=== PATIENT | male | born 1970 | race Caucasian/White ===

== ENCOUNTER 2019-09-01 11:30 | Outpatient (CLI) | payer MEDICAID, SELFPAY ==
--- NOTE | 2019-09-01 11:35 | XR_ITS ---
WS: [id number] RIGHT FOOT: 3 VIEW(S) TECHNIQUE: AP, oblique and lateral. HISTORY: RIGHT FOOT PAIN COMPARISON: None available. No acute fracture or dislocation. Foreign body in the distal fifth metatarsals probably from prior ledezma rgery. Normal tarsal/metatarsal alignment. No soft tissue abnormality or bone destruction. XR/XR foot RT min 3V* [id number] IMPRESSION: No acute fracture identified.
== END 2019-09-01 11:31 | disposition home or self-care (01) ==
PROVIDERS: Family Provider Family Medicine; PCP Family Medicine; Visit Provider Family Medicine
DX: M79.671 Pain in right foot (principal)
CPT/HCPCS: 73630

== ENCOUNTER → 2019-11-07 08:02 | Outpatient (BNVA) | payer MEDICAID, SELFPAY | PROVIDERS: Family Provider Family Medicine; PCP Family Medicine; Visit Provider Nurse Practitioner Psychiatric/Mental Health | DX: F33.2 Major depressive disorder, recurrent severe without psychotic features (principal); F41.1 Generalized anxiety disorder; F15.21 Other stimulant dependence, in remission; F43.12 Post-traumatic stress disorder, chronic; F17.210 Nicotine dependence, cigarettes, uncomplicated | CPT/HCPCS: 99214 ==

== ENCOUNTER → 2019-12-11 07:28 | Outpatient (BNVA) | payer MEDICAID, SELFPAY | PROVIDERS: Family Provider Family Medicine; PCP Family Medicine; Visit Provider Nurse Practitioner Psychiatric/Mental Health | DX: F33.2 Major depressive disorder, recurrent severe without psychotic features (principal); F41.1 Generalized anxiety disorder; F15.21 Other stimulant dependence, in remission; F43.12 Post-traumatic stress disorder, chronic; F17.210 Nicotine dependence, cigarettes, uncomplicated; F12.20 Cannabis dependence, uncomplicated; F10.20 Alcohol dependence, uncomplicated | CPT/HCPCS: 99213 ==

== ENCOUNTER 2020-03-10 17:48 | Inpatient (IN) | payer MEDICAID, SELFPAY ==
[2020-03-10 17:48] VITALS: PULSE 118; RESP 18; TEMP 36.6; O2SAT 95; BMI 27.1
[2020-03-10] MEDS: haloperidol inj 5 mg/mL INJ 1 mL IM ×2 (18:02→18:38)
[2020-03-10] MEDS: diphenhydrAMINE 50 mg/mL SDV 1mL IM (18:02)
[2020-03-10] MEDS: LORazepam 2 mg/mL INJ 1 mL IM (18:02)
[2020-03-10] MEDS: nicotine 21 mg Patch 1 PATCH TRANSDERMA (18:54)
--- NOTE | 2020-03-10 19:10 | W.ED.PSYCH ---
HPI - Psych General: Chief Complaint: Psychiatric Symptoms Stated Complaint: SI Time Seen by Provider: 03/10/20 18:01 Review of Systems General: Reports: ROS unobtainable due to mental status PFSH ED PFSH: Medical History Alcohol dependence Amphetamine substance use disorder, moderate, in early remission Cannabis dependence with current use Chronic post-traumatic stress disorder Generalized anxiety disorder Major depressive disorder, recurrent severe without psychotic features Nicotine dependence, cigarettes, uncomplicated Physical Exam Const: COMMON NORMALS: patient oriented x3 and alert GENERAL APPEARANCE: anxious, combative and appears older than stated age HENMT: COMMON NORMALS: normocephalic, atraumatic, external ears normal, EAC's normal and Normal external nose present HEAD & SCALP: normal to inspection, normocephalic and atraumatic FACE & SINUS: normal facial exam and face symmetric NOSE: Normal external nose present and Normal nares present EXTERNAL EAR: Yes external ears normal EXTERNAL AUDITORY CANAL: EAC's normal MOUTH: Normal oral and palatal mucosa present, lip normal and tongue normal Eye: COMMON NORMALS: Equal, round and reactive pupils present and conjunctivae normal GENERAL EYE: appearance normal, both eyes and all related structures ALIGNMENT: Yes alignment normal PERIORBITAL: periorbital findings normal EYELID: eyelids normal CONJUNCTIVA: Yes conjunctivae normal SCLERA: sclerae normal PUPIL: Yes Equal, round and reactive pupils present Neck/C-Spine: COMMON NORMALS: full ROM, no lymphadenopathy, supple, no meningeal signs and no JVD GENERAL: Yes normal visual inspection and Yes trachea midline Chest: COMMONS NORMALS: normal inspection of the chest and normal palpation of entire chest wall Resp: COMMON NORMALS: normal respiratory effort, No retractions, No use of accessory muscles and clear to auscultation bilaterally EFFORT & INSPECTION: Yes able to speak in complete sentences and Yes symmetric chest movement AUSCULTATION: clear to auscultation bilaterally, no crackles, no rales, no rhonchi and no wheezes Cardio: COMMON NORMALS: no JVD, regular rate, regular rhythm, S1 normal heart sound present and S2 normal heart sound present RATE: regular rate RHYTHM: regular rhythm HEART SOUNDS: S1 normal heart sound present, S2 normal heart sound present, no click, no gallops, no murmurs and no rubs GI: COMMON NORMALS: Soft to palpation and No hepatosplenomegaly present PALPATION: Yes Soft to palpation, No Tenderness to palpation present (GI), No Guarding due to palpation present (GI), No Rigid due to palpation, Yes No hepatosplenomegaly present, No Hernia present, No Palpable mass present and No Pulsatile mass present : COMMON NORMALS: Yes no CVA tenderness BLADDER/KIDNEY EXAM: Yes no CVA tenderness Back/Pelvis: COMMON NORMALS: no CVA tenderness, thoracic and lumbar spine normal to inspection, no thoracic nor lumbar tenderness and thoraco-lumbar ROM normal Extremity: COMMON NORMALS: normal to inspection, full ROM, capillary refill normal, no joint enlargement, no clubbing, cyanosis or edema and no calf tenderness Neuro: COMMON NORMALS: patient oriented x3, CN's II-XII intact bilaterally, moves all extremities, no focal motor deficits and no sensory deficits noted SENSORIUM/ORIENTATION: Yes alert MENINGEAL SIGNS: Yes no meningeal signs SPEECH: speech normal Psych: APPEARANCE: Yes disheveled ATTITUDE: Yes paranoid, Yes uncooperative, Yes Belligerent attititude/behavior present, Yes agitated, Yes aggressive and Yes hostile ACTIVITY/MOTOR BEHAVIOR: Yes Avoids eye contact (attititude/behavior) SPEECH: Yes loud and Yes Pressured speech present MOOD & AFFECT: Yes anxious, Yes irritable and Yes hostile affect THOUGHT CONTENT: Yes Suicidality present and Yes Homicidality present INSIGHT: Poor insight present (Psych) JUDGEMENT: Poor judgement present (Psych) Skin: COMMON NORMALS: no rashes or lesions noted, turgor normal, no jaundice, no petechiae and no mottling GENERAL SKIN EXAM: no rashes or lesions noted and turgor normal MDM - Psych MDM Narrative: Medical decision making narrative: The case was reviewed with Dr. Ness, he agrees to admit for further evaluation and care and stabilization. Patient is aware is been placed under 96-hour hold. Lab Data: Attestation: I reviewed the patient's lab results. Discharge Plan Discharge Patient Disposition: Admitted As Inpatient Clinical Impression: Suicidal ideation, Acute psychosis, Homicidal ideations Condition: Stable Prescriptions: No Action quetiapine [Seroquel] 100 mg tablet 100 mg PO .QHS Qty: 30 RF: 4 Referrals: Roque Gonzalez DO [Primary Care Provider] - Coding Level of Care Code ED Medical Surgery Nurse for [facility]
[2020-03-10 20:05] LABS: Basophils # 0.1 10^3/uL (0.0-0.1); Basophils % 0.5 %; Eosinophils # 0.1 10^3/uL (0.0-0.8); Hematocrit 53.9 % (42.0-52.0); Hemoglobin 17.9 g/dL (11.7-16.6); Lymphocytes # 2.9 10^3/uL (0.8-4.8); Lymphocytes % 27.3 %; Mean Corpuscular HGB Conc 33.2 g/dL (30.0-36.0); Mean Corpuscular Hemoglobin 30.2 pg (28.0-34.0); Mean Platelet Volume 9.8 fL (7.4-10.4); Monocytes # 0.6 10^3/uL (0.2-0.9); Monocytes % 5.2 %; Neutrophils # 7.04 10^3/uL (1.8-7.7); Neutrophils % 65.7 %; Nucleated Red Blood Cells % 0 %; Platelet Count 330 10^3/cmm (130-400); Red Blood Count 5.92 10^6/uL (4.1-5.3); Red Cell Distribution Width 11.9 % (12.1-15.1); White Blood Count 10.7 10^3/uL (4.0-10.0)
[2020-03-10 20:33] LABS: Alanine Aminotransferase 31 U/L (0-41); Albumin Level 4.5 g/dL (3.5-5.2); Alcohol Level 144 mg/dL (0-10); Alkaline Phosphatase 101 IU/L (40-130); Anion Gap 16.7 (5-19); Aspartate Amino Transferase 20 U/L (0-40); Blood Urea Nitrogen 10 mg/dL (6-20); Calcium 9.4 mg/dL (8.5-10.5); Carbon Dioxide 24 mmol/L (22-29); Chloride 101 mmol/L (98-107); Globulin 2.9 g/dL (1.3-4.6); Glomerular Filtration Rate 79.1 mL/min (90-130); Glucose 92 mg/dL (65-115); Osmolality Calculated 285 mOsm/kg (285-295); Potassium 3.7 mmol/L (3.5-5.1); Sodium 138 mmol/L (136-145); Total Bilirubin 0.3 mg/dL (0.15-1.2); Total Protein 7.4 g/dL (6.6-8.7)
[2020-03-10 20:35] LABS: Acetaminophen < 5.0 ug/mL (10-30); Salicylate < 0.3 mg/dL (3-10)
--- NOTE | 2020-03-10 21:36 | PC.NURSE ---
pt refuses to provide a urine specimen at this time. notified.
[2020-03-10 21:37] VITALS: BP 164/72; PULSE 88; RESP 16; O2SAT 96
--- NOTE | 2020-03-10 21:44 | PC.NURSE ---
pt report called to RN in SBAR format.
--- NOTE | 2020-03-10 21:50 | PC.NURSE ---
Report from Ed Pt brought in by police with SI. Bal 144 no UDS results. Hostile, aggressive in ED. Thrashing about while handcuffed. Given a total of 2mg IM Ativan, 50mg IM Benedryl, and 10mg Haldol IM during ED stay. last dose of Haldol was given at 1830. He has a nicotine patch on . Is aware that he has a 96hr hold in place quick to arouse. Holding his head on admission to NPU. Calm as he came in.
[2020-03-10 22:06] VITALS: BP 119/82; PULSE 76; RESP 17; TEMP 36.4; O2SAT 99
[2020-03-10] MEDS: acetaminophen 325 mg Tablet 650 MG PO (22:15)
[2020-03-10] MEDS: ondansetron 4 MG Tablet PO (22:16)
[2020-03-10] MEDS: hyDROXYzine 25 mg Capsule 50 MG PO (22:16)
[2020-03-10] MEDS: trazodone 50 mg Tablet PO (22:16)
[2020-03-10 22:54] LABS: Add Urine Microscopic? YES; Bilirubin Urine Neg (Negative); Blood Urine Neg (Negative); Glucose Urine UA Norm (Normal); Ketones Urine Negative (Negative); Leukocyte Esterase Urine Negative (Negative); Nitrate Urine Negative (Negative); Protein Urine Neg (Negative); Urine Appearance Hazy (CLEAR); Urine Color Yellow (Yellow); Urobilinogen Urine Norm (Negative); pH Urine 5 (5-7)
[2020-03-10 23:05] LABS: Add Urine Culture? No; Bacteria Urine TRACE /hpf
[2020-03-10 23:50] LABS: Amphetamines Screen Urine Positive (Negative); Barbiturates Screen Urine Negative (Negative); Benzodiazepines Screen Urine Positive (Negative); Cocaine Screen Urine Negative (Negative); Opiate Screen Urine Negative (Negative); PCP Screen Urine Negative (Negative); THC Screen Urine Positive (Negative)
[2020-03-11] MEDS: LORazepam 2 mg Tablet PO (03:35)
--- NOTE | 2020-03-11 03:36 | PC.NURSE ---
patient awoke with increased s/s of withdrawal. CIWA score if 13. 2mg Ativan given per protocol.
[2020-03-11 06:00] VITALS: BP 121/65; PULSE 95; RESP 17; TEMP 37.1; O2SAT 98
[2020-03-11] MEDS: multivitamin therapeutic Tablet 1 TAB PO (08:04)
[2020-03-11] MEDS: folic acid 1 mg Tablet PO (08:04)
[2020-03-11] MEDS: thiamine 100 mg Tablet PO (08:04)
[2020-03-11] MEDS: acetaminophen 325 mg Tablet 650 MG PO ×2 (11:44→19:34)
[2020-03-11] MEDS: LORazepam 1 mg Tablet PO ×2 (12:54→20:42)
[2020-03-11 13:47] VITALS: BP 118/77; PULSE 86; RESP 20; TEMP 36.7; O2SAT 96
--- NOTE | 2020-03-11 14:07 | PM.NHP ---
Providers/Chief Complaint Admitting Physician: Woodrow Ness MD Primary Care Provider: Roque Gonzalez DO Chief Complaint: SI HPI NPU History of Present Illness I have done this too many times. This is just a consequence for the life I have led. Jose Roberto Dumont is a 49 year old male who was admitted to the adult psychiatric unit on the strength of an affidavit filed by local police. Apparently, the officer was dispatched to the patient's home. It is unclear how police became aware that this man was suicidal. While being questioned, he made suicidal statements and that he wished we would just shoot him. The patient denies at this time that he is having thoughts of ending his life. He says that he is in acute crisis after having lost his job. He says that he is a lifetime of partying and he is suffering the consequences. Apparently, he was partying over the weekend. 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 He subsequently got to work, and passed out in the parking lot. He has now been terminated from his employment. He apparently then went back to where he was staying which is with his mother. His urine drug screen is positive for methamphetamine, marijuana, benzodiazepines, and his blood alcohol level was 144. He says that at this point, his major concern is being in the substance abuse withdrawal. We tried to discuss issues of mental health treatment. He said that he has been through it all and has been treated with all kinds of medications. None have worked. He is not interested in more medication treatment. We discussed his substance abuse history. He says that recently, he has been drinking between 5 and 10 shots per night. It is unknown if this is accurate. He uses marijuana on a regular basis. He says the methamphetamine and benzodiazepines are not a persistent problem for him and that it was more of a self-destructive act. He denied suicidal or homicidal ideation. He denied the presence of auditory or visual hallucinations. He refused to discuss symptoms of depression. He apparently has engaged in substance use in a maladaptive manner for most of his life. He says that his divorce and his estrangement from one of his 2 children is all due to his behavior when he has been inebriated or intoxicated. He has been through rehab on multiple occasions. He said that it provides him no benefit. He says the most effective intervention has been his active participation in either Alcoholics Anonymous or Narcotics Anonymous. He does not have a sponsor at this time. He has not been attending either at this time. Past psychiatric history: The patient was not conversant about his past psychiatric history and is not believed to be a reliable informant in that manner. However we do have records from hospitalization in March 2017: Mar 21, 2017 Chief Complaint: Suicidal ideation and depression HPI: Mr. Dumont is a 46-year-old male who presented to the [facility] ED with complaint of worsening depression and suicidal ideation with increase intensity over the past month. He admits to depression symptoms characterized by depressed mood associated with low energy, low motivation, describing it as debilitating , with suicidal ideation, hopelessness, low self efficacy, low self-esteem, irritability, and negative self talk. He does also admit to associated anxiety in the form of worry and panic, and racing thoughts with ruminations, and sometimes feels quite paranoid. He denies any associated hallucinations, he denies any current symptoms consistent with claudia or hypomania. Reports marijuana use of the frequency of 2 times per week, most recently used methamphetamines in 02/27/2017, and admixed ongoing cravings. Recently he also reports using OxyContin, but denies any alcohol use. Mr. Dumont is a 46-year-old male who appears to have had a long history of depression episodes since his early 20s has been complicated by a lifetime associated with relapsing and alcohol and substance use. As he presents today his symptoms of depression are quite severe, characterized by hopelessness low self-esteem, which in turn appeared to support his ruminations about regrets for the past, fair for his future, and anxiety in the present. He spends a fair amount of this time feeling ashamed and miserable . His symptom presentation is also supported by his recent substance use, and also by his current psychosocial consequences. Patient reports a history of intravenous drug use and at this time is not interested in being screened for hepatitis or HIV. Brief History: Mr. Dumont is a 46-year-old male who presented to the [facility] ED with complaint of worsening depression and suicidal ideation with increase intensity over the past month. He admits to depression symptoms characterized by depressed mood associated with low energy, low motivation, describing it as debilitating , with suicidal ideation, hopelessness, low self efficacy, low self-esteem, irritability, and negative self talk. He does also admit to associated anxiety in the form of worry and panic, and racing thoughts with ruminations, and sometimes feels quite paranoid. He denies any associated hallucinations, he denies any current symptoms consistent with claudia or hypomania. Reports marijuana use of the frequency of 2 times per week, most recently used methamphetamines in 02/27/2017, and admixed ongoing cravings. Recently he also reports using OxyContin, but denies any alcohol use. Hospital Course: Patient was admitted to the NPU and after several discussions regarding his symptoms and his history of substance use, we agreed that he will most likely struggles with bipolar disorder type II, complicated by a long history of intermittent substance and alcohol use. He was treated methamphetamine withdrawal. It also became quite clear the patient experiences significant anxiety, in the form of persisting worry, rumination, with somatic components including nausea, and insomnia. For this reason after long discussion we agreed to a trial of schedule clonazepam, and understanding that this may be challenging to continue the outpatient side, we created a benzodiazepine treatment contract that outlines expectations with regard to his use of clonazepam, and the expectation that his mother will be the person that will be the primary dispenser of this medication for him. In addition he was started on Depakote, sertraline, and trazodone. By the day of discharge his symptoms were much improved, there are no psychotic symptoms, his mood symptoms were more stable, his anxiety was under better control, and he was future oriented. As part of his outpatient treatment plan he is connecting with and will citing a sponsor. Incoordination with case management services, he was connected with a prescribing provider, and case management services at [facility] [place]. Clonazepam Tab (Klonopin Tab) 1.5 MG PO QID Divalproex ER (Depakote ER) 1500 MG PO DAILY, Sertraline Tab (Zoloft Tab) 200 MG PO DAILY, Take 1 and 1/2 tablet once daily for 14 days, then increase to 2 tablets once daily Naltrexone Hcl Tab (Revia Tab) 50 Mg daily Trazodone Tab (Trazodone Tab) 150 Mg Tablet BEDTIME PRN for FOR SLEEP, Review of Systems Narrative: Review of Systems Constitutional: Complains of: Fatigue Eyes: Complains of: No eye symptoms ENT/Mouth: Complains of: No ENTM symptoms Cardiovascular: Complains of: No cardiac symptoms Respiratory: Complains of: No respiratory symptoms GI: Complains of: No GI symptoms Neuro: Complains of: No neuro symptoms Musculoskeletal: Complains of: No musculoskeletal symptoms Skin: Complains of: No skin symptoms Hematologic/Lymphatic: Complains of: No hematologic/lymphatic symptoms Endocrine: Complains of: No endocrine symptoms : Complains of: No symptoms Psych: Complains of: Depression, Suicide ideation Meds NPU Home Medications Medication Instructions Recorded Confirmed Last Taken Type Seroquel 100 mg tablet 100 mg PO .QHS #30 tab NS 11/07/19 03/10/20 03/09/20 Rx Allergies Allergy/AdvReac Type Severity Reaction Status Date / Time No Known Allergies Allergy Unverified 03/10/20 17:52 PFSH NPU PFSH: Medical History Alcohol dependence Amphetamine substance use disorder, moderate, in early remission Cannabis dependence with current use Chronic post-traumatic stress disorder Generalized anxiety disorder Major depressive disorder, recurrent severe without psychotic features Nicotine dependence, cigarettes, uncomplicated Mental Status Exam MSE Comments: Mental Status Exam: The patient is a tall well muscular male appearing approximately his stated age. Eye contact is good. His complexion is vadim and he appears fatigued. Eyes are downcast. Psychomotoric activity is decreased. He sits in a closed posture. Appearance: hygiene is fair; no gross neurological deficits., gait is unremarkable; AIMS=0 Speech: Speech is of normal rate and rhythm and easily understood. He speaks in short sentences. The answers are pertinent to the questions asked but he does not elaborate. Thought processes: Thought processes are abstract. Judgment is adequate for safety. Associations: intact Psychotic processes: There is no indication of guarding or paranoia. There is no attention to the internal stimuli. Auditory and visual hallucinations are denied. Judgment: Insight is fair. Problem solving skills are adequate for safety. Orientation: The patient is oriented to person, place time and situation. Memory: no deficits noted in immediate, intermediate, or remote spheres. Attention: The patient is alert and interpersonally engaged. Language: Verbalizations are coherent. Fund of knowledge: Fund of knowledge is adequate. Affect/Mood: Affect is consistent with a depressed mood. pt denies suicidal ideation Affective range is constricted Psychosis: perception unimpaired except through cognitive distortion; reality testing intact. Vitals/I&O/Wt Last Vital Signs Temp 98.1 F 03/11/20 13:47 Pulse 86 03/11/20 13:47 Resp 20 H 03/11/20 13:47 BP 118/77 03/11/20 13:47 Pulse Ox 96 03/11/20 13:47 Weight last 48 hrs Weight 90.718 kg Data NPU : 03/10/20 19:49 03/10/20 19:49 A&P Assessment and plan (1) Suicidal ideation: Status: Acute (2) Alcohol dependence: Status: Acute Qualifiers: Substance use status: with intoxication Complication of substance-induced condition: uncomplicated Qualified Code(s): F10.220 - Alcohol dependence with intoxication, uncomplicated (3) Amphetamine substance use disorder, moderate, in early remission: Status: Chronic (4) Alcohol intoxication: Status: Acute Qualifiers: Complication of substance-induced condition: uncomplicated Qualified Code(s): F10.920 - Alcohol use, unspecified with intoxication, uncomplicated (5) Amphetamine intoxication: Status: Acute Qualifiers: Complication of substance-induced condition: uncomplicated Qualified Code(s): F15.920 - Other stimulant use, unspecified with intoxication, uncomplicated Additional A&P Information Due to the psychiatric conditions and treatment listed in the Assessment and Plan - the patient requires continued hospitalization. Will provide a safe and therapeutic environment for patient.. Will continue inpatient treatment to allow for medication adjustment and monitoring. Will continue q15 min safety checks. Admission plan: It is likely that his assessment that this mental health issue is driven primarily by alcohol and substance abuse is accurate. He was not inclined to discuss mental health interventions outside of alcohol and substance abuse. At this point, he was motivated to get through the withdrawal period and feel better so that he could think more clearly. We did not discuss issues of treatment with antidepressants or other medications. He was started on Seroquel 100 mg at bedtime and Ativan 1 mg 3 times daily which will be tapered throughout the withdrawal. He is on the CIWA protocol. Monitor patient's mood, sleep, appetite, and behavior closely. Encourage patient to participate in individual and group therapeutic sessions on the mohan. Estimated length of stay 5 days The expected benefits and potential side effects of patient's psychiatric medications were discussed with the patient. The patient understands and consents to treatment. CRITERIA FOR DISCHARGE: stable on medications and no longer an imminent threat to self or others Involuntary Hold Information 96 Hour Hold: 96 Hour Involuntary Admission: Yes 96 Hour Hold Ending Date: 03/16/20 96 Hour Hold Ending Time: 18:50 Attestations NPU Medical Necessity Statement*: Patient remained in the hospital another 3-5 nights for the duration of his 96-hour involuntary commitment. Coding Level of Care Code Acute Scientific Laboratory Supervisor for [facility] Fwd Diagnoses Suicidal ideation R45.851 Alcohol dependence F10.220 Substance use status: with intoxication Complication of substance-induced condition: uncomplicated Amphetamine substance use disorder, moderate, in early remission F15.21 Alcohol intoxication F10.920 Complication of substance-induced condition: uncomplicated Amphetamine intoxication F15.920 Complication of substance-induced condition: uncomplicated
[2020-03-11] MEDS: ondansetron 4 MG Tablet PO (19:34)
[2020-03-11 19:43] VITALS: BP 118/74; PULSE 91; RESP 17; TEMP 37.1; O2SAT 92
[2020-03-11] MEDS: trazodone 50 mg Tablet PO (20:42)
[2020-03-11] MEDS: hyDROXYzine 25 mg Capsule 50 MG PO (20:42)
[2020-03-11] MEDS: quetiapine 100 mg Tablet PO (20:42)
[2020-03-12 06:00] VITALS: BP 134/87; PULSE 71; RESP 14; TEMP 36.7; O2SAT 92
[2020-03-12] MEDS: LORazepam 1 mg Tablet PO (07:36)
[2020-03-12] MEDS: folic acid 1 mg Tablet PO (07:37)
[2020-03-12] MEDS: thiamine 100 mg Tablet PO (07:37)
[2020-03-12] MEDS: multivitamin therapeutic Tablet 1 TAB PO (07:37)
--- NOTE | 2020-03-12 09:25 | PM.NDC ---
Diagnoses at Discharge Discharge Diagnosis (1) Suicidal ideation: Status: Resolved (2) Alcohol dependence: Status: Resolved Qualifiers: Substance use status: with intoxication Complication of substance-induced condition: uncomplicated Qualified Code(s): F10.220 - Alcohol dependence with intoxication, uncomplicated (3) Amphetamine substance use disorder, moderate, in early remission: Status: Chronic (4) Alcohol intoxication: Status: Resolved Qualifiers: Complication of substance-induced condition: uncomplicated Qualified Code(s): F10.920 - Alcohol use, unspecified with intoxication, uncomplicated (5) Amphetamine intoxication: Status: Resolved Qualifiers: Complication of substance-induced condition: uncomplicated Qualified Code(s): F15.920 - Other stimulant use, unspecified with intoxication, uncomplicated Reason for Visit Reason for Visit: SI Brief History: History of Present Illness I have done this too many times. This is just a consequence for the life I have led. Jose Roberto Dumont is a 49 year old male who was admitted to the adult psychiatric unit on the strength of an affidavit filed by local police. Apparently, the officer was dispatched to the patient's home. It is unclear how police became aware that this man was suicidal. While being questioned, he made suicidal statements and that he wished we would just shoot him. The patient denies at this time that he is having thoughts of ending his life. He says that he is in acute crisis after having lost his job. He says that he is a lifetime of partying and he is suffering the consequences. Apparently, he was partying over the weekend. 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 He subsequently got to work, and passed out in the parking lot. He has now been terminated from his employment. He apparently then went back to where he was staying which is with his mother. His urine drug screen is positive for methamphetamine, marijuana, benzodiazepines, and his blood alcohol level was 144. He says that at this point, his major concern is being in the substance abuse withdrawal. We tried to discuss issues of mental health treatment. He said that he has been through it all and has been treated with all kinds of medications. None have worked. He is not interested in more medication treatment. We discussed his substance abuse history. He says that recently, he has been drinking between 5 and 10 shots per night. It is unknown if this is accurate. He uses marijuana on a regular basis. He says the methamphetamine and benzodiazepines are not a persistent problem for him and that it was more of a self-destructive act. He denied suicidal or homicidal ideation. He denied the presence of auditory or visual hallucinations. He refused to discuss symptoms of depression. He apparently has engaged in substance use in a maladaptive manner for most of his life. He says that his divorce and his estrangement from one of his 2 children is all due to his behavior when he has been inebriated or intoxicated. He has been through rehab on multiple occasions. He said that it provides him no benefit. He says the most effective intervention has been his active participation in either Alcoholics Anonymous or Narcotics Anonymous. He does not have a sponsor at this time. He has not been attending either at this time. Hospital Course Hospital Course Assessment and plan (1) Suicidal ideation: Status: Acute (2) Alcohol dependence: Status: Acute Qualifiers: Substance use status: with intoxication Complication of substance-induced condition: uncomplicated Qualified Code(s): F10.220 - Alcohol dependence with intoxication, uncomplicated (3) Amphetamine substance use disorder, moderate, in early remission: Status: Chronic (4) Alcohol intoxication: Status: Acute Qualifiers: Complication of substance-induced condition: uncomplicated Qualified Code(s): F10.920 - Alcohol use, unspecified with intoxication, uncomplicated (5) Amphetamine intoxication: Status: Acute Qualifiers: Complication of substance-induced condition: uncomplicated Qualified Code(s): F15.920 - Other stimulant use, unspecified with intoxication, uncomplicated Additional A&P Information Due to the psychiatric conditions and treatment listed in the Assessment and Plan - the patient requires continued hospitalization. Will provide a safe and therapeutic environment for patient.. Will continue inpatient treatment to allow for medication adjustment and monitoring. Will continue q15 min safety checks. Admission plan: It is likely that his assessment that this mental health issue is driven primarily by alcohol and substance abuse is accurate. He was not inclined to discuss mental health interventions outside of alcohol and substance abuse. At this point, he was motivated to get through the withdrawal period and feel better so that he could think more clearly. We did not discuss issues of treatment with antidepressants or other medications. He was started on Seroquel 100 mg at bedtime and Ativan 1 mg 3 times daily which will be tapered throughout the withdrawal. He is on the CIWA protocol. Hospital day #3: Patient was exhibiting no signs of alcohol withdrawal. He reported that he was doing well. He was despondent about having to go home and look for a job. However he stated he was not going to be able to accomplish that while in the hospital and was requesting discharge. He was not an imminent risk to self or others. His wish was granted. Involuntary Hold Information 96 Hour Hold: 96 Hour Involuntary Admission: Yes 96 Hour Hold Ending Date: 03/16/20 96 Hour Hold Ending Time: 18:50 Mental Status Exam MSE Comments: Discharge Mental Status Exam: Appearance: hygiene is good; no gross neurological deficits., gait is unremarkable; AIMS=0 Speech: Speech is of normal rate and rhythm and easily understood. Thought processes: Thought processes are abstract. Judgment is adequate for safety. Associations: intact Psychotic processes: There is no indication of guarding or paranoia. There is no attention to the internal stimuli. Auditory and visual hallucinations are denied. Judgment: Insight is fair. Problem solving skills are adequate for safety. Orientation: The patient is oriented to person, place time and situation. Memory: no deficits noted in immediate, intermediate, or remote spheres. Attention: The patient is alert and interpersonally engaged. Language: Verbalizations are coherent. Fund of knowledge: Fund of knowledge is adequate. Affect/Mood: Affect is consistent with a euthymic mood. denied suicidal ideation Affective range is appropriate. Psychosis: perception unimpaired except through cognitive distortion; reality testing intact. Discharge Data Vitals: Last Vital Signs Temp 98.1 F 03/12/20 06:00 Pulse 71 03/12/20 06:00 Resp 14 03/12/20 06:00 BP 134/87 03/12/20 06:00 Pulse Ox 92 03/12/20 06:00 Discharge Plan Discharge Patient Disposition: Home Condition: Stable Prescriptions: New quetiapine 100 mg Tablet 100 mg PO BEDTIME Qty: 30 RF: 1 folic acid 1 mg Tablet 1 mg PO DAILY Qty: 30 RF: 0 lorazepam 1 mg Tablet 0.5 mg PO TID Qty: 10 RF: 0 Vitamin B-1 (mononitrate) 100 mg Tablet 100 mg PO DAILY Qty: 30 RF: 0 Thera 400 mcg Tablet 1 tab PO DAILY Qty: 30 RF: 0 Discontinued quetiapine [Seroquel] 100 mg tablet 100 mg PO .QHS Qty: 30 RF: 4 Discharge Orders: Discharge Order (Routine); Ordered 03/12/20 Ordered By: Woodrow Ness Referrals: [facility] [Outside] Roque Gonzalez DO [Primary Care Provider] - Discharge Attestations NPU Time Spent in Discharge Care*: greater than 30 min Coding Level of Care Code Acute Shrimp Picker for g Fwd Diagnoses Suicidal ideation R45.851 Alcohol dependence F10.220 Substance use status: with intoxication Complication of substance-induced condition: uncomplicated Amphetamine substance use disorder, moderate, in early remission F15.21 Alcohol intoxication F10.920 Complication of substance-induced condition: uncomplicated Amphetamine intoxication F15.920 Complication of substance-induced condition: uncomplicated
[2020-03-12 09:35] VITALS: BP 134/87; PULSE 71; RESP 14; TEMP 36.7; O2SAT 92
== END 2020-03-12 11:20 | disposition home or self-care (01) | DRG 897 ==
LOC: ER 19:13 → NP 21:33
PROVIDERS: Nurse Practitioner Family; Admitting Provider Psychiatry & Neurology Psychiatry; Family Provider Family Medicine; PCP Family Medicine; Visit Provider Psychiatry & Neurology Psychiatry
DX: F10.229 Alcohol dependence with intoxication, unspecified (principal); F33.2 Major depressive disorder, recurrent severe without psychotic features; R45.851 Suicidal ideations; Y90.6 Blood alcohol level of 120-199 mg/100 ml; F15.229 Other stimulant dependence with intoxication, unspecified; F12.20 Cannabis dependence, uncomplicated; F43.12 Post-traumatic stress disorder, chronic; F41.1 Generalized anxiety disorder; F17.210 Nicotine dependence, cigarettes, uncomplicated
CPT/HCPCS: 12345; 80053; 80306; 80307; 81001; 85025; 96372; 99284; J1200; J1630; J2060; Q0162

== ENCOUNTER 2020-04-23 13:42 | Emergency (ER) | payer MEDICAID, SELFPAY ==
[2020-04-23 13:47] VITALS: BP 160/94; PULSE 116; RESP 20; TEMP 37.1; O2SAT 99; BMI 30.8
--- NOTE | 2020-04-23 14:04 | ED_ITS ---
HPI - Skin/Abscess/Foreign Bdy General: Chief complaint: Skin/Abscess/Foreign Body Stated complaint: left arm rash Time Seen by Provider: 04/23/20 14:03 History of Present Illness: HPI narrative: Patient is a 49-year-old male comes to the ED with left forearm redness and tenderness. Patient says he is an IV drug user and shot up two days ago. Yesterday evening he noticed redness, swelling on the left forearm where he injected drugs. Associated symptoms: Deny chills, fever(s), nausea or vomiting Review of Systems Const: Denies: fever(s), chills or fatigue Eyes: Denies: change in vision or eye discomfort ENMT: Denies: throat pain, odynophagia, nasal discharge or nasal congestion Card: Denies: chest pain, palpitations, edema, swelling of feet/ankles, dyspnea on exertion or orthopnea Resp: Denies: dyspnea, productive cough or non-productive cough GI: Denies: abdominal pain, nausea, vomiting, diarrhea, constipation or hematochezia : Denies: flank pain, difficulty urinating, dysuria or hematuria Musc: Denies: neck pain, back pain or extremity swelling Skin/Breast: Reports: new lesions (Abscess on left forearm.); Denies: rash Neuro: Denies: headache(s), numbness in extremities or weakness in extremities PFS ED PFSH: Medical History Alcohol dependence Amphetamine substance use disorder, moderate, in early remission Cannabis dependence with current use Chronic post-traumatic stress disorder Generalized anxiety disorder Major depressive disorder, recurrent severe without psychotic features Nicotine dependence, cigarettes, uncomplicated Physical Exam Const: COMMON NORMALS: no acute distress, patient oriented x3 and alert GENERAL APPEARANCE: cooperative and comfortable HENMT: COMMON NORMALS: normocephalic HEAD & SCALP: normocephalic MOUTH: Normal oral and palatal mucosa present THROAT: posterior oropharynx normal and uvula midline Neck/C-Spine: COMMON NORMALS: supple GENERAL: Yes normal visual inspection Resp: COMMON NORMALS: normal respiratory effort, No retractions, No use of accessory muscles and clear to auscultation bilaterally AUSCULTATION: clear to auscultation bilaterally Cardio: COMMON NORMALS: regular rate, regular rhythm, S1 normal heart sound present, S2 normal heart sound present, No gallops present (Cardio), No clicks present (Cardio), No murmurs present (Cardio) and Peripheral pulses 2+ throughout RATE: regular rate RHYTHM: regular rhythm HEART SOUNDS: S1 normal heart sound present and S2 normal heart sound present PERIPHERAL PULSES: Peripheral pulses 2+ throughout GI: COMMON NORMALS: Normal to inspection, nondistended, normoactive bowel sounds present, Soft to palpation, non-tender and no masses PALPATION: Yes Soft to palpation : COMMON NORMALS: Yes no CVA tenderness BLADDER/KIDNEY EXAM: Yes no CVA tenderness Back/Pelvis: COMMON NORMALS: no CVA tenderness Extremity: NARRATIVE EXTREMITY EXAM: Patient has 1.5 cm in diameter abscess on left forearm. Abscess is fluctuant and not indurated. Tender to palpation along with some warmth and surrounding erythema. GENERAL: Yes normal exam except as noted Neuro: COMMON NORMALS: patient oriented x3 and moves all extremities SENSORIUM/ORIENTATION: Yes alert Skin: NARRATIVE SKIN EXAM: Patient has 1.5cm in diameter abscess on left forearm. Abscess is fluctuant and not indurated. Tender to palpation along with some warmth and surrounding erythema. Procedures Abscess I/D Site: upper extremity (forearm) Side (if applicable): left Sedation/analgesia: none (pt was given some IM morphine to help with pain.) Local Anesthetic: lidocaine 1% and with epi Amount of anesthesia used (mL): 10 Technique: incised with #11 blade Amount of fluid expressed (mL): 2 (Malodorous purulent drainage.) Irrigation: No Packing used?: none Course Vital Signs: Vital signs: Vital Signs Temperature 98.8 F 04/23/20 13:47 Pulse Rate 103 H 04/23/20 15:43 Respiratory Rate 20 H 04/23/20 15:43 Blood Pressure 144/100 04/23/20 15:43 Pulse Oximetry 98 04/23/20 15:43 MDM - Skin/Abscess/Foreign Bdy MDM Narrative: Medical decision making narrative: Patient is a 49-year-old male who comes to the ED with abscess on left forearm. Patient is an IV drug user and says abscess developed where he shot up in his forearm a couple nights ago. I&D was performed and approximately 2 mL of malodorous purulent drainage came out. Patient was given a dose of IM Rocephin and sent home with a prescription for Bactrim. Follow-up with PCP in 7 to 10 days for reevaluation. Return to ED precautions given. Patient understood and agree with plan. Discharge Plan Discharge Patient Disposition: Home Clinical Impression: Abscess Condition: Stable Prescriptions: New Bactrim DS 800-160 mg tablet 1 tab PO BID 10 Days Qty: 20 RF: 0 No Action quetiapine 100 mg tablet 100 mg PO BEDTIME@2200 RF: 0 folic acid 1 mg tablet 1 mg PO DAILY@0800 RF: 0 lorazepam 1 mg tablet 0.5 mg PO TID@08,15,22 RF: 0 Vitamin B-1 (mononitrate) 100 mg tablet 100 mg PO DAILY@0800 RF: 0 Thera 400 mcg tablet 1 tab PO DAILY@0800 RF: 0 Discharge Orders: Discharge ED (Routine); Ordered 04/23/20 Ordered By: Sukhdev Oro Referrals: Roque Gonzalez DO [Primary Care Provider] - Discharge Diet: Regular Discharge Activity: Resume usual activity Patient Instructions: Abscess Incision and Drainage (ED), Abscess (ED) Activity Restrictions/Additional Instructions: Follow-up with medical provider as directed in 7-10 days for reevaluation. Take medications as prescribed. Return to the ER or your medical provider if condition worsens. Please read and understand discharge instructions. If any questions, please ask. Coding Level of Care Code ED Global Program Manager for Layo Fwhoda Exam Comprehensive
[2020-04-23] MEDS: cefTRIAXone 1,000 mg SDV 1000 MG IM (14:29)
[2020-04-23] MEDS: lidocaine 1% INJ 20 mL IM (14:29)
--- NOTE | 2020-04-23 14:35 | PC.NURSE ---
pt injected into left arm with drugs night before last and developed rash and swelling to left arm last night. distal pulses 3+, sensation wnl, rom wnl, cap refill <3
[2020-04-23 15:40] VITALS: RESP 15; O2SAT 98
[2020-04-23] MEDS: morphine 4 mg/mL SDV 1 mL IM (15:40)
[2020-04-23 15:43] VITALS: BP 144/100; PULSE 103; RESP 20; O2SAT 98
== END 2020-04-23 16:32 | disposition home or self-care (01) ==
PROVIDERS: Emergency Provider Physician Assistant; PCP Family Medicine
DX: L02.414 Cutaneous abscess of left upper limb (principal)
CPT/HCPCS: 10060; 12345; 87070; 87075; 87205; 96372; 99281; 99283; J0696; J2270

== ENCOUNTER 2020-06-09 11:25 | Emergency (ER) | payer MEDICAID, SELFPAY ==
[2020-06-09 11:29] VITALS: BP 167/124; PULSE 109; RESP 16; TEMP 36.3; O2SAT 100; BMI 31.4
--- NOTE | 2020-06-09 11:41 | ED_ITS ---
HPI - Skin/Abscess/Foreign Bdy General: Chief complaint: Skin/Abscess/Foreign Body Stated complaint: R ARM INFECTION Time Seen by Provider: 06/09/20 11:38 History of Present Illness: HPI narrative: The patient is an IV drug abuser who uses methamphetamines as recently as 2 hours ago. He comes to the ER complaining of a right proximal forearm abscess at an injection site. He says he only request to have it drained and be sent home. Denies fevers. Discussed cessation of illicit substances with him in great detail. He is resistant to changing his habits. MD complaint: abscess/boil Severity: mild Quality: sharp Exacerbating factors: none Context: IVDA Associated symptoms: Reports no associated symptoms Review of Systems General: Reports: 10 or more systems reviewed and unremarkable except in HPI and below Const: Denies: fatigue Eyes: Denies: change in vision, blurry vision or eye redness ENMT: Denies: throat pain, swelling of lips/tongue, ear or mastoid pain or nasal congestion Card: Denies: chest pain, palpitations, irregular heart rhythm, edema, dyspnea on exertion or orthopnea Resp: Denies: dyspnea, productive cough or non-productive cough GI: Denies: abdominal pain, diarrhea or GI cramping : Denies: flank pain, urinary frequency or urinary urgency Musc: Denies: neck pain, back pain, extremity pain, joint pain, joint redness, limited range of motion or muscle weakness Skin/Breast: Denies: rash, pruritus, erythema, skin pain or skin tenderness Neuro: Denies: headache(s), numbness in extremities, weakness in extremities, sensory changes, difficulty walking, dizziness, confusion or Slurred speech present Psych: Denies: anxiety or depression Endo: Denies: polyuria All/Imm: Denies: urticaria, throat swelling or tongue swelling PFSH ED PFSH: Medical History (Updated 06/09/20 @ 12:18 by João Shaffer MD) Alcohol dependence Amphetamine use disorder, severe Cannabis dependence with current use Chronic post-traumatic stress disorder Generalized anxiety disorder Major depressive disorder, recurrent severe without psychotic features Nicotine dependence, cigarettes, uncomplicated Social History (Updated 06/09/20 @ 11:35 by Fletcher Seay RN) Smoking and tobacco status: current every day smoker cigarettes Packs smoked per day: 0.25 Alcohol intake: current Alcohol intake frequency: few times a month Substance/Drug Use: current Substance/Drug use type: Amphetamines and Methamphetamine Physical Exam Const: COMMON NORMALS: no acute distress, average body habitus, patient oriented x3, no limitations, healthy appearing, alert and well nourished GENERAL APPEARANCE: cooperative, comfortable, well kempt and well developed ORIENTATION/CONSCIOUSNESS: Yes awake, Yes oriented to person, Yes oriented to place and Yes oriented to time HENMT: COMMON NORMALS: normocephalic, external ears normal and Normal external nose present HEAD & SCALP: normal to inspection and normocephalic NOSE: Normal external nose present EXTERNAL EAR: Yes external ears normal MOUTH: Normal oral and palatal mucosa present THROAT: posterior oropharynx normal Eye: COMMON NORMALS: Equal, round and reactive pupils present and EOMs intact bilaterally GENERAL EYE: appearance normal, both eyes and all related structures PUPIL: Yes Equal, round and reactive pupils present Neck/C-Spine: COMMON NORMALS: full ROM, no lymphadenopathy, no meningeal signs and no JVD GENERAL: Yes normal visual inspection Lymph: LYMPHATIC: no lymphadenopathy noted Chest: COMMONS NORMALS: normal inspection of the chest and normal palpation of entire chest wall Resp: COMMON NORMALS: normal respiratory effort, No retractions, No use of accessory muscles, clear to auscultation bilaterally and percussion normal EFFORT & INSPECTION: Yes able to speak in complete sentences AUSCULTATION: clear to auscultation bilaterally PERCUSSION: percussion normal Cardio: COMMON NORMALS: no JVD, regular rate, regular rhythm, S1 normal heart sound present, S2 normal heart sound present and Peripheral pulses 2+ throughout RATE: regular rate RHYTHM: regular rhythm HEART SOUNDS: S1 normal heart sound present and S2 normal heart sound present PERIPHERAL PULSES: Peripheral pulses 2+ throughout GI: COMMON NORMALS: Normal to inspection, nondistended, normoactive bowel sounds present, Soft to palpation, non-tender and no masses INSPECTION: Yes normal to inspection PALPATION: Yes Soft to palpation : COMMON NORMALS: Yes no CVA tenderness BLADDER/KIDNEY EXAM: Yes no CVA tenderness Back/Pelvis: COMMON NORMALS: no CVA tenderness, thoracic and lumbar spine normal to inspection, no thoracic nor lumbar tenderness and thoraco-lumbar ROM normal Extremity: COMMON NORMALS: normal to inspection, full ROM, capillary refill normal, no joint enlargement and no pedal edema GENERAL: Yes normal exam except as noted Neuro: COMMON NORMALS: patient oriented x3, CN's II-XII intact bilaterally, moves all extremities, no focal motor deficits, no sensory deficits noted and gait normal SENSORIUM/ORIENTATION: Yes alert, Yes oriented to person, Yes oriented to place and Yes oriented to time MENINGEAL SIGNS: Yes no meningeal signs Psych: COMMON NORMALS: mental status grossly normal, Normal thought process present, cooperative, normal affect and speech normal APPEARANCE: Yes well kempt ATTITUDE: Yes calm SPEECH: Yes normal speech THOUGHT PROCESS: Normal thought process present Skin: COMMON NORMALS: no rashes or lesions noted GENERAL SKIN EXAM: no rashes or lesions noted Procedures Abscess I/D Site: upper extremity Side (if applicable): right Local Anesthetic: lidocaine 1% (3cc) Amount of anesthesia used (mL): 3 Technique: incised with #11 blade Amount of fluid expressed (mL): 1 Irrigation: Yes Packing used?: none Complications: other (none) Course Vital Signs: Vital signs: Vital Signs Temperature 97.3 F L 06/09/20 11:29 Pulse Rate 109 H 06/09/20 11:29 Respiratory Rate 16 06/09/20 11:29 Blood Pressure 167/124 06/09/20 11:29 Pulse Oximetry 100 06/09/20 11:29 MDM - Skin/Abscess/Foreign Bdy MDM Narrative: Medical decision making narrative: The patient came in with a right proximal forearm abscess from IV drug abuse.. Discussed cessation of illicit substances and alcohol with him in great detail. The patient is resistant to change. Drained a small abscess on his right forearm and gave him Bactrim and ibuprofen. Return to the ER with worsening symptoms increased redness, pain, swelling or any other worrisome symptoms. Discharge Plan Discharge Patient Disposition: Home Clinical Impression: Abscess of skin or subcutaneous tissue Condition: Stable Prescriptions: New Bactrim DS 800-160 mg tablet 1 tab PO BID 10 Days Qty: 20 RF: 0 No Action quetiapine 100 mg tablet 100 mg PO BEDTIME@2200 RF: 0 folic acid 1 mg tablet 1 mg PO DAILY@0800 RF: 0 lorazepam 1 mg tablet 0.5 mg PO TID@08,15,22 RF: 0 Vitamin B-1 (mononitrate) 100 mg tablet 100 mg PO DAILY@0800 RF: 0 Thera 400 mcg tablet 1 tab PO DAILY@0800 RF: 0 Discharge Orders: Discharge ED (Routine); Ordered 06/09/20 Ordered By: João Shaffer Referrals: Roque Gonzalez, [Primary Care Provider] - Discharge Diet: Advance as tolerated Discharge Activity: Resume usual activity Patient Instructions: Abscess Incision and Drainage (ED) Activity Restrictions/Additional Instructions: You have had an abscess drained. Please take the antibiotics as prescribed to help with the remaining infection. Return to the ER with worsening symptoms such as increased pain, swelling, redness, or any other worsening symptoms. Please set up with a primary care provider. Follow-up with them in a few days for a wound check or return to the ER. Also follow-up with [facility]. The phone number is [phone] Please discontinue use of any illicit substances. Coding Level of Care Code ED Ditching Machine Operating Engineer for Layo Sanz Exam Comprehensive
[2020-06-09] MEDS: sulfamethoxazole-trimeth DS 160-800 mg Tablet 1 TAB PO (12:27)
[2020-06-09] MEDS: lidocaine 1% INJ 20 mL SUBCUT (12:27)
[2020-06-09] MEDS: ibuprofen 800 mg tablet PO (12:27)
[2020-06-09 12:34] VITALS: RESP 18
--- NOTE | 2020-06-14 15:38 | DCPLANNER ---
interactive media project manager had message to speak with patient about getting established with a primary care physician. interactive media project manager called patient, unable to speak with patient at this time.
== END 2020-06-09 12:36 | disposition home or self-care (01) ==
PROVIDERS: Emergency Provider Family Medicine; PCP Family Medicine
DX: L02.413 Cutaneous abscess of right upper limb (principal); F17.210 Nicotine dependence, cigarettes, uncomplicated
CPT/HCPCS: 10060; 12345; 96372; 99281; 99283

== ENCOUNTER 2020-06-11 13:39 | Emergency (ER) | payer MEDICAID, SELFPAY ==
[2020-06-11 13:50] VITALS: BP 163/74; PULSE 104; RESP 18; TEMP 36.6; O2SAT 98; BMI 24.3
--- NOTE | 2020-06-11 15:09 | ED_ITS ---
HPI - Wound/Laceration General: Chief Complaint: Wound/Laceration Stated Complaint: ABSCESS ON R ARM Time Seen by Provider: 06/11/20 14:05 Source: patient Mode of arrival: ambulatory Limitations: no limitations History of Present Illness: HPI narrative: Patient is a 49-year-old male who presents to ED today for reevaluation regarding a right arm abscess. Patient states he was seen here 2 days ago and had the abscess lanced. He states he wants somebody to look at it again . Patient has filled and started his Bactrim. He states abscesses from IV drug use. He reports several previous abscesses near AC space that have been drained. Denies abscess worsening. Onset (ago): day(s) Patient tetanus UTD: Yes Associated symptoms: Reports no associated symptoms Review of Systems Musc: Denies: joint pain, joint swelling or limited range of motion Skin/Breast: Reports: other (abscess) Neuro: Denies: numbness in extremities, weakness in extremities or sensory changes [facility] ED PFSH: Medical History (Updated 06/11/20 @ 15:10 by LETTY Huffman) Alcohol dependence Amphetamine use disorder, severe Cannabis dependence with current use Chronic post-traumatic stress disorder Generalized anxiety disorder Major depressive disorder, recurrent severe without psychotic features Nicotine dependence, cigarettes, uncomplicated Social History (Updated 06/09/20 @ 11:35 by Fletcher Seay RN) Smoking and tobacco status: current every day smoker cigarettes Packs smoked per day: 0.25 Alcohol intake: current Alcohol intake frequency: few times a month Physical Exam Const: COMMON NORMALS: no acute distress, average body habitus, patient oriented x3, no limitations, healthy appearing, alert and well nourished Extremity: GENERAL: Yes normal exam except as noted OTHER: quarter sized indurated area to dorsal elbow; healing scalpel benny site; no redness/warmth; no streaking; no fluctuance noted Neuro: COMMON NORMALS: patient oriented x3, moves all extremities, no focal motor deficits and no sensory deficits noted SENSORIUM/ORIENTATION: Yes alert Course Vital Signs: Vital signs: Vital Signs Temperature 97.8 F 06/11/20 13:50 Pulse Rate 104 H 06/11/20 13:50 Respiratory Rate 18 06/11/20 13:50 Blood Pressure 163/74 06/11/20 13:50 Pulse Oximetry 98 06/11/20 13:50 MDM - Wound/Laceration MDM Narrative: Medical decision making narrative: Pt states very little material came out with I&D 2 days ago and material was bloody. I don't appreciate any fluctuance at this time and I don't think repeating I&D would help/change much. This area as well as AC spaces have a lot of scar tissue from years of IV drug abuse. Recommend he continue taking the Bactrim. Return to ED precautions given. Discharge Plan Discharge Patient Disposition: Home Clinical Impression: Abscess of skin or subcutaneous tissue Qualifiers: Site of cutaneous abscess: extremity Site of cutaneous abscess of extremity: upper extremity Laterality: right Qualified Code(s): L02.413 - Cutaneous abscess of right upper limb Condition: Stable Prescriptions: No Action quetiapine 100 mg tablet 100 mg PO BEDTIME@2200 RF: 0 folic acid 1 mg tablet 1 mg PO DAILY@0800 RF: 0 lorazepam 1 mg tablet 0.5 mg PO TID@08,15,22 RF: 0 Vitamin B-1 (mononitrate) 100 mg tablet 100 mg PO DAILY@0800 RF: 0 Thera 400 mcg tablet 1 tab PO DAILY@0800 RF: 0 Bactrim DS 800-160 mg tablet 1 tab PO BID 10 Days Qty: 20 RF: 0 Discharge Orders: Discharge ED (Routine); Ordered 06/11/20 Ordered By: Shayla Ko Referrals: Roque Gonzalez DO [Primary Care Provider] - Coding Level of Care Code ED [employer] for Layo Sanz
== END 2020-06-11 15:35 | disposition home or self-care (01) ==
PROVIDERS: Emergency Provider Physician Assistant; PCP Family Medicine
DX: L02.413 Cutaneous abscess of right upper limb (principal); F17.210 Nicotine dependence, cigarettes, uncomplicated
CPT/HCPCS: 12345; 99281

== ENCOUNTER → 2020-07-16 08:01 | Outpatient (BNVA) | payer MEDICAID, SELFPAY | PROVIDERS: PCP Family Medicine; Visit Provider Nurse Practitioner Psychiatric/Mental Health | DX: F33.2 Major depressive disorder, recurrent severe without psychotic features (principal); F41.1 Generalized anxiety disorder; F43.12 Post-traumatic stress disorder, chronic; F17.210 Nicotine dependence, cigarettes, uncomplicated; Z79.899 Other long term (current) drug therapy; F12.21 Cannabis dependence, in remission; F10.21 Alcohol dependence, in remission; F15.21 Other stimulant dependence, in remission | CPT/HCPCS: 99214 ==

== ENCOUNTER → 2020-07-21 12:19 | Outpatient (BNVA) | payer MEDICAID, SELFPAY | PROVIDERS: PCP Family Medicine | DX: Z20.822 Contact with and (suspected) exposure to COVID-19 (principal) | CPT/HCPCS: 87635 ==

== ENCOUNTER → 2020-07-22 10:20 | Outpatient (BNVA) | payer MEDICAID, SELFPAY | PROVIDERS: PCP Family Medicine; Visit Provider Nurse Practitioner Psychiatric/Mental Health | DX: Z79.899 Other long term (current) drug therapy (principal) | CPT/HCPCS: 80053; 80061; 83036 ==

== ENCOUNTER 2020-07-27 11:13 | Outpatient (CLI) | payer MEDICAID, SELFPAY ==
--- NOTE | 2020-07-27 11:21 | XR_ITS ---
WS: [id number] XR shoulder RT min 2V* [id number] REASON FOR EXAM: SHOULDER PAIN FINDINGS: Moderate narrowing of the acromioclavicular joint with marginal osteophytes. Mild narrowing of the glenohumeral joint. Subcortical cystic and sclerotic change, in the humeral hea d consistent with rotator cuff tendinopathy. Normal configuration of the acromial process. No focal bone lesion. No soft tissue abnormality. XR/XR shoulder RT min 2V* [id number] IMPRESSION: Mild osteoarthropathy of the acromioclavicular and glenohumeral joints. Humeral head findings suggesting rotator cuff tendinopathy.
== END 2020-07-27 11:14 | disposition home or self-care (01) ==
PROVIDERS: PCP Family Medicine; Visit Provider Family Medicine
DX: M19.011 Primary osteoarthritis, right shoulder (principal)
CPT/HCPCS: 73030

== ENCOUNTER → 2020-07-28 07:20 | Outpatient (BNVA) | payer MEDICAID, SELFPAY | PROVIDERS: PCP Family Medicine; Visit Provider Nurse Practitioner Psychiatric/Mental Health | DX: F31.64 Bipolar disorder, current episode mixed, severe, with psychotic features (principal); F43.12 Post-traumatic stress disorder, chronic; F17.210 Nicotine dependence, cigarettes, uncomplicated; F12.21 Cannabis dependence, in remission; F10.21 Alcohol dependence, in remission; F15.21 Other stimulant dependence, in remission; F41.1 Generalized anxiety disorder | CPT/HCPCS: 99214 ==

== ENCOUNTER 2020-08-25 12:00 | Outpatient (CLI) | payer MEDICAID, SELFPAY | END 2020-08-25 12:01 | disposition home or self-care (01) | LOC: SLEEP 08-26 14:28 | PROVIDERS: PCP Family Medicine; Visit Provider Family Medicine | DX: G47.33 Obstructive sleep apnea (adult) (pediatric) (principal); R40.0 Somnolence; R53.83 Other fatigue | CPT/HCPCS: G0399 ==

== ENCOUNTER → 2020-08-31 09:30 | Outpatient (BNVA) | payer MEDICAID, SELFPAY | PROVIDERS: PCP Family Medicine; Visit Provider Nurse Practitioner Psychiatric/Mental Health | DX: F31.64 Bipolar disorder, current episode mixed, severe, with psychotic features (principal); F12.21 Cannabis dependence, in remission; F17.210 Nicotine dependence, cigarettes, uncomplicated; F10.21 Alcohol dependence, in remission; F15.21 Other stimulant dependence, in remission; F41.1 Generalized anxiety disorder; F43.12 Post-traumatic stress disorder, chronic | CPT/HCPCS: 99214 ==

== ENCOUNTER → 2020-09-14 07:29 | Outpatient (BNVA) | payer MEDICAID, SELFPAY ==
[2020-09-08 09:48] VITALS: BP 138/83; BMI 33.3
== END ==
PROVIDERS: PCP Family Medicine; Visit Provider Nurse Practitioner Psychiatric/Mental Health
DX: F31.64 Bipolar disorder, current episode mixed, severe, with psychotic features (principal); F41.1 Generalized anxiety disorder; F43.12 Post-traumatic stress disorder, chronic; F17.210 Nicotine dependence, cigarettes, uncomplicated; F12.21 Cannabis dependence, in remission; F10.21 Alcohol dependence, in remission; F15.21 Other stimulant dependence, in remission
CPT/HCPCS: 99214

== ENCOUNTER → 2020-09-28 09:55 | Outpatient (BNVA) | payer MEDICAID, SELFPAY ==
[2020-09-08 09:48] VITALS: BP 138/83; BMI 33.3
== END ==
PROVIDERS: PCP Family Medicine; Visit Provider Nurse Practitioner Psychiatric/Mental Health
DX: F31.64 Bipolar disorder, current episode mixed, severe, with psychotic features (principal); F41.1 Generalized anxiety disorder; F43.12 Post-traumatic stress disorder, chronic; F17.210 Nicotine dependence, cigarettes, uncomplicated; F15.21 Other stimulant dependence, in remission; F12.21 Cannabis dependence, in remission; F10.21 Alcohol dependence, in remission
CPT/HCPCS: 99214

== ENCOUNTER → 2020-10-14 15:00 | Outpatient (BNVA) | payer MEDICAID, SELFPAY ==
[2020-09-08 09:48] VITALS: BP 138/83; BMI 33.3
== END ==
PROVIDERS: PCP Family Medicine; Visit Provider Counselor Professional
DX: F31.64 Bipolar disorder, current episode mixed, severe, with psychotic features (principal); F41.1 Generalized anxiety disorder; F10.21 Alcohol dependence, in remission; F15.21 Other stimulant dependence, in remission; F43.12 Post-traumatic stress disorder, chronic
CPT/HCPCS: 90834

== ENCOUNTER → 2020-10-28 08:00 | Outpatient (BNVA) | payer MEDICAID, SELFPAY ==
[2020-09-08 09:48] VITALS: BP 138/83; BMI 33.3
== END ==
PROVIDERS: PCP Family Medicine; Visit Provider Counselor Professional
DX: F31.64 Bipolar disorder, current episode mixed, severe, with psychotic features (principal); F15.21 Other stimulant dependence, in remission; F41.1 Generalized anxiety disorder; F43.12 Post-traumatic stress disorder, chronic; F12.21 Cannabis dependence, in remission
CPT/HCPCS: 90832

== ENCOUNTER → 2020-11-04 14:51 | Outpatient (BNVA) | payer MEDICAID, SELFPAY ==
[2020-09-08 09:48] VITALS: BP 138/83; BMI 33.3
== END ==
PROVIDERS: PCP Family Medicine; Visit Provider Counselor Professional
DX: F31.64 Bipolar disorder, current episode mixed, severe, with psychotic features (principal); F41.1 Generalized anxiety disorder; F15.21 Other stimulant dependence, in remission; F43.12 Post-traumatic stress disorder, chronic
CPT/HCPCS: 90834

== ENCOUNTER → 2020-11-17 07:31 | Outpatient (BNVA) | payer MEDICAID, OTHER, SELFPAY ==
[2020-09-08 09:48] VITALS: BP 138/83; BMI 33.3
== END ==
PROVIDERS: PCP Family Medicine; Visit Provider Nurse Practitioner Psychiatric/Mental Health
DX: F41.1 Generalized anxiety disorder (principal); F31.64 Bipolar disorder, current episode mixed, severe, with psychotic features; F12.21 Cannabis dependence, in remission; F17.210 Nicotine dependence, cigarettes, uncomplicated; F10.21 Alcohol dependence, in remission; F15.21 Other stimulant dependence, in remission; F43.12 Post-traumatic stress disorder, chronic
CPT/HCPCS: 99214

== ENCOUNTER 2020-12-13 11:22 | Emergency (ER) | payer MEDICAID, SELFPAY ==
[2020-09-08 09:48] VITALS: BP 138/83; BMI 33.3
--- NOTE | 2020-12-13 11:32 | XR_ITS ---
WS: [id number] Acute abdomen series, 12/13/2020 Clinical Data: Abd Pain Comparison: None. Findings: In the chest there are no nodules, masses or effusions. The heart is normal. The pulmonary vascularity is not increased. There is a healed midshaft fracture of the left clavicle. No free air is seen beneath the diaphragms. No abnormal intra-abdominal masses or calcifications are seen.There is a large amount of air and fecal material throughout colon. No obstruction is seen. XR/XR acute abdomen series [id number] Impression: Moderate generalized ileus.
[2020-12-13 13:18] VITALS: BP 139/89; PULSE 69; RESP 17; TEMP 36.8; O2SAT 97; BMI 32.1
== END 2020-12-13 13:35 | disposition left against medical advice (07) ==
LOC: ER 11:29
PROVIDERS: Emergency Provider Family Medicine; PCP Family Medicine
DX: Z53.21 Procedure and treatment not carried out due to patient leaving prior to being seen by health care provider (principal)
CPT/HCPCS: 74022; 99282

== ENCOUNTER 2020-12-23 13:57 | Emergency (ER) | payer MEDICAID, SELFPAY ==
[2020-09-08 09:48] VITALS: BP 138/83; BMI 33.3
[2020-12-23 14:24] VITALS: BP 129/83; PULSE 75; RESP 18; TEMP 36.7; O2SAT 97; BMI 32.5
--- NOTE | 2020-12-23 14:35 | CT_ITS ---
WS: [id number] CT scan of the abdomen and pelvis with IV contrast. Additional two-dimensional coronal and sagittal r econstruction was performed. 12/23/2020 Clinical Data: abd pain Comparison: None. DLP: 1827.[address] scans at [facility] use at least one of these dose optimization techniques: automat ed exposure control; mA and/or kV adjustment per patient size (includes targeted exams where dose is matched to clinical indication); or iterative reconstruction. Findings: The lower lungs show no nodules, masses or effusions. The liver, gallbladder, spleen, adrenal glands and pancreas are normal. The kidneys show equal bilateral contrast excretion with no cyst or masses. No renal calculi or hydro nephrosis can be seen. The abdominal aorta is normal in size. No appendicitis or diverticulitis is seen. The stomach, small bowel and colon are not remarkable. No abscess, adenopathy, ascites, mass, obstruction or free air is seen. The bladder is unremarkable. No inguinal hernia is seen. The bones of the lower thorax, lumbar spine, pelvis, and hips show only degenerative disc changes at L5-S1. CT/CT abdomen pelvis w con* [id number] Impression: Negative for acute intra-abdominal or pelvic abnormalities.
--- NOTE | 2020-12-23 14:44 | ED_ITS ---
HPI - Abdominal Pain General: Chief Complaint: Abdominal Pain Stated Complaint: Cramps, pressure in stomach, post colonoscopy Time Seen by Provider: 12/23/20 14:34 Source: patient Mode of arrival: ambulatory Limitations: no limitations History of Present Illness: HPI narrative: 50-year-old male who states he had a colonoscopy done last week and has been have some abdominal cramping since then. He states its been diffuse. He had an x-ray 4 days ago showed no acute findings but states he still has pain. He states he is scheduled for an outpatient CT but states that his pain is worsening like to get CT here. He denies any vomiting. Denies diarrhea. Denies any constipation. Associated Symptoms: Denies chills, dysuria and fever(s) Review of Systems Const: Denies: fever(s), chills, body aches or change in appetite Eyes: Denies: blurry vision or eye discomfort ENMT: Denies: throat pain or dental pain Card: Denies: chest pain Resp: Denies: dyspnea GI: Reports: abdominal pain : Denies: dysuria Musc: Denies: neck pain or back pain Skin/Breast: Denies: rash Neuro: Denies: headache(s) Psych: Denies: depression Ish/Lymph: Denies: easy bruising All/Imm: Denies: urticaria PFSH ED PFSH: Medical History Alcohol use disorder, moderate, in early remission sober date 07/01/20 Amphetamine substance use disorder, moderate, in early remission sober date 07/01/20 Bipolar I, most recent episode mixed, severe with psychotic behavior Cannabis dependence in remission sober date 07/01/20 Chronic post-traumatic stress disorder Generalized anxiety disorder Nicotine dependence, cigarettes, uncomplicated Family History Grandfather Cancer colon and then lung Mother Diabetes Psychiatric illness Father Diabetes Social History Smoking and tobacco status: current every day smoker cigarettes Packs smoked per day: 0.50 Years cigarettes smoked: 25 Second hand smoke exposure: Yes Smoking risk assessment/counseling performed?: Yes Alcohol intake: former Year of sobriety/quit date alcohol: 2020 Adopted: No Caregiver/support person: No Lives independently: Yes Household members: family Housing: House Marital status: Marital status details: 2001 Number of children: 2 Number of grandchildren: 0 Highest education level completed: Some College, No Degree service: No Current occupational status: employed Current occupation: [employer] Current occupational exposures/hazards: Yes (chemicals) Pets and animals: No History of recent travel: No Leisure activites: other Leisure activities details: write letters to Fabien, listen to gnosticism music, watch TV, listen to bird Sexually active: No Current gender identity: Male Mildred/Mandaen: Lutheran Special mildred needs: No Agree to transfusion: Yes Financial difficulty paying for basics: Somewhat Hard Physical Exam Const: COMMON NORMALS: no acute distress, patient oriented x3 and healthy appearing HENMT: COMMON NORMALS: normocephalic and atraumatic HEAD & SCALP: normocephalic and atraumatic Eye: COMMON NORMALS: Equal, round and reactive pupils present and EOMs intact bilaterally PUPIL: Yes Equal, round and reactive pupils present Neck/C-Spine: COMMON NORMALS: full ROM and supple Chest: COMMONS NORMALS: normal inspection of the chest and normal palpation of entire chest wall Resp: COMMON NORMALS: normal respiratory effort, No retractions, No use of accessory muscles and clear to auscultation bilaterally AUSCULTATION: clear to auscultation bilaterally Cardio: COMMON NORMALS: regular rate, regular rhythm and No murmurs present (Cardio) RATE: regular rate RHYTHM: regular rhythm GI: COMMON NORMALS: Normal to inspection, nondistended, normoactive bowel sounds present, Soft to palpation, non-tender and no masses PALPATION: Yes Soft to palpation Extremity: COMMON NORMALS: normal to inspection and full ROM Neuro: COMMON NORMALS: patient oriented x3, moves all extremities and no focal motor deficits Psych: COMMON NORMALS: mental status grossly normal, Normal thought process present and cooperative THOUGHT PROCESS: Normal thought process present Skin: COMMON NORMALS: no rashes or lesions noted and no wounds GENERAL SKIN EXAM: no rashes or lesions noted Course Vital Signs: Vital signs: Vital Signs Temperature 98.1 F 12/23/20 14:24 Pulse Rate 75 12/23/20 14:24 Respiratory Rate 18 12/23/20 14:24 Blood Pressure 129/83 12/23/20 14:24 Pulse Oximetry 97 12/23/20 14:24 MDM - Abdominal Pain MDM Narrative: Medical decision making narrative: Patient presents here with abdominal pain going on for little over a week. His CT scan here is normal with no acute findings. Blood work here is all normal as well. His abdominal exam at discharge is benign. Patient stable for discharge and is to follow-up with Dr. Fournier who did his colonoscopy. We will place him on Bentyl. He understands agrees to plan. Lab Data: Labs: Lab Results 12/23/20 12/23/20 Range/Units 14:46 14:46 WBC 10.1 H (4.0-10.0) 10^3/ uL RBC 5.06 (4.1-5.3) 10^6/u L Hgb 15.2 (11.7-16.6) g/dL Hct 45.8 (42.0-52.0) % MCV 90.5 (80-94) fL MCH 30.0 (28.0-34.0) pg MCHC 33.2 (30.0-36.0) g/dL RDW 12.6 (12.1-15.1) % Plt Count 331 (130-400) 10^3/c mm MPV 10.3 (7.4-10.4) fL Neut % (Auto) 64.5 % Lymph % (Auto) 26.2 % [place] % (Auto) 6.8 % Eos % (Auto) 1.7 % Baso % (Auto) 0.6 % Neut # (Auto) 6.50 (1.8-7.7) 10^3/u L Lymph # (Auto) 2.6 (0.8-4.8) 10^3/u L [place] # (Auto) 0.7 (0.2-0.9) 10^3/u L Eos # (Auto) 0.2 (0.0-0.8) 10^3/u L Baso # (Auto) 0.1 (0.0-0.1) 10^3/u L Nucleated RBC % (a uto) 0 % Nucleated RBCs # 0.0 /100WBC Sodium 137 (136-145) mmol/L Potassium 4.1 (3.5-5.1) mmol/L Chloride 102 (98-107) mmol/L Carbon Dioxide 23 (22-29) mmol/L Anion Gap 16.1 (5-19) BUN 15 (6-20) mg/dL Creatinine 0.9 (0.7-1.2) mg/dL GFR Calculation 89.0 L (90-130) mL/min Glucose 119 H (65-115) mg/dL Calculated Osmolal ity 286 (285-295) mOsm/k g Calcium 8.7 (8.5-10.5) mg/dL Total Bilirubin 0.3 (0.15-1.2) mg/dL AST 22 (0-40) U/L ALT 30 (0-41) U/L Alkaline Phosphata se 97 (40-130) IU/L Total Protein 6.9 (6.6-8.7) g/dL Albumin 4.3 (3.5-5.2) g/dL Globulin 2.6 (1.3-4.6) g/dL Lipase 45 (13-60) U/L Imaging Data ^: CT Abd/Pel: Attestation: I personally reviewed and interpreted this imaging study as follows: Radiologist's impression: [address] [address] [address] Scan Report Signed Patient: Jose Roberto Dumont Unit #: [id number] : 1970 Age/Sex: 50 / M ADM Date: 12/23/20 Loc: ER Room/Bed: Attending Dr: Ordering Provider/Ordering MD: Mari Cortez MD Date of Service: 12/23/20 Procedure(s): CT abdomen pelvis w con* [id number] Accession Number(s): [id number] Report Number: [id number] WS: [id number] CT scan of the abdomen and pelvis with IV contrast. Additional two-dimensional coronal and sagittal reconstruction was performed. 12/23/2020 Clinical Data: abd pain Comparison: None. DLP: 1827.[address] scans at [facility] use at least one of these dose optimization techniques: automated exposure control; mA and/or kV adjustment per patient size (includes targeted exams where dose is matched to clinical indication); or iterative reconstruction. Findings: The lower lungs show no nodules, masses or effusions. The liver, gallbladder, spleen, adrenal glands and pancreas are normal. The kidneys show equal bilateral contrast excretion with no cyst or masses. No renal calculi or hydronephrosis can be seen. The abdominal aorta is normal in size. No appendicitis or diverticulitis is seen. The stomach, small bowel and colon are not remarkable. No abscess, adenopathy, ascites, mass, obstruction or free air is seen. The bladder is unremarkable. No inguinal hernia is seen. The bones of the lower thorax, lumbar spine, pelvis, and hips show only degenerative disc changes at L5-S1. CT/CT abdomen pelvis w con* [id number] Impression: Negative for acute intra-abdominal or pelvic abnormalities. Dictated By: Barbie Huerta MD Signed By: Barbie Huerta MD Signed Date/Time: 12/23/201535 DD/ 31 Discharge Plan Discharge Patient Disposition: Home Clinical Impression: Abdominal pain Qualifiers: Abdominal location: generalized Qualified Code(s): R10.84 - Generalized abdominal pain Condition: Stable Prescriptions: New dicyclomine 20 mg tablet 20 mg PO TID PRN (Reason: abdominal pain) Qty: 20 RF: 0 No Action ibuprofen 200 mg tablet 400 mg PO DAILY PRN (Reason: fever or pain) RF: 0 diphenhydramine HCl [Benadryl] 25 mg capsule 25 mg PO Q6H PRN (Reason: SLEEP/ALLERGY SYMPTOMS) RF: 0 naproxen sodium 220 mg capsule 220 mg PO BID PRN (Reason: Pain) RF: 0 acetaminophen [Tylenol Arthritis Pain] 650 mg tablet extended release 650 mg PO Q8H RF: 0 quetiapine [Seroquel] 25 mg tablet 25 mg PO DIRECTED PRN (Reason: sleep) Qty: 60 RF: 1 multivitamin Tablet 1 tab PO DAILY RF: 0 metronidazole 500 mg tablet 500 mg PO TID RF: 0 ciprofloxacin HCl 500 mg tablet 500 mg PO BID RF: 0 fiber Tablet 1 tab PO DAILY RF: 0 Probiotic 15 billion cell Capsule 2 cap PO DAILY RF: 0 propranolol 10 mg tablet 10 mg PO BID RF: 0 Wellbutrin SR 200 mg tablet sustained-release 12 hr 200 mg PO DAILY RF: 0 Discharge Orders: Discharge ED (Routine); Ordered 12/23/20 Ordered By: Mari Cortez Referrals: Roque Gonzalez DO [Primary Care Provider] - Discharge Diet: Advance as tolerated Discharge Activity: Resume usual activity Patient Instructions: Abdominal Pain (ED) Coding Level of Care Code ED [employer] 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
[2020-12-23 15:04] LABS: Basophils # 0.1 10^3/uL (0.0-0.1); Basophils % 0.6 %; Eosinophils # 0.2 10^3/uL (0.0-0.8); Eosinophils % 1.7 %; Hematocrit 45.8 % (42.0-52.0); Hemoglobin 15.2 g/dL (11.7-16.6); Lymphocytes # 2.6 10^3/uL (0.8-4.8); Lymphocytes % 26.2 %; Mean Corpuscular HGB Conc 33.2 g/dL (30.0-36.0); Mean Corpuscular Volume 90.5 fL (80-94); Mean Platelet Volume 10.3 fL (7.4-10.4); Monocytes # 0.7 10^3/uL (0.2-0.9); Monocytes % 6.8 %; Neutrophils % 64.5 %; Nucleated Red Blood Cells % 0 %; Platelet Count 331 10^3/cmm (130-400); Red Blood Count 5.06 10^6/uL (4.1-5.3); Red Cell Distribution Width 12.6 % (12.1-15.1); White Blood Count 10.1 10^3/uL (4.0-10.0)
[2020-12-23] MEDS: iohexol 300 mg/mL 100 mL Btl IV (15:18)
[2020-12-23] MEDS: ondansetron 2 mg/ML SDV 2 mL 4 MG IVP (15:36)
[2020-12-23 16:16] LABS: Alanine Aminotransferase 30 U/L (0-41); Albumin Level 4.3 g/dL (3.5-5.2); Alkaline Phosphatase 97 IU/L (40-130); Anion Gap 16.1 (5-19); Aspartate Amino Transferase 22 U/L (0-40); Blood Urea Nitrogen 15 mg/dL (6-20); Calcium 8.7 mg/dL (8.5-10.5); Carbon Dioxide 23 mmol/L (22-29); Chloride 102 mmol/L (98-107); Globulin 2.6 g/dL (1.3-4.6); Glucose 119 mg/dL (65-115); Lipase 45 U/L (13-60); Osmolality Calculated 286 mOsm/kg (285-295); Potassium 4.1 mmol/L (3.5-5.1); Sodium 137 mmol/L (136-145); Total Bilirubin 0.3 mg/dL (0.15-1.2); Total Protein 6.9 g/dL (6.6-8.7)
[2020-12-23 17:11] VITALS: BP 120/95; PULSE 88; RESP 16; TEMP 36.9; O2SAT 98
== END 2020-12-23 17:11 | disposition home or self-care (01) ==
PROVIDERS: Emergency Provider Emergency Medicine; PCP Family Medicine
DX: R10.84 Generalized abdominal pain (principal); F17.210 Nicotine dependence, cigarettes, uncomplicated
CPT/HCPCS: 74177; 80053; 83690; 85025; 96374; 99283; J2405; Q9967

== ENCOUNTER → 2021-01-05 13:56 | Outpatient (BNVA) | payer MEDICAID, OTHER, SELFPAY ==
[2020-09-08 09:48] VITALS: BP 138/83; BMI 33.3
== END ==
PROVIDERS: PCP Family Medicine; Visit Provider Nurse Practitioner Psychiatric/Mental Health
DX: F31.64 Bipolar disorder, current episode mixed, severe, with psychotic features (principal); F41.1 Generalized anxiety disorder; F43.12 Post-traumatic stress disorder, chronic; F17.210 Nicotine dependence, cigarettes, uncomplicated; F12.21 Cannabis dependence, in remission; F10.21 Alcohol dependence, in remission; F15.21 Other stimulant dependence, in remission
CPT/HCPCS: 99214

== ENCOUNTER → 2021-01-12 11:53 | Outpatient (BNVA) | payer MEDICAID, SELFPAY ==
[2020-09-08 09:48] VITALS: BP 138/83; BMI 33.3
== END ==
PROVIDERS: PCP Family Medicine; Visit Provider Social Worker
DX: F31.64 Bipolar disorder, current episode mixed, severe, with psychotic features (principal); F41.1 Generalized anxiety disorder; F15.21 Other stimulant dependence, in remission; F43.12 Post-traumatic stress disorder, chronic
CPT/HCPCS: 90834

== ENCOUNTER → 2021-01-26 09:44 | Outpatient (BNVA) | payer MEDICAID, SELFPAY ==
[2020-09-08 09:48] VITALS: BP 138/83; BMI 33.3
== END ==
PROVIDERS: PCP Family Medicine; Visit Provider Social Worker
DX: F31.64 Bipolar disorder, current episode mixed, severe, with psychotic features (principal); F41.1 Generalized anxiety disorder; F15.21 Other stimulant dependence, in remission; F43.12 Post-traumatic stress disorder, chronic
CPT/HCPCS: 90834

== ENCOUNTER → 2021-01-31 14:48 | Outpatient (BNVA) | payer MEDICAID, SELFPAY ==
[2020-09-08 09:48] VITALS: BP 138/83; BMI 33.3
== END ==
PROVIDERS: PCP Family Medicine; Visit Provider Nurse Practitioner Psychiatric/Mental Health
DX: F31.64 Bipolar disorder, current episode mixed, severe, with psychotic features (principal); F41.1 Generalized anxiety disorder; F43.12 Post-traumatic stress disorder, chronic; F12.21 Cannabis dependence, in remission; F10.21 Alcohol dependence, in remission; F15.21 Other stimulant dependence, in remission; F17.210 Nicotine dependence, cigarettes, uncomplicated
CPT/HCPCS: 99214

== ENCOUNTER → 2021-02-09 09:57 | Outpatient (BNVA) | payer MEDICAID, SELFPAY ==
[2020-09-08 09:48] VITALS: BP 138/83; BMI 33.3
== END ==
PROVIDERS: PCP Family Medicine; Visit Provider Social Worker
DX: F31.64 Bipolar disorder, current episode mixed, severe, with psychotic features (principal); F15.21 Other stimulant dependence, in remission; F41.1 Generalized anxiety disorder; F43.12 Post-traumatic stress disorder, chronic
CPT/HCPCS: 90834

== ENCOUNTER 2021-02-21 09:48 | Outpatient (CLI) | payer OTHER, SELFPAY ==
[2020-09-08 09:48] VITALS: BP 138/83; BMI 33.3
--- NOTE | 2021-02-21 09:54 | XR_ITS ---
WS: [id number] RIGHT SHOULDER: 2 VIEW(S) TECHNIQUE: Internal and external rotation. HISTORY: R SHOULDER PAIN COMPARISON: 07/27/2020 No fracture or dislocation or soft tissue abnormality. Mild narrowing of the glenohumeral joint and AC joint. Small hypertrophic osteophytes from the distal clavicle encroaches towards the rotator cuff. Minimal degenerative subchondral cystic changes in the posterior lateral humeral head. Visualized RIG HT upper lung is clear. XR/XR shoulder RT min 2V* [id number] IMPRESSION: Mild AC joint and glenohumeral joint arthritis.
== END 2021-02-21 09:49 | disposition home or self-care (01) ==
PROVIDERS: PCP Family Medicine; Visit Provider Dermatology
DX: Z02.71 Encounter for disability determination (principal); M13.811 Other specified arthritis, right shoulder
CPT/HCPCS: 73030

== ENCOUNTER → 2021-02-24 09:50 | Outpatient (BNVA) | payer MEDICAID, SELFPAY ==
[2020-09-08 09:48] VITALS: BP 138/83; BMI 33.3
== END ==
PROVIDERS: PCP Family Medicine; Visit Provider Social Worker
DX: F31.64 Bipolar disorder, current episode mixed, severe, with psychotic features (principal); F41.1 Generalized anxiety disorder; F15.21 Other stimulant dependence, in remission; F43.12 Post-traumatic stress disorder, chronic
CPT/HCPCS: 90834

== ENCOUNTER → 2021-03-10 10:05 | Outpatient (BNVA) | payer MEDICAID, SELFPAY ==
[2020-09-08 09:48] VITALS: BP 138/83; BMI 33.3
== END ==
PROVIDERS: PCP Family Medicine; Visit Provider Nurse Practitioner Psychiatric/Mental Health
DX: F31.64 Bipolar disorder, current episode mixed, severe, with psychotic features (principal); F41.1 Generalized anxiety disorder; F43.12 Post-traumatic stress disorder, chronic; F12.21 Cannabis dependence, in remission; F10.21 Alcohol dependence, in remission; F15.21 Other stimulant dependence, in remission
CPT/HCPCS: 99214

== ENCOUNTER → 2021-03-24 09:44 | Outpatient (BNVA) | payer MEDICAID, SELFPAY ==
[2020-09-08 09:48] VITALS: BP 138/83; BMI 33.3
== END ==
PROVIDERS: PCP Family Medicine; Visit Provider Social Worker
DX: F31.64 Bipolar disorder, current episode mixed, severe, with psychotic features (principal); F41.1 Generalized anxiety disorder; F15.21 Other stimulant dependence, in remission; F43.12 Post-traumatic stress disorder, chronic; F31.4 Bipolar disorder, current episode depressed, severe, without psychotic features; F60.3 Borderline personality disorder
CPT/HCPCS: 90834

== ENCOUNTER → 2021-04-28 15:08 | Outpatient (BNVA) | payer MEDICAID, SELFPAY ==
[2020-09-08 09:48] VITALS: BP 138/83; BMI 33.3
== END ==
PROVIDERS: PCP Family Medicine; Visit Provider Social Worker
DX: F31.64 Bipolar disorder, current episode mixed, severe, with psychotic features (principal); F41.1 Generalized anxiety disorder; F43.12 Post-traumatic stress disorder, chronic
CPT/HCPCS: 90837; 90834

== ENCOUNTER → 2021-05-04 14:10 | Outpatient (BNVA) | payer MEDICAID, SELFPAY ==
[2020-09-08 09:48] VITALS: BP 138/83; BMI 33.3
== END ==
PROVIDERS: PCP Family Medicine; Visit Provider Social Worker
DX: F31.64 Bipolar disorder, current episode mixed, severe, with psychotic features (principal); F41.1 Generalized anxiety disorder; F15.21 Other stimulant dependence, in remission; F43.12 Post-traumatic stress disorder, chronic
CPT/HCPCS: 90837; 90834

== ENCOUNTER → 2021-05-12 10:18 | Outpatient (BNVA) | payer MEDICAID, SELFPAY ==
[2020-09-08 09:48] VITALS: BP 138/83; BMI 33.3
== END ==
PROVIDERS: PCP Family Medicine; Visit Provider Social Worker
DX: F31.64 Bipolar disorder, current episode mixed, severe, with psychotic features (principal); F15.21 Other stimulant dependence, in remission; F41.1 Generalized anxiety disorder; F43.12 Post-traumatic stress disorder, chronic
CPT/HCPCS: 90834

== ENCOUNTER → 2021-05-19 10:48 | Outpatient (BNVA) | payer MEDICAID, SELFPAY ==
[2020-09-08 09:48] VITALS: BP 138/83; BMI 33.3
== END ==
PROVIDERS: PCP Family Medicine; Visit Provider Social Worker
DX: F31.64 Bipolar disorder, current episode mixed, severe, with psychotic features (principal); F41.1 Generalized anxiety disorder; F15.21 Other stimulant dependence, in remission; F43.12 Post-traumatic stress disorder, chronic
CPT/HCPCS: 90837; 90834

== ENCOUNTER → 2021-05-26 10:25 | Outpatient (BNVA) | payer MEDICAID, SELFPAY ==
[2020-09-08 09:48] VITALS: BP 138/83; BMI 33.3
== END ==
PROVIDERS: PCP Family Medicine; Visit Provider Social Worker
DX: F31.64 Bipolar disorder, current episode mixed, severe, with psychotic features (principal); F41.1 Generalized anxiety disorder; F15.21 Other stimulant dependence, in remission; F43.12 Post-traumatic stress disorder, chronic
CPT/HCPCS: 90837; 90834

== ENCOUNTER → 2021-06-02 12:12 | Outpatient (BNVA) | payer MEDICAID, SELFPAY ==
[2020-09-08 09:48] VITALS: BP 138/83; BMI 33.3
== END ==
PROVIDERS: PCP Family Medicine; Visit Provider Social Worker
DX: F31.64 Bipolar disorder, current episode mixed, severe, with psychotic features (principal); F41.1 Generalized anxiety disorder; F15.21 Other stimulant dependence, in remission; F43.12 Post-traumatic stress disorder, chronic
CPT/HCPCS: 90837; 90834

== ENCOUNTER → 2021-07-21 13:21 | Outpatient (BNVA) | payer MEDICAID, SELFPAY ==
[2020-09-08 09:48] VITALS: BP 138/83; BMI 33.3
== END ==
PROVIDERS: PCP Family Medicine; Visit Provider Social Worker
DX: F31.64 Bipolar disorder, current episode mixed, severe, with psychotic features (principal); F41.1 Generalized anxiety disorder; F43.12 Post-traumatic stress disorder, chronic
CPT/HCPCS: 90837; 90834

== ENCOUNTER → 2021-08-11 12:55 | Outpatient (BNVA) | payer MEDICAID, SELFPAY ==
[2020-09-08 09:48] VITALS: BP 138/83; BMI 33.3
== END ==
PROVIDERS: PCP Family Medicine; Visit Provider Nurse Practitioner Psychiatric/Mental Health
DX: F31.64 Bipolar disorder, current episode mixed, severe, with psychotic features (principal); F41.1 Generalized anxiety disorder; F17.210 Nicotine dependence, cigarettes, uncomplicated; F43.12 Post-traumatic stress disorder, chronic; F15.21 Other stimulant dependence, in remission; F12.11 Cannabis abuse, in remission
CPT/HCPCS: 99214

== ENCOUNTER → 2021-08-25 14:25 | Outpatient (BNVA) | payer MEDICAID, SELFPAY ==
[2020-09-08 09:48] VITALS: BP 138/83; BMI 33.3
== END ==
PROVIDERS: PCP Family Medicine; Visit Provider Social Worker
DX: F31.64 Bipolar disorder, current episode mixed, severe, with psychotic features (principal); F41.1 Generalized anxiety disorder; F43.12 Post-traumatic stress disorder, chronic
CPT/HCPCS: 90837; 90834

== ENCOUNTER → 2021-09-01 12:54 | Outpatient (BNVA) | payer MEDICAID, SELFPAY ==
[2020-09-08 09:48] VITALS: BP 138/83; BMI 33.3
== END ==
PROVIDERS: PCP Family Medicine; Visit Provider Nurse Practitioner Psychiatric/Mental Health
DX: F31.64 Bipolar disorder, current episode mixed, severe, with psychotic features (principal); F41.1 Generalized anxiety disorder; F43.12 Post-traumatic stress disorder, chronic; F17.210 Nicotine dependence, cigarettes, uncomplicated; F12.11 Cannabis abuse, in remission; F15.21 Other stimulant dependence, in remission
CPT/HCPCS: 99214

== ENCOUNTER → 2021-10-21 11:20 | Outpatient (BNVA) | payer MEDICAID, SELFPAY ==
[2020-09-08 09:48] VITALS: BP 138/83; BMI 33.3
== END ==
PROVIDERS: PCP Family Medicine; Visit Provider Nurse Practitioner Psychiatric/Mental Health
DX: F31.64 Bipolar disorder, current episode mixed, severe, with psychotic features (principal); F41.1 Generalized anxiety disorder; F43.12 Post-traumatic stress disorder, chronic; F17.210 Nicotine dependence, cigarettes, uncomplicated
CPT/HCPCS: 99214

== ENCOUNTER → 2022-01-12 13:24 | Outpatient (BNVA) | payer MEDICAID, SELFPAY ==
[2020-09-08 09:48] VITALS: BP 138/83; BMI 33.3
== END ==
PROVIDERS: PCP Family Medicine; Visit Provider Family Medicine
DX: Z00.00 Encounter for general adult medical examination without abnormal findings (principal)
CPT/HCPCS: 80053; 80061; 83036; 85025

== ENCOUNTER → 2022-04-20 14:13 | Outpatient (BNVA) | payer MEDICAID, SELFPAY ==
[2020-09-08 09:48] VITALS: BP 138/83; BMI 33.3
== END ==
PROVIDERS: PCP Family Medicine; Visit Provider Nurse Practitioner Psychiatric/Mental Health
DX: Z79.899 Other long term (current) drug therapy (principal); F31.64 Bipolar disorder, current episode mixed, severe, with psychotic features; F41.1 Generalized anxiety disorder; F43.12 Post-traumatic stress disorder, chronic; F15.21 Other stimulant dependence, in remission; F12.11 Cannabis abuse, in remission; F17.210 Nicotine dependence, cigarettes, uncomplicated
CPT/HCPCS: 80053; 82306; 84443

== ENCOUNTER → 2022-05-19 09:05 | Outpatient (BNVA) | payer MEDICAID, SELFPAY ==
[2022-05-04 10:28] VITALS: BP 138/83; BMI 33.3
== END ==
PROVIDERS: PCP Family Medicine; Visit Provider Nurse Practitioner Psychiatric/Mental Health
DX: Z79.899 Other long term (current) drug therapy (principal)
CPT/HCPCS: 80053; 83036

== ENCOUNTER 2023-09-14 06:29 | Inpatient (IN) | payer MEDICAID, SELFPAY ==
[2022-05-04 10:28] VITALS: BP 138/83; BMI 33.3
[2023-09-14] VITALS (15 sets, daily range): BP systolic 118–152; BP diastolic 79–104; PULSE 78–124; RESP 17–21; TEMP 36.5–37.1; O2SAT 94–100; BMI 28.8; BMI 29.0
--- NOTE | 2023-09-14 06:38 | ED_ITS ---
HPI - Wound/Laceration 2 General: Chief Complaint: Wound/Laceration Stated Complaint: sore on right arm Time Seen by Provider: 09/14/23 06:37 Source: patient Mode of arrival: ambulatory History of Present Illness: 52-year-old male with a history of inter mittent IV drug use. He did attempt to use IV drugs 1 week ago he attempted to access right antecubital fossa. He has a large inflamed swollen area that has been present for about a week progressively worsening with increased pain. 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 Swelling in the area of the elbow. It is circumferential in the proximal forearm and distal upper arm. He denies fever sweats chills shortness of breath or chest pain. Onset (ago): week(s) (1) Extremity Location: Right: elbow (Right antecubital fossa) Patient tetanus UTD: Yes Associated symptoms: Reports pain; Denies chills or fever(s) Review of Systems 2 Const: Denies: fever(s) or chills Card: Denies: chest pain Resp: Denies: dyspnea GI: Denies: abdominal pain : Denies: dysuria, urinary frequency or urinary urgency Musc: Denies: neck pain or back pain Skin/Breast: Denies: rash PFSH ED 2 PFSH: Medical History Bipolar I disorder, most recent episode mixed, severe without psychotic features Cigarette nicotine dependence Cannabis use disorder, mild, in sustained remission, abuse sobriety date 07/01/20 Amphetamine substance use disorder, moderate, in sustained remission sobriety date 07/01/20 Chronic post-traumatic stress disorder Generalized anxiety disorder Family History Grandfather Cancer colon and then lung Mother Diabetes Psychiatric illness Father Diabetes Social History Smoking and tobacco/nicotine status: current every day tobacco/nicotine user cigarettes Packs smoked per day: 0.50 Years cigarettes smoked: 25 Second hand smoke exposure: Yes Alcohol intake: former Year of sobriety/quit date alcohol: 2020 Substance/Drug Use: former Date of last use: 07.01.20 Adopted: No Caregiver/support person: No Lives independently: Yes Household members: family Housing: House Marital status: Marital status details: 2001 Number of children: 2 Number of grandchildren: 0 Highest education level completed: Some College, No Degree service: No Current occupational status: employed Current occupation: [employer] Current occupational exposures/hazards: Yes (chemicals) Pets and animals: No Leisure activites: other Leisure activities details: write letters to Fabien, listen to yazidism music, watch TV, listen to bird Sexually active: No Do you think of yourself as: Straight/Heterosexual Current gender identity: Male Mildred/Mormon: Anabaptism Special mildred needs: No Agree to transfusion: Yes Physical Exam 2 Const: GENERAL APPEARANCE: cooperative and comfortable O RIENTATION/CONSCIOUSNESS: Yes awake, Yes oriented to person, Yes oriented to place and Yes oriented to time HENMT: COMMON NORMALS: normocephalic, atraumatic and hearing grossly normal bilaterally HEAD & SCALP: normocephalic and atraumatic Resp: COMMON NORMALS: normal respiratory effort, No retractions, No use of accessory muscles and clear to auscultation bilaterally AUSCULTATION: clear to auscultation bilaterally Cardio: COMMON NORMALS: regular rhythm and No murmurs present (Cardio) R ATE: tachycardic RHYTHM: regular rhythm GI: COMMON NORMALS: Soft to palpation and No hepatosplenomegaly present A USCULTATION: Yes normoactive bowel sounds PALPATION: Yes Soft to palpation, No Tenderness to palpation present (GI), No Guarding due to palpation present (GI) and Yes No hepatosplenomegaly present Extremity: OTHER: Indurated edema with the appearance of a focal abscess in the right antecubital fossa. No pain with passive range of motion at the wrist with flexion or extension. Mild epitrochlear and axillary lymphadenopathy and tenderness. Skin is warm to the touch induration of the skin is circumferential in the region of the elbow proximal forearm and distal upper arm Neuro: SENSORIUM/ORIENTATION: Yes oriented to person, Yes oriented to place and Yes oriented to time Skin: OTHER: Right antecubital fossa abscess inflamed and indurated Course 2 Vital Signs: Vital signs: Vital Signs Temperature 97.7 F 09/14/23 06:32 Pulse Rate 107 H 09/14/23 07:56 Respiratory Rate 18 09/14/23 06:32 Blood Pressure 152/104 09/14/23 07:56 Pulse Oximetry 100 09/14/23 07:56 Oxygen Delivery Me thod Room Air 09/14/23 07:56 MDM - Wound/Laceration Medical Decision Making Ultrasound shows superficial abscess. Patient has rolled no real pain in the joint most of his discomfort is superficial consistent with physical exam findings. He is able to flex and extend at the elbow and pronate and supinate without any significant pain. Ultrasound suggested MRI of the joint however clinically there is not appear to be a joint involvement at this point. Discussed Dr. De Paz he recommended plain film possible CT. Reviewed with Dr. Oro he did not feel given the description of the circumstances that there was a significant risk for joint involvement at this time. Will admit given white count elevated lactate and tachycardia. Consult general surgery for incision and drainage discussed with hospitalist vancomycin has been initiated after cultures were done. Medical Records I reviewed the patient's medical records. Lab Data I reviewed the patient's lab results. 09/14/23 06:47 09/14/23 06:47 Radiology Impressions Soft Tissue Ultrasound 09/14/23 07:00 IMPRESSION: There is a large phlegmonous region in the right antecubital space with mobile material/debris and vascularity. This is suspected to reflect a developing abscess. Recommend MRI of the right elbow with and without contrast further assess. Elbow X-Ray 09/14/23 08:35 IMPRESSION: No acute abnormality identified. Laboratory Results WBC 15.35 10^3/uL (3.29-11.43) H 09/14/23 06:47 RBC 5.41 10^6/uL (3.85-5.65) 09/14/23 06:47 Hgb 16.60 g/dL (11.27-16.99) 09/14/23 06:47 Hct 49.2 % (37-53) 09/14/23 06:47 MCV 90.9 fl (82-101) 09/14/23 06:47 MCH 30.7 pg (27-33) 09/14/23 06:47 MCHC 33.7 g/dL (30-55) 09/14/23 06:47 RDW 11.9 % (12.1-15.1) L 09/14/23 06:47 Plt Count 328 10^3/cmm (157-399) 09/14/23 06:47 MPV 9.9 fL (7.4-10.4) 09/14/23 06:47 Neut % (Auto) 80.7 % 09/14/23 06:47 Lymph % (Auto) 11.5 % 09/14/23 06:47 [place] % (Auto) 6.9 % 09/14/23 06:47 Eos % (Auto) 0.1 % 09/14/23 06:47 Baso % (Auto) 0.5 % 09/14/23 06:47 Neut # (Auto) 12.39 10^3/uL (1.8-7.7) H 09/14/23 06:47 Lymph # (Auto) 1.8 10^3/uL (0.8-4.8) 09/14/23 06:47 [place] # (Auto) 1.1 10^3/uL (0.2-0.9) H 09/14/23 06:47 Eos # (Auto) 0.0 10^3/uL (0.0-0.8) 09/14/23 06:47 Baso # (Auto) 0.1 10^3/uL (0.0-0.1) 09/14/23 06:47 Nucleated RBC % (auto) 0 % 09/14/23 06:47 Nucleated RBCs # 0.0 /100WBC 09/14/23 06:47 ESR 26 mm/hr (0-10) H 09/14/23 06:47 Sodium 138 mmol/L (136-145) 09/14/23 06:47 Potassium 3.5 mmol/L (3.5-5.1) 09/14/23 06:47 Chloride 100 mmol/L (98-107) 09/14/23 06:47 Carbon Dioxide 23 mmol/L (22-29) 09/14/23 06:47 Anion Gap 18.5 (5-19) 09/14/23 06:47 BUN 10 mg/dL (6-20) 09/14/23 06:47 Creatinine 1.1 mg/dL (0.7-1.2) 09/14/23 06:47 GFR Calculation 70.0 mL/min (90-130) L 05/03/24 06:47 Glucose 125 mg/dL (65-115) H 09/14/23 06:47 Calculated Osmolality 287 mOsm/kg (285-295) 09/14/23 06:47 Lactic Acid 2.5 mmol/L (0.5-2.2) H 09/14/23 06:47 Calcium 9.4 mg/dL (8.5-10.5) 09/14/23 06:47 Total Bilirubin 0.8 mg/dL (0.15-1.2) 09/14/23 06:47 AST 35 U/L (0-40) 09/14/23 06:47 ALT 44 U/L (0-41) H 09/14/23 06:47 Alkaline Phosphatase 97 U/L (40-130) 09/14/23 06:47 C-Reactive Protein 47.5 mg/L (0.0-4.9) H 09/14/23 06:47 Total Protein 7.9 g/dL (6.6-8.7) 09/14/23 06:47 Albumin 4.2 g/dL (3.5-5.2) 09/14/23 06:47 Globulin 3.7 g/dL (1.3-4.6) 09/14/23 06:47 All radiology interpretation(s) finalized by discharge Discharge Plan Discharge Patient Disposition: Admitted As Inpatient Clinical Impression: Abscess of antecubital fossa Condition: Stable Prescriptions: No Action (DME) auto cpap See Rx Instructions .Route .MEDSUPPLY Qty: 1 0RF Rx Instructions: settings 6-14cm H2O Benadryl 25 mg Capsule 50 mg PO BEDTIME PRN (Reason: Sleep) melatonin 5 mg Tablet 10 mg PO BEDTIME Referrals: Roque Gonzalez DO [Primary Care Provider] - Coding Level of Care Code ED Supercharger Mechanic for Keving Yvon
--- NOTE | 2023-09-14 07:00 | USR_ITS ---
PROCEDURE INFORMATION: Exam: US Right Non-Vascular Joint or Other Extremity Structure Exam date and time: 09/14/2023 7:21 AM Age: 52 years old Clinical indication: Injury or trauma. Patient states he had an injection; Puncture wound; Not specified; Elbow; Right; Additional info: Right antecubital fossa abscess from iv access attempt TECHNIQUE: Imaging protocol: Right US joint or other nonvascular extremity structure or structures. Real-time ultrasound with image documentation. Limited study. Exam focused on the upper extremity in the region of clinical interest. COMPARISON: US soft tissue/extremity [id number] 02/14/2017 4:11 PM FINDINGS: Soft tissues: There is a large phlegmonous region in the right antecubital space with mobile material/debris and vascularity. This is suspected to reflect a developing abscess. Recommend MRI of the right elbow with and without contrast further assess. US/US soft tissue/extremity [id number] IMPRESSION: There is a large phlegmonous region in the right antecubital space with mobile material/debris and vascularity. This is suspected to reflect a developing abscess. Recommend MRI of the right elbow with and without contrast further assess.
[2023-09-14] MEDS: sodium chloride 0.9% 1,000 ML 999 ML IV (07:01)
[2023-09-14 07:04] LABS: Basophils # 0.1 10^3/uL (0.0-0.1); Basophils % 0.5 %; Eosinophils % 0.1 %; Hematocrit 49.2 % (37-53); Lymphocytes # 1.8 10^3/uL (0.8-4.8); Lymphocytes % 11.5 %; Mean Corpuscular HGB Conc 33.7 g/dL (30-55); Mean Corpuscular Hemoglobin 30.7 pg (27-33); Mean Corpuscular Volume 90.9 fl (82-101); Mean Platelet Volume 9.9 fL (7.4-10.4); Monocytes # 1.1 10^3/uL (0.2-0.9); Monocytes % 6.9 %; Neutrophils # 12.39 10^3/uL (1.8-7.7); Neutrophils % 80.7 %; Nucleated Red Blood Cells % 0 %; Platelet Count 328 10^3/cmm (157-399); Red Blood Count 5.41 10^6/uL (3.85-5.65); Red Cell Distribution Width 11.9 % (12.1-15.1); White Blood Count 15.35 10^3/uL (3.29-11.43)
[2023-09-14 07:17] LABS: Lactic Sepsis W/Reflex 2.5 mmol/L (0.5-2.2)
[2023-09-14 07:18] LABS: Alanine Aminotransferase 44 U/L (0-41); Albumin Level 4.2 g/dL (3.5-5.2); Alkaline Phosphatase 97 U/L (40-130); Anion Gap 18.5 (5-19); Aspartate Amino Transferase 35 U/L (0-40); Blood Urea Nitrogen 10 mg/dL (6-20); Calcium 9.4 mg/dL (8.5-10.5); Carbon Dioxide 23 mmol/L (22-29); Chloride 100 mmol/L (98-107); Creatinine Clr Calc Pharmacy 98.8219; Globulin 3.7 g/dL (1.3-4.6); Glucose 125 mg/dL (65-115); Osmolality Calculated 287 mOsm/kg (285-295); Potassium 3.5 mmol/L (3.5-5.1); Sodium 138 mmol/L (136-145); Total Bilirubin 0.8 mg/dL (0.15-1.2); Total Protein 7.9 g/dL (6.6-8.7)
[2023-09-14] MEDS: vancomycin 1,000 MG in sodium chloride 0.9% 250 ML 250 MG IV (07:41)
--- NOTE | 2023-09-14 08:30 | PC.PHAR ---
PT STATES TAKES NO PRESCRIPTION MEDICATIONS. ONLY TAKES BENADRYL AND MELATONIN NEEDED FOR SLEEP.
--- NOTE | 2023-09-14 08:35 | XR_ITS ---
WS: [id number] XR elbow RT min 3V* [id number] REASON FOR EXAM: antecubital fossa FINDINGS: No joint effusion or other soft tissue abnormality. No fracture or focal bone lesion. Joint spaces of the right elbow are intact XR/XR elbow RT min 3V* [id number] IMPRESSION: No acute abnormality identified.
--- NOTE | 2023-09-14 08:38 | CTR_ITS ---
PROCEDURE INFORMATION: Exam: CT Right Upper Extremity With Contrast, Elbow Exam date and time: 09/14/2023 9:33 AM Age: 52 years old Clinical indication: Swelling; Elbow; Right; Additional info: Abscess antecubital fossa TECHNIQUE: Imaging protocol: Computed tomography of the right upper extremity with contrast. Exam focused on the elbow. Radiation optimization: All CT scans at this facility use at least one of these dose optimization techniques: automated exposure control; mA and/or kV adjustment per patient size (includes targeted exams where dose is matched to clinical indication); or iterative reconstruction. Contrast material: OMNI 350; Contrast volume: 100 ml; Contrast route: INTRAVENOUS (IV); COMPARISON: CR XR elbow RT min 3V* [id number] 09/14/2023 8:39 AM RADIATION DOSE METRICS: Total DLP (mGy-cm): 161.68 FINDINGS: Bones/joints: No fracture, dislocation or subluxation. No periosteal reaction or supsicious bone lesion. Soft tissues: There is a collection within the antecubital fossa and superficial brachioradialis muscle that measures 2.1 x 2.8 x 2.7 cm. There is an apparent sinus tract to the overlying subcutaneous tissues and possibly the cutaneous surface. There is edema involving the brachioradialis muscle suspicious for myositis. There is skin thickening and subcutaneous edema suspicious for cellulitis. Vasculature: Possible thrombus involving the cephalic vein. CT/CT elbow RT w con [id number] IMPRESSION: 1. Abscess within the antecubital fossa and superficial brachioradialis muscle. There is an apparent sinus tract to the overlying subcutaneous tissues and possibly the cutaneous surface. Edema involving the brachioradialis muscle suspicious for myositis. Skin thickening and subcutaneous edema suspicious for cellulitis. 2. Possible thrombus involving the cephalic vein. Consider ultrasound to further assess.
[2023-09-14 08:42] LABS: Reflex Lactate Order REFLEX LACTIC ORDERD
[2023-09-14 08:52] LABS: Erythrocyte Sedimentation Rate 26 mm/hr (0-10)
[2023-09-14 08:56] LABS: C Reactive Protein 47.5 mg/L (0.0-4.9)
[2023-09-14] MEDS: iohexol 350 mg/mL 500 mL Btl (per mL) IV (09:33)
[2023-09-14 09:46] LABS: Lactic Acid level (Lactate) 1.7 mmol/L (0.5-2.2)
--- NOTE | 2023-09-14 11:05 | P.HP_ITS ---
Providers/Chief Complaint 2 Admitting Physician: Nader Ivy MD Primary Care Provider: Roque Gonzalez DO Chief Complaint: sore on right arm History of Present Illness Jose Roberto Dumont is a 52 year old male with past medical history of IV drug abuse who came into the ER today because he was found to have swelling and pain in the left arm. As per the patient he has been using meth more so the last 1 week. He uses meth by injecting. He noticed swelling and pain in his left forearm and developed redness and swelling in the antecubital fossa. Swelling has been getting worse over the last 1 week. Since yesterday he has noticed purulent nonfoul-smelling not bloody stained discharge at the antiviral. So he presented to the ER. Gives history of abscesses in the past. Never required long-term antibiotics. Review of Systems 2 General: Reports: 10 or more systems reviewed and unremarkable except in HPI and below Const: Denies: fever(s), chills, body aches, change in appetite, change in weight, malaise, night sweats, diaphoresis, change in sleep pattern, daytime sleepiness or snoring Eyes: Denies: change in vision, blurry vision, photophobia, eye discomfort or eye discharge ENMT: Denies: throat pain, enlarged tonsils, hoarseness, mouth pain, oral sores, dry mouth, tinnitus, nasal congestion or post nasal drip Card: Denies: chest pain, palpitations, irregular heart rhythm, edema, swelling of feet/ankles, lightheadedness, syncope, pre-syncope, dyspnea on exertion, orthopnea, leg pain with exertion or acrocyanosis Resp: Denies: dyspnea, productive cough, non-productive cough, wheezing, stridor, pain on inspiration, change in phlegm color, hemoptysis or chest congestion GI: Denies: abdominal pain, nausea, vomiting, hematemesis, coffee ground emesis, dysphagia, heartburn, diarrhea, constipation, bloating, GI cramping, change in bowel habits, pain on defecation, hematochezia or melena : Denies: flank pain, difficulty urinating, dysuria, urinary frequency, urinary urgency, urinary hesitancy, urinary dribbling, difficulty starting urination, change in urine stream, nocturia or hematuria Musc: Denies: neck pain, back pain, extremity pain, joint pain, joint swelling, joint redness, joint stiffness or limited range of motion Neuro: Denies: headache(s), numbness in extremities, weakness in extremities, sensory changes, lack of coordination, difficulty walking, frequent falls, dizziness, vertigo, confusion, Slurred speech present, difficulty communicating thoughts or seizure-like activity Psych: Denies: anxiety, depression, mood swings, panic attacks, hopelessness or irritability Endo: Denies: polyuria, polydipsia, tired all the time, cold intolerance, excessive sweating, flushing or heat intolerance Ish/Lymph: Denies: easy bruising or easy bleeding All/Imm: Denies: tongue swelling, facial swelling or acute wheezing Medications/Allergies Home Medications Medication Instructions Recorded Confirmed Last Taken Type auto cpap #1 ea 07/02/23 09/14/23 Unknown Rx diphenhydramine HCl 25 mg capsule 50 mg PO BEDTIME PRN Sleep 09/14/23 09/14/23 Unknown History (Benadryl) melatonin 5 mg tablet 10 mg PO BEDTIME 09/14/23 09/14/23 Unknown History Allergies Allergy/AdvReac Type Severity Reaction Status Date / Time No Known Allergies Allergy Verified 09/14/23 06:37 PFSH Acute 2 PFSH: Medical History Bipolar I disorder, most recent episode mixed, severe without psychotic features Cigarette nicotine dependence Cannabis use disorder, mild, in sustained remission, abuse sobriety date 07/01/20 Amphetamine substance use disorder, moderate, in sustained remission sobriety date 07/01/20 Chronic post-traumatic stress disorder Generalized anxiety disorder Family History Grandfather Cancer colon and then lung Mother Diabetes Psychiatric illness Father Diabetes Social History Smoking and tobacco/nicotine status: current every day tobacco/nicotine user cigarettes Packs smoked per day: 0.50 Years cigarettes smoked: 25 Second hand smoke exposure: Yes Alcohol intake: former Year of sobriety/quit date alcohol: 2020 Substance/Drug Use: former Date of last use: 07.01.20 Adopted: No Caregiver/support person: No Lives independently: Yes Household members: family Housing: House Marital status: Marital status details: 2001 Number of children: 2 Number of grandchildren: 0 Highest education level completed: Some College, No Degree service: No Current occupational status: employed Current occupation: [employer] Current occupational exposures/hazards: Yes (chemicals) Pets and animals: No Leisure activites: other Leisure activities details: write letters to Fabien, listen to religious music, watch TV, listen to bird Sexually active: No Do you think of yourself as: Straight/Heterosexual Current gender identity: Male Mildred/Pentecostal: Mormon Special mildred needs: No Agree to transfusion: Yes Vitals/I&O/Wt Last Vital Signs Temp 97.7 F 09/14/23 10:40 Pulse 107 H 09/14/23 10:40 Resp 18 09/14/23 10:40 BP 152/104 09/14/23 10:40 Pulse Ox 100 09/14/23 10:40 O2 Del Method Room Air 09/14/23 07:56 09/13/23 09/14/23 09/14/23 22:59 06:59 14:59 Intake Total 1250 / 1250 Balance 1250 / 1250 Weight last 48 hrs Weight 101.605 kg Physical Exam 2 Narrative: General: No acute distress, AO x3, pleasant HEENT: PERRLA, pupils bilaterally equal and reactive Chest: Normal vesicular breath sounds, no added sounds, equal good air entry bilaterally CVS: S1-S2 regular, no murmurs, no tachycardia, no gallops, no rubs Abdomen: Soft, nontender, no organomegaly, bowel sounds present Neuro: No focal deficits, no facial deformity, AO x3, power 5/5 in all limbs Skin: NARRATIVE SKIN EXAM: Left forearm on admission after removal of superficial bandage Data 09/14/23 06:47 09/14/23 06:47 Micro: Microbiology 09/14/23 06:52 Blood Culture - Preliminary Blood SPECIMEN COLLECTED 09/14/23 06:47 Blood Culture - Preliminary Blood SPECIMEN COLLECTED A&P Assessment and plan (1) Abscess of antecubital fossa: Most likely infected in setting of injections of methamphetamines. Check ESR, CRP. Check CT of the arm to rule out deep abscess, possible osteomyelitis of the bone. Surgery has been consulted from the ER. Check MRSA swab. Empirically start patient on IV vancomycin and Zosyn. Will de-escalate antibiotics as per culture results. If culture results are nonrevealing will plan to discharge on oral antibiotics for over 14 days. (2) Amphetamine abuse: Watch for withdrawal. Patient denies any history of withdrawal seizures. Check HIV, hepatitis panel, urine drug screen Plan High blood pressure: Elevated on admission. Will continue to monitor. Goal blood pressure less than 140/90 mmHg. Patient is tachycardic. For now (start on metoprolol 25 mg twice daily. NPO, after that regular diet Famotidine for PUD prophylaxis Heparin 5000 every 12 hourly for DVT prophylaxis Normal saline at 125 cc/h for now. Attestations 2 Medical Necessity Statement*: Admission for more than 2 midnights for management of abscess in the antecubital left fossa in a patient with history of amphetamine abuse Diagnoses Abscess of antecubital fossa L02.419 Amphetamine abuse F15.10
[2023-09-14 11:11] LABS: Thyroid Stimulating Hormone 0.75 uIU/mL (0.27-4.20)
[2023-09-14] MEDS: heparin 5,000 unit/mL INJ 1 mL 5000 UNIT SUBCUT ×2 (11:51→22:22)
[2023-09-14] MEDS: piperacillin-tazobactam 3.375 GM in sodium chloride 0.9% (plus) 50 ML IV (11:52)
[2023-09-14] MEDS: famotidine 20 mg Tablet PO (11:52)
[2023-09-14] MEDS: sodium chloride 0.9% 1,000 ML 125 ML IV ×2 (11:52→20:16)
[2023-09-14] MEDS: morphine 4 mg/mL SDV 1 mL 2 MG IVP (11:53)
[2023-09-14 11:57] LABS: Iron 26 ug/dL (59-158); Percent Saturation 8.2 % (20-50); Total Iron Binding Capacity 317 mcg/dl; Unsaturated Iron Binding 291 ug/dL (112-347)
[2023-09-14 12:14] LABS: Vitamin B12 872 pg/mL (232-1245)
[2023-09-14 12:52] LABS: Hepatitis A Antibody IgM Non-Reactive (Nonreactive); Hepatitis B Core AB, Total Non-Reactive (Nonreactive); Hepatitis B Surface AB < 3.5 (11.5-1000); Hepatitis B Surface Antigen Non-Reactive (Nonreactive); Hepatitis C Virus Antibody Non-Reactive (Nonreactive)
[2023-09-14 12:56] LABS: HIV 1 & 2 Antibody Non-Reactive (Non-Reactiv); HIV 1 & 2 Antigen Non-Reactive (Non-Reactiv)
--- NOTE | 2023-09-14 13:58 | USCV_ITS ---
Jose Roberto Dumont Age: 52 Gender: M : 1970 Exam Date: 09/14/2023 14:42 Ordering Phys: Nader Ivy MD Technologist: CT Exam Location: [facility] – [place]_ Indication: swelling PROCEDURES: Venous duplex imaging was performed in only the right upper extremity. In addition, the basilic vein and cephalic vein. FINDINGS: normal us CONCLUSIONS No evidence of thrombus of the right upper extremity veins. Mark De Paz MD (Electronically Signed) Final Date: 14 Sep 2023 16:56 S
--- NOTE | 2023-09-14 14:07 | P.CONIM_ITS ---
Providers/Reason For Consult 2 Consulting Physician/Specialty*: Dr. Nick Rabago DO/General surgery Reason for Consult*: Abscess right antecubital fossa Attending Physician: Nader Ivy MD Primary Care Provider: Roque Gonzalez DO History of Present Illness History of Present Illness Jose Roberto Dumont is a 52 year old male with a history of IV methamphetamine use and cutaneous abscesses from injections presents to the hospital with a right antecubital fossa abscess from injecting. This is his fourth such abscess. He reports sharp constant pain at the injection site. Pain does not radiate. Palpation makes pain worse. Nothing makes pain better. He denies any fever or chills. CT shows an abscess at the brachioradialis Review of Systems 2 General: Reports: 10 or more systems reviewed and unremarkable except in HPI and below Medications/Allergies Home Medications Medication Instructions Recorded Confirmed Last Taken Type auto cpap #1 ea 07/02/23 09/14/23 Unknown Rx diphenhydramine HCl 25 mg capsule 50 mg PO BEDTIME PRN Sleep 09/14/23 09/14/23 Unknown History (Benadryl) melatonin 5 mg tablet 10 mg PO BEDTIME 09/14/23 09/14/23 Unknown History Allergies Allergy/AdvReac Type Severity Reaction Status Date / Time No Known Allergies Allergy Verified 09/14/23 06:37 Current Medications Generic Name Dose Route Start Last Admin Trade Name Freq PRN Reason Stop Dose Admin Famotidine 20 mg 09/14/23 10:46 09/14/23 11:52 Famotidine 20 Mg Tablet PO 20 mg BID OZIEL Administration Heparin Sodium (Porcine) 5,000 unit 09/14/23 10:46 09/14/23 11:51 Heparin 5,000 Unit/Ml Inj 1 Ml SUBCUT 5,000 unit Q12H OZIEL Administration Sodium Chloride 1,000 mls @ 125 mls/hr 09/14/23 10:46 09/14/23 11:52 Sodium Chloride 0.9% IV 125 mls/hr .Q8H OZIEL Administration Piperacillin Sod/Tazobactam 50 mls @ 12.5 mls/hr 09/14/23 11:00 09/14/23 11:52 Sod 3.375 gm/ Sodium Chloride IV 12.5 mls/hr Q8H OZIEL Administration Protocol Morphine Sulfate 2 mg 09/14/23 10:46 09/14/23 11:53 Morphine 4 Mg/Ml Sdv 1 Ml IVP 2 mg Q4H PRN Administration SEVERE PAIN PFSH Acute 2 PFSH: Medical History Bipolar I disorder, most recent episode mixed, severe without psychotic features Cigarette nicotine dependence Cannabis use disorder, mild, in sustained remission, abuse sobriety date 07/01/20 Amphetamine substance use disorder, moderate, in sustained remission sobriety date 07/01/20 Chronic post-traumatic stress disorder Generalized anxiety disorder Family History Grandfather Cancer colon and then lung Mother Diabetes Psychiatric illness Father Diabetes Social History Smoking and tobacco/nicotine status: current every day tobacco/nicotine user cigarettes Packs smoked per day: 0.50 Years cigarettes smoked: 25 Second hand smoke exposure: Yes Alcohol intake: former Year of sobriety/quit date alcohol: 2020 Substance/Drug Use: former Date of last use: 07.01.20 Adopted: No Caregiver/support person: No Lives independently: Yes Household members: family Housing: House Marital status: Marital status details: 2001 Number of children: 2 Number of grandchildren: 0 Highest education level completed: Some College, No Degree service: No Current occupational status: employed Current occupation: [employer] Current occupational exposures/hazards: Yes (chemicals) Pets and animals: No Leisure activites: other Leisure activities details: write letters to Fabien, listen to presybeterian music, watch TV, listen to bird Sexually active: No Do you think of yourself as: Straight/Heterosexual Current gender identity: Male Mildred/Jainism: Cheondoism Special mildred needs: No Agree to transfusion: Yes Vitals/I&O/Wt Last Vital Signs Temp 98.1 F 09/14/23 11:50 Pulse 101 H 09/14/23 11:50 Resp 20 H 09/14/23 11:53 BP 136/87 09/14/23 11:50 Pulse Ox 98 09/14/23 11:50 O2 Del Method Room Air 09/14/23 11:50 09/13/23 09/14/23 09/14/23 22:59 06:59 14:59 Intake Total 1250 / 1250 Balance 1250 / 1250 Weight last 48 hrs Weight 226 lb 1.6 oz Weight 224 lb Physical Exam 2 Narrative: General : Patient is well developed , no acute distress, oriented x3 Head : Normal cephalic, a-traumatic. Ears : Pinnae and external canal are normal. Hearing is normal. Eyes : PERRLA, Sclera and injection are normal. No conjunctival discharge. Nose : Mucous membranes are without erythema. Throat : buccal mucosa is normal, gums are without significant recession or hypertrophy. Lungs : Equal chest rise bilaterally, no use of accessory muscles, trachea is midline. Cor : Rate and rhythm are normal. Abdomen : Soft, ND, NT, no g/r/m Extremities : No edema, no cyanosis or clubbing, dorsalis pedis pulses are present bilaterally, non-tender to palpation of calves. Right antecubital fossa abscess Back : non-tender to palpation, no CVA tenderness. Neuro : CN II - XII intact, Upper and lower extremities have equal and full strength Data 09/14/23 06:47 09/14/23 06:47 Micro: Microbiology 09/14/23 06:52 Blood Culture - Preliminary Blood SPECIMEN COLLECTED 09/14/23 06:47 Blood Culture - Preliminary Blood SPECIMEN COLLECTED A&P Assessment and plan (1) Abscess of antecubital fossa: Plan Incision and drainage of right antecubital fossa abscess The risk and benefits of the procedure, including but not limited to, bleeding, scar, numbness, pain, recurrence, damage to surrounding structures, were explained to the patient. He is understanding of the risks and wishes to proceed Medical management per hospitalist Coding Level of Care Code 06190 Diagnoses Abscess of antecubital fossa L02.419
--- NOTE | 2023-09-14 15:43 | PM.OP ---
Operative Report Date of procedure: September 14, 2023 Pre-op diagnosis: Right upper extremity abscess Post-op diagnosis: same Procedure done: Incision and drainage of right upper extremity abscess Specimens removed/disposition: Cultures Surgeon: Nick Rabago DO Anesthesia: General Estimated blood loss (mL): 5 Complications: None apparent Brief History: This is a very pleasant 52-year-old gentleman who presented to the hospital with a right upper extremity abscess in his antecubital fossa from IV drug use. Incision and drainage was indicated. The risk and benefits were explained and documented. Procedure: Patient was wheeled operative room placed on the OR table in the supine position. The right upper extremity was inspected prepped and draped in the usual sterile fashion. General endotracheal ovation was achieved by the department anesthesia. A timeout was performed. All present were in agreement. A 1 cm incision with a 15 blade scalpel was made over the area of most fluctuance in the right antecubital fossa. Copious amounts of purulence expelled. Cultures were taken. Abscess cavities were gently probed with a hemostat and broken apart. Abscess cavity was then irrigated with normal saline. Half-inch iodoform packing gauze was placed into the wound. Sterile dressing was applied. Patient tolerated procedure well.
[2023-09-14 16:29] LABS: Add Urine Microscopic? YES; Blood Urine Neg (Negative); Glucose Urine UA Norm (Normal); Ketones Urine Negative (Negative); Leukocyte Esterase Urine Trace (Negative); Nitrate Urine Negative (Negative); Protein Urine Trace (Negative); Specific Gravity, Urine 1.005 (1.005-1.030); Urine Appearance Clear (CLEAR); Urine Color Dark Yellow (Yellow); Urobilinogen Urine 1 mg/dL (Negative); pH Urine 7 (5-7)
[2023-09-14 16:30] LABS: Add Urine Culture? No; Bacteria Urine TRACE /hpf; Bilirubin Urine 1+ (Negative); WBC Urine 0-4 /hpf (0-5)
[2023-09-14] MEDS: sodium chloride 0.9% 1,000 ML 30 ML IV (16:30)
[2023-09-14] MEDS: lidocaine-epi 1% 20 mL INJ INJECTION (17:26)
[2023-09-14 18:17] LABS: Amphetamines Screen Urine Positive (Negative); Barbiturates Screen Urine Negative (Negative); Benzodiazepines Screen Urine Negative (Negative); Cocaine Screen Urine Negative (Negative); Opiate Screen Urine Positive (Negative); PCP Screen Urine Negative (Negative); THC Screen Urine Positive (Negative)
--- NOTE | 2023-09-14 18:19 | P.ANESASSM_ITS ---
Pre-Anesthetic Assessment Height/Weight: Height 1.88 m Weight 102.557 kg Temp Pulse Resp BP Pulse Ox O2 Del Method O2 Flow Rate 98.0 F 92 18 144/81 95 Room Air 8 09/14/23 18:00 09/14/23 18:00 09/14/23 18:00 09/14/23 18:00 09/14/23 18:00 09/14/23 18:00 09/14/23 17:43 Operation Date: 09/14/23 15:45 Proposed Procedures p Incision And Drainage Upper Extremity Abscess(Right) - Nick Rabago, DO Was Beta Arianne taken within 24 hours: N/A Last intake: Intake Last Liquid Date 09/14/23 Last Liquid Time 06:30 Last Solid Date 09/13/23 Last Solid Time 12:00 Social Alcohol and Tobacco Meth use Exam alert, oriented x 3, clear to auscultation bilaterally and regular rate & rhythm Airway Submandibular: within normal limits Cervical ROM: within normal limits Mallampati: Class II History/ROS No significant history except as noted Anesthetic Plan ASA status: 2E Anesthesia: General Medications/Allergies Home Medications Medication Instructions Recorded Confirmed Last Taken Type auto cpap #1 ea 07/02/23 09/14/23 Unknown Rx diphenhydramine HCl 25 mg capsule 50 mg PO BEDTIME PRN Sleep 09/14/23 09/14/23 Unknown History (Benadryl) melatonin 5 mg tablet 10 mg PO BEDTIME 09/14/23 09/14/23 Unknown History Allergies Allergy/AdvReac Type Severity Reaction Status Date / Time No Known Allergies Allergy Verified 09/14/23 06:37 Current Medications Generic Name Dose Route Start Last Admin Trade Name Manuelq PRN Reason Stop Dose Admin Famotidine 20 mg 09/14/23 10:46 09/14/23 11:52 Famotidine 20 Mg Tablet PO 20 mg BID OZIEL Administration Heparin Sodium (Porcine) 5,000 unit 09/14/23 10:46 09/14/23 11:51 Heparin 5,000 Unit/Ml Inj 1 Ml SUBCUT 5,000 unit Q12H OZIEL Administration Sodium Chloride 1,000 mls @ 125 mls/hr 09/14/23 10:46 09/14/23 11:52 Sodium Chloride 0.9% IV 125 mls/hr .Q8H OZIEL Administration Piperacillin Sod/Tazobactam 50 mls @ 12.5 mls/hr 09/14/23 11:00 09/14/23 11:52 Sod 3.375 gm/ Sodium Chloride IV 12.5 mls/hr Q8H OZIEL Administration Protocol Sodium Chloride 1,000 mls @ 30 mls/hr 09/14/23 16:30 09/14/23 16:30 Sodium Chloride 0.9% IV 30 mls/hr .Q24H OZIEL Administration Morphine Sulfate 2 mg 09/14/23 10:46 09/14/23 11:53 Morphine 4 Mg/Ml Sdv 1 Ml IVP 2 mg Q4H PRN Administration SEVERE PAIN PFSH Anesthesia Medical History Bipolar I disorder, most recent episode mixed, severe without psychotic features Cigarette nicotine dependence Cannabis use disorder, mild, in sustained remission, abuse sobriety date 07/01/20 Amphetamine substance use disorder, moderate, in sustained remission sobriety date 07/01/20 Chronic post-traumatic stress disorder Generalized anxiety disorder Family History Grandfather Cancer colon and then lung Mother Diabetes Psychiatric illness Father Diabetes Social History Smoking and tobacco/nicotine status: current every day tobacco/nicotine user cigarettes Packs smoked per day: 0.50 Years cigarettes smoked: 25 Second hand smoke exposure: Yes Alcohol intake: former Year of sobriety/quit date alcohol: 2020 Substance/Drug Use: former Date of last use: 07.01.20 Adopted: No Caregiver/support person: No Lives independently: Yes Household members: family Housing: House Marital status: Marital status details: 2001 Number of children: 2 Number of grandchildren: 0 Highest education level completed: Some College, No Degree service: No Current occupational status: employed Current occupation: [employer] Current occupational exposures/hazards: Yes (chemicals) Pets and animals: No Leisure activites: other Leisure activities details: write letters to Fabien, listen to buddhist music, watch TV, listen to bird Sexually active: No Do you think of yourself as: Straight/Heterosexual Current gender identity: Male Mildred/Amish: Orthodoxy Special mildred needs: No Agree to transfusion: Yes Data Anesthesia 05/03/24 06:47 09/14/23 06:47 Short CBC 09/14/23 Range/Units 06:47 WBC 15.35 H (3.29-11.43) 10^3/uL Hgb 16.60 (11.27-16.99) g/dL Hct 49.2 (37-53) % MCV 90.9 (82-101) fl Plt Count 328 (157-399) 10^3/cmm Neut % (Auto) 80.7 % Neut # (Auto) 12.39 H (1.8-7.7) 10^3/uL BMP 09/14/23 06:47 Sodium 138 Potassium 3.5 Chloride 100 Carbon Dioxide 23 BUN 10 Creatinine 1.1 Glucose 125 H Calcium 9.4 Liver Function 09/14/23 Range/Units 06:47 Total Bilirubin 0.8 (0.15-1.2) mg/dL AST 35 (0-40) U/L ALT 44 H (0-41) U/L Alkaline Phosphatase 97 (40-130) U/L Albumin 4.2 (3.5-5.2) g/dL Urine 09/14/23 Range/Units 15:29 Urine Color Dark yellow (Yellow) Urine Appearance Clear (CLEAR) Urine pH 7 (5-7) Ur Specific [place] 1.005 (1.005-1.030) Urine Protein Trace (Negative) Urine Glucose (UA) Norm (Normal) Urine Ketones Negative (Negative) Urine Nitrate Negative (Negative) Urine Bilirubin 1+ H (Negative) Ur Leukocyte Esterase Trace H (Negative) Urine RBC None (0-2) /hpf Urine WBC 0-4 H (0-5) /hpf Coags 09/14/23 06:47 ESR 26 H C-Reactive Protein 47.5 H Microbiology 09/14/23 06:52 Blood Culture - Preliminary Blood SPECIMEN COLLECTED 09/14/23 06:47 Blood Culture - Preliminary Blood SPECIMEN COLLECTED Cardiac Studies: 2 No Data to Display
--- NOTE | 2023-09-14 18:21 | ANE.PACU2 ---
Inpatient post-anesthesia follow up: Airway intact: Yes Vital signs: Temperature 98.0 F Pulse Rate 92 Respiratory Rate 18 Blood Pressure 144/81 Pulse Oximetry 95 Oxygen Delivery Me thod Room Air Oxygen Flow Rate 8 Fraction of Inspir ed Oxygen Hydration adequate: Yes Nausea and vomiting: No Pain level: 3 Mental status: Baseline
--- NOTE | 2023-09-14 19:54 | PC.NURSE ---
Addendum entered by Cristina Craven RN 09/15/23 01:38: Maribel ordered. Original Note: Dr. Hanson notified of patient asking for something to help him sleep.
[2023-09-14] MEDS: HYDROcodone-acetaminophen 7.5-325 mg Tablet 1 TAB PO (20:14)
[2023-09-14] MEDS: diphenhydrAMINE 50 mg Capsule PO (22:22)
[2023-09-14] MEDS: nicotine 21 mg Patch 1 PATCH TRANSDERMA (23:07)
[2023-09-15] VITALS (7 sets, daily range): BP systolic 125–146; BP diastolic 85–93; PULSE 78–106; RESP 18–19; TEMP 36.4–37.4; O2SAT 93–98
[2023-09-15] MEDS: piperacillin-tazobactam 3.375 GM in sodium chloride 0.9% (plus) 50 ML IV ×3 (03:08→22:19)
[2023-09-15 05:26] LABS: Basophils % 0.1 %; Hematocrit 43.1 % (37-53); Lymphocytes # 0.6 10^3/uL (0.8-4.8); Lymphocytes % 6.5 %; Mean Corpuscular HGB Conc 33.6 g/dL (30-55); Mean Corpuscular Hemoglobin 30.5 pg (27-33); Mean Corpuscular Volume 90.5 fl (82-101); Mean Platelet Volume 10.2 fL (7.4-10.4); Monocytes # 0.2 10^3/uL (0.2-0.9); Neutrophils # 8.31 10^3/uL (1.8-7.7); Nucleated Red Blood Cells % 0 %; Platelet Count 278 10^3/cmm (157-399); Red Blood Count 4.76 10^6/uL (3.85-5.65); Red Cell Distribution Width 12.1 % (12.1-15.1); White Blood Count 9.13 10^3/uL (3.29-11.43)
[2023-09-15 05:43] LABS: Estmated Average Glucose 128; Hemoglobin A1C 6.1 % (4.0-6.0)
[2023-09-15 05:44] LABS: Chol HDL Ratio 2.79 mg/dL (1.0-5.00); Cholesterol 159 mg/dL (0-200); HDL Cholesterol 57 mg/dL (60-100); LDL Cholesterol Calculated 88 mg/dL (50-129); LDL HDL Ratio 1.54 RATIO (0.00-3.22); Triglycerides 68 mg/dL (0-150)
[2023-09-15] MEDS: sodium chloride 0.9% 1,000 ML 125 ML IV ×2 (05:46→14:24)
[2023-09-15 05:47] LABS: Alanine Aminotransferase 44 U/L (0-41); Albumin Level 3.6 g/dL (3.5-5.2); Alkaline Phosphatase 86 U/L (40-130); Anion Gap 14.9 (5-19); Aspartate Amino Transferase 36 U/L (0-40); Blood Urea Nitrogen 16 mg/dL (6-20); Calcium 8.3 mg/dL (8.5-10.5); Carbon Dioxide 24 mmol/L (22-29); Chloride 104 mmol/L (98-107); Creatinine Clr Calc Pharmacy 109.1642; Globulin 3.1 g/dL (1.3-4.6); Glomerular Filtration Rate 78.2 mL/min (90-130); Glucose 186 mg/dL (65-115); Osmolality Calculated 292 mOsm/kg (285-295); Phosphorus 2.7 mg/dL (2.5-4.5); Potassium 4.9 mmol/L (3.5-5.1); Sodium 138 mmol/L (136-145); Total Bilirubin 0.3 mg/dL (0.15-1.2); Total Protein 6.7 g/dL (6.6-8.7)
[2023-09-15 05:59] LABS: Folate Level 6.8 ng/mL (4.5-32.2)
[2023-09-15] MEDS: HYDROcodone-acetaminophen 7.5-325 mg Tablet 1 TAB PO ×3 (06:03→20:21)
[2023-09-15] MEDS: vancomycin 1,500 MG/300 ML PIGGYBACK 200 MG IV ×2 (06:50→20:20)
[2023-09-15] MEDS: nicotine 21 mg Patch 1 PATCH TRANSDERMA (08:34)
[2023-09-15] MEDS: famotidine 20 mg Tablet PO ×2 (08:34→18:30)
--- NOTE | 2023-09-15 11:10 | P.PN_ITS ---
Subjective 2 Subjective: Patient seen and examined. Pain is under control. No new symptoms Vitals/I&O/Wt Last Vital Signs Temp 98.1 F 09/16/23 12:26 Pulse 58 L 09/16/23 12:26 Resp 18 09/16/23 12:26 BP 130/85 09/16/23 12:26 Pulse Ox 97 09/16/23 12:26 O2 Del Method Room Air 09/16/23 12:26 O2 Flow Rate 8 09/14/23 17:43 FiO2 24 09/14/23 23:01 09/15/23 09/16/23 09/16/23 22:59 06:59 14:59 Intake Total 753.542 / 3194.042 601.458 / 3795.500 1508.542 / 1508.542 Output Total 800 / 800 Balance -46.458 / 2394.042 601.458 / 2995.500 1508.542 / 1508.542 Weight last 48 hrs Weight 239 lb 12.8 oz Weight 226 lb Weight 226 lb 1.6 oz Physical Exam 2 Narrative: General: No acute distress, awake alert and oriented x 3 Skin: Right antecubital fossa abscess status post incision and drainage has induration and erythema but no purulence Data 09/15/23 05:05 09/15/23 05:05 Micro: Microbiology 09/14/23 17:31 Gram Stain - Final Arm - #1 Abscess Culture - Preliminary A&P Assessment and plan (1) Abscess of antecubital fossa: Plan S/P Incision and drainage of right antecubital fossa abscess Dressing changed today with quarter inch plain packing gauze covered by 4 x 4 gauze, ABD pad and [place] Antibiotics Daily dressing changes Medical management per hospitalist Attestations 2 Medical Necessity Statement*: Per primary Coding Level of Care Code 09197 Diagnoses Abscess of antecubital fossa L02.419
[2023-09-15] MEDS: heparin 5,000 unit/mL INJ 1 mL 5000 UNIT SUBCUT ×2 (12:15→22:20)
--- NOTE | 2023-09-15 16:01 | P.PN_ITS ---
Subjective 2 Subjective: No acute events overnight. Patient denies any nausea vomiting, headache. Underwent I&D of the abscess in the anterior waterfalls of the right arm yesterday. Has remained hemodynamically stable and afebrile. Seen walking down the hallway today. Vitals/I&O/Wt Last Vital Signs Temp 98.5 F 09/15/23 15:41 Pulse 97 09/15/23 15:41 Resp 18 09/15/23 15:41 BP 146/93 09/15/23 15:41 Pulse Ox 93 09/15/23 15:41 O2 Del Method Room Air 09/15/23 15:41 O2 Flow Rate 8 09/14/23 17:43 FiO2 24 09/14/23 23:01 09/15/23 09/15/23 09/15/23 06:59 14:59 22:59 Intake Total 1050 / 3350 2440.5 / 2440.5 Balance 1050 / 3070 2440.5 / 2440.5 Weight last 48 hrs Weight 102.512 kg Weight 102.557 kg Weight 102.557 kg Weight 101.605 kg Physical Exam 2 Narrative: General: No acute distress, AO x3, pleasant HEENT: PERRLA, pupils bilaterally equal and reactive Chest: Normal vesicular breath sounds, no added sounds, equal good air entry bilaterally CVS: S1-S2 regular, no murmurs, no tachycardia, no gallops, no rubs Abdomen: Soft, nontender, no organomegaly, bowel sounds present Neuro: No focal deficits, no facial deformity, AO x3, power 5/5 in all limbs Skin: NARRATIVE SKIN EXAM: Left forearm on admission after removal of superficial bandage Data 09/15/23 05:05 09/15/23 05:05 Micro: Microbiology 09/14/23 17:31 Gram Stain - Final Arm - #1 09/14/23 06:52 Blood Culture - Preliminary Blood NEGATIVE TO DATE 09/14/23 06:47 Blood Culture - Preliminary Blood NEGATIVE TO DATE A&P Assessment and plan (1) Abscess of antecubital fossa: Most likely infected in setting of injections of methamphetamines. Check ESR, CRP. Check CT of the arm to rule out deep abscess, possible osteomyelitis of the bone. Surgery has been consulted from the ER. Check MRSA swab. Empirically start patient on IV vancomycin and Zosyn. Will de-escalate antibiotics as per culture results. If culture results are nonrevealing will plan to discharge on oral antibiotics for over 14 days. (2) Amphetamine abuse: Watch for withdrawal. Patient denies any history of withdrawal seizures. Check HIV, hepatitis panel, urine drug screen Plan High blood pressure: Elevated on admission. Will continue to monitor. Goal blood pressure less than 140/90 mmHg. Patient is tachycardic. For now start on metoprolol 25 mg twice daily. Plan for the day: Follow-up cultures. Stop IV fluids. Tolerating oral diet well. Continue with empiric IV vancomycin and Zosyn. Complaining of swelling in the left cubital fossa. Will check ultrasound to rule out collection. Wound care as per surgical team. Continue with pain medication. Blood pressure stable. Continue with metoprolol 25 mg twice daily. Discharge plan: Plan to discharge within 24 hours on oral antibiotics if blood cultures remain negative. Patient would want to go to sober program on discharge. He is also considering voluntary admission to [facility] for few days. NPO, after that regular diet Famotidine for PUD prophylaxis Heparin 5000 every 12 hourly for DVT prophylaxis Normal saline at 125 cc/h for now. Attestations 2 Medical Necessity Statement*: Requires further hospitalization for management of abscess in the right antecubital fossa post I&D while cultures are followed up with the patient with history of amphetamine abuse Diagnoses Abscess of antecubital fossa L02.419 Amphetamine abuse F15.10
--- NOTE | 2023-09-15 17:05 | USR_ITS ---
PROCEDURE INFORMATION: Exam: US Duplex Left Upper Extremity Veins, Limited Exam date and time: 09/15/2023 5:09 PM Age: 52 years old Clinical indication: Pain; Arm, lower; Left; Additional info: Concern for dvt TECHNIQUE: Imaging protocol: Real-time duplex ultrasound of the left extremity with 2-D becker scale, color Doppler flow and spectral waveform analysis including responses to compression and other maneuvers (when performed) with image documentation. Limited exam focused on the left upper extremity veins. COMPARISON: US soft tissue/extremity [id number] 09/15/2023 4:57 PM FINDINGS: Left deep veins: Internal jugular, subclavian, axillary, brachial and radial veins patent without thrombus. Normal compressibility, augmentation response and/or Doppler waveforms. Superficial veins: Heterogeneously hypoechoic nonocclusive thrombus in the basilic vein, extending from the wrist to just above the elbow. Visualized cephalic vein patent without thrombus. Soft tissues: Unremarkable. US/[place] [id number] IMPRESSION: 1. No sonographic evidence of deep vein thrombosis. 2. Heterogeneously hypoechoic nonocclusive thrombus in the basilic vein, extending from the wrist to just above the elbow.
[2023-09-15] MEDS: HYDROmorphone 1 mg/mL INJ 1 mL 0.5 MG IVP (19:36)
[2023-09-15] MEDS: metoprolol tartrate 25 mg Tablet PO (20:21)
[2023-09-15] MEDS: diphenhydrAMINE 50 mg Capsule PO (23:00)
[2023-09-16] VITALS: BP 131/82; PULSE 65; RESP 18; TEMP 36.7; O2SAT 97
[2023-09-16] MEDS: HYDROcodone-acetaminophen 7.5-325 mg Tablet 1 TAB PO ×2 (02:00→13:42)
[2023-09-16] MEDS: lactulose oral liq 20 gm/30 mL UDC 10 GM PO (02:01)
[2023-09-16 04:00] VITALS: BP 128/80; PULSE 66; RESP 18; TEMP 36.9; O2SAT 98
[2023-09-16] MEDS: piperacillin-tazobactam 3.375 GM in sodium chloride 0.9% (plus) 50 ML IV (04:10)
[2023-09-16] MEDS: vancomycin 1,500 MG/300 ML PIGGYBACK 200 MG IV (07:15)
[2023-09-16 07:52] VITALS: BP 136/86; PULSE 63; RESP 17; TEMP 36.8; O2SAT 96
[2023-09-16] MEDS: famotidine 20 mg Tablet PO (09:33)
[2023-09-16] MEDS: nicotine 21 mg Patch 1 PATCH TRANSDERMA (09:33)
[2023-09-16] MEDS: metoprolol tartrate 25 mg Tablet PO (09:33)
[2023-09-16] MEDS: HYDROmorphone 1 mg/mL INJ 1 mL 0.5 MG IVP (10:22)
[2023-09-16] MEDS: heparin 5,000 unit/mL INJ 1 mL 5000 UNIT SUBCUT (11:48)
[2023-09-16 12:26] VITALS: BP 130/85; PULSE 58; RESP 18; TEMP 36.7; O2SAT 97
--- NOTE | 2023-09-16 12:44 | P.DS_ITS ---
Discharge Providers 2 Date of Admission: 09/14/23 09:50 Date of Discharge: September 16, 2023 Attending Provider at Admission: Nader Ivy MD Attending Provider at Discharge: Nader Ivy MD Consults: Surgery: Dr. Rabago Primary Care Provider: Roque Gonzalez DO Diagnoses at Discharge Discharge Diagnosis (1) Abscess of antecubital fossa: Status: Acute (2) Amphetamine abuse: Status: Acute Reason for Visit 2 Reason for Visit: sore on right arm Hospital Course Hospital Course Jose Roberto Dumont is a 52 year old male with past medical history of IV drug abuse who came into the ER today because he was found to have swelling and pain in the left arm. As per the patient he has been using meth more so the last 1 week. He uses meth by injecting. He noticed swelling and pain in his left forearm and developed redness and swelling in the antecubital fossa. Swelling has been getting worse over the last 1 week. Since yesterday he has noticed purulent nonfoul-smelling not bloody stained discharge at the antiviral. So he presented to the ER. Gives history of abscesses in the past. Never required long-term antibiotics. Surgery was consulted underwent I&D on 09/13. During hospitalization his blood culture and OR abscess cultures for now have remained negative. He was continued on broad-spectrum antibiotics. His hospitalization was unremarkable. He has been discharged home on oral Augmentin going forward for next 2 weeks. He is to follow-up with wound care as an outpatient and with surgical team in 2 weeks. Physical Exam 2 Narrative: General: No acute distress, AO x3, pleasant HEENT: PERRLA, pupils bilaterally equal and reactive Chest: Normal vesicular breath sounds, no added sounds, equal good air entry bilaterally CVS: S1-S2 regular, no murmurs, no tachycardia, no gallops, no rubs Abdomen: Soft, nontender, no organomegaly, bowel sounds present Neuro: No focal deficits, no facial deformity, AO x3, power 5/5 in all limbs Skin: NARRATIVE SKIN EXAM: Left forearm on admission after removal of superficial bandage Discharge Data Studies Completed and Pending Completed Studies During Hospitalization Category Date Time Status CT elbow RT w con [id number] Stat Cat Scan 09/14/23 08:38 Completed XR elbow RT min 3V* [id number] Stat Exams 09/14/23 08:35 [place] [id number] Routine Ultrasound 09/15/23 17:05 [place] [id number] Routine Ultrasound 09/14/23 13:58 Completed US soft tissue/extremity [id number] Stat Ultrasound 09/14/23 07:00 Completed Pending at discharge Category Date Time Status Abscess Culture and Gram Stain Routine Lab 09/14/23 17:31 Results Anaerobic Culture Routine Lab 09/14/23 17:31 Results Blood Culture Stat Lab 09/14/23 06:52 Results MRSA [Methicillin Resistant S.aureu] Routine Lab 09/14/23 13:52 Ordered Vancomycin Trough Timed Lab 09/16/23 18:00 Ordered Radiology Impressions Soft Tissue Ultrasound 09/14/23 07:00 IMPRESSION: There is a large phlegmonous region in the right antecubital space with mobile material/debris and vascularity. This is suspected to reflect a developing abscess. Recommend MRI of the right elbow with and without contrast further assess. Elbow X-Ray 09/14/23 08:35 IMPRESSION: No acute abnormality identified. Elbow CT 09/14/23 08:38 IMPRESSION: 1. Abscess within the antecubital fossa and superficial brachioradialis muscle. There is an apparent sinus tract to the overlying subcutaneous tissues and possibly the cutaneous surface. Edema involving the brachioradialis muscle suspicious for myositis. Skin thickening and subcutaneous edema suspicious for cellulitis. 2. Possible thrombus involving the cephalic vein. Consider ultrasound to further assess. ADDENDUM: 09/14/23 1003 Findings discussed with TOMAS MAYFIELD at 09/14/2023 10:02 AM CDT. Venous Duplex 09/15/23 17:05 IMPRESSION: 1. No sonographic evidence of deep vein thrombosis. 2. Heterogeneously hypoechoic nonocclusive thrombus in the basilic vein, extending from the wrist to just above the elbow. Laboratory Results WBC 9.13 10^3/uL (3.29-11.43) 09/15/23 05:05 RBC 4.76 10^6/uL (3.85-5.65) 09/15/23 05:05 Hgb 14.50 g/dL (11.27-16.99) 09/15/23 05:05 Hct 43.1 % (37-53) 09/15/23 05:05 MCV 90.5 fl (82-101) 09/15/23 05:05 MCH 30.5 pg (27-33) 09/15/23 05:05 MCHC 33.6 g/dL (30-55) 09/15/23 05:05 RDW 12.1 % (12.1-15.1) 09/15/23 05:05 Plt Count 278 10^3/cmm (157-399) 09/15/23 05:05 MPV 10.2 fL (7.4-10.4) 09/15/23 05:05 Neut % (Auto) 91.0 % 09/15/23 05:05 Lymph % (Auto) 6.5 % 09/15/23 05:05 Oliver % (Auto) 2.0 % 09/15/23 05:05 Eos % (Auto) 0.0 % 09/15/23 05:05 Baso % (Auto) 0.1 % 09/15/23 05:05 Neut # (Auto) 8.31 10^3/uL (1.8-7.7) H 09/15/23 05:05 Lymph # (Auto) 0.6 10^3/uL (0.8-4.8) L 09/15/23 05:05 Oliver # (Auto) 0.2 10^3/uL (0.2-0.9) 09/15/23 05:05 Eos # (Auto) 0.0 10^3/uL (0.0-0.8) 09/15/23 05:05 Baso # (Auto) 0.0 10^3/uL (0.0-0.1) 09/15/23 05:05 Nucleated RBC % (auto) 0 % 09/15/23 05:05 Nucleated RBCs # 0.0 /100WBC 09/15/23 05:05 ESR 26 mm/hr (0-10) H 09/14/23 06:47 Sodium 138 mmol/L (136-145) 09/15/23 05:05 Potassium 4.9 mmol/L (3.5-5.1) 09/15/23 05:05 Chloride 104 mmol/L (98-107) 09/15/23 05:05 Carbon Dioxide 24 mmol/L (22-29) 09/15/23 05:05 Anion Gap 14.9 (5-19) 09/15/23 05:05 BUN 16 mg/dL (6-20) 09/15/23 05:05 Creatinine 1.0 mg/dL (0.7-1.2) 09/15/23 05:05 GFR Calculation 78.2 mL/min (90-130) L 09/15/23 05:05 Glucose 186 mg/dL (65-115) H 09/15/23 05:05 Estimat Average Glucose 128 09/15/23 05:05 Hemoglobin A1c 6.1 % (4.0-6.0) H 09/15/23 05:05 Calculated Osmolality 292 mOsm/kg (285-295) 09/15/23 05:05 Lactic Acid 2.5 mmol/L (0.5-2.2) H 09/14/23 06:47 Lactic Acid (Sepsis) 1.7 mmol/L (0.5-2.2) 09/14/23 09:15 Calcium 8.3 mg/dL (8.5-10.5) L 09/15/23 05:05 Phosphorus 2.7 mg/dL (2.5-4.5) 09/15/23 05:05 Magnesium 2.0 mg/dL (1.7-2.3) 09/15/23 05:05 Iron 26 ug/dL (59-158) L 09/14/23 06:49 TIBC 317 mcg/dl 09/14/23 06:49 % Saturation 8.2 % (20-50) L 09/14/23 06:49 Unsat Iron Binding 291 ug/dL (112-347) 09/14/23 06:49 Total Bilirubin 0.3 mg/dL (0.15-1.2) 09/15/23 05:05 AST 36 U/L (0-40) 09/15/23 05:05 ALT 44 U/L (0-41) H 09/15/23 05:05 Alkaline Phosphatase 86 U/L (40-130) 09/15/23 05:05 C-Reactive Protein 47.5 mg/L (0.0-4.9) H 09/14/23 06:47 Total Protein 6.7 g/dL (6.6-8.7) 09/15/23 05:05 Albumin 3.6 g/dL (3.5-5.2) 09/15/23 05:05 Globulin 3.1 g/dL (1.3-4.6) 09/15/23 05:05 Triglycerides 68 mg/dL (0-150) 09/15/23 05:05 Cholesterol 159 mg/dL (0-200) 09/15/23 05:05 LDL Cholesterol, Calc 88 mg/dL (50-129) 09/15/23 05:05 HDL Cholesterol 57 mg/dL (60-100) L 09/15/23 05:05 LDL/HDL Ratio 1.54 RATIO (0.00-3.22) 09/15/23 05:05 Cholesterol/HDL Ratio 2.79 mg/dL (1.0-5.00) 09/15/23 05:05 Vitamin B12 872 pg/mL (232-1245) 09/14/23 06:49 Folate 6.8 ng/mL (4.5-32.2) 09/15/23 05:05 Procalcitonin 0.10 ng/mL (0-0.5) 09/14/23 06:49 TSH 0.75 uIU/mL (0.27-4.20) 09/14/23 06:49 Urine Color Dark yellow (Yellow) 09/14/23 15:29 Urine Appearance Clear (CLEAR) 09/14/23 15: Urine pH 7 (5-7) 09/14/23 15: Ur Specific [place] 1.005 (1.005-1.030) 09/14/23 15:29 Urine Protein Trace (Negative) 09/14/23 15:29 Urine Glucose (UA) Norm (Normal) 09/14/23 15:29 Urine Ketones Negative (Negative) 09/14/23 15: Urine Blood Neg (Negative) 09/14/23 15:29 Urine Nitrate Negative (Negative) 09/14/23 15:29 Urine Bilirubin 1+ (Negative) H 09/14/23 15:29 Urine Urobilinogen 1 mg/dL (Negative) H 09/14/23 15:29 Ur Leukocyte Esterase Trace (Negative) H 09/14/23 15:29 Urine RBC None /hpf (0-2) 09/14/23 15:29 Urine WBC 0-4 /hpf (0-5) H 09/14/23 15:29 Ur Squamous Epith Cells None /hpf (0-5) 09/14/23 15:29 Amorphous Sediment Not Reportable 09/14/23 15:29 Urine Bacteria Trace /hpf (NONE) 09/14/23 15:29 Urine Opiates Screen Positive ng/mL (Negative) H 09/14/23 15:29 Ur Barbiturates Screen Negative ng/mL (Negative) 09/14/23 15:29 Ur Phencyclidine Scrn Negative ng/mL (Negative) 09/14/23 15:29 Ur Amphetamines Screen Positive ng/mL (Negative) H 09/14/23 15:29 U Benzodiazepines Scrn Negative ng/mL (Negative) 09/14/23 15:29 Urine Cocaine Screen Negative ng/mL (Negative) 09/14/23 15:29 U Marijuana (THC) Screen Positive ng/mL (Negative) H 09/14/23 15:29 Hepatitis A IgM Ab Non-reactive (Nonreactive) 09/14/23 11:55 Hep Bs Antigen Non-reactive (Nonreactive) 09/14/23 11:55 Hep Bs Antibody < 3.5 (11.5-1000) L 09/14/23 11:55 Hep B Core Total Ab Non-reactive (Nonreactive) 09/14/23 11:55 Hepatitis C Antibody Non-reactive (Nonreactive) 09/14/23 11:55 HIV 1&2 Ab & HIV 1 Ag Non-reactive (Non-Reactiv) 09/14/23 11:55 HIV 1&2 Antibody Non-reactive (Non-Reactiv) 09/14/23 11:55 Vitals Last Vital Signs Temp 98.1 F 09/16/23 12:26 Pulse 58 L 09/16/23 12:26 Resp 18 09/16/23 12:26 BP 130/85 09/16/23 12:26 Pulse Ox 97 09/16/23 12:26 O2 Del Method Room Air 09/16/23 12:26 O2 Flow Rate 8 09/14/23 17:43 FiO2 24 09/14/23 23:01 Discharge Plan Discharge Patient Disposition: Home Condition: Stable Prescriptions: New amoxicillin-pot clavulanate 875-125 mg tablet 1 tab PO BID Qty: 24 0RF Continued (DME) auto cpap See Rx Instructions .Route .MEDSUPPLY Qty: 1 0RF Rx Instructions: settings 6-14cm H2O Benadryl 25 mg Capsule 50 mg PO BEDTIME PRN (Reason: Sleep) melatonin 5 mg Tablet 10 mg PO BEDTIME Discharge Orders: Discharge Order (Routine); Ordered 09/16/23 Ordered By: Nader Ivy Referrals: Roque Gonzalez DO [Primary Care Provider] - 7-10 days [facility], [Staff Physician] - 1-3 days Nick Rabago DO [Physician] - 2 weeks Patient Instructions: Opioid Safety Activity Restrictions/Additional Instructions: Augmentin is the antibiotic which you should take going forward twice daily for the next 12 days. Please follow-up with wound care clinic for wound care dressings. Follow-up with surgical team in 2 weeks. Discharge Attestations 2 Time Spent in Discharge Care*: greater than 30 min Specific Discharge Activities: educating patient, discussing with pcp/other providers, discussing with case picker/social workers/dc planners, documenting/other paperwork and evaluating patient/reviewing data Status at Discharge: Cognitive status at discharge: cognitively intact , B ehavioral status at discharge: cooperative , Functional status at discharge: i ndependent ambulation , Overall status at discharge: patient is back to baseline Quality Metrics Clinical Quality Measures [ No reported AMI, CVA or VTE this stay] Coding Level of Care Code 66654 Total time (in minutes) for Discharge: 60 Diagnoses Abscess of antecubital fossa L02.419 Amphetamine abuse F15.10
--- NOTE | 2023-09-16 13:06 | P.PN_ITS ---
Subjective 2 Subjective: Patient seen and examined. Pain controlled. He reports that he is going to his sober living house today. Vitals/I&O/Wt Last Vital Signs Temp 98.1 F 09/16/23 12:26 Pulse 58 L 09/16/23 12:26 Resp 18 09/16/23 12:26 BP 130/85 09/16/23 12:26 Pulse Ox 97 09/16/23 12:26 O2 Del Method Room Air 09/16/23 12:26 O2 Flow Rate 8 09/14/23 17:43 FiO2 24 09/14/23 23:01 09/15/23 09/16/23 09/16/23 22:59 06:59 14:59 Intake Total 753.542 / 3194.042 601.458 / 3795.500 1508.542 / 1508.542 Output Total 800 / 800 Balance -46.458 / 2394.042 601.458 / 2995.500 1508.542 / 1508.542 Weight last 48 hrs Weight 239 lb 12.8 oz Weight 226 lb Weight 226 lb 1.6 oz Physical Exam 2 Narrative: General: No acute distress, awake alert and oriented x 3 Skin: Right antecubital fossa abscess status post incision and drainage has induration and erythema but no purulence Data 09/15/23 05:05 09/15/23 05:05 Micro: Microbiology 09/14/23 17:31 Gram Stain - Final Arm - #1 Abscess Culture - Preliminary A&P Assessment and plan (1) Abscess of antecubital fossa: Plan S/P Incision and drainage of right antecubital fossa abscess Dressing changed today with quarter inch plain packing gauze covered by 4 x 4 gauze, ABD pad and Coban Antibiotics Daily dressing changes Surgically stable for discharge Medical management per hospitalist Attestations 2 Medical Necessity Statement*: Per primary Coding Level of Care Code 98302 Diagnoses Abscess of antecubital fossa L02.419
[2023-09-16 14:21] VITALS: BP 130/85; PULSE 58; RESP 18; TEMP 36.7; O2SAT 97
== END 2023-09-16 13:55 | disposition home or self-care (01) | DRG 603 ==
LOC: ER 09:02 → MEDSURG 09:51
PROVIDERS: Surgery; Admitting Provider Student in an Organized Health Care Education/Training Program; Emergency Provider Family Medicine; PCP Family Medicine; Visit Provider Student in an Organized Health Care Education/Training Program
PROC: 0J9G0ZZ Drainage of Right Lower Arm Subcutaneous Tissue and Fascia, Open Approach (ICD-10-PCS; principal; 2023-09-14 15:35)
DX: L02.413 Cutaneous abscess of right upper limb (principal); F15.10 Other stimulant abuse, uncomplicated; R03.0 Elevated blood-pressure reading, without diagnosis of hypertension; F17.210 Nicotine dependence, cigarettes, uncomplicated
CPT/HCPCS: 36415; 73080; 73201; 76882; 80053; 80061; 80306; 81001; 82607; 82746; 83036; 83540; 83550; 83605; 83735; 84100; 84145; 84443; 85025; 85651; 86140; 86705; 86706; 86709; 86803; 87040; 87070; 87075; 87205; 87340; 87806; 93971; 94660; 94664; 96365; 96372; 99285; J1170; J1644; J2270; J2405; J2543; J2704; J3010; J3370; J7030; J7050; Q0163; Q9967

== ENCOUNTER → 2023-09-19 13:00 | Outpatient (BNVA) | payer MEDICAID, SELFPAY ==
[2022-05-04 10:28] VITALS: BP 138/83; BMI 33.3
== END ==
PROVIDERS: PCP Family Medicine; Visit Provider Thoracic Surgery (Cardiothoracic Vascular Surgery)
DX: L02.413 Cutaneous abscess of right upper limb (principal)
CPT/HCPCS: 11042; 99213; A6446

== ENCOUNTER → 2023-09-26 14:24 | Outpatient (BNVA) | payer MEDICAID, SELFPAY ==
[2022-05-04 10:28] VITALS: BP 138/83; BMI 33.3
== END ==
PROVIDERS: PCP Family Medicine; Visit Provider Thoracic Surgery (Cardiothoracic Vascular Surgery)
DX: L02.413 Cutaneous abscess of right upper limb (principal)
CPT/HCPCS: 97597

== ENCOUNTER → 2023-10-01 13:34 | Outpatient (BNVA) | payer MEDICAID, SELFPAY ==
[2022-05-04 10:28] VITALS: BP 138/83; BMI 33.3
== END ==
PROVIDERS: PCP Family Medicine; Visit Provider Surgery
DX: L02.413 Cutaneous abscess of right upper limb (principal)
CPT/HCPCS: 99204; 99213

== ENCOUNTER 2023-10-02 13:05 | Inpatient (IN) | payer MEDICAID, SELFPAY ==
[2022-05-04 10:28] VITALS: BP 138/83; BMI 33.3
[2023-10-02 13:14] VITALS: BP 127/70; PULSE 84; TEMP 36.7; O2SAT 99
--- NOTE | 2023-10-02 13:17 | W.ED.PSYCHS ---
HPI - Psych General: Chief Complaint: Psychiatric Symptoms Stated Complaint: Depression, SI Time Seen by Provider: 10/02/23 13:09 History of Present Illness: 52-year-old man with a history of polysubstance abuse and depression who presents to the emergency room with depression symptoms. He says he has been having thoughts of suicide. No specific plan at this time. He says he has been having some mild auditory hallucinations. He says he used to be on depression meds but stopped taking them and then started using marijuana and apparently was admitted to the hospital recently with a abscess on his arm which I believe was from IV drug use. He says he has an appointment to be admitted to [facility] for drug rehab on . However he would like to be admitted today for psychiatric help. Review of Systems Narrative: Constitutional symptoms: Negative except as documented in HPI. Skin symptoms: Negative except as documented in HPI. Eye symptoms: Negative except as documented in HPI. ENMT symptoms: Negative except as documented in HPI. Respiratory symptoms: Negative except as documented in HPI. Cardiovascular symptoms: Negative except as documented in HPI. Gastrointestinal symptoms: Negative except as documented in HPI. Genitourinary symptoms: Negative except as documented in HPI. Musculoskeletal symptoms: Negative except as documented in HPI. Neurologic symptoms: Negative except as documented in HPI. Psychiatric symptoms: Negative except as documented in HPI. Endocrine symptoms: Negative except as documented in HPI. [facility] ED PFSH: Medical History Bipolar I disorder, most recent episode mixed, severe without psychotic features Cigarette nicotine dependence Cannabis use disorder, mild, in sustained remission, abuse sobriety date 07/01/20 Amphetamine substance use disorder, moderate, in sustained remission sobriety date 07/01/20 Chronic post-traumatic stress disorder Generalized anxiety disorder Family History Grandfather Cancer colon and then lung Mother Diabetes Psychiatric illness Father Diabetes Social History Smoking and tobacco/nicotine status: current every day tobacco/nicotine user cigarettes Packs smoked per day: 0.50 Years cigarettes smoked: 25 Second hand smoke exposure: Yes Alcohol intake: former Year of sobriety/quit date alcohol: 2020 Substance/Drug Use: former Date of last use: 07.01.20 Adopted: No Caregiver/support person: No Lives independently: Yes Household members: family Housing: House Marital status: Marital status details: 2001 Number of children: 2 Number of grandchildren: 0 Highest education level completed: Some College, No Degree service: No Current occupational status: employed Current occupation: [employer] Current occupational exposures/hazards: Yes (chemicals) Pets and animals: No Leisure activites: other Leisure activities details: write letters to Fabien, listen to yazdanism music, watch TV, listen to bird Sexually active: No Do you think of yourself as: Straight/Heterosexual Current gender identity: Male Mildred/Amish: Sabianist Special mildred needs: No Agree to transfusion: Yes Physical Exam Narrative: EXAM NARRATIVE: General: Alert. no acute distress Skin: Warm, dry Head: Normocephalic, atraumatic. Neck: Supple, trachea midline. Eye: Extraocular movements are intact. Ears, nose, mouth and throat: Oral mucosa moist. Cardiovascular: Regular rate and rhythm, Normal peripheral perfusion. Respiratory: Lungs are clear to auscultation, respirations are non-labored, breath sounds are equal, Symmetrical chest wall expansion. Gastrointestinal: Soft, Nontender, Non distended, Normal bowel sounds. Musculoskeletal: Normal ROM, no deformity. Neurological: Alert and oriented to person, place, time, and situation, No focal neurological deficit observed. Psychiatric: Cooperative, depressed, expresses suicidal ideation. Course Vital Signs: Vital signs: Vital Signs Temperature 98.0 F 10/02/23 13:14 Pulse Rate 84 10/02/23 13:14 Blood Pressure 127/70 10/02/23 13:14 Pulse Oximetry 99 10/02/23 13:14 Oxygen Delivery Me thod Room Air 10/02/23 13:14 MDM - Psych Medical Decision Making Differential diagnosis: Patient with reported depression and suicidal ideation. concerns for infection, alcohol intoxication, cardiac issues or other medical problems prior to psychiatric admission. - Workup: labwork, ekg ordered to evaluate the pathologies and to clear the patient medically prior to psychiatric admission Lab review: - Medically cleared. - EKG shows no ischemic changes. - Blood alcohol level is negative, as well as salicylate and Tylenol. - Drug screen is pending - No anemia. - BUN and creatinine are within normal limits. Consultation: I spoke with Dr. Ballard who agrees to admission. Assessment and plan: Suicidal ideation Hallucinations Depression -Admission to neuropsychiatric unit for continued evaluation and treatment. - All lab work was reviewed and interpreted personally by myself, the ER physician - Evaluation and treatment of this problem were appropriate in the emergency setting Lab Data 10/02/23 13:28 10/02/23 13:28 Laboratory Results WBC 9.86 10^3/uL (3.29-11.43) 10/02/23 13:28 RBC 5.27 10^6/uL (3.85-5.65) 10/02/23 13:28 Hgb 15.90 g/dL (11.27-16.99) 10/02/23 13:28 Hct 47.7 % (37-53) 10/02/23 13:28 MCV 90.5 fl (82-101) 10/02/23 13:28 MCH 30.2 pg (27-33) 10/02/23 13:28 MCHC 33.3 g/dL (30-55) 10/02/23 13:28 RDW 12.5 % (12.1-15.1) 10/02/23 13:28 Plt Count 310 10^3/cmm (157-399) 10/02/23 13:28 MPV 9.9 fL (7.4-10.4) 10/02/23 13:28 Neut % (Auto) 71.8 % 10/02/23 13:28 Lymph % (Auto) 18.8 % 10/02/23 13:28 [place] % (Auto) 7.2 % 10/02/23 13:28 Eos % (Auto) 1.2 % 10/02/23 13:28 Baso % (Auto) 0.8 % 10/02/23 13:28 Neut # (Auto) 7.08 10^3/uL (1.8-7.7) 10/02/23 13:28 Lymph # (Auto) 1.9 10^3/uL (0.8-4.8) 10/02/23 13:28 [place] # (Auto) 0.7 10^3/uL (0.2-0.9) 10/02/23 13:28 Eos # (Auto) 0.1 10^3/uL (0.0-0.8) 10/02/23 13:28 Baso # (Auto) 0.1 10^3/uL (0.0-0.1) 10/02/23 13:28 Nucleated RBC % (auto) 0 % 10/02/23 13:28 Nucleated RBCs # 0.0 /100WBC 10/02/23 13:28 Sodium 139 mmol/L (136-145) 10/02/23 13:28 Potassium 4.2 mmol/L (3.5-5.1) 10/02/23 13:28 Chloride 103 mmol/L (98-107) 10/02/23 13:28 Carbon Dioxide 23 mmol/L (22-29) 10/02/23 13:28 Anion Gap 17.2 (5-19) 10/02/23 13:28 BUN 18 mg/dL (6-20) 10/02/23 13:28 Creatinine 1.0 mg/dL (0.7-1.2) 10/02/23 13:28 GFR Calculation 78.2 mL/min (90-130) L 10/02/23 13:28 Glucose 105 mg/dL (65-115) 10/02/23 13:28 Calculated Osmolality 290 mOsm/kg (285-295) 10/02/23 13:28 Calcium 8.6 mg/dL (8.5-10.5) 10/02/23 13:28 Total Bilirubin 0.7 mg/dL (0.15-1.2) 10/02/23 13:28 AST 137 U/L (0-40) H 10/02/23 13:28 ALT 171 U/L (0-41) H 10/02/23 13:28 Alkaline Phosphatase 113 U/L (40-130) 10/02/23 13:28 Total Protein 7.3 g/dL (6.6-8.7) 10/02/23 13:28 Albumin 4.1 g/dL (3.5-5.2) 10/02/23 13:28 Globulin 3.2 g/dL (1.3-4.6) 10/02/23 13:28 TSH 0.70 uIU/mL (0.27-4.20) 10/02/23 13:28 Salicylates < 0.3 mg/dL (3-10) L 10/02/23 13:28 Acetaminophen < 5.0 ug/mL (10-30) L 10/02/23 13:28 Ethyl Alcohol < 10 mg/dL (0-10) 10/02/23 13:28 No radiology studies performed this visit Discharge Plan Discharge Condition: Stable Prescriptions: No Action levofloxacin 500 mg tablet 500 mg PO DAILY Qty: 5 0RF (DME) auto cpap See Rx Instructions .Route .MEDSUPPLY Qty: 1 0RF Rx Instructions: settings 6-14cm H2O diphenhydramine HCl [Benadryl] 25 mg Capsule 50 mg PO BEDTIME PRN (Reason: Sleep) melatonin 5 mg Tablet 10 mg PO BEDTIME Referrals: Roque Gonzalez DO [Primary Care Provider] - Coding Level of Care Code ED Pizza Chef for Layo Sanz
[2023-10-02 13:37] LABS: Basophils # 0.1 10^3/uL (0.0-0.1); Basophils % 0.8 %; Eosinophils # 0.1 10^3/uL (0.0-0.8); Eosinophils % 1.2 %; Hematocrit 47.7 % (37-53); Lymphocytes # 1.9 10^3/uL (0.8-4.8); Lymphocytes % 18.8 %; Mean Corpuscular HGB Conc 33.3 g/dL (30-55); Mean Corpuscular Hemoglobin 30.2 pg (27-33); Mean Corpuscular Volume 90.5 fl (82-101); Mean Platelet Volume 9.9 fL (7.4-10.4); Monocytes # 0.7 10^3/uL (0.2-0.9); Monocytes % 7.2 %; Neutrophils # 7.08 10^3/uL (1.8-7.7); Neutrophils % 71.8 %; Nucleated Red Blood Cells % 0 %; Platelet Count 310 10^3/cmm (157-399); Red Blood Count 5.27 10^6/uL (3.85-5.65); Red Cell Distribution Width 12.5 % (12.1-15.1); White Blood Count 9.86 10^3/uL (3.29-11.43)
--- NOTE | 2023-10-02 13:50 | ECG_ITS ---
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 Measurements Intervals Ennice Rate: 81 P: 124 CA: 146 QRS: -27 QRSD: 85 T: 110 QT: 377 QTc: 439 Interpretive Statements ECTOPIC ATRIAL RHYTHM POSSIBLE LEFT ATRIAL ENLARGEMENT [-0.1mV P-WAVE IN V1/V2] BORDERLINE LEFT AXIS DEVIATION [QRS AXIS < -20] NONSPECIFIC T-WAVE ABNORMALITY No previous ECG available for comparison Electronically Signed On 10-03-2023 0:24:02 CDT by Dayton Merlos M.D. [id number]
[2023-10-02 14:06] LABS: Alanine Aminotransferase 171 U/L (0-41); Albumin Level 4.1 g/dL (3.5-5.2); Alkaline Phosphatase 113 U/L (40-130); Anion Gap 17.2 (5-19); Aspartate Amino Transferase 137 U/L (0-40); Blood Urea Nitrogen 18 mg/dL (6-20); Calcium 8.6 mg/dL (8.5-10.5); Carbon Dioxide 23 mmol/L (22-29); Chloride 103 mmol/L (98-107); Creatinine Clr Calc Pharmacy 109.1425; Globulin 3.2 g/dL (1.3-4.6); Glomerular Filtration Rate 78.2 mL/min (90-130); Glucose 105 mg/dL (65-115); Osmolality Calculated 290 mOsm/kg (285-295); Potassium 4.2 mmol/L (3.5-5.1); Sodium 139 mmol/L (136-145); Total Bilirubin 0.7 mg/dL (0.15-1.2); Total Protein 7.3 g/dL (6.6-8.7)
[2023-10-02 14:07] LABS: Acetaminophen < 5.0 ug/mL (10-30); Alcohol Level < 10 mg/dL (0-10); Salicylate < 0.3 mg/dL (3-10)
[2023-10-02 15:05] VITALS: BP 122/76; PULSE 82; RESP 16; TEMP 36.7; O2SAT 94
[2023-10-02 15:09] LABS: Amphetamines Screen Urine Positive (Negative); Barbiturates Screen Urine Negative (Negative); Benzodiazepines Screen Urine Negative (Negative); Cocaine Screen Urine Negative (Negative); Opiate Screen Urine Negative (Negative); PCP Screen Urine Negative (Negative); THC Screen Urine Positive (Negative)
[2023-10-02 15:12] LABS: Bilirubin Urine Neg (Negative); Blood Urine Neg (Negative); Glucose Urine UA Norm (Normal); Ketones Urine 1+ (Negative); Leukocyte Esterase Urine Negative (Negative); Nitrate Urine Negative (Negative); Protein Urine Neg (Negative); Urine Appearance Clear (CLEAR); Urine Color Dark Yellow (Yellow); Urobilinogen Urine Norm (Negative); pH Urine 6 (5-7)
[2023-10-02 15:14] LABS: Add Urine Culture? No; Mucus Urine TRACE /hpf; RBC Urine 0-4 /hpf (0-2); Squamous Epithelial Cell Urine RARE /hpf (0-5); WBC Urine 0-4 /hpf (0-5)
[2023-10-02] MEDS: LORazepam 2 mg/mL INJ 10 mL MDV IM (15:31)
[2023-10-02] MEDS: ziprasidone 20 mg/mL SDV IM (16:41)
[2023-10-02 18:56] VITALS: BP 122/76; PULSE 82; RESP 18; TEMP 36.7; O2SAT 94
[2023-10-03 08:13] VITALS: BP 130/88; PULSE 88; RESP 20; O2SAT 97
[2023-10-03] MEDS: LORazepam 1 mg Tablet PO ×2 (09:02→11:29)
[2023-10-03] MEDS: OLANZapine 5 mg ODT 2.5 MG PO (13:50)
[2023-10-03] MEDS: nicotine 21 mg Patch 1 PATCH TRANSDERMA (14:20)
[2023-10-03 15:22] VITALS: BP 128/84; PULSE 88; RESP 18; TEMP 36.4; O2SAT 96
[2023-10-03] MEDS: haloperidol 5 mg Tablet PO (15:32)
[2023-10-03] MEDS: hyDROXYzine 25 mg Capsule 50 MG PO (15:32)
--- NOTE | 2023-10-03 17:08 | PC.NURSE ---
Patient states he is currently suicidal and has been for 30 years. He says his thoughts have increased recently because his mom attempted suicide within the last month and stated it was due to him relapsing on methamphetamine. Patient said she then began telling everyone all over town that he was the reason she had tried to kill herself. She also kicked him out of her house and he is now homeless. He says they fight often when he is high or drunk, but otherwise they get along. He also states his mom said he had to get into treatment in order to come back into her house, which is why he currently has a bed date at [facility]. Patient says if she did not give him this ultimatum that he wouldn't have even signed up to go. Patient has a long psychiatric and drug abuse history and has been to multiple hospitals for psych treatment. 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 Patient endorses suicidal thoughts currently and says he would love to kill himself, but that he isn't going to. He endorses ah, saying he often hears car doors shutting, phones ringing, and footsteps. Patient was cooperative with verbal assessment, but when performing physical assessment he became extremely agitated that he had to undress in front of nursing staff. This RN asked if he preferred male staff, which he took offense to and replied, I just don't like anybody watching me undress. Patient has recently been to [facility] to care for an abscess on his anterior right elbow that was caused by IV drug use. He has had this happen before, but to his left arm. Patient given haldol 5mg po and vistaril 50mg po for anxiety and agitation. Patient tolerated well and is now napping.
--- NOTE | 2023-10-03 17:39 | P.NPUHP_ITS ---
Providers/Chief Complaint 2 Admitting Physician: Stewart Ballard MD Primary Care Provider: Roque Gonzalez DO Chief Complaint: Depression, SI HPI NPU History of Present Illness Jose Roberto Dumont is a 52 year old male who presented to the emergency department with the following report: Chief Complaint: Psychiatric Symptoms Stated Complaint: Depression, SI Time Seen by Provider: 10/02/23 13:09 History of Present Illness: 52-year-old man with a history of polysubstance abuse and depression who presents to the emergency room with depression symptoms. He says he has been having thoughts of suicide. No specific plan at this time. He says he has been having some mild auditory hallucinations. He says he used to be on depression meds but stopped taking them and then started using marijuana and apparently was admitted to the hospital recently with a abscess on his arm which I believe was from IV drug use. He says he has an appointment to be admitted to [facility] for drug rehab on . However he would like to be admitted today for psychiatric help. He was admitted to the neuropsychiatric unit for definitive treatment of those issues. He is known from previous hospitalizations with his last stay being back in 2019 and an excerpt of that discharge summary is included below for context. Patient presents today as a fairly limited historian secondary to lethargy likely secondary to withdrawing from methamphetamine as well as medications administered to assist him and maintaining decorum. He presented reporting that things have been really bad recently and that he had struggled to maintain his sobriety. He reports that things got really bad and he contacted [facility] with a goal of getting inpatient rehab. He reports that they gave him a bed date for 10/04/2023 but that he became very concerned that he would not be able to make it there or worse something bad was going to happen because he was so out of control. He brought himself to the hospital fearing his safety and ability to make it to rehab. He denied being able to maintain his previous outside medications and has not been attending any outpatient services for some time. His goal is to get to the rehab and hopefully be in a condition to function well there. We discussed the risks, benefits and alternatives of connecting with [facility] in [place] in the morning and identifying if the bed date was a take it tomorrow or leave it or if they would allow for any flexibility. We agreed that we would consider medications after we understood that reality. Per his 03/12/2020 [facility] inpatient psychiatric discharge summary: Discharge Diagnosis (1) Suicidal ideation: Status: Resolved (2) Alcohol dependence: Status: Resolved Qualifiers: Substance use status: with intoxication Complication of substance- induced condition: uncomplicated Qualified Code(s): F10.220 - Alcohol dependence with intoxication, uncomplicated (3) Amphetamine substance use disorder, moderate, in early remission: Status: Chronic (4) Alcohol intoxication: Status: Resolved Qualifiers: Complication of substance-induced condition: uncomplicated Qualified Code(s): F10.920 - Alcohol use, unspecified with intoxication, uncomplicated (5) Amphetamine intoxication: Status: Resolved Qualifiers: Complication of substance-induced condition: uncomplicated Qualified Code(s): F15.920 - Other stimulant use, unspecified with intoxication, uncomplicated Reason for Visit Reason for Visit: SI Brief History: History of Present Illness I have done this too many times. This is just a consequence for the life I have led. Jose Roberto Dumont is a 49 year old male who was admitted to the adult psychiatric unit on the strength of an affidavit filed by local police. Apparently, the officer was dispatched to the patient's home. It is unclear how police became aware that this man was suicidal. While being questioned, he made suicidal statements and that he wished we would just shoot him. The patient denies at this time that he is having thoughts of ending his life. He says that he is in acute crisis after having lost his job. He says that he is a lifetime of partying and he is suffering the consequences. Apparently, he was partying over the weekend. 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 He subsequently got to work, and passed out in the parking lot. He has now been terminated from his employment. He apparently then went back to where he was staying which is with his mother. His urine drug screen is positive for methamphetamine, marijuana, benzodiazepines, and his blood alcohol level was 144. He says that at this point, his major concern is being in the substance abuse withdrawal. We tried to discuss issues of mental health treatment. He said that he has been through it all and has been treated with all kinds of medications. None have worked. He is not interested in more medication treatment. We discussed his substance abuse history. He says that recently, he has been drinking between 5 and 10 shots per night. It is unknown if this is accurate. He uses marijuana on a regular basis. He says the methamphetamine and benzodiazepines are not a persistent problem for him and that it was more of a self-destructive act. He denied suicidal or homicidal ideation. He denied the presence of auditory or visual hallucinations. He refused to discuss symptoms of depression. He apparently has engaged in substance use in a maladaptive manner for most of his life. He says that his divorce and his estrangement from one of his 2 children is all due to his behavior when he has been inebriated or intoxicated. He has been through rehab on multiple occasions. He said that it provides him no benefit. He says the most effective intervention has been his active participation in either Alcoholics Anonymous or Narcotics Anonymous. He does not have a sponsor at this time. He has not been attending either at this time. Hospital Course Hospital Course Assessment and plan (1) Suicidal ideation: Status: Acute (2) Alcohol dependence: Status: Acute Qualifiers: Substance use status: with intoxication Complication of substance- induced condition: uncomplicated Qualified Code(s): F10.220 - Alcohol dependence with intoxication, uncomplicated (3) Amphetamine substance use disorder, moderate, in early remission: Status: Chronic (4) Alcohol intoxication: Status: Acute Qualifiers: Complication of substance-induced condition: uncomplicated Qualified Code(s): F10.920 - Alcohol use, unspecified with intoxication, uncomplicated (5) Amphetamine intoxication: Status: Acute Qualifiers: Complication of substance-induced condition: uncomplicated Qualified Code(s): F15.920 - Other stimulant use, unspecified with intoxication, uncomplicated Additional A&P Information Due to the psychiatric conditions and treatment listed in the Assessment and Plan - the patient requires continued hospitalization. Will provide a safe and therapeutic environment for patient.. Will continue inpatient treatment to allow for medication adjustment and monitoring. Will continue q15 min safety checks. Admission plan: It is likely that his assessment that this mental health issue is driven primarily by alcohol and substance abuse is accurate. He was not inclined to discuss mental health interventions outside of alcohol and substance abuse. At this point, he was motivated to get through the withdrawal period and feel better so that he could think more clearly. We did not discuss issues of treatment with antidepressants or other medications. He was started on Seroquel 100 mg at bedtime and Ativan 1 mg 3 times daily which will be tapered throughout the withdrawal. He is on the CIWA protocol. Hospital day #3: Patient was exhibiting no signs of alcohol withdrawal. He reported that he was doing well. He was despondent about having to go home and look for a job. However he stated he was not going to be able to accomplish that while in the hospital and was requesting discharge. He was not an imminent risk to self or others. His wish was granted. Meds NPU Home Medications Medication Instructions Recorded Confirmed Last Taken Type auto cpap #1 ea 07/02/23 10/02/23 Unknown Rx diphenhydramine HCl 25 mg capsule 50 mg PO BEDTIME PRN Sleep 09/14/23 10/02/23 09/30/23 History (Benadryl) melatonin 5 mg tablet 10 mg PO BEDTIME 09/14/23 10/02/23 09/30/23 History levofloxacin 500 mg tablet 500 mg PO DAILY #5 tabs 09/26/23 10/02/23 10/01/23 Rx Allergies Allergy/AdvReac Type Severity Reaction Status Date / Time No Known Allergies Allergy Verified 10/02/23 13:19 PFSH NPU 2 PFSH: Medical History Bipolar I disorder, most recent episode mixed, severe without psychotic features Cigarette nicotine dependence Cannabis use disorder, mild, in sustained remission, abuse sobriety date 07/01/20 Amphetamine substance use disorder, moderate, in sustained remission sobriety date 07/01/20 Chronic post-traumatic stress disorder Generalized anxiety disorder Family History Grandfather Cancer colon and then lung Mother Diabetes Psychiatric illness Father Diabetes Social History Smoking and tobacco/nicotine status: current every day tobacco/nicotine user cigarettes Packs smoked per day: 0.50 Years cigarettes smoked: 25 Second hand smoke exposure: Yes Alcohol intake: former Year of sobriety/quit date alcohol: 2020 Substance/Drug Use: former Date of last use: 07.01.20 Adopted: No Caregiver/support person: No Lives independently: Yes Household members: family Housing: House Marital status: Marital status details: 2001 Number of children: 2 Number of grandchildren: 0 Highest education level completed: Some College, No Degree service: No Current occupational status: employed Current occupation: [employer] Current occupational exposures/hazards: Yes (chemicals) Pets and animals: No Leisure activites: other Leisure activities details: write letters to Fabien, listen to catholic music, watch TV, listen to bird Sexually active: No Do you think of yourself as: Straight/Heterosexual Current gender identity: Male Mildred/Church: Orthodox Special mildred needs: No Agree to transfusion: Yes Mental Status Exam 2 MSE Comments: This is an overweight versus obese white male with fairly tanned skin in hospital scrubs with poor grooming and very limited eye contact. No abnormal movements except for significant psychomotor retardation. Cooperative with exam and moderate rest. Speech was limited and decreased rate and volume. Mood described as depressed, affect subdued and congruent. Thought process linear. Thought content: Patient denied suicidal or homicidal ideation, there were no delusions reported or noted, she denied any auditory or visual hallucinations. Attention and concentration were limited and memory was somewhat reliable but none were formally tested. He was alert and oriented x 3. Insight, judgment and impulse although are limited versus impaired. Vitals/I&O/Wt Last Vital Signs Temp 97.5 F L 10/03/23 15:22 Pulse 88 10/03/23 15:22 Resp 18 10/03/23 15:22 BP 128/84 10/03/23 15:22 Pulse Ox 96 10/03/23 15:22 O2 Del Method Room Air 10/03/23 16:00 Weight last 48 hrs Weight 102.512 kg Data NPU 10/02/23 13:28 10/02/23 13:28 A&P Assessment and plan (1) Generalized anxiety disorder: (2) Chronic post-traumatic stress disorder: (3) Methamphetamine use disorder, severe: (4) Cannabis use disorder: (5) History of bipolar disorder: Plan This is a 18-year-old white male with history of addiction and mental health challenges who presented reporting current active addiction with methamphetamine and a pending bed date at [facility] but feeling overwhelmed and unsafe he was admitted to the hospital for evaluation and treatment. 1. Consider resuming medication. 2. Encourage individual, group and milieu therapy. 3. Continue to 15-minute checks for safety. 4. Encourage sober living treatment after discharge at the highest level care to which he is willing to commit. Work with [facility] to ensure does not lose his spot there even considering possible discharge tomorrow. Involuntary Hold Information 2 96 Hour Hold: 96 Hour Involuntary Admission: No 96 Hour Hold Ending Date: 05/16/19 96 Hour Hold Ending Time: 18:50 Attestations NPU 2 Medical Necessity Statement*: Inpatient hospitalization is medically necessary and deemed to ?be ?the clinically appropriate intervention ?at this time.? We will monitor/initiate medications and make changes as indicated.? The patient will be in the hospital for over 2 midnights.? Likely length of stay 3-5 days. Coding Level of Care Code Acute Code for [facility] Fwd Diagnoses Generalized anxiety disorder F41.1 Chronic post-traumatic stress disorder F43.12 Methamphetamine use disorder, severe F15.20 Cannabis use disorder F12.90 History of bipolar disorder Z86.59
[2023-10-03] MEDS: OLANZapine 5 mg ODT PO (18:26)
[2023-10-03 21:36] VITALS: RESP 16
[2023-10-04 06:00] VITALS: RESP 17
[2023-10-04] MEDS: nicotine 21 mg Patch 1 PATCH TRANSDERMA (08:08)
--- NOTE | 2023-10-04 08:48 | PC.NURSE ---
PT IRRITABLE AND ANXIOUS. STATES HE HAS A HEADACHE AND I CAN'T TALK TO YOU UNTIL THIS SHIT IS TAKEN CARE OF. 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 PT IS EVASIVE WITH ASSESSMENT, NEGATIVE AND RESISTIVE TO CARE. PT ANSWERED A FEW QUESTIONS THEN STATED YOU NEED TO GET OUT OF HERE I HAVE TO SHIT AND WHEN I GOTTA GO I GOTTA GO NOW. THIS RN LEFT ROOM AND GAVE PT HIS PRIVACY. PT DID DENY HI AND AVH AT THAT TIME. STATES I WISH I WOULD DISAPPEAR WHEN ASKED IF SUICIDAL. PT STATES HE HAS NO PLAN TO HARM SELF THAT ITS JUST A FEELING. PT RATES ANXIETY 10/10 AND DEPRESSION 10/10. RN PULLED VISTARIL 50 MG TO GIVE WHEN PT COMES TO NURSES STATION. PT RATES PAIN 6/10 AND REPORTS HEADACHE. TYLENOL 650 MG PULLED AND RN WILL GIVE WHEN PT IS DONE IN BATHROOM. PT IS NOTED TO HAVE AND ANXIOUD AND IRRITABLE MOOD. ALL QUESTIONS ANSWERED AND SUPPORT WAS VOICED.
[2023-10-04] MEDS: hyDROXYzine 25 mg Capsule 50 MG PO ×2 (09:24→21:17)
[2023-10-04] MEDS: acetaminophen 325 mg Tablet 650 MG PO (09:24)
--- NOTE | 2023-10-04 12:02 | P.NPUPN_ITS ---
Subjective NPU 2 Subjective: Patient presented today reporting that he was feeling okay. He reports that the Haldol that he took was really helpful with his anxiety and likely withdrawal symptoms. We discussed Zyprexa would be another agent that might be helpful and he was wondering if something like that could be part of his discharge plan so that he would have something to manage his mood swings and anxiety once he gets to [facility] possibly tomorrow. Mental Status Exam 2 MSE Comments: This is an overweight versus obese white male with fairly tanned skin in hospital scrubs with poor grooming and very limited eye contact. No abnormal movements except for significant psychomotor retardation. Cooperative with exam and moderate rest. Speech was limited and decreased rate and volume. Mood described as depressed, affect subdued and congruent. Thought process linear. Thought content: Patient denied suicidal or homicidal ideation, there were no delusions reported or noted, she denied any auditory or visual hallucinations. Attention and concentration were limited and memory was somewhat reliable but none were formally tested. He was alert and oriented x 3. Insight, judgment and impulse although are limited versus impaired. Vitals/I&O/Wt Last Vital Signs Temp 97.5 F L 10/03/23 15:22 Pulse 88 10/03/23 15:22 Resp 17 10/04/23 06:00 BP 128/84 10/03/23 15:22 Pulse Ox 96 10/03/23 15:22 O2 Del Method Room Air 10/03/23 16:00 Weight last 48 hrs Weight 102.512 kg Data NPU 10/02/23 13:28 10/02/23 13:28 A&P Assessment and plan (1) Generalized anxiety disorder: (2) Chronic post-traumatic stress disorder: (3) Methamphetamine use disorder, severe: (4) Cannabis use disorder: (5) History of bipolar disorder: Plan This is a 18-year-old white male with history of addiction and mental health challenges who presented reporting current active addiction with methamphetamine and a pending bed date at [facility] but feeling overwhelmed and unsafe he was admitted to the hospital for evaluation and treatment. 1. Consider resuming medication. Patient reporting that Haldol was helpful and we discussed him having either that or Zyprexa for discharge tomorrow. 2. Encourage individual, group and milieu therapy. 3. Continue to 15-minute checks for safety. 4. Encourage sober living treatment after discharge at the highest level care to which he is willing to commit. Plan for discharge tomorrow. Involuntary Hold Information 2 96 Hour Hold: 96 Hour Involuntary Admission: No 96 Hour Hold Ending Date: 05/16/19 96 Hour Hold Ending Time: 18:50 Attestations NPU 2 Medical Necessity Statement*: Inpatient hospitalization is medically necessary and deemed to ?be ?the clinically appropriate intervention ?at this time.? We will monitor/initiate medications and make changes as indicated.? Likely length of stay 1-3 days. Coding Level of Care Code Acute Code for g Fwd Diagnoses Generalized anxiety disorder F41.1 Chronic post-traumatic stress disorder F43.12 Methamphetamine use disorder, severe F15.20 Cannabis use disorder F12.90 History of bipolar disorder Z86.59
[2023-10-04 13:56] VITALS: BP 105/68; PULSE 87; RESP 16; TEMP 36.7; O2SAT 96
[2023-10-04] MEDS: OLANZapine 5 mg ODT PO ×2 (14:09→21:18)
--- NOTE | 2023-10-04 15:52 | PC.OT ---
OT EVAL ATTEMPTED WITH PT DECLINING; WILL ATTEMPT AGAIN AT LATER TIME.
[2023-10-04] MEDS: haloperidol 5 mg Tablet PO ×2 (17:33→22:30)
--- NOTE | 2023-10-04 18:50 | PC.NURSE ---
PT REQUEST HE BE ABLE TO USE HIS CPAP TONIGHT. AIRBRUSH ARTIST CONTACTED FOR PT NEED FOR ONE ON ONE OBSERVATION. NEW ORDERS RECEIVED FOR RESPIRATORY TO ASSESS AND TREAT TO SET CPAP SETTINGS. PT HAS OWN CPAP ON UNIT. PT UPDATED ON NEW ORDERS.
[2023-10-04] MEDS: trazodone 50 mg Tablet PO ×2 (21:18→22:30)
[2023-10-04] MEDS: nicotine 4 mg lozenge MUCOUS MEM (21:18)
[2023-10-04 22:00] VITALS: BP 145/79; PULSE 88; RESP 17; TEMP 36.6; O2SAT 98
--- NOTE | 2023-10-04 23:28 | PC.RESP ---
RT CALLED TO SET UP HOME CPAP. RT TALKED TO NPU STAFF THEY STATED THAT PATIENT DECIDED HE DID NOT WANT TO WEAR IT. HE DOES HAVE HIS OWN MACHINE HERE IF HE DECIDES THAT HE WOULD LIKE TO WEAR.
--- NOTE | 2023-10-05 00:22 | PC.NURSE ---
Vistaril 50 mg PO, Trazadone 50mg PO X 2, and Zyprexa 5mg SL and Haldol 5mg PO given for anxiety, sleep and agitation; with positive results.
[2023-10-05 06:00] VITALS: BP 104/67; PULSE 75; RESP 17; O2SAT 95
[2023-10-05] MEDS: nicotine 21 mg Patch 1 PATCH TRANSDERMA (09:42)
[2023-10-05] MEDS: hyDROXYzine 25 mg Capsule 50 MG PO (09:42)
[2023-10-05] MEDS: OLANZapine 5 mg ODT PO (09:43)
--- NOTE | 2023-10-05 09:45 | P.NPUDS_ITS ---
Diagnoses at Discharge Discharge Diagnosis (1) Generalized anxiety disorder: Status: Chronic (2) Chronic post-traumatic stress disorder: Status: Chronic (3) Methamphetamine use disorder, severe: Status: Acute (4) Cannabis use disorder: Status: Acute (5) History of bipolar disorder: Status: Acute Reason for Visit Reason for Visit: Depression, SI Brief History: History of Present Illness Jose Roberto Dumont is a 52 year old male who presented to the emergency department with the following report: Chief Complaint: Psychiatric Symptoms Stated Complaint: Depression, SI Time Seen by Provider: 10/02/23 13:09 History of Present Illness: 52-year-old man with a history of polysu bstance abuse and depression who presents to the emergency room with depression symptoms. He says he has been having thoughts of suicide. No specific plan at this time. He says he has been having some mild auditory hallucinations. He says he used to be on depression meds but stopped taking them and then started using marijuana and apparently was admitted to the hospital recently with a abscess on his arm which I believe was from IV drug use. He says he has an appointment to be admitted to [facility] for drug rehab on . However he would like to be admitted today for psychiatric help. He was admitted to the neuropsychiatric unit for definitive treatment of those issues. He is known from previous hospitalizations with his last stay being back in 2019 and an excerpt of that discharge summary is included below for context. Patient presents today as a fairly limited historian secondary to lethargy likely secondary to withdrawing from methamphetamine as well as medications administered to assist him and maintaining decorum. He presented reporting that things have been really bad recently and that he had struggled to maintain his sobriety. He reports that things got really bad and he contacted [facility] with a goal of getting inpatient rehab. He reports that they gave him a bed date for 10/04/2023 but that he became very concerned that he would not be able to make it there or worse something bad was going to happen because he was so out of control. He brought himself to the hospital fearing his safety and ability to make it to rehab. He denied being able to maintain his previous outside medications and has not been attending any outpatient services for some time. His goal is to get to the rehab and hopefully be in a condition to function well there. We discussed the risks, benefits and alternatives of connecting with [facility] in the morning and identifying if the bed date was a take it tomorrow or leave it or if they would allow for any flexibility. We agreed that we would consider medications after we understood that reality. Per his 03/12/2020 [facility] inpatient psychiatric discharge summary: Discharge Diagnosis (1) Suicidal ideation: Status: Resolved (2) Alcohol dependence: Status: Resolved Qualifiers: Substance use status: with intoxication Complication of substance- induced condition: uncomplicated Qualified Code(s): F10.220 - Alcohol dependence with intoxication, uncomplicated (3) Amphetamine substance use disorder, moderate, in early remission: Status: Chronic (4) Alcohol intoxication: Status: Resolved Qualifiers: Complication of substance-induced condition: uncomplicated Qualified Code(s): F10.920 - Alcohol use, unspecified with intoxication, uncomplicated (5) Amphetamine intoxication: Status: Resolved Qualifiers: Complication of substance-induced condition: uncomplicated Qualified Code(s): F15.920 - Other stimulant use, unspecified with intoxication, uncomplicated Reason for Visit Reason for Visit: SI Brief History: History of Present Illness I have done this too many times. This is just a consequence for the life I have led. Jose Roberto Dumont is a 49 year old male who was admitted to the adult psychiatric unit on the strength of an affidavit filed by local police. Apparently, the officer was dispatched to the patient's home. It is unclear how police became aware that this man was suicidal. While being questioned, he made suicidal statements and that he wished we would just shoot him. The patient denies at this time that he is having thoughts of ending his life. He says that he is in acute crisis after having lost his job. He says that he i s a lifetime of partying and he is suffering the consequences. Apparently, he was partying over the weekend. 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 He subsequently got to work, and passed out in the parking lot. He has now been terminated from his employment. He apparently then went back to where he was staying which is with his mother. His urine drug screen is positive for methamphetamine, marijuana, benzodiazepines, and his blood alcohol level was 144. He says that at this point, his major concern is being in the substance abuse withdrawal. We tried to discuss issues of mental health treatment. He said that he has been through it all and has been treated with all kinds of medications. None have worked. He is not interested in more medication treatment. We discussed his substance abuse history. He says that recently, he has been drinking between 5 and 10 shots per night. It is unknown if this is accurate. He uses marijuana on a regular basis. He says the methamphetamine and benzodiazepines are not a persistent problem for him and that it was more of a self-destructive act. He denied suicidal or homicidal ideation. He denied the presence of auditory or visual hallucinations. He refused to discuss symptoms of depression. He apparently has engaged in substance use in a maladaptive manner for most of his life. He says that his divorce and his estrangement from one of his 2 children is all due to his behavior when he has been inebriated or intoxicated. He has been through rehab on multiple occasions. He said that it provides him no benefit. He says the most effective intervention has been his active participation in either Alcoholics Anonymous or Narcotics Anonymous. He does not have a sponsor at this time. He has not been attending either at this time. Hospital Course Hospital Course Assessment and plan (1) Suicidal ideation: Status: Acute (2) Alcohol dependence: Status: Acute Qualifiers: Substance use status: with intoxication Complication of substance- induced condition: uncomplicated Qualified Code(s): F10.220 - Alcohol dependence with intoxication, uncomplicated (3) Amphetamine substance use disorder, moderate, in early remission: Status: Chronic (4) Alcohol intoxication: Status: Acute Qualifiers: Complication of substance-induced condition: uncomplicated Qualified Code(s): F10.920 - Alcohol use, unspecified with intoxication, uncomplicated (5) Amphetamine intoxication: Status: Acute Qualifiers: Complication of substance-induced condition: uncomplicated Qualified Code(s): F15.920 - Other stimulant use, unspecified with intoxication, uncomplicated Additional A&P Information Due to the psychiatric conditions and treatment listed in the Assessment and Plan - the patient requires continued hospitalization. Will provide a safe and therapeutic environment for patient.. Will continue inpatient treatment to allow for medication adjustment and monitoring. Will continue q15 min safety checks. Admission plan: It is likely that his assessment that this mental health issue is driven primarily by alcohol and substance abuse is accurate. He was not inclined to discuss mental health interventions outside of alcohol and substance abuse. At this point, he was motivated to get through the withdrawal period and feel better so that he could think more clearly. We did not discuss issues of treatment with antidepressants or other medications. He was started on Seroquel 100 mg at bedtime and Ativan 1 mg 3 times daily which will be tapered throughout the withdrawal. He is on the [facility] protocol. Hospital day #3: Patient was exhibiting no signs of alcohol withdrawal. He reported that he was doing well. He was despondent about having to go home and look for a job. However he stated he was not going to be able to accomplish that while in the hospital and was requesting discharge. He was not an imminent risk to self or others. His wish was granted. Hospital Course Hospital Course He acclimated to the individual, group and milieu therapies provided. He presented with significant addiction issues and anxiety which he identified. Otherwise he expressed concern about having a bed date but he did not want to miss at [facility]. We explored the possibility of adding medications but he reported that he was not even sure if the places he ultimately wanted to go would except people on medication and that he has not had significant success with medication. He did ultimately allow us to prescribe Zyprexa 5 mg p.o. nightly as he reported some success with that. He worked with the social work team to to ensure that his bed at [facility] was not for fitted as we took a few days to stabilize him. He showed modest improvement during his stay and was able to contract for safety outside hospital prior to discharge. During the hospitalization, patient had routine laboratory studies which were within normal limits except for few outliers. Additionally there was a general medical evaluation which was also within normal limits and revealed no new acute processes. Discharge Summary: At the time of discharge, patient denied psychosis or lethality. Mood and anxiety were well managed. Patient endorsed a plan to avoid all drugs of abuse and follow-up with the aftercare recommendations of the treatment team. Patient was evaluated and deemed to be absent credible lethality, and had achieved the maximum benefit from an inpatient hospitalization, so was discharged. Involuntary Hold Information 96 Hour Hold: 96 Hour Involuntary Admission: No 96 Hour Hold Ending Date: 03/16/20 96 Hour Hold Ending Time: 18:50 Mental Status Exam MSE Comments: This is an overweight versus obese white male with fairly tanned skin in hospital scrubs with poor grooming and very limited eye contact. No abnormal movements except for significant psychomotor retardation. Cooperative with exam in mild distress. Speech was limited and decreased rate and volume. Mood described as a little better, affect congruent. Thought process linear. Thought content: Patient denied suicidal or homicidal ideation, there were no delusions reported or noted, he denied any auditory or visual hallucinations. Attention and concentration were limited and memory was somewhat reliable but none were formally tested. He was alert and oriented x 3. Insight, judgment and impulse control were limited but improving. Discharge Data Studies Completed and Pending: Laboratory Results WBC 9.86 10^3/uL (3.2 9-11.43) 10/02/23 13:28 RBC 5.27 10^6/uL (3.8 5-5.65) 10/02/23 13:28 Hgb 15.90 g/dL (11.27 -16.99) 10/02/23 13:28 Hct 47.7 % (37-53) 10/02/23 13:28 MCV 90.5 fl (82-101) 10/02/23 13:28 MCH 30.2 pg (27-33) 10/02/23 13:28 MCHC 33.3 g/dL (30-55) 10/02/23 13:28 RDW 12.5 % (12.1-15.1 ) 10/02/23 13:28 Plt Count 310 10^3/cmm (157 -399) 10/02/23 13:28 MPV 9.9 fL (7.4-10.4) 10/02/23 13:28 Neut % (Auto) 71.8 % 10/02/23 13:28 Lymph % (Auto) 18.8 % 10/02/23 13:28 Arroyo % (Auto) 7.2 % 10/02/23 13:28 Eos % (Auto) 1.2 % 10/02/23 13:28 Baso % (Auto) 0.8 % 10/02/23 13:28 Neut # (Auto) 7.08 10^3/uL (1.8 -7.7) 10/02/23 13:28 Lymph # (Auto) 1.9 10^3/uL (0.8- 4.8) 10/02/23 13:28 Arroyo # (Auto) 0.7 10^3/uL (0.2- 0.9) 10/02/23 13:28 Eos # (Auto) 0.1 10^3/uL (0.0- 0.8) 10/02/23 13:28 Baso # (Auto) 0.1 10^3/uL (0.0- 0.1) 10/02/23 13:28 Nucleated RBC % (a uto) 0 % 10/02/23 13:28 Nucleated RBCs # 0.0 /100WBC 10/02/23 13:28 Sodium 139 mmol/L (136-1 45) 10/02/23 13:28 Potassium 4.2 mmol/L (3.5-5 .1) 10/02/23 13:28 Chloride 103 mmol/L (98-10 7) 10/02/23 13:28 Carbon Dioxide 23 mmol/L (22-29) 10/02/23 13:28 Anion Gap 17.2 (5-19) 10/02/23 13:28 BUN 18 mg/dL (6-20) 10/02/23 13:28 Creatinine 1.0 mg/dL (0.7-1. 2) 10/02/23 13:28 GFR Calculation 78.2 mL/min (90-1 30) L 10/02/23 13:28 Glucose 105 mg/dL (65-115 ) 10/02/23 13:28 Calculated Osmolal ity 290 mOsm/kg (285- 295) 10/02/23 13:28 Calcium 8.6 mg/dL (8.5-10 .5) 10/02/23 13:28 Total Bilirubin 0.7 mg/dL (0.15-1 .2) 10/02/23 13:28 AST 137 U/L (0-40) H 10/02/23 13:28 ALT 171 U/L (0-41) H 10/02/23 13:28 Alkaline Phosphata se 113 U/L (40-130) 10/02/23 13:28 Total Protein 7.3 g/dL (6.6-8.7 ) 10/02/23 13:28 Albumin 4.1 g/dL (3.5-5.2 ) 10/02/23 13:28 Globulin 3.2 g/dL (1.3-4.6 ) 10/02/23 13:28 TSH 0.70 uIU/mL (0.27 -4.20) 10/02/23 13:28 Urine Color Dark yellow (Yel low) 10/02/23 14:31 Urine Appearance Clear (CLEAR) 10/02/23 14:31 Urine pH 6 (5-7) 10/02/23 14:31 Ur Specific Gravit y 1.020 (1.005-1.0 30) 10/02/23 14:31 Urine Protein Neg (Negative) 10/02/23 14:31 Urine Glucose (UA) Norm (Normal) 10/02/23 14:31 Urine Ketones 1+ (Negative) H 10/02/23 14:31 Urine Blood Neg (Negative) 10/02/23 14:31 Urine Nitrate Negative (Negati ve) 10/02/23 14:31 Urine Bilirubin Neg (Negative) 10/02/23 14:31 Urine Urobilinogen Norm mg/dL (Negat miguelina) 10/02/23 14:31 Ur Leukocyte Trinh ase Negative (Negati ve) 10/02/23 14:31 Urine RBC 0-4 /hpf (0-2) H 10/02/23 14:31 Urine WBC 0-4 /hpf (0-5) H 10/02/23 14:31 Ur Squamous Epith Cells Rare /hpf (0-5) 10/02/23 14:31 Amorphous Sediment Not Reportable 10/02/23 14:31 Urine Bacteria None /hpf (NONE) 10/02/23 14:31 Urine Mucus Trace /hpf 10/02/23 14:31 Salicylates < 0.3 mg/dL (3-10 ) L 10/02/23 13:28 Urine Opiates Scre en Negative ng/mL (N egative) 10/02/23 14:31 Acetaminophen < 5.0 ug/mL (10-3 0) L 10/02/23 13:28 Ur Barbiturates Sc reen Negative ng/mL (N egative) 10/02/23 14:31 Ur Phencyclidine S crn Negative ng/mL (N egative) 10/02/23 14:31 Ur Amphetamines Sc reen Positive ng/mL (N egative) H 10/02/23 14:31 U Benzodiazepines Scrn Negative ng/mL (N egative) 10/02/23 14:31 Urine Cocaine Scre en Negative ng/mL (N egative) 10/02/23 14:31 U Marijuana (THC) Screen Positive ng/mL (N egative) H 10/02/23 14:31 Ethyl Alcohol < 10 mg/dL (0-10) 10/02/23 13:28 Vitals: Last Vital Signs Temp 97.9 F 10/04/23 22:00 Pulse 75 10/05/23 06:00 Resp 17 10/05/23 06:00 BP 104/67 10/05/23 06:00 Pulse Ox 95 10/05/23 06:00 O2 Del Method Room Air 10/04/23 13:56 Discharge Plan Discharge Patient Disposition: Home Condition: Stable Prescriptions: New olanzapine [Zyprexa Zydis] 5 mg tablet,disintegrating 5 mg PO DAILY 30 Days Qty: 30 1RF Continued (DME) auto cpap See Rx Instructions .Route .MEDSUPPLY Qty: 1 0RF Rx Instructions: settings 6-14cm H2O Discontinued levofloxacin 500 mg tablet 500 mg PO DAILY Qty: 5 0RF diphenhydramine HCl [Benadryl] 25 mg Capsule 50 mg PO BEDTIME PRN (Reason: Sleep) melatonin 5 mg Tablet 10 mg PO BEDTIME Discharge Orders: Discharge Order (Routine); Ordered 10/05/23 Ordered By: Stewart Ballard Referrals: [facility] [Other] - 4-7 days (Psychosocial Assessment Psychiatric Evaluation & Medical Services Crisis Intervention & Brief Therapy Case Management & Referral Services including: Medicaid Applications Community Resources Employment Application Assistance Housing Application Assistance Transportation Assistance Referrals for Physical and Mental Health Peer Support) [facility] [Outside] - 10/05/23 12:00 pm Roque Gonzalez, [Primary Care Provider] - Discharge Diet: Regular Discharge Activity: Resume usual activity Patient Instructions: Generalized Anxiety Disorder, Olanzapine (By mouth) (Zyprexa, Zyprexa Zydis), Bipolar Disorder (DC), Depression (DC), Methamphetamine Use Disorder (DC), Help Prevent Suicide (DC), Opioid Safety Discharge Attestations NPU Time Spent in Discharge Care*: less than 30 min Specific Discharge Activities: Specific discharge activities: educating patient, discussing with family independence case manager/social workers/dc planners, docume nting/other paperwork and evaluating patient/reviewing data Status at Discharge: Cognitive status at discharge: cognitively intact , Behavioral status at discharge: cooperative , Coding Level of Care Code Acute Code for Chg Fwd Diagnoses Generalized anxiety disorder F41.1 Chronic post-traumatic stress disorder F43.12 Methamphetamine use disorder, severe F15.20 Cannabis use disorder F12.90 History of bipolar disorder Z86.59
[2023-10-05 09:47] VITALS: BP 104/67; PULSE 75; RESP 17; TEMP 37; O2SAT 95
== END 2023-10-05 10:02 | DRG 880 ==
LOC: ER 13:18 → ER IP 22:08 → NP 10-03 14:36
PROVIDERS: Admitting Provider Psychiatry & Neurology Psychiatry; Emergency Provider Emergency Medicine; PCP Family Medicine; Visit Provider Psychiatry & Neurology Psychiatry
DX: F41.1 Generalized anxiety disorder (principal); F43.12 Post-traumatic stress disorder, chronic; F15.90 Other stimulant use, unspecified, uncomplicated; F12.90 Cannabis use, unspecified, uncomplicated; Z72.0 Tobacco use
CPT/HCPCS: 80053; 80306; 80307; 81001; 84443; 85025; 93005; 96372; 99285; J2060; J3486

== ENCOUNTER 2023-10-08 15:18 | Inpatient (IN) | payer MEDICAID, SELFPAY ==
[2022-05-04 10:28] VITALS: BP 138/83; BMI 33.3
[2023-10-08 15:25] VITALS: BP 131/91; PULSE 92; RESP 16; TEMP 36.8; O2SAT 97
--- NOTE | 2023-10-08 15:35 | ECG_ITS ---
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 Measurements Intervals [place] Rate: 91 P: 48 NC: 143 QRS: -54 QRSD: 89 T: 12 QT: 336 QTc: 413 Interpretive Statements SINUS RHYTHM WITH MARKED SINUS ARRHYTHMIA LOW QRS VOLTAGE IN PRECORDIAL LEADS [QRS DEFLECTION < 1.0 mV IN CHEST LEADS] LEFT ANTERIOR FASCICULAR BLOCK [QRS AXIS <= -45, QR IN I, RS IN II] Compared to ECG 10/02/2023 13:50:11 Low QRS voltage now present Left anterior fascicular block now present Ectopic atrial rhythm no longer present T-wave abnormality no longer present Electronically Signed On 10-08-2023 17:30:42 CDT by Dayton Merlos M.D. [email or web address]
--- NOTE | 2023-10-08 15:39 | W.ED.PSYCHS ---
HPI - Psych General: Chief Complaint: Psychiatric Symptoms Stated Complaint: si Time Seen by Provider: 10/08/23 15:21 History of Present Illness: 52-year-old man with a history of IV drug use and psychiatric problems who presents the emergency room today with suicidal ideation. He was discharged from here about 3 days ago to rehab and today he says he saw an old friend that he was reminded how bad his life is right now. He says this made him feel like he wants to kill himself. He said he might go to his father's grave and kill himself there. He has had some nausea. No abdominal pain. He says he has not used any amphetamines in 10 days. Review of Systems Narrative: Constitutional symptoms: Negative except as documented in HPI. Skin symptoms: Negative except as documented in HPI. Eye symptoms: Negative except as documented in HPI. ENMT symptoms: Negative except as documented in HPI. Respiratory symptoms: Negative except as documented in HPI. Cardiovascular symptoms: Negative except as documented in HPI. Gastrointestinal symptoms: Negative except as documented in HPI. Genitourinary symptoms: Negative except as documented in HPI. Musculoskeletal symptoms: Negative except as documented in HPI. Neurologic symptoms: Negative except as documented in HPI. Psychiatric symptoms: Negative except as documented in HPI. Endocrine symptoms: Negative except as documented in HPI. PFSH ED PFSH: Medical History Bipolar I disorder, most recent episode mixed, severe without psychotic features Cigarette nicotine dependence Cannabis use disorder, mild, in sustained remission, abuse sobriety date 07/01/20 Amphetamine substance use disorder, moderate, in sustained remission sobriety date 07/01/20 Chronic post-traumatic stress disorder Generalized anxiety disorder Family History Grandfather Cancer colon and then lung Mother Diabetes Psychiatric illness Father Diabetes Social History Smoking and tobacco/nicotine status: current every day tobacco/nicotine user cigarettes Packs smoked per day: 0.50 Years cigarettes smoked: 25 Second hand smoke exposure: Yes Alcohol intake: former Year of sobriety/quit date alcohol: 2020 Substance/Drug Use: former Date of last use: 07.01.20 Adopted: No Caregiver/support person: No Lives independently: Yes Household members: family Housing: House Marital status: Marital status details: 2001 Number of children: 2 Number of grandchildren: 0 Highest education level completed: Some College, No Degree service: No Current occupational status: employed Current occupation: [employer] Current occupational exposures/hazards: Yes (chemicals) Pets and animals: No Leisure activites: other Leisure activities details: write letters to Fabien, listen to yazdanism music, watch TV, listen to bird Sexually active: No Do you think of yourself as: Straight/Heterosexual Current gender identity: Male Mildred/Baptism: Sikh Special mildred needs: No Agree to transfusion: Yes Physical Exam Narrative: EXAM NARRATIVE: General: Alert. no acute distress Skin: Warm, dry Head: Normocephalic, atraumatic. Neck: Supple, trachea midline. Eye: Extraocular movements are intact. Ears, nose, mouth and throat: Oral mucosa moist. Cardiovascular: Regular rate and rhythm, Normal peripheral perfusion. Respiratory: Lungs are clear to auscultation, respirations are non-labored, breath sounds are equal, Symmetrical chest wall expansion. Gastrointestinal: Soft, Nontender, Non distended, Normal bowel sounds. Musculoskeletal: Normal ROM, no deformity. Neurological: Alert and oriented to person, place, time, and situation, No focal neurological deficit observed. Psychiatric: Cooperative, depressed, expresses suicidal ideation. Course Vital Signs: Vital signs: Vital Signs Temperature 98.2 F 10/08/23 15:25 Pulse Rate 92 10/08/23 15:25 Respiratory Rate 16 10/08/23 15:25 Blood Pressure 131/91 10/08/23 15:25 Pulse Oximetry 97 10/08/23 15:25 [facility] - Psych Medical Decision Making Differential diagnosis: Patient with reported depression and suicidal ideation. concerns for infection, alcohol intoxication, cardiac issues or other medical problems prior to psychiatric admission. Workup: labwork, ekg ordered to evaluate the pathologies and to clear the patient medically prior to psychiatric admission Consultation: I spoke with Dr. Ballard who agrees with admission. Consultation: I spoke with Dr. Sandoval with the hospitalist service about the patient having worsening elevation in his liver enzymes. He will evaluate. Lab review: - Medically cleared. - EKG shows no ischemic changes. - Blood alcohol level is negative, as well as salicylate and Tylenol. - Drug screen is positive for marijuana - No signs of infection, urinalysis clear and white count is not elevated - No anemia. - BUN and creatinine are within normal limits. Assessment and plan: Depression Suicidal ideation -Admission to neuropsychiatric unit for continued evaluation and treatment. - All lab work was reviewed and interpreted personally by myself, the ER physician - Evaluation and treatment of this problem were appropriate in the emergency setting Lab Data 10/08/23 15:50 10/08/23 15:50 Laboratory Results WBC 6.39 10^3/uL (3.29-11.43) 10/08/23 15:50 RBC 5.07 10^6/uL (3.85-5.65) 10/08/23 15:50 Hgb 15.60 g/dL (11.27-16.99) 10/08/23 15:50 Hct 45.5 % (37-53) 10/08/23 15:50 MCV 89.7 fl (82-101) 10/08/23 15:50 MCH 30.8 pg (27-33) 10/08/23 15:50 MCHC 34.3 g/dL (30-55) 10/08/23 15:50 RDW 12.6 % (12.1-15.1) 10/08/23 15:50 Plt Count 263 10^3/cmm (157-399) 10/08/23 15:50 MPV 10.2 fL (7.4-10.4) 10/08/23 15:50 Neut % (Auto) 60.4 % 10/08/23 15:50 Lymph % (Auto) 26.9 % 10/08/23 15:50 [place] % (Auto) 9.5 % 10/08/23 15:50 Eos % (Auto) 2.2 % 10/08/23 15:50 Baso % (Auto) 0.8 % 10/08/23 15:50 Neut # (Auto) 3.86 10^3/uL (1.8-7.7) 10/08/23 15:50 Lymph # (Auto) 1.7 10^3/uL (0.8-4.8) 10/08/23 15:50 [place] # (Auto) 0.6 10^3/uL (0.2-0.9) 10/08/23 15:50 Eos # (Auto) 0.1 10^3/uL (0.0-0.8) 10/08/23 15:50 Baso # (Auto) 0.1 10^3/uL (0.0-0.1) 10/08/23 15:50 Nucleated RBC % (auto) 0 % 10/08/23 15:50 Nucleated RBCs # 0.0 /100WBC 10/08/23 15:50 Sodium 138 mmol/L (136-145) 10/08/23 15:50 Potassium 4.2 mmol/L (3.5-5.1) 10/08/23 15:50 Chloride 102 mmol/L (98-107) 10/08/23 15:50 Carbon Dioxide 23 mmol/L (22-29) 10/08/23 15:50 Anion Gap 17.2 (5-19) 10/08/23 15:50 BUN 12 mg/dL (6-20) 10/08/23 15:50 Creatinine 0.9 mg/dL (0.7-1.2) 10/08/23 15:50 GFR Calculation 88.3 mL/min (90-130) L 10/08/23 15:50 Glucose 134 mg/dL (65-115) H 10/08/23 15:50 Calculated Osmolality 288 mOsm/kg (285-295) 10/08/23 15:50 Calcium 9.0 mg/dL (8.5-10.5) 10/08/23 15:50 Total Bilirubin 0.3 mg/dL (0.15-1.2) 10/08/23 15:50 AST 483 U/L (0-40) H 10/08/23 15:50 ALT 966 U/L (0-41) H 10/08/23 15:50 Alkaline Phosphatase 155 U/L (40-130) H 10/08/23 15:50 Total Protein 6.9 g/dL (6.6-8.7) 10/08/23 15:50 Albumin 3.9 g/dL (3.5-5.2) 10/08/23 15:50 Globulin 3.0 g/dL (1.3-4.6) 10/08/23 15:50 TSH 0.63 uIU/mL (0.27-4.20) 10/08/23 15:50 Urine Color Yellow (Yellow) 10/08/23 15:29 Urine Appearance Clear (CLEAR) 10/08/23 15:29 Urine pH 7 (5-7) 10/08/23 15:29 Ur Specific [place] 1.005 (1.005-1.030) 10/08/23 15:29 Urine Protein Neg (Negative) 10/08/23 15:29 Urine Glucose (UA) Norm (Normal) 10/08/23 15:29 Urine Ketones Negative (Negative) 10/08/23 15: Urine Blood Neg (Negative) 10/08/23 15: Urine Nitrate Negative (Negative) 10/08/23 15: Urine Bilirubin Neg (Negative) 10/08/23 15: Urine Urobilinogen Neg mg/dL (Negative) 10/08/23 15: Ur Leukocyte Esterase Negative (Negative) 10/08/23 15:29 Urine RBC None /hpf (0-2) 10/08/23 15:29 Urine WBC None /hpf (0-5) 10/08/23 15:29 Ur Squamous Epith Cells Rare /hpf (0-5) 10/08/23 15:29 Amorphous Sediment Not Reportable 10/08/23 15:29 Urine Bacteria None /hpf (NONE) 10/08/23 15:29 Salicylates < 0.3 mg/dL (3-10) L 10/08/23 15:50 Urine Opiates Screen Negative ng/mL (Negative) 10/08/23 15:29 Acetaminophen < 5.0 ug/mL (10-30) L 10/08/23 15:50 Ur Barbiturates Screen Negative ng/mL (Negative) 10/08/23 15:29 Ur Phencyclidine Scrn Negative ng/mL (Negative) 10/08/23 15:29 Ur Amphetamines Screen Negative ng/mL (Negative) 10/08/23 15:29 U Benzodiazepines Scrn Negative ng/mL (Negative) 10/08/23 15:29 Urine Cocaine Screen Negative ng/mL (Negative) 10/08/23 15:29 U Marijuana (THC) Screen Positive ng/mL (Negative) H 10/08/23 15:29 Ethyl Alcohol < 10 mg/dL (0-10) 10/08/23 15:50 No radiology studies performed this visit Discharge Plan Discharge Patient Disposition: Admitted As Inpatient Clinical Impression: Suicidal ideation Condition: Stable Coding Level of Care Code ED Setter Induction Heating Equipment for Layo Sanz
[2023-10-08 15:52] LABS: Bilirubin Urine Neg (Negative); Blood Urine Neg (Negative); Glucose Urine UA Norm (Normal); Ketones Urine Negative (Negative); Leukocyte Esterase Urine Negative (Negative); Nitrate Urine Negative (Negative); Protein Urine Neg (Negative); Specific Gravity, Urine 1.005 (1.005-1.030); Urine Appearance Clear (CLEAR); Urine Color Yellow (Yellow); Urobilinogen Urine Neg (Negative); pH Urine 7 (5-7)
[2023-10-08 15:56] LABS: Basophils # 0.1 10^3/uL (0.0-0.1); Basophils % 0.8 %; Eosinophils # 0.1 10^3/uL (0.0-0.8); Eosinophils % 2.2 %; Hematocrit 45.5 % (37-53); Lymphocytes # 1.7 10^3/uL (0.8-4.8); Lymphocytes % 26.9 %; Mean Corpuscular HGB Conc 34.3 g/dL (30-55); Mean Corpuscular Hemoglobin 30.8 pg (27-33); Mean Corpuscular Volume 89.7 fl (82-101); Mean Platelet Volume 10.2 fL (7.4-10.4); Monocytes # 0.6 10^3/uL (0.2-0.9); Monocytes % 9.5 %; Neutrophils # 3.86 10^3/uL (1.8-7.7); Neutrophils % 60.4 %; Nucleated Red Blood Cells % 0 %; Platelet Count 263 10^3/cmm (157-399); Red Blood Count 5.07 10^6/uL (3.85-5.65); Red Cell Distribution Width 12.6 % (12.1-15.1); White Blood Count 6.39 10^3/uL (3.29-11.43)
[2023-10-08 15:59] LABS: Add Urine Culture? No; Squamous Epithelial Cell Urine RARE /hpf (0-5)
[2023-10-08 16:02] LABS: Amphetamines Screen Urine Negative (Negative); Barbiturates Screen Urine Negative (Negative); Benzodiazepines Screen Urine Negative (Negative); Cocaine Screen Urine Negative (Negative); Opiate Screen Urine Negative (Negative); PCP Screen Urine Negative (Negative); THC Screen Urine Positive (Negative)
[2023-10-08 16:23] LABS: Albumin Level 3.9 g/dL (3.5-5.2); Alkaline Phosphatase 155 U/L (40-130); Anion Gap 17.2 (5-19); Aspartate Amino Transferase 483 U/L (0-40); Blood Urea Nitrogen 12 mg/dL (6-20); Carbon Dioxide 23 mmol/L (22-29); Chloride 102 mmol/L (98-107); Creatinine Clr Calc Pharmacy 121.0256; Glomerular Filtration Rate 88.3 mL/min (90-130); Glucose 134 mg/dL (65-115); Osmolality Calculated 288 mOsm/kg (285-295); Potassium 4.2 mmol/L (3.5-5.1); Sodium 138 mmol/L (136-145); Thyroid Stimulating Hormone 0.63 uIU/mL (0.27-4.20); Total Bilirubin 0.3 mg/dL (0.15-1.2); Total Protein 6.9 g/dL (6.6-8.7)
[2023-10-08 16:24] LABS: Acetaminophen < 5.0 ug/mL (10-30); Alcohol Level < 10 mg/dL (0-10); Salicylate < 0.3 mg/dL (3-10)
--- NOTE | 2023-10-08 16:33 | PM.CONSULT ---
Providers/Reason For Consult Consulting Physician/Specialty*: Sukhdev Sandoval / Internal Medicine Reason for Consult*: Elevated liver function enzymes Requesting Physician: Dr. Ballard Primary Care Provider: Roque Gonzalez DO History of Present Illness History of Present Illness Jose Roberto Dumont is a 52 year old male with a past medical history significant for bipolar disorder, cannabis use disorder, methamphetamine use disorder, IV drug use, tobacco use disorder, PTSD, and generalized anxiety disorder who presented to the emergency department with suicidal ideation. Patient accepted to psychiatry. Labs revealed elevation liver function enzymes for which medicine is consulted. Patient has a history of polysubstance abuse including IV drug use with methamphetamines. States has been trying to get clean lately. He was recently admitted for an infection of his antecubital fossa from 09/13 to 09/16/2023. States after he was discharged she did use methamphetamine once he is snorting. States he has not injected since that admission. He was admitted again to the behavioral health unit from 10/02 to 10/05/23. He was discharged to [facility] for further rehabilitation. During that admission, it appears he was treated with both Haldol and Zyprexa. He was discharged on Zyprexa, however patient states he never started this medication at [facility]. He denies any alcohol or further drug use since discharge. Patient also denies any other new prescription medications other than melatonin at [facility]. He denies any right upper quadrant pain. He denies any family history of liver disease. CMP today revealed ALT of 966, previously 171 on 10/01, and previously 44 on 09/15/2023. AST elevated to 483, previously 137 on 10/01, and normal on 09/14 at 36. Alkaline phos mildly elevated 155, previously normal. His urine drug screen today is negative for methamphetamines, still positive for marijuana. Total bilirubin has been normal on most recent labs. Review of Systems Narrative: A complete review of systems was obtained and is negative except as stated in HPI. Medications/Allergies Home Medications Medication Instructions Recorded Confirmed Last Taken Type auto cpap #1 ea 07/02/23 10/02/23 Unknown Rx olanzapine 5 mg disintegrating 5 mg PO DAILY 30 days #30 tabs 10/05/23 Unknown Rx tablet (Zyprexa Zydis) Allergies Allergy/AdvReac Type Severity Reaction Status Date / Time No Known Allergies Allergy Verified 10/02/23 13:19 PFSH Acute PFSH: Medical History Bipolar I disorder, most recent episode mixed, severe without psychotic features Cigarette nicotine dependence Cannabis use disorder, mild, in sustained remission, abuse sobriety date 07/01/20 Amphetamine substance use disorder, moderate, in sustained remission sobriety date 07/01/20 Chronic post-traumatic stress disorder Generalized anxiety disorder Surgical History S/P foot surgery, left S/P foot surgery, right Family History Grandfather Cancer colon and then lung Mother Diabetes Psychiatric illness Father Diabetes Social History Smoking and tobacco/nicotine status: current every day tobacco/nicotine user cigarettes Packs smoked per day: 0.50 Years cigarettes smoked: 25 Second hand smoke exposure: Yes Alcohol intake: former Year of sobriety/quit date alcohol: 2020 Substance/Drug Use: former Date of last use: 07.01.20 Adopted: No Caregiver/support person: No Lives independently: Yes Household members: family Housing: House Marital status: Marital status details: 2001 Number of children: 2 Number of grandchildren: 0 Highest education level completed: Some College, No Degree service: No Current occupational status: employed 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/hazards: Yes (chemicals) Pets and animals: No Leisure activites: other Leisure activities details: write letters to Fabien, listen to episcopalian music, watch TV, listen to bird Sexually active: No Do you think of yourself as: Straight/Heterosexual Current gender identity: Male Mildred/Gnosticist: Mormonism Special mildred needs: No Agree to transfusion: Yes Vitals/I&O/Wt Last Vital Signs Temp 98.2 F 10/08/23 15:25 Pulse 92 10/08/23 15:25 Resp 16 10/08/23 15:25 BP 131/91 10/08/23 15:25 Pulse Ox 97 10/08/23 15:25 Weight last 48 hrs Weight 102.058 kg Physical Exam Narrative: General: Patient is awake and alert. Head: Normocephalic. Atraumatic. EOM intact. Neck: No JVD. Cardiovascular: RRR. No gallops. No murmurs. No peripheral edema. Lungs: Clear to auscultation, no use of accessory muscles, no crackles or wheezes. Skin: No jaundice. No rashes. Abdomen: Normal bowel sounds, abdomen soft and nontender. Genito Urinary: Genital exam not performed since complaints not related. Rectal: Rectal exam not performed since no symptoms indicated blood loss. Extremities: No cyanosis or clubbing. Musculoskeletal: 5/5 strength, normal range of motion, no swollen or erythematous joints. Neurological: Moves all 4 extremities. No myoclonus. Data 10/08/23 15:50 10/08/23 15:50 A&P Assessment and plan (1) Elevated liver function tests: -Pattern consistent with hepatocellular liver injury -Broad differential -Patient received antipsychotics recently, both Haldol and Zyprexa; both medications are known to cause transient elevations of liver function enzymes that are asymptomatic and typically resolved; however he did have some mild elevation even on admission on 10/01 which would not be explained solely by these antipsychotics -With history of IV drug use, he is at risk of acute viral hepatitis, although typically enzymes are markedly higher than current levels; will request acute viral hepatitis panel -Check immunoglobulin IgG -Check liver ultrasound in AM; NPO after midnight -Avoid hepatotoxins -Repeat CMP in AM Plan Thank you for this consultation. Consult Attestations Medical Necessity Statement: Per primary Coding Level of Care Code Acute Code for Chg Fwd Diagnoses Elevated liver function tests R79.89
[2023-10-08 16:34] LABS: Alanine Aminotransferase 966 U/L (0-41)
[2023-10-08] MEDS: ondansetron 4 MG Tablet PO (16:49)
[2023-10-08 17:18] LABS: Immunoglobulin IGG 1047 mg/dL (700-1600)
[2023-10-08 17:24] LABS: Hepatitis A Antibody IgM Non-Reactive (Nonreactive); Hepatitis B Core IgM Non-Reactive (Nonreactive); Hepatitis B Surface Antigen Non-Reactive (Nonreactive); Hepatitis C Virus Antibody Equivocal (Nonreactive)
[2023-10-08 17:26] LABS: HIV 1 & 2 Antibody Non-Reactive (Non-Reactiv); HIV 1 & 2 Antigen Non-Reactive (Non-Reactiv)
[2023-10-08 17:31] VITALS: BP 131/91; PULSE 92; RESP 16; TEMP 36.8; O2SAT 97
[2023-10-08 17:50] VITALS: BP 115/82; PULSE 97; RESP 17; TEMP 36.3; O2SAT 99
[2023-10-08] MEDS: hyDROXYzine 25 mg Capsule 50 MG PO (17:58)
[2023-10-08] MEDS: OLANZapine 5 mg ODT PO ×2 (18:27→22:29)
--- NOTE | 2023-10-08 18:59 | PC.ADMIT ---
[address] Admission Note: The patient,Jose Roberto Dumont,52 y/o, was given written information regarding hospital policies, unit procedures and contact persons. Patient's smoking status: current every day smoker. Vital Signs - 8 hr 10/08/23 15:25 10/08/23 17:31 10/08/23 17:50 Temperature 98.2 F 98.2 F 97.3 F L Pulse Rate 92 92 97 Respiratory Rate 16 16 17 Blood Pressure 131/91 131/91 115/82 Pulse Oximetry 97 97 99 Oxygen Delivery Method 10/08/23 18:39 Temperature Pulse Rate Respiratory Rate Blood Pressure Pulse Oximetry Oxygen Delivery Method Room Air ADMITTED FROM [facility] ER VIA ER STAFF AND WHEELCHAIR AT 1725. PT WAS DISCHARGED ON 10/05/23 FROM THE [facility] AND TAKEN TO [facility] FOR DRUG REHABILITATION. PT STATES HE WAS THERE TODAY AT THE REHAB AND SAW A POOL THAT WAS NO GOOD AND IT REMINDED ME OF WHAT A PIECE OF SHIT I AM, SO I WANT TO GO TO MY DADS [facility] AND CUT MY THROAT OR DO A BIG BLAST OF ANTIFREEZE AND . BUT I CAN'T DO IT BECAUSE OF THAT HOLIDAY AND EVERYONE IS AT THE [facility] SITES. PT DOES HAVE A LONG HISTORY OF IV DRUG ABUSE. PTS ALT AND AST'S ARE ELEVATED AND HE IS BEING FOLLOWED BY THE HOSPITALIST . PT CONTINUES TO C/O NAUSEA THAT IS NO RELIEVED WITH ZOFRAN THAT WAS GIVEN IN ER, SO THIS RN CONTACTED DR. ESPINOSA FOR FURTHER ORDERS. COMPAZINE 10 MG PO TID PRN NAUSEA WAS ORDERED. PT IS NOTED TO HAVE RAPID, EXCESSIVE SPEECH. UDS POSITIVE FOR THC ONLY. PT REPORTS HIS LAST METHAMPHETAMINE USE WAS 6-10 DAYS AGO. PT IS UNSURE IF HE WANTS TO GO BACK TO [facility] AT THIS POINT. PT IS OBSERVED WITH MANIC LIKE BEHAVIOR, FLIGHT OF IDEAS AND PERSERVATES FROM IDEA TO IDEA. RN LISTENED ACTIVELY AND PT STATES HE DOES APPRECIATE IT AND FOR ONCE FEELS HEARD. PT IS TO BE NPO AFTER MIDNIGHT FOR LIVER ULTERSOUND. PT EDUCATED AND VERBALIZED UNDERSTANDING. PT ORIENTATED TO UNIT. ALL QUESTIONS ANSWERED AND SUPPORT VOICED.
--- NOTE | 2023-10-08 19:03 | PC.NURSE ---
PT DOES USE CPAP AT NIGHT AND REQUESTS TO USE CPAP FROM FACILITY DUE TO HIS CPAP BEING AT [facility]. NEW ORDERS RECEIVED FOR RESPIRATORY ASSESS AND TREAT FOR CPAP/SETTINS AND PT NEEDS CPAP. PT EDUCATED ON NEW ORDERS AND VERBALIZED UNDERSTANDING.
[2023-10-08] MEDS: haloperidol 5 mg Tablet PO (20:08)
[2023-10-08] MEDS: trazodone 50 mg Tablet PO ×2 (20:58→22:23)
[2023-10-08 22:00] VITALS: BP 134/94; PULSE 97; RESP 18; TEMP 36.8; O2SAT 99
[2023-10-08] MEDS: nicotine 21 mg Patch 1 PATCH TRANSDERMA (22:44)
[2023-10-08] MEDS: LORazepam 2 mg/mL INJ 1 mL IM (23:00)
[2023-10-08] MEDS: haloperidol inj 5 mg/mL INJ 1 mL IM (23:00)
[2023-10-08] MEDS: diphenhydrAMINE 50 mg/mL SDV 1mL IM (23:00)
[2023-10-08] MEDS: calcium carbonate 500 mg Chew Tablet 1000 MG PO (23:10)
--- NOTE | 2023-10-09 00:51 | PC.NURSE ---
At 2215 RT arrived to unit to get pt set up with CPAP. While setting the CPAP up pt became agitated with RT and walked down to the dayroom. This nurse attempted to verbally deescalate and pt told nurse that he wanted to leave. RT walked down to the dayroom to attempt to get the pt back to his room so they could finish setting up his CPAP to which the pt agreed. RT finished setting up CPAP and pt came up to the nurses station asking if he could have anything for anxiety. Zyprexa 5mg Sublingual was administered to the pt at 2229 with no issues. Pt then asked if someone could call the doctor because he wanted to leave. Dr. Ballard was notified of pt behaviors and pt wanting to be discharged. paster supervisor and Security arrived on the unit and was able to get the pt to agree to stay and talk to the doctor in the morning. Pt remained agitated and agreed to take B52. Benadryl 50 MG IM was administered to the pts Left deltoid at 2300 and Ativan 2 MG and Haldol 5 MG IM was administered to the right deltoid at 2300. Pt tolerated well with no issues voices. Pt then laid down in bed with sitter at bedside. Pt is now observed resting in bed quietly with eyes closed. Behavioral monitoring continues.
[2023-10-09 06:00] VITALS: BP 123/85; PULSE 88; RESP 16; O2SAT 96
--- NOTE | 2023-10-09 06:00 | US_ITS ---
WS: [id number] RIGHT UPPER QUADRANT ULTRASOUND HISTORY: Elevated LFTs COMPARISON: None available. Liver: 14.7 cm in length. Normal size liver and echogenicity. No bile duct dilatation or mass. Portal Vein: Normal hepatopetal flow with monophasic waveform. Gallbladder: Normally distended gallbladder with no stones or wall thickening. CBD: 0.3 cm Pancreas: Not visualized. Right kidney: 10.0 cm in length. Normal size and echogenicity. No hydronephrosis or mass. Aorta and IVC: Not well visualized. No ascites. US/US liver [id number] IMPRESSION: 1. Negative gallbladder. 2. No bile duct dilatation. 3. Pancreas not visualized. 4. Liver is negative.
[2023-10-09 08:55] LABS: INR 0.93 (0.8-1.2)
[2023-10-09] MEDS: hyDROXYzine 25 mg Capsule 50 MG PO ×2 (09:06→18:14)
[2023-10-09 09:12] LABS: Albumin Level 3.7 g/dL (3.5-5.2); Alkaline Phosphatase 147 U/L (40-130); Anion Gap 14.1 (5-19); Aspartate Amino Transferase 482 U/L (0-40); Blood Urea Nitrogen 13 mg/dL (6-20); Calcium 8.4 mg/dL (8.5-10.5); Carbon Dioxide 24 mmol/L (22-29); Chloride 103 mmol/L (98-107); Globulin 2.6 g/dL (1.3-4.6); Glomerular Filtration Rate 78.2 mL/min (90-130); Glucose 111 mg/dL (65-115); Osmolality Calculated 285 mOsm/kg (285-295); Potassium 4.1 mmol/L (3.5-5.1); Sodium 137 mmol/L (136-145); Total Bilirubin 0.3 mg/dL (0.15-1.2); Total Protein 6.3 g/dL (6.6-8.7)
[2023-10-09 09:23] LABS: Alanine Aminotransferase 946 U/L (0-41)
--- NOTE | 2023-10-09 10:18 | W.PM.NPUH&PS ---
Providers/Chief Complaint Admitting Physician: Stewart Ballard MD Primary Care Provider: Roque Gonzalez DO Chief Complaint: si HPI NPU History of Present Illness Jose Roberto Dumont is a 52 year old male who presented to the emergency department with the following report: Chief Complaint: Psychiatric Symptoms Stated Complaint: si Time Seen by Provider: 10/08/23 15:21 History of Present Illness: 52-year-old man with a history of IV drug use and psychiatric problems who presents the emergency room today with suicidal ideation. He was discharged from here about 3 days ago to rehab and today he says he saw an old friend that he was reminded how bad his life is right now. He says this made him feel like he wants to kill himself. He said he might go to his father's grave and kill himself there. He has had some nausea. No abdominal pain. He says he has not used any amphetamines in 10 days. He was admitted to the neuropsychiatric unit for definitive treatment of those issues. There were laboratory changes in his liver enzymes that necessitated a consult with the hospitalist. Otherwise he is known through past hospitalizations most recently a few days ago. An excerpt of his discharge summary from a few days ago is included below for context and the absence of substantive changes. He presented today reporting that he got to the rehab and felt that he was not really able to extract anything from the treatment because he could not focus really. He reported starting to have depression and suicidal thoughts as he saw others that were doing much better which made him feel a certain way about how he was doing. He reports that his suicidal thoughts increased which led him to be open about that. That led to him being brought to the emergency department for evaluation though he still has his bed there. He presented continuing to endorse this depression and suicidal thoughts but denied that there were any medications that he being given that ever helped with the depression. A few of those medications were named and he said yes to all of them reporting that only benzodiazepines helped his depression. We discussed benzodiazepines not being good agents given his condition and not used for depression. He started talking about having been at [facility] multiple times a day he cannot really get things out of there even though he was only there for couple days. We talked about the timeline to some of the sober living facilities being longer than his hospitalization will be. At this point he was not open to any of the medications that were discussed. Per his 10/05/2023 [facility] inpatient psychiatric discharge summary: Discharge Diagnosis (1) Generalized anxiety disorder: Status: Chronic (2) Chronic post-traumatic stress disorder: Status: Chronic (3) Methamphetamine use disorder, severe: Status: Acute (4) Cannabis use disorder: Status: Acute (5) History of bipolar disorder: Status: Acute Reason for Visit Reason for Visit: Depression, SI Brief History: History of Present Illness Jose Roberto Dumont is a 52 year old male who presented to the emergency department with the following report: Chief Complaint: Psychiatric Symptoms Stated Complaint: Depression, SI Time Seen by Provider: 10/02/23 13:09 History of Present Illness: 52-year-old man with a history of polysubstance abuse and depression who presents to the emergency room with depression symptoms. He says he has been having thoughts of suicide. No specific plan at this time. He says he has been having some mild auditory hallucinations. He says he used to be on depression meds but stopped taking them and then started using marijuana and apparently was admitted to the hospital recently with a abscess on his arm which I believe was from IV drug use. He says he has an appointment to be admitted to [facility] for drug rehab on . However he would like to be admitted today for psychiatric help. He was admitted to the neuropsychiatric unit for definitive treatment of those issues. He is known from previous hospitalizations with his last stay being back in 2019 and an excerpt of that discharge summary is included below for context. Patient presents today as a fairly limited historian secondary to lethargy likely secondary to withdrawing from methamphetamine as well as medications administered to assist him and maintaining decorum. He presented reporting that things have been really bad recently and that he had struggled to maintain his sobriety. He reports that things got really bad and he contacted [facility] with a goal of getting inpatient rehab. He reports that they gave him a bed date for 10/04/2023 but that he became very concerned that he would not be able to make it there or worse something bad was going to happen because he was so out of control. He brought himself to the hospital fearing his safety and ability to make it to rehab. He denied being able to maintain his previous outside medications and has not been attending any outpatient services for some time. His goal is to get to the rehab and hopefully be in a condition to function well there. We discussed the risks, benefits and alternatives of connecting with [facility] in the morning and identifying if the bed date was a take it tomorrow or leave it or if they would allow for any flexibility. We agreed that we would consider medications after we understood that reality. Per his 03/12/2020 [facility] inpatient psychiatric discharge summary: Discharge Diagnosis (1) Suicidal ideation: Status: Resolved (2) Alcohol dependence: Status: Resolved Qualifiers: Substance use status: with intoxication Complication of substance-induced condition: uncomplicated Qualified Code(s): F10.220 - Alcohol dependence with intoxication, uncomplicated (3) Amphetamine substance use disorder, moderate, in early remission: Status: Chronic (4) Alcohol intoxication: Status: Resolved Qualifiers: Complication of substance-induced condition: uncomplicated Qualified Code(s): F10.920 - Alcohol use, unspecified with intoxication, uncomplicated (5) Amphetamine intoxication: Status: Resolved Qualifiers: Complication of substance-induced condition: uncomplicated Qualified Code(s): F15.920 - Other stimulant use, unspecified with intoxication, uncomplicated Reason for Visit Reason for Visit: SI Brief History: History of Present Illness I have done this too many times. This is just a consequence for the life I have led. Jose Roberto Dumont is a 49 year old male who was admitted to the adult psychiatric unit on the strength of an affidavit filed by local police. Apparently, the officer was dispatched to the patient's home. It is unclear how police became aware that this man was suicidal. While being questioned, he made suicidal statements and that he wished we would just shoot him. The patient denies at this time that he is having thoughts of ending his life. He says that he is in acute crisis after having lost his job. He says that he is a lifetime of partying and he is suffering the consequences. Apparently, he was partying over the weekend. 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 He subsequently got to work, and passed out in the parking lot. He has now been terminated from his employment. He apparently then went back to where he was staying which is with his mother. His urine drug screen is positive for methamphetamine, marijuana, benzodiazepines, and his blood alcohol level was 144. He says that at this point, his major concern is being in the substance abuse withdrawal. We tried to discuss issues of mental health treatment. He said that he has been through it all and has been treated with all kinds of medications. None have worked. He is not interested in more medication treatment. We discussed his substance abuse history. He says that recently, he has been drinking between 5 and 10 shots per night. It is unknown if this is accurate. He uses marijuana on a regular basis. He says the methamphetamine and benzodiazepines are not a persistent problem for him and that it was more of a self-destructive act. He denied suicidal or homicidal ideation. He denied the presence of auditory or visual hallucinations. He refused to discuss symptoms of depression. He apparently has engaged in substance use in a maladaptive manner for most of his life. He says that his divorce and his estrangement from one of his 2 children is all due to his behavior when he has been inebriated or intoxicated. He has been through rehab on multiple occasions. He said that it provides him no benefit. He says the most effective intervention has been his active participation in either Alcoholics Anonymous or Narcotics Anonymous. He does not have a sponsor at this time. He has not been attending either at this time. Hospital Course Hospital Course Assessment and plan (1) Suicidal ideation: Status: Acute (2) Alcohol dependence: Status: Acute Qualifiers: Substance use status: with intoxication Complication of substance-induced condition: uncomplicated Qualified Code(s): F10.220 - Alcohol dependence with intoxication, uncomplicated (3) Amphetamine substance use disorder, moderate, in early remission: Status: Chronic (4) Alcohol intoxication: Status: Acute Qualifiers: Complication of substance-induced condition: uncomplicated Qualified Code(s): F10.920 - Alcohol use, unspecified with intoxication, uncomplicated (5) Amphetamine intoxication: Status: Acute Qualifiers: Complication of substance-induced condition: uncomplicated Qualified Code(s): F15.920 - Other stimulant use, unspecified with intoxication, uncomplicated Additional A&P Information Due to the psychiatric conditions and treatment listed in the Assessment and Plan - the patient requires continued hospitalization. Will provide a safe and therapeutic environment for patient.. Will continue inpatient treatment to allow for medication adjustment and monitoring. Will continue q15 min safety checks. Admission plan: It is likely that his assessment that this mental health issue is driven primarily by alcohol and substance abuse is accurate. He was not inclined to discuss mental health interventions outside of alcohol and substance abuse. At this point, he was motivated to get through the withdrawal period and feel better so that he could think more clearly. We did not discuss issues of treatment with antidepressants or other medications. He was started on Seroquel 100 mg at bedtime and Ativan 1 mg 3 times daily which will be tapered throughout the withdrawal. He is on the [facility] protocol. Hospital day #3: Patient was exhibiting no signs of alcohol withdrawal. He reported that he was doing well. He was despondent about having to go home and look for a job. However he stated he was not going to be able to accomplish that while in the hospital and was requesting discharge. He was not an imminent risk to self or others. His wish was granted. Hospital Course He acclimated to the individual, group and milieu therapies provided. He presented with significant addiction issues and anxiety which he identified. Otherwise he expressed concern about having a bed date but he did not want to miss at [facility]. We explored the possibility of adding medications but he reported that he was not even sure if the places he ultimately wanted to go would except people on medication and that he has not had significant success with medication. He did ultimately allow us to prescribe Zyprexa 5 mg p.o. nightly as he reported some success with that. He worked with the social work team to to ensure that his bed at [facility] was not for fitted as we took a few days to stabilize him. He showed modest improvement during his stay and was able to contract for safety outside hospital prior to discharge. During the hospitalization, patient had routine laboratory studies which were within normal limits except for few outliers. Additionally there was a general medical evaluation which was also within normal limits and revealed no new acute processes. Discharge Summary: At the time of discharge, patient denied psychosis or lethality. Mood and anxiety were well managed. Patient endorsed a plan to avoid all drugs of abuse and follow-up with the aftercare recommendations of the treatment team. Patient was evaluated and deemed to be absent credible lethality, and had achieved the maximum benefit from an inpatient hospitalization, so was discharged. Meds NPU Home Medications Medication Instructions Recorded Confirmed Last Taken Type auto cpap #1 ea 07/02/23 10/08/23 Unknown Rx olanzapine 5 mg disintegrating 5 mg PO DAILY 30 days #30 tabs 10/05/23 10/08/23 10/05/23 Rx tablet (Zyprexa Zydis) Allergies Allergy/AdvReac Type Severity Reaction Status Date / Time No Known Allergies Allergy Verified 10/08/23 18:59 PFSH NPU PFSH: Medical History Bipolar I disorder, most recent episode mixed, severe without psychotic features Cigarette nicotine dependence Cannabis use disorder, mild, in sustained remission, abuse sobriety date 07/01/20 Amphetamine substance use disorder, moderate, in sustained remission sobriety date 07/01/20 Chronic post-traumatic stress disorder Generalized anxiety disorder Surgical History S/P foot surgery, left S/P foot surgery, right Family History Grandfather Cancer colon and then lung Mother Diabetes Psychiatric illness Father Diabetes Social History Smoking and tobacco/nicotine status: current every day tobacco/nicotine user cigarettes Packs smoked per day: 0.50 Years cigarettes smoked: 25 Second hand smoke exposure: Yes Alcohol intake: former Year of sobriety/quit date alcohol: 2020 Substance/Drug Use: former Date of last use: 07.01.20 Adopted: No Caregiver/support person: No Lives independently: Yes Household members: family Housing: House Marital status: Marital status details: 2001 Number of children: 2 Number of grandchildren: 0 Highest education level completed: Some College, No Degree service: No Current occupational status: employed Current occupation: [employer] Current occupational exposures/hazards: Yes (chemicals) Pets and animals: No Leisure activites: other Leisure activities details: write letters to Fabien, listen to shinto music, watch TV, listen to bird Sexually active: No Do you think of yourself as: Straight/Heterosexual Current gender identity: Male Mildred/Mosque: Sabianist Special mildred needs: No Agree to transfusion: Yes Mental Status Exam MSE Comments: This is an overweight versus obese white male with fairly tanned skin in hospital scrubs with poor grooming and very limited eye contact. No abnormal movements except for significant psychomotor retardation. Limited cooperation with exam and moderate distress. Speech was limited and decreased rate and volume. Mood described as depressed, affect subdued and congruent. Thought process linear. Thought content: Patient endorsed suicidal or homicidal ideation, there were no delusions reported or noted, he denied any auditory or visual hallucinations. Attention and concentration were limited and memory was mostly unreliable and likely purposefully so reliable but none were formally tested. He was alert and oriented x 3. Insight, judgment and impulse control are impaired. Vitals/I&O/Wt Last Vital Signs Temp 98.2 F 10/08/23 22:00 Pulse 88 10/09/23 06:00 Resp 16 10/09/23 06:00 BP 123/85 10/09/23 06:00 Pulse Ox 96 10/09/23 06:00 O2 Del Method CPAP 10/09/23 06:00 FiO2 21 10/08/23 22:05 Weight last 48 hrs Weight 102.058 kg Data NPU 10/08/23 15:50 10/09/23 08:24 A&P Assessment and plan (1) Generalized anxiety disorder: (2) Chronic post-traumatic stress disorder: (3) Methamphetamine use disorder, severe: (4) Cannabis use disorder: (5) History of bipolar disorder: Plan This is a 52-year-old white male with history of addiction and mental health challenges who was just recently discharged to [facility] and returns days later reporting that he got depressed and suicidal and needed to be on medication. Now reporting that he is not sure if he can get anything out of [facility] because has been there before. 1. Consider antidepressant and antianxiety medication. Currently patient resisting and endorsing that only benzodiazepines can help. 2. Encourage individual, group and milieu therapy. 3. Continue to 15-minute checks for safety. 4. Encourage sober living treatment after discharge at the highest level care to which he is willing to commit. Work with [facility] to ensure does not lose his spot there though he is endorsing wanting to go to a sober living facility and not necessarily rehab. Involuntary Hold Information 96 Hour Hold: 96 Hour Involuntary Admission: No Attestations NPU Medical Necessity Statement*: Inpatient hospitalization is medically necessary and deemed to ?be ?the clinically appropriate intervention ?at this time.? We will monitor/initiate medications and make changes as indicated.? The patient will be in the hospital for over 2 midnights.? Likely length of stay 3-5 days. Coding Level of Care Code Acute Code for [facility] Fwd Diagnoses Generalized anxiety disorder F41.1 Chronic post-traumatic stress disorder F43.12 Methamphetamine use disorder, severe F15.20 Cannabis use disorder F12.90 History of bipolar disorder Z86.59
[2023-10-09] MEDS: OLANZapine 5 mg ODT PO ×2 (12:41→20:51)
[2023-10-09 13:28] VITALS: BP 116/75; PULSE 80; RESP 16; TEMP 36.4; O2SAT 95
[2023-10-09] MEDS: trazodone 50 mg Tablet PO (20:51)
[2023-10-09] MEDS: propranolol 20 mg Tablet PO (20:51)
[2023-10-09 22:11] VITALS: BP 157/95; PULSE 88; RESP 16; TEMP 36.4; O2SAT 98
[2023-10-10 06:00] VITALS: BP 96/62; PULSE 67; RESP 17; TEMP 36.7; O2SAT 96
[2023-10-10] MEDS: ibuprofen 600 mg Tablet PO (08:48)
[2023-10-10] MEDS: propranolol 20 mg Tablet PO ×3 (08:49→20:35)
[2023-10-10] MEDS: nicotine 21 mg Patch 1 PATCH TRANSDERMA (08:49)
--- NOTE | 2023-10-10 08:52 | PC.NURSE ---
Patient denies avh and si/hi. However, he does endorse being depressed and anxious. He says that he just wakes up this way and can't pinpoint why he feels like this.
[2023-10-10] MEDS: hyDROXYzine 25 mg Capsule 50 MG PO ×3 (12:20→22:49)
--- NOTE | 2023-10-10 12:36 | PC.NURSE ---
Patient room searched for contraband. Hygiene box and clothing confiscated.
[2023-10-10 13:32] VITALS: BP 111/68; PULSE 72; RESP 16; TEMP 36.6; O2SAT 95
[2023-10-10] MEDS: haloperidol 5 mg Tablet PO ×2 (16:09→20:35)
[2023-10-10] MEDS: calcium carbonate 500 mg Chew Tablet 1000 MG PO ×2 (16:11→20:35)
[2023-10-10] MEDS: OLANZapine 5 mg ODT PO ×2 (17:41→22:49)
--- NOTE | 2023-10-10 18:00 | W.PM.NPUPNS ---
Subjective NPU Subjective: Patient presented today reporting that he was feeling better overall. Staff report less isolation and this is noteworthy on direct observation. He was apologetic about reports he heard about his behavior being seen as poor and his last visit. We discussed his irritability that is seen with withdrawal and proximity to his use. We discussed the importance of him identifying the person that he would like to be and understanding what his addiction best to that. 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 We talked about some possible roadblocks for that attempt. He seemed to be somewhat trying to talk himself out of returning to rehab because he knows all the things that they have been talking about. We talked extensively about how knowledges that about the use of knowledge is wherein lies the power. He was contemplating medications. We discussed the risks, benefits and alternatives of Lamictal which he reports he has not taken before and he reported he would consider it. Mental Status Exam MSE Comments: This is an overweight versus obese white male with fairly tanned skin in hospital scrubs with poor grooming and very limited eye contact. No abnormal movements except for significant psychomotor retardation. Limited cooperation with exam and moderate distress. Speech was limited and decreased rate and volume. Mood described as a little better, affect subdued but slightly brighter. Thought process linear. Thought content: Patient denied current suicidal or homicidal ideation, there were no delusions reported or noted, he denied any auditory or visual hallucinations. Attention and concentration were limited and memory was mostly unreliable and likely purposefully so reliable but none were formally tested. He was alert and oriented x 3. Insight and judgment are limited but improving and impulse control is impaired. Vitals/I&O/Wt Last Vital Signs Temp 98.6 F 10/10/23 20:43 Pulse 94 10/10/23 20:43 Resp 17 10/10/23 20:43 BP 122/76 10/10/23 20:43 Pulse Ox 95 10/10/23 20:43 O2 Del Method Room Air 10/10/23 13:32 FiO2 21 10/08/23 22:05 Data NPU 10/08/23 15:50 10/09/23 08:24 A&P Assessment and plan (1) Generalized anxiety disorder: (2) Chronic post-traumatic stress disorder: (3) Methamphetamine use disorder, severe: (4) Cannabis use disorder: (5) History of bipolar disorder: Plan This is a 52-year-old white male with history of addiction and mental health challenges who was just recently discharged to [facility] and returns days later reporting that he got depressed and suicidal and needed to be on medication. Now reporting that he is not sure if he can get anything out of [facility] because has been there before. 1. Consider antidepressant and antianxiety medication. Currently patient resisting and endorsing that only benzodiazepines can help. 2. Encourage individual, group and milieu therapy. 3. Continue to 15-minute checks for safety. 4. Encourage sober living treatment after discharge at the highest level care to which he is willing to commit. Work with [facility] to ensure does not lose his spot there though he is endorsing wanting to go to a sober living facility and not necessarily rehab. Involuntary Hold Information 96 Hour Hold: 96 Hour Involuntary Admission: No Attestations NPU Medical Necessity Statement*: Inpatient hospitalization is medically necessary and deemed to ?be ?the clinically appropriate intervention ?at this time.? We will monitor/initiate medications and make changes as indicated.? Likely length of stay 2-5 days. Coding Level of Care Code Acute Code for [facility] Diagnoses Generalized anxiety disorder F41.1 Chronic post-traumatic stress disorder F43.12 Methamphetamine use disorder, severe F15.20 Cannabis use disorder F12.90 History of bipolar disorder Z86.59
[2023-10-10] MEDS: trazodone 50 mg Tablet PO ×2 (20:35→22:49)
[2023-10-10 20:43] VITALS: BP 122/76; PULSE 94; RESP 17; TEMP 37; O2SAT 95
[2023-10-10] MEDS: acetaminophen 325 mg Tablet 650 MG PO (22:51)
[2023-10-11 06:23] VITALS: BP 94/60; PULSE 61; RESP 18; TEMP 36.6; O2SAT 99
--- NOTE | 2023-10-11 09:20 | PC.NURSE ---
PT CURRENTLY DENIES SI/HI/AH/VH AT THIS TIME. PT CURRENTLY DENIES DEPRESSION. PT ENDORSES ANXIETY RATING IT 10/10 ON A 0-10 SCALE WHERE 0 IS NONE AND 10 IS THE WORST POSSIBLE. PT WAS ASSESSED LAYING IN BED WITH EYES CLOSED. PT APPEARED TO BE FALLING ASLEEP PRIOR TO THIS NURSE WALKING IN. PT CURRENT NEEDS ARE MET AT THIS TIME.
--- NOTE | 2023-10-11 09:27 | PC.NURSE ---
WHEN WENT TO GIVE PRN HYDROXYZINE 50 MG PO TO PT FOR ANXIETY PT WAS SLEEPING SOUNDLY. THIS NURSE DECIDED TO IT WOULD BE BEST FOR PT TO CONTINUE SLEEPING. PT CURRENT NEEDS ARE MET AT THIS TIME. MEDICATION WASTED INTO DRUG BUSTER BOTTLE PER PROTOCOL.
--- NOTE | 2023-10-11 13:38 | P.NPUPN_ITS ---
Subjective NPU 2 Subjective: Patient presented today reporting that he is feeling okay. He was having conversations about leaving AMA. We discussed the fact that we have great concerns about his plan to not return to [facility] and find a sober living alternative. His mother came and expressed great concern about him returning home without clear and active drug and alcohol treatment. She was supported in her position that if he does not do that she will have to evict him. All those things in place he reports he cannot return to [facility] and so we will likely discharge in the morning. Mental Status Exam 2 MSE Comments: This is an overweight versus obese white male with fairly tanned skin in hospital scrubs with poor grooming and very limited eye contact. No abnormal movements except for significant psychomotor retardation. Limited cooperation with exam and moderate distress. Speech was limited and decreased rate and volume. Mood described as a little better, affect subdued but slightly brighter. Thought process linear. Thought content: Patient denied current suicidal or homicidal ideation, there were no delusions reported or noted, he denied any auditory or visual hallucinations. Attention and concentration were limited and memory was mostly unreliable and likely purposefully so reliable but none were formally tested. He was alert and oriented x 3. Insight and judgment are limited and impulse control is impaired. Vitals/I&O/Wt Last Vital Signs Temp 98 F 10/11/23 06:23 Pulse 61 10/11/23 06:23 Resp 18 10/11/23 06:23 BP 94/60 10/11/23 06:23 Pulse Ox 99 10/11/23 06:23 O2 Del Method CPAP 10/11/23 06:23 FiO2 21 10/08/23 22:05 Data NPU 10/08/23 15:50 10/09/23 08:24 A&P Assessment and plan (1) Generalized anxiety disorder: (2) Chronic post-traumatic stress disorder: (3) Methamphetamine use disorder, severe: (4) Cannabis use disorder: (5) History of bipolar disorder: Plan This is a 52-year-old white male with history of addiction and mental health challenges who was just recently discharged to [facility] and returns days later reporting that he got depressed and suicidal and needed to be on medication. Now reporting that he is not sure if he can get anything out of [facility] because has been there before. 1. Consider antidepressant and antianxiety medication. Currently patient resisting and endorsing that only benzodiazepines can help. 2. Encourage individual, group and milieu therapy. 3. Continue to 15-minute checks for safety. 4. Encourage sober living treatment after discharge at the highest level care to which he is willing to commit. Work with [facility] to ensure does not lose his spot there though he is endorsing wanting to go to a sober living facility and not necessarily rehab. Involuntary Hold Information 2 96 Hour Hold: 96 Hour Involuntary Admission: No Attestations NPU 2 Medical Necessity Statement*: Inpatient hospitalization is medically necessary and deemed to ?be ?the clinically appropriate intervention ?at this time.? We will monitor/initiate medications and make changes as indicated.? Likely length of stay 1-3 days. Coding Level of Care Code Acute Code for [facility] Fwd Diagnoses Generalized anxiety disorder F41.1 Chronic post-traumatic stress disorder F43.12 Methamphetamine use disorder, severe F15.20 Cannabis use disorder F12.90 History of bipolar disorder Z86.59
[2023-10-11 14:00] VITALS: BP 99/61; PULSE 78; RESP 20; TEMP 37; O2SAT 93
--- NOTE | 2023-10-11 16:01 | PC.NURSE ---
THIS PT REQUESTED TO BE DISCHARGED. THIS NURSE EXPLAINED THAT PT IS NOT CURRENTLY ON THE DISCHARGE LIST FOR TODAY. PT STATED THAT HE CAME HERE VOLUNTARILY HE SHOULD BE ALLOWED TO LEAVE ON HIS OWN. THIS NURSE EDUCATED PT THAT HE ALWAYS HAS THE OPTION TO LEAVE AGAINST MEDICAL ADVICE. THIS NURSE EXPLAINED THAT AMA MEANS THAT HE WOULD NOT BE ABLE TO GET FOLLOW UP APPOINTMENTS, MEDICATION ORDERS, AND THAT HIS INSURANCE WOULD NOT PAY FOR IT. PT BECAME AGITATED THAT HE WOULD HAVE TO LEAVE AMA IF HE WANTED TO LEAVE AND STATED WELL CAN YOU TALK TO THE DOCTOR AND TELL HIM I HAVE FAMILY STUFF I NEED TO TAKE CARE OF? THIS NURSE AGREED TO SPEAK WITH THE PHYSICIAN. PT MOTHER WAS VISITING AND THIS NURSE SPOKE WITH HER ABOUT THE SITUATION. PT MOTHER IS ON HIS HIPPA PERMISSION LIST. PT MOTHER STATED THAT SHE DOES WANT HIM HOME BUT THAT SHE WANTS HIM TO BE BETTER. PT MOTHER STATES THAT SHE DOES NOT FEEL LIKE HE IS SAFE AT HOME HE CONSTANTLY SPEAKS ABOUT HURTING HIMSELF. THIS NURSE SPOKE WITH PHYSICIAN WHO AGREES THAT HE WILL NOT BE DISCHARGED TODAY. PT WAS INFORMED OF HIS DECISION AND WAS IRRITATED BUT HAS CURRENTLY ACCEPTED TO STAY. PHYSICIAN SPOKE WITH MOTHER TO GIVE HER AND UPDATE. PT IS CURRENTLY IN HIS ROOM LAYING IN BED. PT CURRENT NEEDS ARE MET AT THIS TIME.
[2023-10-11] MEDS: trazodone 50 mg Tablet PO (20:16)
[2023-10-11] MEDS: hyDROXYzine 25 mg Capsule 50 MG PO (20:16)
--- NOTE | 2023-10-11 20:56 | PC.NURSE ---
Patient refused to use his cpap tonight. Reminded him to let us know if he changes his mind
[2023-10-11 21:14] VITALS: BP 122/71; PULSE 76; RESP 16; TEMP 36.4; O2SAT 94
--- NOTE | 2023-10-12 02:36 | PC.NURSE ---
During assessment patient denied SI or HI. Requested medication for sleep and anxiety. See MAR.
[2023-10-12 06:00] VITALS: BP 115/75; PULSE 82; RESP 16; TEMP 36.7; O2SAT 96
[2023-10-12] MEDS: ibuprofen 600 mg Tablet PO (09:29)
[2023-10-12] MEDS: OLANZapine 5 mg ODT PO (09:30)
[2023-10-12] MEDS: hyDROXYzine 25 mg Capsule 50 MG PO (09:30)
--- NOTE | 2023-10-12 09:44 | PC.NURSE ---
PT NOTED TO HAVE INCREASED ANXIETY. DENIES SI/HI AND AVH AT THIS TIME. RATES ANXIETY 12/21 AND DEPRESSION 02/20. VISTARIL 50 MG AND ZYDIS 5 MG GIVEN FOR REPORTS OF INCREASED ANXIETY. PT STATES HE ANTICIPATES DISCHARGE THIS AM. ALL QUESTIONS ANSWERED AND SUPPORT WAS VOICED.
--- NOTE | 2023-10-12 11:58 | P.NPUDS_ITS ---
Diagnoses at Discharge Discharge Diagnosis (1) Generalized anxiety disorder: Status: Chronic (2) Chronic post-traumatic stress disorder: Status: Chronic (3) Methamphetamine use disorder, severe: Status: Acute (4) Cannabis use disorder: Status: Acute (5) History of bipolar disorder: Status: Acute Reason for Visit Reason for Visit: si Involuntary Hold Information 96 Hour Hold: 96 Hour Involuntary Admission: No Mental Status Exam MSE Comments: This is an overweight versus obese white male with fairly tanned skin in hospital scrubs with poor grooming and very limited eye contact. No abnormal movements except for significant psychomotor retardation. Limited cooperation with exam and moderate distress. Speech was limited and decreased rate and volume. Mood described as a little better, affect subdued but slightly brighter. Thought process linear. Thought content: Patient denied current suicidal or homicidal ideation, there were no delusions reported or noted, he denied any auditory or visual hallucinations. Attention and concentration were limited and memory was mostly unreliable and likely purposefully so reliable but none were formally tested. He was alert and oriented x 3. Insight and judgment are limited and impulse control is impaired. Discharge Data Studies Completed and Pending: Completed Studies During Hospitalization [place] [address] Ro utine Ultrasound 10/09/23 06:00 Completed Radiology Impressions Liver Ultrasound 10/09/23 06:00 IMPRESSION: 1. Negative gallbladder. 2. No bile duct dilatation. 3. Pancreas not visualized. 4. Liver is negative. Laboratory Results WBC 6.39 10^3/uL (3.2 9-11.43) 10/08/23 15:50 RBC 5.07 10^6/uL (3.8 5-5.65) 10/08/23 15:50 Hgb 15.60 g/dL (11.27 -16.99) 10/08/23 15:50 Hct 45.5 % (37-53) 10/08/23 15:50 MCV 89.7 fl (82-101) 10/08/23 15:50 MCH 30.8 pg (27-33) 10/08/23 15:50 MCHC 34.3 g/dL (30-55) 10/08/23 15:50 RDW 12.6 % (12.1-15.1 ) 10/08/23 15:50 Plt Count 263 10^3/cmm (157 -399) 10/08/23 15:50 MPV 10.2 fL (7.4-10.4 ) 10/08/23 15:50 Neut % (Auto) 60.4 % 10/08/23 15:50 Lymph % (Auto) 26.9 % 10/08/23 15:50 [place] % (Auto) 9.5 % 10/08/23 15:50 Eos % (Auto) 2.2 % 10/08/23 15:50 Baso % (Auto) 0.8 % 10/08/23 15:50 Neut # (Auto) 3.86 10^3/uL (1.8 -7.7) 10/08/23 15:50 Lymph # (Auto) 1.7 10^3/uL (0.8- 4.8) 10/08/23 15:50 [place] # (Auto) 0.6 10^3/uL (0.2- 0.9) 10/08/23 15:50 Eos # (Auto) 0.1 10^3/uL (0.0- 0.8) 10/08/23 15:50 Baso # (Auto) 0.1 10^3/uL (0.0- 0.1) 10/08/23 15:50 Nucleated RBC % (a uto) 0 % 10/08/23 15:50 Nucleated RBCs # 0.0 /100WBC 10/08/23 15:50 PT 12.80 SECONDS (12 .1-14.9) 10/09/23 08:24 INR 0.93 (0.8-1.2) 10/09/23 08:24 Sodium 137 mmol/L (136-1 45) 10/09/23 08:24 Potassium 4.1 mmol/L (3.5-5 .1) 10/09/23 08:24 Chloride 103 mmol/L (98-10 7) 10/09/23 08:24 Carbon Dioxide 24 mmol/L (22-29) 10/09/23 08:24 Anion Gap 14.1 (5-19) 10/09/23 08:24 BUN 13 mg/dL (6-20) 10/09/23 08:24 Creatinine 1.0 mg/dL (0.7-1. 2) 10/09/23 08:24 GFR Calculation 78.2 mL/min (90-1 30) L 10/09/23 08:24 Glucose 111 mg/dL (65-115 ) 10/09/23 08:24 Calculated Osmolal ity 285 mOsm/kg (285- 295) 10/09/23 08:24 Calcium 8.4 mg/dL (8.5-10 .5) L 10/09/23 08:24 Total Bilirubin 0.3 mg/dL (0.15-1 .2) 10/09/23 08:24 AST 482 U/L (0-40) H 10/09/23 08:24 ALT 946 U/L (0-41) H 10/09/23 08:24 Alkaline Phosphata se 147 U/L (40-130) H 10/09/23 08:24 C-Reactive Protein 3.0 mg/L (0.0-4.9 ) 10/08/23 15:50 Total Protein 6.3 g/dL (6.6-8.7 ) L 10/09/23 08:24 Albumin 3.7 g/dL (3.5-5.2 ) 10/09/23 08:24 Globulin 2.6 g/dL (1.3-4.6 ) 10/09/23 08:24 TSH 0.63 uIU/mL (0.27 -4.20) 10/08/23 15:50 Urine Color Yellow (Yellow) 10/08/23 15: Urine Appearance Clear (CLEAR) 10/08/23 15:29 Urine pH 7 (5-7) 10/08/23 15:29 Ur Specific Gravit y 1.005 (1.005-1.0 30) 10/08/23 15:29 Urine Protein Neg (Negative) 10/08/23 15:29 Urine Glucose (UA) Norm (Normal) 10/08/23 15:29 Urine Ketones Negative (Negati ve) 10/08/23 15: Urine Blood Neg (Negative) 10/08/23 15: Urine Nitrate Negative (Negati ve) 10/08/23 15: Urine Bilirubin Neg (Negative) 10/08/23 15:29 Urine Urobilinogen Neg mg/dL (Negati ve) 10/08/23 15:29 Ur Leukocyte Trinh ase Negative (Negati ve) 10/08/23 15:29 Urine RBC None /hpf (0-2) 10/08/23 15:29 Urine WBC None /hpf (0-5) 10/08/23 15:29 Ur Squamous Epith Cells Rare /hpf (0-5) 10/08/23 15:29 Amorphous Sediment Not Reportable 10/08/23 15:29 Urine Bacteria None /hpf (NONE) 10/08/23 15:29 Salicylates < 0.3 mg/dL (3-10 ) L 10/08/23 15:50 Urine Opiates Scre en Negative ng/mL (N egative) 10/08/23 15:29 Acetaminophen < 5.0 ug/mL (10-3 0) L 10/08/23 15:50 Ur Barbiturates Sc reen Negative ng/mL (N egative) 10/08/23 15:29 Ur Phencyclidine S crn Negative ng/mL (N egative) 10/08/23 15:29 Ur Amphetamines Sc reen Negative ng/mL (N egative) 10/08/23 15:29 U Benzodiazepines Scrn Negative ng/mL (N egative) 10/08/23 15:29 Urine Cocaine Scre en Negative ng/mL (N egative) 10/08/23 15:29 U Marijuana (THC) Screen Positive ng/mL (N egative) H 10/08/23 15:29 Ethyl Alcohol < 10 mg/dL (0-10) 10/08/23 15:50 IgG 1047 mg/dL (700-1 600) 10/08/23 15:50 Hepatitis A IgM Ab Non-reactive (No nreactive) 10/08/23 15:50 Hep Bs Antigen Non-reactive (No nreactive) 10/08/23 15:50 Hep B Core IgM Ab Non-reactive (No nreactive) 10/08/23 15:50 Hepatitis C Antibo dy Equivocal (Nonre active) A* 10/08/23 15:50 HIV-1 Antibody Cancelled 10/08/23 15:50 HIV-1 DNA/RNA Qual PCR Cancelled 10/08/23 15:50 HIV-2 Antibody Cancelled 10/08/23 15:50 HIV 1&2 Ab & HIV 1 Ag Non-reactive (No n-Reactiv) 10/08/23 15:50 HIV 1&2 Ag/Ab, 4th Gen Cancelled 10/08/23 15:50 HIV 1&2 Antibody Non-reactive (No n-Reactiv) 10/08/23 15:50 Vitals: Last Vital Signs Temp 98.0 F 10/12/23 06:00 Pulse 82 10/12/23 06:00 Resp 16 10/12/23 06:00 BP 115/75 10/12/23 06:00 Pulse Ox 96 10/12/23 06:00 O2 Del Method CPAP 10/11/23 06:23 FiO2 21 10/08/23 22:05 Discharge Plan Discharge Patient Disposition: Home Condition: Stable Prescriptions: New propranolol 20 mg Tablet 20 mg PO TID PRN (Reason: Anxiety) 30 Days Qty: 30 1RF hydroxyzine pamoate 25 mg Capsule 50 mg PO Q6H PRN (Reason: Anxiety) 30 Days Qty: 120 1RF Continued olanzapine [Zyprexa Zydis] 5 mg tablet,disintegrating 5 mg PO DAILY 30 Days Qty: 30 1RF No Action (DME) auto cpap See Rx Instructions .Route .MEDSUPPLY Qty: 1 0RF Rx Instructions: settings 6-14cm H2O Discharge Orders: Discharge Order (Routine); Ordered 10/12/23 Ordered By: Stewart Ballard Referrals: Roque Gonzalez DO [Primary Care Provider] - Discharge Diet: Regular Discharge Activity: Resume usual activity Patient Instructions: Opioid Safety Discharge Attestations NPU Time Spent in Discharge Care*: less than 30 min Specific Discharge Activities: Specific discharge activities: educating patient, discussing with machine adjuster leader case trim/social workers/dc planners, documenting/other paperwork and evaluating patient/reviewing data Status at Discharge: Cognitive status at discharge: cognitively intact , Behavioral status at discharge: cooperative , Coding Level of Care Code Acute Code for [facility] Fwd Diagnoses Generalized anxiety disorder F41.1 Chronic post-traumatic stress disorder F43.12 Methamphetamine use disorder, severe F15.20 Cannabis use disorder F12.90 History of bipolar disorder Z86.59
[2023-10-12] MEDS: haloperidol 5 mg Tablet PO (12:10)
[2023-10-12 12:22] VITALS: BP 115/75; PULSE 82; RESP 16; TEMP 36.7; O2SAT 96
== END 2023-10-12 13:20 | disposition home or self-care (01) | DRG 885 ==
LOC: ER 16:44 → NP 16:47
PROVIDERS: Internal Medicine; Admitting Provider Psychiatry & Neurology Psychiatry; Emergency Provider Emergency Medicine; PCP Family Medicine; Visit Provider Psychiatry & Neurology Psychiatry
DX: F31.9 Bipolar disorder, unspecified (principal); R45.851 Suicidal ideations; F41.1 Generalized anxiety disorder; F15.90 Other stimulant use, unspecified, uncomplicated; F12.90 Cannabis use, unspecified, uncomplicated; F43.12 Post-traumatic stress disorder, chronic; R94.5 Abnormal results of liver function studies; F17.210 Nicotine dependence, cigarettes, uncomplicated
CPT/HCPCS: 36415; 76705; 80053; 80074; 80306; 80307; 81001; 82784; 84443; 85025; 85610; 86140; 87806; 93005; 94660; 96372; 97150; 97165; 99285; J1200; J1630; J2060; Q0162

== ENCOUNTER 2024-03-07 16:57 | Inpatient (IN) | payer MEDICAID, SELFPAY ==
[2023-10-16 11:35] VITALS: BP 138/83; BMI 33.3
[2024-03-07 17:11] VITALS: BP 134/102; PULSE 93; RESP 19; TEMP 36.8; O2SAT 96; BMI 33.0
[2024-03-07 17:36] LABS: Basophils # 0.1 10^3/uL (0.0-0.1); Basophils % 0.7 %; Eosinophils # 0.1 10^3/uL (0.0-0.8); Eosinophils % 1.4 %; Hematocrit 44.7 % (37-53); Lymphocytes # 2.1 10^3/uL (0.8-4.8); Lymphocytes % 28.7 %; Mean Corpuscular HGB Conc 34.5 g/dL (30-55); Mean Corpuscular Hemoglobin 30.5 pg (27-33); Mean Corpuscular Volume 88.5 fl (82-101); Mean Platelet Volume 10.4 fL (7.4-10.4); Monocytes # 0.8 10^3/uL (0.2-0.9); Neutrophils # 4.26 10^3/uL (1.8-7.7); Neutrophils % 58.1 %; Nucleated Red Blood Cells % 0 %; Platelet Count 258 10^3/cmm (157-399); Red Blood Count 5.05 10^6/uL (3.85-5.65); White Blood Count 7.34 10^3/uL (3.29-11.43)
[2024-03-07 17:56] LABS: Alanine Aminotransferase 31 U/L (0-41); Albumin Level 4.1 g/dL (3.5-5.2); Alkaline Phosphatase 84 U/L (40-130); Anion Gap 15.8 (5-19); Aspartate Amino Transferase 29 U/L (0-40); Blood Urea Nitrogen 11 mg/dL (6-20); Carbon Dioxide 24 mmol/L (22-29); Chloride 98 mmol/L (98-107); Globulin 2.8 g/dL (1.3-4.6); Glomerular Filtration Rate 87.9 mL/min (90-130); Glucose 140 mg/dL (65-115); Osmolality Calculated 280 mOsm/kg (285-295); Potassium 3.8 mmol/L (3.5-5.1); Sodium 134 mmol/L (136-145); Total Bilirubin 0.5 mg/dL (0.15-1.2); Total Protein 6.9 g/dL (6.6-8.7)
[2024-03-07 17:58] LABS: Acetaminophen < 5.0 ug/mL (10-30); Alcohol Level < 10 mg/dL (0-10); Salicylate < 0.3 mg/dL (3-10)
[2024-03-07 18:11] LABS: Amphetamines Screen Urine Positive (Negative); Barbiturates Screen Urine Negative (Negative); Benzodiazepines Screen Urine Negative (Negative); Cocaine Screen Urine Negative (Negative); Opiate Screen Urine Negative (Negative); PCP Screen Urine Negative (Negative); THC Screen Urine Positive (Negative)
--- NOTE | 2024-03-07 18:25 | ECG_ITS ---
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 Measurements Intervals [place] Rate: 81 P: 47 [place]: 144 QRS: -55 QRSD: 82 T: 52 QT: 382 QTc: 445 Interpretive Statements SINUS RHYTHM LEFT ANTERIOR FASCICULAR BLOCK [QRS AXIS <= -45, QR IN I, RS IN II] Compared to ECG 10/08/2023 15:35:06 Sinus arrhythmia no longer present Electronically Signed On 03-10-2024 00:08:33 CDT by Dayton Merlos M.D. [email or web address]
[2024-03-07 18:37] LABS: INR 0.94 (0.8-1.2)
--- NOTE | 2024-03-07 18:45 | PC.NURSE ---
96 hr rights reviewed with patient @[id number], with assistance of [facility] financial administration officer Caleb Milligan All education reviewed. Patient copy left with patient @bedside. Patient requested something for anxiety. This HS spoke with ER Dr to discuss order for PRN Anxiety medication.
[2024-03-07] MEDS: LORazepam 1 mg Tablet PO (19:02)
--- NOTE | 2024-03-07 19:44 | W.ED.PSYCHS ---
Documented by User: Bulmaro Olson 03/07/24 22:46 HPI - Psych General: Chief Complaint: Psychiatric Symptoms Stated Complaint: 96 HOUR HOLD Time Seen by Provider: 03/07/24 17:16 History of Present Illness: 53-year-old male presents to the ER for medical clearance for inpatient psychiatric placement patient has a court ordered 96-hour residential hold signed by a family resource management specialist apparently the person the patient been living with his reported the patient has instructed her that he has been suicidal patient has a longstanding history of mental health issues which has been off his medications the last 2 to 3 weeks patient endorses history of bipolar manic depression amongst other things patient endorses no current plan at this time patient presents to the ER for further assessment and management by law enforcement. Associated symptoms: Reports depression and suicidal ideation Related Data Home Medications Medication Instructions Recorded Confirmed atorvastatin 10 mg tablet 10 mg PO DAILY 11/26/23 02/11/24 lisinopril 2.5 mg tablet 2.5 mg PO DAILY 11/26/23 02/11/24 metformin 500 mg tablet 500 mg PO DAILY 11/26/23 02/11/24 Previous Rx's Medication Instructions Recorded auto cpap #1 ea 07/02/23 acamprosate 333 mg tablet,delayed 333 mg PO BID #60 tabs 02/11/24 release olanzapine 10 mg tablet (Zyprexa) 10 mg PO .8 pm #30 tabs 02/11/24 propranolol 20 mg tablet 20 mg PO BID Anxiety #60 tabs 02/11/24 trazodone 50 mg tablet 50 mg PO BEDTIME PRN Sleep 30 days 02/11/24 #60 tabs Allergies Allergy/AdvReac Type Severity Reaction Status Date / Time No Known Allergies Allergy Verified 02/11/24 10:51 Review of Systems General: Reports: 10 or more systems reviewed and unremarkable except in HPI and below Const: Denies: fever(s), chills, fatigue or malaise Eyes: Denies: change in vision or blurry vision Card: Denies: chest pain or palpitations Resp: Denies: dyspnea or productive cough GI: Denies: abdominal pain, nausea or vomiting : Denies: flank pain Musc: Denies: extremity pain or extremity swelling Skin/Breast: Denies: rash or pruritus Neuro: Denies: headache(s) Psych: Reports: anxiety, depression, mood swings, sleeping less, hopelessness, loss of interest and suicidal ideation Ish/Lymph: Denies: easy bleeding All/Imm: Denies: urticaria, throat swelling or facial swelling PFSH ED PFSH: Medical History Bipolar II disorder Alcohol use disorder, severe, dependence sobriety date 10/13/23 Marijuana dependence Methamphetamine use disorder, severe, dependence sobriety date 10/13/23 Psychiatric care Cigarette nicotine dependence Chronic post-traumatic stress disorder Generalized anxiety disorder Surgical History S/P foot surgery, left S/P foot surgery, right Family History Grandfather Cancer colon and then lung Mother Diabetes Psychiatric illness Father Diabetes Social History Smoking and tobacco/nicotine status: current every day tobacco/nicotine user cigarettes Packs smoked per day: 0.50 Years cigarettes smoked: 25 Second hand smoke exposure: Yes Alcohol intake: former Year of sobriety/quit date alcohol: 2020 Substance/Drug Use: former Date of last use: 07.01.20 Adopted: No Caregiver/support person: No Lives independently: Yes Household members: family Housing: House Marital status: Marital status details: 2001 Number of children: 2 Number of grandchildren: 0 Highest education level completed: Some College, No Degree service: No Current occupational status: employed Current occupation: [employer] Current occupational exposures/hazards: Yes (chemicals) Pets and animals: No Leisure activites: other Leisure activities details: write letters to Fabien, listen to yazdanism music, watch TV, listen to bird Sexually active: No Do you think of yourself as: Straight/Heterosexual Current gender identity: Male Mildred/Quaker: Yazdanism Special mildred needs: No Agree to transfusion: Yes Physical Exam Const: COMMON NORMALS: no acute distress, patient oriented x3 and healthy appearing HENMT: COMMON NORMALS: normocephalic and atraumatic HEAD & SCALP: normocephalic and atraumatic Eye: COMMON NORMALS: Equal, round and reactive pupils present and EOMs intact bilaterally PUPIL: Yes Equal, round and reactive pupils present Neck/C-Spine: COMMON NORMALS: full ROM, supple and no JVD Lymph: LYMPHATIC: no lymphadenopathy noted Chest: COMMONS NORMALS: normal inspection of the chest and normal palpation of entire chest wall Resp: COMMON NORMALS: normal respiratory effort, No retractions and clear to auscultation bilaterally EFFORT & INSPECTION: Yes able to speak in complete sentences and Yes symmetric chest movement AUSCULTATION: clear to auscultation bilaterally Cardio: COMMON NORMALS: no JVD, regular rate and regular rhythm RATE: regular rate RHYTHM: regular rhythm GI: COMMON NORMALS: Normal to inspection, nondistended, normoactive bowel sounds present, Soft to palpation and non-tender INSPECTION: Yes normal to inspection PALPATION: Yes Soft to palpation : COMMON NORMALS: Yes no CVA tenderness BLADDER/KIDNEY EXAM: Yes no CVA tenderness Back/Pelvis: COMMON NORMALS: no CVA tenderness Extremity: COMMON NORMALS: normal to inspection and full ROM Neuro: COMMON NORMALS: patient oriented x3, CN's II-XII intact bilaterally, moves all extremities and no focal motor deficits Psych: COMMON NORMALS: mental status grossly normal, Normal thought process present, cooperative, normal affect, denies homicidal ideation and denies suicidal ideation THOUGHT PROCESS: Normal thought process present Skin: COMMON NORMALS: no rashes or lesions noted GENERAL SKIN EXAM: no rashes or lesions noted Course Vital Signs: Vital signs: Vital Signs Temperature 98.2 F 03/07/24 17:11 Pulse Rate 86 03/08/24 06:22 Respiratory Rate 19 H 03/07/24 17:11 Blood Pressure 138/89 03/08/24 06:22 Pulse Oximetry 97 03/08/24 06:22 Oxygen Delivery Me thod Room Air 03/07/24 17:[address] [facility] - Psych Medical Decision Making Patient is currently denying any homicidal suicidal thoughts or ideations however he does present to the ER with a 96-hour residential hold in which he has been off of his medications which are to both high risk factors advised patient he would not be able to go home until he has a inpatient psychiatric assessment will undergo medical clearance screening examination and will be contacting Dr. Morrell on-call for psych for further assessment and management. Spoke to Dr. Elio Ballard is granted acceptance of this patient pending nursing staff availability in the neuropsychiatric unit this patient will be signed out to Dr. Rose spoke to the plumbing warehouse helper in which additional information will be provided in regards to acceptance of this patient at about 5 AM the patient is found to be medically stable and which has cleared his medical screening examination for psychiatric inpatient. Lab Data 03/07/24 17:14 03/07/24 17:14 Laboratory Results WBC 7.34 10^3/uL (3.29-11.43) 03/07/24 17:14 RBC 5.05 10^6/uL (3.85-5.65) 03/07/24 17:14 Hgb 15.40 g/dL (11.27-16.99) 03/07/24 17:14 Hct 44.7 % (37-53) 03/07/24 17:14 MCV 88.5 fl (82-101) 03/07/24 17:14 MCH 30.5 pg (27-33) 03/07/24 17:14 MCHC 34.5 g/dL (30-55) 03/07/24 17:14 RDW 13.0 % (12.1-15.1) 03/07/24 17:14 Plt Count 258 10^3/cmm (157-399) 03/07/24 17:14 MPV 10.4 fL (7.4-10.4) 03/07/24 17:14 Neut % (Auto) 58.1 % 03/07/24 17:14 Lymph % (Auto) 28.7 % 03/07/24 17:14 Giles % (Auto) 11.0 % 03/07/24 17:14 Eos % (Auto) 1.4 % 03/07/24 17:14 Baso % (Auto) 0.7 % 03/07/24 17:14 Neut # (Auto) 4.26 10^3/uL (1.8-7.7) 03/07/24 17:14 Lymph # (Auto) 2.1 10^3/uL (0.8-4.8) 03/07/24 17:14 Giles # (Auto) 0.8 10^3/uL (0.2-0.9) 03/07/24 17:14 Eos # (Auto) 0.1 10^3/uL (0.0-0.8) 03/07/24 17:14 Baso # (Auto) 0.1 10^3/uL (0.0-0.1) 03/07/24 17:14 Nucleated RBC % (auto) 0 % 03/07/24 17:14 Nucleated RBCs # 0.0 /100WBC 03/07/24 17:14 PT 12.80 SECONDS (12.1-14.9) 03/07/24 17:14 INR 0.94 (0.8-1.2) 03/07/24 17:14 Sodium 134 mmol/L (136-145) L 03/07/24 17:14 Potassium 3.8 mmol/L (3.5-5.1) 03/07/24 17:14 Chloride 98 mmol/L (98-107) 03/07/24 17:14 Carbon Dioxide 24 mmol/L (22-29) 03/07/24 17:14 Anion Gap 15.8 (5-19) 03/07/24 17:14 BUN 11 mg/dL (6-20) 03/07/24 17:14 Creatinine 0.9 mg/dL (0.7-1.2) 03/07/24 17:14 GFR Calculation 87.9 mL/min (90-130) L 03/07/24 17:14 Glucose 140 mg/dL (65-115) H 03/07/24 17:14 Calculated Osmolality 280 mOsm/kg (285-295) L 03/07/24 17:14 Calcium 9.0 mg/dL (8.5-10.5) 03/07/24 17:14 Total Bilirubin 0.5 mg/dL (0.15-1.2) 03/07/24 17:14 AST 29 U/L (0-40) 03/07/24 17:14 ALT 31 U/L (0-41) 03/07/24 17:14 Alkaline Phosphatase 84 U/L (40-130) 03/07/24 17:14 Total Protein 6.9 g/dL (6.6-8.7) 03/07/24 17:14 Albumin 4.1 g/dL (3.5-5.2) 03/07/24 17:14 Globulin 2.8 g/dL (1.3-4.6) 03/07/24 17:14 Urine Color Yellow (Yellow) 03/07/24 17:56 Urine Appearance Clear (CLEAR) 03/07/24 17:56 Urine pH 7.0 (5-7) 03/07/24 17:56 Ur Specific [place] 1.009 (1.005-1.030) 03/07/24 17:56 Urine Protein Negative (Negative) 03/07/24 17:56 Urine Glucose (UA) Negative (Normal) 03/07/24 17:56 Urine Ketones Negative (Negative) 03/07/24 17:56 Urine Blood Negative (Negative) 03/07/24 17:56 Urine Nitrate Negative (Negative) 03/07/24 17:56 Urine Bilirubin Negative (Negative) 03/07/24 17:56 Urine Urobilinogen 1.0 mg/dL (Negative) 03/07/24 17:56 Ur Leukocyte Esterase Negative (Negative) 03/07/24 17:56 Urine RBC 0-2 /hpf (0-2) 03/07/24 17:56 Urine WBC 0-5 /hpf (0-5) 03/07/24 17:56 Ur Squamous Epith Cells 0-5 /hpf (0-5) 03/07/24 17:56 Amorphous Sediment Not Reportable 03/07/24 17:56 Urine Bacteria None seen /hpf (NONE) 03/07/24 17:56 Hyaline Casts 0-4 /lpf H 03/07/24 17:56 Salicylates < 0.3 mg/dL (3-10) L 03/07/24 17:14 Urine Opiates Screen Negative ng/mL (Negative) 03/07/24 17:56 Acetaminophen < 5.0 ug/mL (10-30) L 03/07/24 17:14 Ur Barbiturates Screen Negative ng/mL (Negative) 03/07/24 17:56 Ur Phencyclidine Scrn Negative ng/mL (Negative) 03/07/24 17:56 Ur Amphetamines Screen Positive ng/mL (Negative) H 03/07/24 17:56 U Benzodiazepines Scrn Negative ng/mL (Negative) 03/07/24 17:56 Urine Cocaine Screen Negative ng/mL (Negative) 03/07/24 17:56 U Marijuana (THC) Screen Positive ng/mL (Negative) H 03/07/24 17:56 Ethyl Alcohol < 10 mg/dL (0-10) 03/07/24 17:14 SARS-CoV-2 Ag (Rapid) Negative (Negative) 03/07/24 19:37 XR interpretation done by ED provider, pending radiology final review Discharge Plan Discharge Patient Disposition: Admitted As Inpatient Admit Provider: Stewart Ballard Clinical Impression: Suicidal ideations Condition: Stable Sign Out Sign Out Data: Patient Sign Out occurred on 03/08/24 at 06:12. Patient's care was discussed, and care was transferred from Bulmaro Olson to Noah Rivera DO. Coding Level of Care Code ED Railway Station Manager for Chg Fwd Documented by User: Noah Rivera DO 03/08/24 07:07 HPI - Psych General: Chief Complaint: Psychiatric Symptoms Stated Complaint: 96 HOUR HOLD Time Seen by Provider: 03/07/24 17:16 Related Data Home Medications Medication Instructions Recorded Confirmed atorvastatin 10 mg tablet 10 mg PO DAILY 11/26/23 02/11/24 lisinopril 2.5 mg tablet 2.5 mg PO DAILY 11/26/23 02/11/24 metformin 500 mg tablet 500 mg PO DAILY 11/26/23 02/11/24 Previous Rx's Medication Instructions Recorded auto cpap #1 ea 07/02/23 acamprosate 333 mg tablet,delayed 333 mg PO BID #60 tabs 02/11/24 release olanzapine 10 mg tablet (Zyprexa) 10 mg PO .8 pm #30 tabs 02/11/24 propranolol 20 mg tablet 20 mg PO BID Anxiety #60 tabs 02/11/24 trazodone 50 mg tablet 50 mg PO BEDTIME PRN Sleep 30 days 02/11/24 #60 tabs Allergies Allergy/AdvReac Type Severity Reaction Status Date / Time No Known Allergies Allergy Verified 02/11/24 10:51 [facility] ED PFSH: Medical History Bipolar II disorder Alcohol use disorder, severe, dependence sobriety date 10/13/23 Marijuana dependence Methamphetamine use disorder, severe, dependence sobriety date 10/13/23 Psychiatric care Cigarette nicotine dependence Chronic post-traumatic stress disorder Generalized anxiety disorder Surgical History S/P foot surgery, left S/P foot surgery, right Family History Grandfather Cancer colon and then lung Mother Diabetes Psychiatric illness Father Diabetes Social History Smoking and tobacco/nicotine status: current every day tobacco/nicotine user cigarettes Packs smoked per day: 0.50 Years cigarettes smoked: 25 Second hand smoke exposure: Yes Alcohol intake: former Year of sobriety/quit date alcohol: 2020 Substance/Drug Use: former Date of last use: 07.01.20 Adopted: No Caregiver/support person: No Lives independently: Yes Household members: family Housing: House Marital status: Marital status details: 2001 Number of children: 2 Number of grandchildren: 0 Highest education level completed: Some College, No Degree service: No Current occupational status: employed Current occupation: [employer] Current occupational exposures/hazards: Yes (chemicals) Pets and animals: No Leisure activites: other Leisure activities details: write letters to Fabien, listen to yazdanism music, watch TV, listen to bird Sexually active: No Do you think of yourself as: Straight/Heterosexual Current gender identity: Male Mildred/Quaker: Yazdanism Special mildred needs: No Agree to transfusion: Yes Course Vital Signs: Vital signs: Vital Signs Temperature 98.2 F 03/07/24 17:11 Pulse Rate 86 03/08/24 06:22 Respiratory Rate 19 H 03/07/24 17:11 Blood Pressure 138/89 03/08/24 06:22 Pulse Oximetry 97 03/08/24 06:22 Oxygen Delivery Me thod Room Air 03/07/24 17:11 MDM - Psych Medical Decision Making Patient is currently denying any homicidal suicidal thoughts or ideations however he does present to the ER with a 96-hour residential hold in which he has been off of his medications which are to both high risk factors advised patient he would not be able to go home until he has a inpatient psychiatric assessment will undergo medical clearance screening examination and will be contacting Dr. Morrell on-call for psych for further assessment and management. Spoke to Dr. Elio Ballard is granted acceptance of this patient pending nursing staff availability in the neuropsychiatric unit this patient will be signed out to Dr. Rose spoke to the plumbing warehouse helper in which additional information will be provided in regards to acceptance of this patient at about 5 AM the patient is found to be medically stable and which has cleared his medical screening examination for psychiatric inpatient. Patient was in signout queue and I had picked up along with the other sign outs. Patient has already been admitted I did not see or participate in the care of this patient. EMR would not allow to remove my name from the contributor list so had to add to and sign off the chart to get it to clear from work list. Lab Data 03/07/24 17:14 03/07/24 17:14 Laboratory Results WBC 7.34 10^3/uL (3.29-11.43) 03/07/24 17:14 RBC 5.05 10^6/uL (3.85-5.65) 03/07/24 17:14 Hgb 15.40 g/dL (11.27-16.99) 03/07/24 17:14 Hct 44.7 % (37-53) 03/07/24 17:14 MCV 88.5 fl (82-101) 03/07/24 17:14 MCH 30.5 pg (27-33) 03/07/24 17:14 MCHC 34.5 g/dL (30-55) 03/07/24 17:14 RDW 13.0 % (12.1-15.1) 03/07/24 17:14 Plt Count 258 10^3/cmm (157-399) 03/07/24 17:14 MPV 10.4 fL (7.4-10.4) 03/07/24 17:14 Neut % (Auto) 58.1 % 03/07/24 17:14 Lymph % (Auto) 28.7 % 03/07/24 17:14 Giles % (Auto) 11.0 % 03/07/24 17:14 Eos % (Auto) 1.4 % 03/07/24 17:14 Baso % (Auto) 0.7 % 03/07/24 17:14 Neut # (Auto) 4.26 10^3/uL (1.8-7.7) 03/07/24 17:14 Lymph # (Auto) 2.1 10^3/uL (0.8-4.8) 03/07/24 17:14 Giles # (Auto) 0.8 10^3/uL (0.2-0.9) 03/07/24 17:14 Eos # (Auto) 0.1 10^3/uL (0.0-0.8) 03/07/24 17:14 Baso # (Auto) 0.1 10^3/uL (0.0-0.1) 03/07/24 17:14 Nucleated RBC % (auto) 0 % 03/07/24 17:14 Nucleated RBCs # 0.0 /100WBC 03/07/24 17:14 PT 12.80 SECONDS (12.1-14.9) 03/07/24 17:14 INR 0.94 (0.8-1.2) 03/07/24 17:14 Sodium 134 mmol/L (136-145) L 03/07/24 17:14 Potassium 3.8 mmol/L (3.5-5.1) 03/07/24 17:14 Chloride 98 mmol/L (98-107) 03/07/24 17:14 Carbon Dioxide 24 mmol/L (22-29) 03/07/24 17:14 Anion Gap 15.8 (5-19) 03/07/24 17:14 BUN 11 mg/dL (6-20) 03/07/24 17:14 Creatinine 0.9 mg/dL (0.7-1.2) 03/07/24 17:14 GFR Calculation 87.9 mL/min (90-130) L 03/07/24 17:14 Glucose 140 mg/dL (65-115) H 03/07/24 17:14 Calculated Osmolality 280 mOsm/kg (285-295) L 03/07/24 17:14 Calcium 9.0 mg/dL (8.5-10.5) 03/07/24 17:14 Total Bilirubin 0.5 mg/dL (0.15-1.2) 03/07/24 17:14 AST 29 U/L (0-40) 03/07/24 17:14 ALT 31 U/L (0-41) 03/07/24 17:14 Alkaline Phosphatase 84 U/L (40-130) 03/07/24 17:14 Total Protein 6.9 g/dL (6.6-8.7) 03/07/24 17:14 Albumin 4.1 g/dL (3.5-5.2) 03/07/24 17:14 Globulin 2.8 g/dL (1.3-4.6) 03/07/24 17:14 Urine Color Yellow (Yellow) 03/07/24 17:56 Urine Appearance Clear (CLEAR) 03/07/24 17:56 Urine pH 7.0 (5-7) 03/07/24 17:56 Ur Specific [place] 1.009 (1.005-1.030) 03/07/24 17:56 Urine Protein Negative (Negative) 03/07/24 17:56 Urine Glucose (UA) Negative (Normal) 03/07/24 17:56 Urine Ketones Negative (Negative) 03/07/24 17:56 Urine Blood Negative (Negative) 03/07/24 17:56 Urine Nitrate Negative (Negative) 03/07/24 17:56 Urine Bilirubin Negative (Negative) 03/07/24 17:56 Urine Urobilinogen 1.0 mg/dL (Negative) 03/07/24 17:56 Ur Leukocyte Esterase Negative (Negative) 03/07/24 17:56 Urine RBC 0-2 /hpf (0-2) 03/07/24 17:56 Urine WBC 0-5 /hpf (0-5) 03/07/24 17:56 Ur Squamous Epith Cells 0-5 /hpf (0-5) 03/07/24 17:56 Amorphous Sediment Not Reportable 03/07/24 17:56 Urine Bacteria None seen /hpf (NONE) 03/07/24 17:56 Hyaline Casts 0-4 /lpf H 03/07/24 17:56 Salicylates < 0.3 mg/dL (3-10) L 03/07/24 17:14 Urine Opiates Screen Negative ng/mL (Negative) 03/07/24 17:56 Acetaminophen < 5.0 ug/mL (10-30) L 03/07/24 17:14 Ur Barbiturates Screen Negative ng/mL (Negative) 03/07/24 17:56 Ur Phencyclidine Scrn Negative ng/mL (Negative) 03/07/24 17:56 Ur Amphetamines Screen Positive ng/mL (Negative) H 03/07/24 17:56 U Benzodiazepines Scrn Negative ng/mL (Negative) 03/07/24 17:56 Urine Cocaine Screen Negative ng/mL (Negative) 03/07/24 17:56 U Marijuana (THC) Screen Positive ng/mL (Negative) H 03/07/24 17:56 Ethyl Alcohol < 10 mg/dL (0-10) 03/07/24 17:14 SARS-CoV-2 Ag (Rapid) Negative (Negative) 03/07/24 19:37 Discharge Plan Discharge Patient Disposition: Admitted As Inpatient Admit Provider: Stewart Ballard Clinical Impression: Suicidal ideations Condition: Stable Sign Out Sign Out Data: Patient Sign Out occurred on 03/08/24 at 06:12. Patient's care was discussed, and care was transferred from Bulmaro Olson to Noah Rivera DO. Coding Level of Care Code ED Railway Station Manager for Layo Sanz
[2024-03-07 19:58] LABS: Bilirubin Urine Negative (Negative); Blood Urine Negative (Negative); Glucose Urine UA Negative (Normal); Ketones Urine Negative (Negative); Leukocyte Esterase Urine Negative (Negative); Nitrate Urine Negative (Negative); Protein Urine Negative (Negative); Specific Gravity, Urine 1.009 (1.005-1.030); Urine Appearance Clear (CLEAR); Urine Color Yellow (Yellow)
[2024-03-07 20:01] LABS: Add Urine Microscopic? YES; Bacteria Urine None Seen /hpf; Hyaline Casts Urine 0-4 /lpf; RBC Urine 0-2 /hpf (0-2); Squamous Epithelial Cell Urine 0-5 /hpf (0-5); WBC Urine 0-5 /hpf (0-5)
[2024-03-07 20:11] LABS: SARS Covid-2 Antigen Negative (Negative)
[2024-03-07] MEDS: trazodone 50 mg Tablet PO (22:54)
[2024-03-08 06:22] VITALS: BP 138/89; PULSE 86; O2SAT 97
[2024-03-08 09:40] VITALS: BP 132/86; PULSE 84; RESP 20; TEMP 36.4; O2SAT 97
[2024-03-08 14:00] VITALS: BP 97/59; PULSE 83; RESP 16; O2SAT 97
[2024-03-08] MEDS: OLANZapine 5 mg ODT PO (14:46)
[2024-03-08] MEDS: haloperidol 5 mg Tablet PO (15:17)
--- NOTE | 2024-03-08 17:11 | PC.NURSE ---
ADMIT NOTE PT ARRIVED TO THE EMERGENCY DEPARTMENT ON A 96 HOUR HOLD WITH REPORTS OF PT BEING SUICIDAL. IT WAS REPORTED TO THE LOCAL AUTHORITIES BY THE PERSON THAT THE PT LIVES WITH THAT THE PT HAD BEEN STATING THAT HE WAS SUICIDAL FOR THE LAST FEW DAYS. PT WAS ALSO REPORTED TO HAVE NOT BEEN TAKING HIS MEDICATIONS FOR THE LAST 2-3 WEEKS. UPON ADMIT THE NPU PT IS AGITATED ABOUT BEING ADMITTED TO THE HOSPITAL FOR THIS STAY DENYING ANY SUICIDAL OR HOMICIDAL IDEATION. PT STATES [employer] MAKING A PHONE CALL AND A FUCKED UP SYSTEM GOT BE PUT HERE. PT STATED THAT THIS IS BULLSHIT, THEY SHOULDN'T BE ALLOWED TO DO THIS TO ME. DURING ASSESSMENT PT MUMBLES PROFANITY TO HIMSELF ABOUT HAVING TO BE HERE. PT WAS COOPERATIVE WITH ASSESSMENT. PT REQUESTED MEDICATION FOR ANXIETY WHICH HE RECEIVED. PT CURRENT NEEDS ARE MET AT THIS TIME.
--- NOTE | 2024-03-08 18:15 | P.NPUHP_ITS ---
Providers/Chief Complaint 2 Admitting Physician: Stewart Ballard MD Primary Care Provider: Roque Gonzalez DO Chief Complaint: 96 HOUR HOLD HPI NPU History of Present Illness Jose Roberto Dumont is a 53 year old male who presented to the emergency department for medical clearance after being placed on a court order for evaluation and treatment in a psychiatric facility. The patient according to his mother had made threats to harm himself over the past 3 weeks. The patient was admitted to the neuropsychiatric unit for further evaluation and treatment. The patient denies having any thoughts of hurting himself or others. He does admit to not having been on his prescribed medications through the behavioral health clinic. He reports noncompliance for at least a month. The patient had admitted to recent use of methamphetamine last week. His urine drug screen was positive for amphetamines and positive for marijuana. He had denied any recent alcohol use. Patient reports that he has been treated unfairly and was simply at home minding his business when the police had come and ordered him to come to the hospital for an evaluation. Previous records reviewed had indicated that the patient has a history of frequent mood swings. He reports having periods of depression in the past as well. He had reported a history of posttraumatic stress disorder in the past. The patient was a poor historian and refused to answer any detailed questions. Inpatient psychiatric history: He reports a history of multiple inpatient hospitalizations. Outpatient psychiatric history: He reports that he is followed by Gala davidson in [facility] for medication management. Substance abuse history: He has a reported history of substance abuse treatment at [facility] on an outpatient basis. He has a noted history of alcohol intoxication, methamphetamine abuse and reports that he had been attending meetings and going to outpatient treatment at [facility]. Medical history: Elevated liver function test-, history of hepatitis C Surgical history: History of left and right foot surgery Allergies: No known drug allergies Medications: Campral 333 mg 2 tablets 3 times a day, atorvastatin 20 mg daily, Zyprexa 10 mg at night, propranolol 20 mg twice a day, trazodone 50 mg at night Legal history: Denied Excerpt from NPU Discharge Summary from 10/08/23 Diagnoses at Discharge Discharge Diagnosis (1) Generalized anxiety disorder: Status: Chronic (2) Chronic post-traumatic stress disorder: Status: Chronic (3) Methamphetamine use disorder, severe: Status: Acute (4) Cannabis use disorder: Status: Acute (5) History of bipolar disorder: Status: Acute Reason for Visit si Brief History: History of Present Illness Jose Roberto Dumont is a 52 year old male who presented to the emergency department with the following report: Chief Complaint: Psychiatric Symptoms Stated Complaint: si Time Seen by Provider: 10/08/23 15:21 History of Present Illness: 52-year-old man with a history of IV drug use and psychiatric problems who presents the emergency room today with suicidal ideation. He was discharged from here about 3 days ago to rehab and today he says he saw an old friend that he was reminded how bad his life is right now. He says this made him feel like he wants to kill himself. He said he might go to his father's grave and kill himself there. He has had some nausea. No abdominal pain. He says he has not used any amphetamines in 10 days. He was admitted to the neuropsychiatric unit for definitive treatment of those issues. There were laboratory changes in his liver enzymes that necessitated a consult with the hospitalist. Otherwise he is known through past hospitalizations most recently a few days ago. An excerpt of his discharge summary from a few days ago is included below for context and the absence of substantive changes. He presented today reporting that he got to the rehab and felt that he was not really able to extract anything from the treatment because he could not focus really. He reported starting to have depression and suicidal thoughts as he saw others that were doing much better which made him feel a certain way about how he was doing. He reports that his suicidal thoughts increased which led him to be open about that. That led to him being brought to the emergency department for evaluation though he still has his bed there. He presented continuing to endorse this depression and suicidal thoughts but denied that there were any medications that he being given that ever helped with the depression. A few of those medications were named and he said yes to all of them reporting that only benzodiazepines helped his depression. We discussed benzodiazepines not being good agents given his condition and not used for depression. He started talking about having been at [facility] multiple times a day he cannot really get things out of there even though he was only there for couple days. We talked about the timeline to some of the sober living facilities being longer than his hospitalization will be. At this point he was not open to any of the medications that were discussed. Per his 10/05/2023 [facility] inpatient psychiatric discharge summary: Discharge Diagnosis (1) Generalized anxiety disorder: Status: Chronic (2) Chronic post-traumatic stress disorder: Status: Chronic (3) Methamphetamine use disorder, severe: Status: Acute (4) Cannabis use disorder: Status: Acute (5) History of bipolar disorder: Status: Acute Reason for Visit Reason for Visit: Depression, SI Brief History: History of Present Illness Jose Roberto Dumont is a 52 year old male who presented to the emergency department with the following report: Chief Complaint: Psychiatric Symptoms Stated Complaint: Depression, SI Time Seen by Provider: 10/02/23 13:09 History of Present Illness: 52-year-old man with a history of polysubstance abuse and depression who presents to the emergency room with depression symptoms. He says he has been having thoughts of suicide. No specific plan at this time. He says he has been having some mild auditory hallucinations. He says he used to be on depression meds but stopped taking them and then started using marijuana and apparently was admitted to the hospital recently with a abscess on his arm which I believe was from IV drug use. He says he has an appointment to be admitted to [facility] for drug rehab on . However he would like to be admitted today for psychiatric help. He was admitted to the neuropsychiatric unit for definitive treatment of those issues. He is known from previous hospitalizations with his last stay being back in 2019 and an excerpt of that discharge summary is included below for context. Patient presents today as a fairly limited historian secondary to lethargy likely secondary to withdrawing from methamphetamine as well as medications administered to assist him and maintaining decorum. He presented reporting that things have been really bad recently and that he had struggled to maintain his sobriety. He reports that things got really bad and he contacted [facility] with a goal of getting inpatient rehab. He reports that they gave him a bed date for 10/04/2023 but that he became very concerned that he would not be able to make it there or worse something bad was going to happen because he was so out of control. He brought himself to the hospital fearing his safety and ability to make it to rehab. He denied being able to maintain his previous outside medications and has not been attending any outpatient services for some time. His goal is to get to the rehab and hopefully be in a condition to function well there. We discussed the risks, benefits and alternatives of connecting with [facility] in the morning and identifying if the bed date was a take it tomorrow or leave it or if they would allow for any flexibility. We agreed that we would consider medications after we understood that reality. Per his 03/12/2020 [facility] inpatient psychiatric discharge summary: Discharge Diagnosis (1) Suicidal ideation: Status: Resolved (2) Alcohol dependence: Status: Resolved Qualifiers: Substance use status: with intoxication Complication of substance- induced condition: uncomplicated Qualified Code(s): F10.220 - Alcohol dependence with intoxication, uncomplicated (3) Amphetamine substance use disorder, moderate, in early remission: Status: Chronic (4) Alcohol intoxication: Status: Resolved Qualifiers: Complication of substance-induced condition: uncomplicated Qualified Code(s): F10.920 - Alcohol use, unspecified with intoxication, uncomplicated (5) Amphetamine intoxication: Status: Resolved Qualifiers: Complication of substance-induced condition: uncomplicated Qualified Code(s): F15.920 - Other stimulant use, unspecified with intoxication, uncomplicated Reason for Visit Reason for Visit: SI Brief History: History of Present Illness I have done this too many times. This is just a consequence for the life I have led. Jose Roberto Dumont is a 49 year old male who was admitted to the adult psychiatric unit on the strength of an affidavit filed by local police. Apparently, the officer was dispatched to the patient's home. It is unclear how police became aware that this man was suicidal. While being questioned, he made suicidal statements and that he wished we would just shoot him. The patient denies at this time that he is having thoughts of ending his life. He says that he is in acute crisis after having lost his job. He says that he is a lifetime of partying and he is suffering the consequences. Apparently, he was partying over the weekend. 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 He subsequently got to work, and passed out in the parking lot. He has now been terminated from his employment. He apparently then went back to where he was staying which is with his mother. His urine drug screen is positive for methamphetamine, marijuana, benzodiazepines, and his blood alcohol level was 144. He says that at this point, his major concern is being in the substance abuse withdrawal. We tried to discuss issues of mental health treatment. He said that he has been through it all and has been treated with all kinds of medications. None have worked. He is not interested in more medication treatment. We discussed his substance abuse history. He says that recently, he has been drinking between 5 and 10 shots per night. It is unknown if this is accurate. He uses marijuana on a regular basis. He says the methamphetamine and benzodiazepines are not a persistent problem for him and that it was more of a self-destructive act. He denied suicidal or homicidal ideation. He denied the presence of auditory or visual hallucinations. He refused to discuss symptoms of depression. He apparently has engaged in substance use in a maladaptive manner for most of his life. He says that his divorce and his estrangement from one of his 2 children is all due to his behavior when he has been inebriated or intoxicated. He has been through rehab on multiple occasions. He said that it provides him no benefit. He says the most effective intervention has been his active participation in either Alcoholics Anonymous or Narcotics Anonymous. He does not have a sponsor at this time. He has not been attending either at this time. Assessment and plan (1) Suicidal ideation: Status: Acute (2) Alcohol dependence: Status: Acute Qualifiers: Substance use status: with intoxication Complication of substance- induced condition: uncomplicated Qualified Code(s): F10.220 - Alcohol dependence with intoxication, uncomplicated (3) Amphetamine substance use disorder, moderate, in early remission: Status: Chronic (4) Alcohol intoxication: Status: Acute Qualifiers: Complication of substance-induced condition: uncomplicated Qualified Code(s): F10.920 - Alcohol use, unspecified with intoxication, uncomplicated (5) Amphetamine intoxication: Status: Acute Qualifiers: Complication of substance-induced condition: uncomplicated Qualified Code(s): F15.920 - Other stimulant use, unspecified with intoxication, uncomplicated Additional A&P Information Due to the psychiatric conditions and treatment listed in the Assessment and Plan - the patient requires continued hospitalization. Will provide a safe and therapeutic environment for patient.. Will continue inpatient treatment to allow for medication adjustment and monitoring. Will continue q15 min safety checks. Admission plan: It is likely that his assessment that this mental health issue is driven primarily by alcohol and substance abuse is accurate. He was not inclined to discuss mental health interventions outside of alcohol and substance abuse. At this point, he was motivated to get through the withdrawal period and feel better so that he could think more clearly. We did not discuss issues of treatment with antidepressants or other medications. He was started on Seroquel 100 mg at bedtime and Ativan 1 mg 3 times daily which will be tapered throughout the withdrawal. He is on the [facility] protocol. Hospital day #3: Patient was exhibiting no signs of alcohol withdrawal. He reported that he was doing well. He was despondent about having to go home and look for a job. However he stated he was not going to be able to accomplish that while in the hospital and was requesting discharge. He was not an imminent risk to self or others. His wish was granted. Hospital Course Hospital Course He acclimated to the individual, group and milieu therapies provided. He presented from [facility] with reports that he was not able to adjust there secondary to how his mental health has been. It became clear that he was not planning on returning to [facility] and was struggling with his ambivalence to sober living treatment overall. He ultimately refused to return to [facility] and refused in the sober living treatment at a higher level of care. We utilized Vistaril and propranolol for anxiety and trazodone to help with sleep. He worked with the social work team on appropriate outpatient resources and appointments. He showed modest improvement during his stay and was able to contract for safety outside hospital prior to discharge. During the hospitalization, patient had routine laboratory studies which were within normal limits except for few outliers. Additionally there was a general medical evaluation which was also within normal limits and revealed no new acute processes. Discharge Summary: At the time of discharge, patient denied psychosis or lethality. Mood and anxiety were well managed. Patient endorsed a plan to avoid all drugs of abuse and follow-up with the aftercare recommendations of the treatment team except for recommendations to return to [facility] or some other inpatient rehab. Patient was evaluated and deemed to be absent credible lethality, and had achieved the maximum benefit from an inpatient hospitalization, so was discharged. Meds NPU Home Medications Medication Instructions Recorded Confirmed Last Taken Type auto cpap #1 ea 07/02/23 03/08/24 Unknown Rx atorvastatin 10 mg tablet 20 mg PO DAILY 11/26/23 03/08/24 Unknown History acamprosate 333 mg tablet,delayed 333 mg PO BID #60 tabs 02/11/24 03/08/24 Unknown Rx release olanzapine 10 mg tablet (Zyprexa) 10 mg PO .8 pm #30 tabs 02/11/24 03/08/24 Unknown Rx propranolol 20 mg tablet 20 mg PO BID Anxiety #60 tabs 02/11/24 03/08/24 Unknown Rx trazodone 50 mg tablet 50 mg PO BEDTIME PRN Sleep 30 days 02/11/24 03/08/24 Unknown Rx #60 tabs Allergies Allergy/AdvReac Type Severity Reaction Status Date / Time No Known Allergies Allergy Verified 02/11/24 10:51 PFSH NPU 2 PFSH: Medical History Bipolar II disorder Alcohol use disorder, severe, dependence sobriety date 10/13/23 Marijuana dependence Methamphetamine use disorder, severe, dependence sobriety date 10/13/23 Psychiatric care Cigarette nicotine dependence Chronic post-traumatic stress disorder Generalized anxiety disorder Surgical History S/P foot surgery, left S/P foot surgery, right Family History Grandfather Cancer colon and then lung Mother Diabetes Psychiatric illness Father Diabetes Social History Smoking and tobacco/nicotine status: current every day tobacco/nicotine user cigarettes Packs smoked per day: 0.50 Years cigarettes smoked: 25 Second hand smoke exposure: Yes Alcohol intake: former Year of sobriety/quit date alcohol: 2020 Substance/Drug Use: former Date of last use: 07.01.20 Adopted: No Caregiver/support person: No Lives independently: Yes Household members: family Housing: House Marital status: Marital status details: 2001 Number of children: 2 Number of grandchildren: 0 Highest education level completed: Some College, No Degree service: No Current occupational status: employed Current occupation: [employer] Current occupational exposures/hazards: Yes (chemicals) Pets and animals: No Leisure activites: other Leisure activities details: write letters to Fabien, listen to scientologist music, watch TV, listen to bird Sexually active: No Do you think of yourself as: Straight/Heterosexual Current gender identity: Male Mildred/Jew: Pentecostal Special mildred needs: No Agree to transfusion: Yes Mental Status Exam 2 MSE Comments: This is an overweight versus obese white male with fairly tanned skin in hospital scrubs with poor grooming and poor eye contact. No abnormal movements except for significant psychomotor retardation. He was uncooperative with exam and in moderate distress. Speech was limited in productivity and normal in volume. Mood described as fine. Affect was irritable. Thought process was linear. Thought content: Patient denied suicidal or homicidal ideation. There were no delusions reported or noted. He denied any auditory or visual hallucinations. Attention and concentration were limited and memory was mostly unreliable and likely purposefully so reliable but none were formally tested. He was alert and oriented x 3. Insight, judgment and impulse control are impaired. Vitals/I&O/Wt Last Vital Signs Temp 97.5 F L 03/08/24 09:40 Pulse 83 03/08/24 14:00 Resp 16 03/08/24 14:00 BP 97/59 03/08/24 14:00 Pulse Ox 97 03/08/24 14:00 O2 Del Method Room Air 03/08/24 14:00 Weight last 48 hrs Weight 113.398 kg Data NPU 03/07/24 17:14 03/07/24 17:14 A&P Assessment and plan (1) Generalized anxiety disorder: (2) Chronic post-traumatic stress disorder: (3) Methamphetamine use disorder, severe: (4) Cannabis use disorder: (5) History of bipolar disorder: Plan This is a 53-year-old white male with history of addiction and mental health challenges brought in to hospital involuntarily with concerns about suicidality. Patient has been noncompliant with outpatient medications. 1. Will restart outpatient medications. 2. Encourage individual, group and milieu therapy. 3. Continue to 15-minute checks for safety. 4. Encourage sober living treatment after discharge at the highest level care to which he is willing to commit. 5. Will attempt to gather collateral information. Patient to remain on involuntary hospitalization. Involuntary Hold Information 2 96 Hour Hold: 96 Hour Involuntary Admission: Yes 96 Hour Hold Ending Date: 03/13/24 96 Hour Hold Ending Time: 17:00 Other Hold: Hold End Date: 03/13/24 Attestations NPU 2 Medical Necessity Statement*: Inpatient hospitalization is medically necessary and deemed to ?be ?the clinically appropriate intervention ?at this time.? We will monitor/initiate medications and make changes as indicated.? The patient will be in the hospital for over 2 midnights.? Likely length of stay 3-5 days. Coding Level of Care Code Acute Code for Chg Fwd Diagnoses Generalized anxiety disorder F41.1 Chronic post-traumatic stress disorder F43.12 Methamphetamine use disorder, severe F15.20 Cannabis use disorder F12.90 History of bipolar disorder Z86.59
[2024-03-08 20:27] VITALS: BP 111/75; PULSE 72; RESP 16; TEMP 36.5; O2SAT 95
[2024-03-08] MEDS: propranolol 20 mg Tablet PO (20:38)
[2024-03-08] MEDS: trazodone 50 mg Tablet PO (20:38)
[2024-03-08] MEDS: OLANZapine 10 mg TABLET PO (20:38)
--- NOTE | 2024-03-08 23:53 | PC.NURSE ---
Pt stated that he does not want to wear his CPAP tonight. Pt instructed that if he changes his mind to let nursing staff know.
[2024-03-09 05:06] VITALS: BP 114/73; PULSE 57; RESP 15; O2SAT 93
--- NOTE | 2024-03-09 08:41 | PC.NURSE ---
Patient resting in bed and minimally cooperative. Denies avh and si/hi after asking patient the assessment questions multiple times and him appearing to be annoyed. He states he did not sleep well and has a headache. He refused any prn medications for his headache.
[2024-03-09] MEDS: atorvastatin 40 mg Tablet 20 MG PO (09:52)
[2024-03-09] MEDS: propranolol 20 mg Tablet PO ×2 (09:56→20:26)
[2024-03-09 14:00] VITALS: BP 115/77; PULSE 16; RESP 16; TEMP 36.6; O2SAT 96
--- NOTE | 2024-03-09 15:18 | PC.NURSE ---
Mother's cell phone number and landline is
--- NOTE | 2024-03-09 16:09 | P.NPUPN_ITS ---
Subjective NPU 2 Subjective: Patient is a 53-year-old male admitted involuntarily based upon allegations of the patient being suicidal. The patient continued to and denies suicidal ideation. He reported feeling less frustrated but continued to isolate himself on the milieu. He had denied any desire to attend rehabilitation and stated that he did not need any medications. He had continued to endorse having some pain issues. He had reported low energy. He had not been aggressive on the milieu. He had continued to report feeling frustrated that others had trapped him here in the hospital. The patient had admitted that he had been residing with his mother but stated that he needed to find a new place. No alcohol withdrawal symptoms noted. Mental Status Exam 2 MSE Comments: This is an overweight versus obese white male with fairly tanned skin in hospital scrubs with poor grooming and poor eye contact. No abnormal movements except for significant psychomotor retardation. He was uncooperative with exam and in moderate distress. Speech was limited in productivity and normal in volume. Mood described as upset. Affect remained surly. Thought process was linear. Thought content: Patient denied suicidal or homicidal ideation. There were no delusions reported or noted. He denied any auditory or visual hallucinations. Attention and concentration were limited. He was alert and oriented x 3. Insight, judgment and impulse control are impaired. Vitals/I&O/Wt Last Vital Signs Temp 97.8 F 03/09/24 14:00 Pulse 16 L 03/09/24 14:00 Resp 16 03/09/24 14:00 BP 115/77 03/09/24 14:00 Pulse Ox 96 03/09/24 14:00 O2 Del Method Room Air 03/09/24 05:06 Weight last 48 hrs Weight 114.305 kg Weight 113.398 kg Data NPU 03/07/24 17:14 03/07/24 17:14 A&P Assessment and plan (1) Generalized anxiety disorder: (2) Chronic post-traumatic stress disorder: (3) Methamphetamine use disorder, severe: (4) Cannabis use disorder: (5) History of bipolar disorder: Plan This is a 53-year-old white male with history of addiction and mental health challenges brought in to hospital involuntarily with concerns about suicidality. Patient has been noncompliant with outpatient medications. 1. Will restart outpatient medications other than Campral which patient is refusing. 2. Encourage individual, group and milieu therapy. 3. Continue to 15-minute checks for safety. 4. Encourage sober living treatment after discharge at the highest level care to which he is willing to commit. 5. Will attempt to gather collateral information. Patient to remain on involuntary hospitalization while observing for continued necessity. Involuntary Hold Information 2 96 Hour Hold: 96 Hour Involuntary Admission: Yes 96 Hour Hold Ending Date: 03/13/24 96 Hour Hold Ending Time: 17:00 Other Hold: Hold End Date: 03/13/24 Attestations NPU 2 Medical Necessity Statement*: Inpatient hospitalization is medically necessary and deemed to ?be ?the clinically appropriate intervention ?at this time.? We will monitor/initiate medications and make changes as indicated.? ? Likely length of stay 3-5 days. Coding Level of Care Code Acute Code for [facility] Fwd Diagnoses Generalized anxiety disorder F41.1 Chronic post-traumatic stress disorder F43.12 Methamphetamine use disorder, severe F15.20 Cannabis use disorder F12.90 History of bipolar disorder Z86.59
[2024-03-09] MEDS: OLANZapine 5 mg ODT PO (17:35)
[2024-03-09] MEDS: trazodone 50 mg Tablet PO (20:26)
[2024-03-09] MEDS: OLANZapine 10 mg TABLET PO (20:26)
[2024-03-09 21:41] VITALS: BP 110/74; PULSE 61; RESP 16; O2SAT 93
[2024-03-10 06:00] VITALS: BP 116/78; PULSE 58; RESP 16; O2SAT 95
[2024-03-10] MEDS: propranolol 20 mg Tablet PO ×2 (09:03→21:22)
[2024-03-10] MEDS: atorvastatin 40 mg Tablet 20 MG PO (09:03)
[2024-03-10] MEDS: haloperidol 5 mg Tablet PO (09:04)
[2024-03-10 14:00] VITALS: BP 116/75; PULSE 52; RESP 17; TEMP 36.7; O2SAT 93
--- NOTE | 2024-03-10 18:00 | P.NPUPN_ITS ---
Subjective NPU 2 Subjective: Patient is a 53-year-old male admitted involuntarily based upon allegations of the patient being suicidal with hx of methamphetamine abuse. The patient had isolated himself on the milieu. He continued to report that he wished to leave here and stated that he had done nothing to cause him to be involuntarily hospitalized. He had reported being homeless at this time. He had refused any medications other than Zyprexa. He had reported improved sleep. He continued to struggle with completion of activities of daily living. Mental Status Exam 2 MSE Comments: This is an overweight versus obese white male with fairly tanned skin in hospital scrubs with poor grooming, malodorous, and poor eye contact. No abnormal movements except for significant psychomotor retardation. He was minimally cooperative with exam and in mild distress. Speech was limited in productivity and normal in volume. Mood described as upset. Affect remained surly. Thought process was linear. Thought content: Patient denied suicidal or homicidal ideation. There were no delusions reported or noted. He denied any auditory or visual hallucinations. Attention and concentration were limited. He was alert and oriented x 3. Insight, judgment and impulse control are impaired. Vitals/I&O/Wt Last Vital Signs Temp 98.1 F 03/10/24 14:00 Pulse 52 L 03/10/24 14:00 Resp 17 03/10/24 14:00 BP 116/75 03/10/24 14:00 Pulse Ox 93 03/10/24 14:00 O2 Del Method Room Air 03/10/24 14:00 Weight last 48 hrs Weight 114.305 kg Data NPU 03/07/24 17:14 03/07/24 17:14 A&P Assessment and plan (1) Generalized anxiety disorder: (2) Chronic post-traumatic stress disorder: (3) Methamphetamine use disorder, severe: (4) Cannabis use disorder: (5) History of bipolar disorder: (6) Suicidal ideations: (7) Methamphetamine use disorder, severe, dependence: Plan This is a 53-year-old white male with history of addiction and mental health challenges brought in to hospital involuntarily with concerns about suicidality. Patient has been noncompliant with outpatient medications. 1. Continue outpatient medications. 2. Encourage individual, group and milieu therapy. 3. Continue to 15-minute checks for safety. 4. Encourage sober living treatment after discharge at the highest level care to which he is willing to commit. 5. Will attempt to gather collateral information. Patient to remain on involuntary hospitalization while observing for continued necessity. Involuntary Hold Information 2 96 Hour Hold: 96 Hour Involuntary Admission: Yes 96 Hour Hold Ending Date: 03/13/24 96 Hour Hold Ending Time: 17:00 Other Hold: Hold End Date: 03/13/24 Attestations NPU 2 Medical Necessity Statement*: Inpatient hospitalization is medically necessary and deemed to ?be ?the clinically appropriate intervention ?at this time.? We will monitor/initiate medications and make changes as indicated.? ? Likely length of stay 3-5 days. Coding Level of Care Code Acute Code for [facility] Fwd Diagnoses Generalized anxiety disorder F41.1 Chronic post-traumatic stress disorder F43.12 Methamphetamine use disorder, severe F15.20 Cannabis use disorder F12.90 History of bipolar disorder Z86.59 Suicidal ideations R45.851 Methamphetamine use disorder, severe, dependence F15.20
[2024-03-10 20:21] VITALS: BP 106/66; PULSE 67; RESP 16; O2SAT 92
[2024-03-10] MEDS: OLANZapine 10 mg TABLET PO (21:22)
[2024-03-10] MEDS: trazodone 50 mg Tablet PO (21:22)
[2024-03-11 06:00] VITALS: BP 116/81; PULSE 68; RESP 17; O2SAT 96
[2024-03-11] MEDS: atorvastatin 40 mg Tablet 20 MG PO (07:54)
[2024-03-11] MEDS: propranolol 20 mg Tablet PO ×2 (07:54→21:43)
[2024-03-11] MEDS: hyDROXYzine 25 mg Capsule 50 MG PO ×2 (07:54→17:25)
[2024-03-11 14:00] VITALS: BP 98/66; PULSE 70; RESP 18; TEMP 36.7; O2SAT 94
--- NOTE | 2024-03-11 15:55 | P.NPUPN_ITS ---
Subjective NPU 2 Subjective: Patient is a 53-year-old male admitted involuntarily based upon allegations of the patient being suicidal with hx of methamphetamine abuse. Patient was compliant with his medication. He had refused any inpatient psychiatric substance abuse treatment programs. He had reported that he did not wish to return back to his mother's home. He had appeared minimally cooperative but appeared to attend to routine activities of daily living. He had continued to perseverate about being involuntarily hospitalized here unjustly. Mental Status Exam 2 MSE Comments: This is an overweight versus obese white male with fairly tanned skin in hospital scrubs with poor grooming, malodorous, and poor eye contact. No abnormal movements except for significant psychomotor retardation. He was minimally cooperative with exam and in mild distress. Speech was limited in productivity and normal in volume. Mood described as okay. Affect remained irritable. Thought process was linear. Thought content: Patient denied suicidal or homicidal ideation. There were no delusions reported or noted. He denied any auditory or visual hallucinations. Attention and concentration were limited. He was alert and oriented x 3. Insight is feeble. Judgment is poor. Impulse control is poor. Vitals/I&O/Wt Last Vital Signs Temp 98.1 F 03/11/24 14:00 Pulse 70 03/11/24 14:00 Resp 18 03/11/24 14:00 BP 98/66 03/11/24 14:00 Pulse Ox 94 03/11/24 14:00 O2 Del Method Room Air 03/11/24 06:00 Data NPU 03/07/24 17:14 03/07/24 17:14 A&P Assessment and plan (1) Generalized anxiety disorder: (2) Chronic post-traumatic stress disorder: (3) Methamphetamine use disorder, severe: (4) Cannabis use disorder: (5) History of bipolar disorder: (6) Suicidal ideations: (7) Methamphetamine use disorder, severe, dependence: Plan This is a 53-year-old white male with history of addiction and mental health challenges brought in to hospital involuntarily with concerns about suicidality. Patient has been noncompliant with outpatient medications. 1. Continue zyprexa 10mg at night. 2. Encourage individual, group and milieu therapy. 3. Continue to 15-minute checks for safety. 4. Encourage sober living treatment after discharge at the highest level care to which he is willing to commit. 5. Will attempt to gather collateral information. Patient to remain on involuntary hospitalization while observing for continued necessity. Involuntary Hold Information 2 96 Hour Hold: 96 Hour Involuntary Admission: Yes 96 Hour Hold Ending Date: 03/13/24 96 Hour Hold Ending Time: 17:00 Other Hold: Hold End Date: 03/13/24 Attestations NPU 2 Medical Necessity Statement*: Inpatient hospitalization is medically necessary and deemed to ?be ?the clinically appropriate intervention ?at this time.? We will monitor/initiate medications and make changes as indicated.? ? Likely length of stay 2-3 days. Coding Level of Care Code Acute Code for [facility] Fwd Diagnoses Generalized anxiety disorder F41.1 Chronic post-traumatic stress disorder F43.12 Methamphetamine use disorder, severe F15.20 Cannabis use disorder F12.90 History of bipolar disorder Z86.59 Suicidal ideations R45.851 Methamphetamine use disorder, severe, dependence F15.20
[2024-03-11] MEDS: haloperidol 5 mg Tablet PO (15:57)
[2024-03-11 19:45] VITALS: BP 108/57; PULSE 63; RESP 18; TEMP 36.5; O2SAT 95
[2024-03-11] MEDS: trazodone 50 mg Tablet PO (21:43)
[2024-03-11] MEDS: OLANZapine 10 mg TABLET PO (21:44)
[2024-03-12 06:00] VITALS: BP 112/60; PULSE 56; RESP 15; TEMP 36.6; O2SAT 94
[2024-03-12] MEDS: propranolol 20 mg Tablet PO (10:43)
[2024-03-12] MEDS: atorvastatin 40 mg Tablet 20 MG PO (10:43)
[2024-03-12] MEDS: OLANZapine 5 mg ODT PO (12:24)
[2024-03-12 14:00] VITALS: BP 114/82; PULSE 79; RESP 16; O2SAT 98
--- NOTE | 2024-03-12 15:05 | W.PM.NPUDCS ---
Diagnoses at Discharge Discharge Diagnosis (1) Generalized anxiety disorder: Status: Chronic (2) Chronic post-traumatic stress disorder: Status: Chronic (3) Methamphetamine use disorder, severe: Status: Inactive (4) Cannabis use disorder: Status: Ruled-out (5) History of bipolar disorder: Status: Inactive Permanent problem details: Treated for Bipolar II since 2003 (6) Suicidal ideations: Status: Acute (7) Methamphetamine use disorder, severe, dependence: Status: Acute Permanent problem details: sobriety date 10/13/23 Reason for Visit Reason for Visit: 96 HOUR HOLD Brief History: History of Present Illness Jose Roberto Dumont is a 53 year old male who presented to the emergency department for medical clearance after being placed on a court order for evaluation and treatment in a psychiatric facility. The patient according to his mother had made threats to harm himself over the past 3 weeks. The patient was admitted to the neuropsychiatric unit for further evaluation and treatment. The patient denies having any thoughts of hurting himself or others. He does admit to not having been on his prescribed medications through the behavioral health clinic. He reports noncompliance for at least a month. The patient had admitted to recent use of methamphetamine last week. His urine drug screen was positive for amphetamines and positive for marijuana. He had denied any recent alcohol use. Patient reports that he has been treated unfairly and was simply at home minding his business when the police had come and ordered him to come to the hospital for an evaluation. Previous records reviewed had indicated that the patient has a history of frequent mood swings. He reports having periods of depression in the past as well. He had reported a history of posttraumatic stress disorder in the past. The patient was a poor historian and refused to answer any detailed questions. Inpatient psychiatric history: He reports a history of multiple inpatient hospitalizations. Outpatient psychiatric history: He reports that he is followed by Gala davidson in [facility] for medication management. Substance abuse history: He has a reported history of substance abuse treatment at [facility] on an outpatient basis. He has a noted history of alcohol intoxication, methamphetamine abuse and reports that he had been attending meetings and going to outpatient treatment at [facility]. Medical history: Elevated liver function test-, history of hepatitis C Surgical history: History of left and right foot surgery Allergies: No known drug allergies Medications: Campral 333 mg 2 tablets 3 times a day, atorvastatin 20 mg daily, Zyprexa 10 mg at night, propranolol 20 mg twice a day, trazodone 50 mg at night Legal history: Denied Excerpt from NPU Discharge Summary from 10/08/23 Diagnoses at Discharge Discharge Diagnosis (1) Generalized anxiety disorder: Status: Chronic (2) Chronic post-traumatic stress disorder: Status: Chronic (3) Methamphetamine use disorder, severe: Status: Acute (4) Cannabis use disorder: Status: Acute (5) History of bipolar disorder: Status: Acute Reason for Visit si Brief History: History of Present Illness Jose Roberto Dumont is a 52 year old male who presented to the emergency department with the following report: Chief Complaint: Psychiatric Symptoms Stated Complaint: si Time Seen by Provider: 10/08/23 15:21 History of Present Illness: 52-year-old man with a history of IV drug use and psychiatric problems who presents the emergency room today with suicidal ideation. He was discharged from here about 3 days ago to rehab and today he says he saw an old friend that he was reminded how bad his life is right now. He says this made him feel like he wants to kill himself. He said he might go to his father's grave and kill himself there. He has had some nausea. No abdominal pain. He says he has not used any amphetamines in 10 days. He was admitted to the neuropsychiatric unit for definitive treatment of those issues. There were laboratory changes in his liver enzymes that necessitated a consult with the hospitalist. Otherwise he is known through past hospitalizations most recently a few days ago. An excerpt of his discharge summary from a few days ago is included below for context and the absence of substantive changes. He presented today reporting that he got to the rehab and felt that he was not really able to extract anything from the treatment because he could not focus really. He reported starting to have depression and suicidal thoughts as he saw others that were doing much better which made him feel a certain way about how he was doing. He reports that his suicidal thoughts increased which led him to be open about that. That led to him being brought to the emergency department for evaluation though he still has his bed there. He presented continuing to endorse this depression and suicidal thoughts but denied that there were any medications that he being given that ever helped with the depression. A few of those medications were named and he said yes to all of them reporting that only benzodiazepines helped his depression. We discussed benzodiazepines not being good agents given his condition and not used for depression. He started talking about having been at [facility] multiple times a day he cannot really get things out of there even though he was only there for couple days. We talked about the timeline to some of the sober living facilities being longer than his hospitalization will be. At this point he was not open to any of the medications that were discussed. Per his 10/05/2023 [facility] inpatient psychiatric discharge summary: Discharge Diagnosis (1) Generalized anxiety disorder: Status: Chronic (2) Chronic post-traumatic stress disorder: Status: Chronic (3) Methamphetamine use disorder, severe: Status: Acute (4) Cannabis use disorder: Status: Acute (5) History of bipolar disorder: Status: Acute Reason for Visit Reason for Visit: Depression, SI Brief History: History of Present Illness Jose Roberto Dumont is a 52 year old male who presented to the emergency department with the following report: Chief Complaint: Psychiatric Symptoms Stated Complaint: Depression, SI Time Seen by Provider: 10/02/23 13:09 History of Present Illness: 52-year-old man with a history of polysubstance abuse and depression who presents to the emergency room with depression symptoms. He says he has been having thoughts of suicide. No specific plan at this time. He says he has been having some mild auditory hallucinations. He says he used to be on depression meds but stopped taking them and then started using marijuana and apparently was admitted to the hospital recently with a abscess on his arm which I believe was from IV drug use. He says he has an appointment to be admitted to [facility] for drug rehab on . However he would like to be admitted today for psychiatric help. He was admitted to the neuropsychiatric unit for definitive treatment of those issues. He is known from previous hospitalizations with his last stay being back in 2019 and an excerpt of that discharge summary is included below for context. Patient presents today as a fairly limited historian secondary to lethargy likely secondary to withdrawing from methamphetamine as well as medications administered to assist him and maintaining decorum. He presented reporting that things have been really bad recently and that he had struggled to maintain his sobriety. He reports that things got really bad and he contacted [facility] with a goal of getting inpatient rehab. He reports that they gave him a bed date for 10/04/2023 but that he became very concerned that he would not be able to make it there or worse something bad was going to happen because he was so out of control. He brought himself to the hospital fearing his safety and ability to make it to rehab. He denied being able to maintain his previous outside medications and has not been attending any outpatient services for some time. His goal is to get to the rehab and hopefully be in a condition to function well there. We discussed the risks, benefits and alternatives of connecting with [facility] in the morning and identifying if the bed date was a take it tomorrow or leave it or if they would allow for any flexibility. We agreed that we would consider medications after we understood that reality. Per his 03/12/2020 [facility] inpatient psychiatric discharge summary: Discharge Diagnosis (1) Suicidal ideation: Status: Resolved (2) Alcohol dependence: Status: Resolved Qualifiers: Substance use status: with intoxication Complication of substance-induced condition: uncomplicated Qualified Code(s): F10.220 - Alcohol dependence with intoxication, uncomplicated (3) Amphetamine substance use disorder, moderate, in early remission: Status: Chronic (4) Alcohol intoxication: Status: Resolved Qualifiers: Complication of substance-induced condition: uncomplicated Qualified Code(s): F10.920 - Alcohol use, unspecified with intoxication, uncomplicated (5) Amphetamine intoxication: Status: Resolved Qualifiers: Complication of substance-induced condition: uncomplicated Qualified Code(s): F15.920 - Other stimulant use, unspecified with intoxication, uncomplicated Reason for Visit Reason for Visit: SI Brief History: History of Present Illness I have done this too many times. This is just a consequence for the life I have led. Jose Roberto Dumont is a 49 year old male who was admitted to the adult psychiatric unit on the strength of an affidavit filed by local police. Apparently, the officer was dispatched to the patient's home. It is unclear how police became aware that this man was suicidal. While being questioned, he made suicidal statements and that he wished we would just shoot him. The patient denies at this time that he is having thoughts of ending his life. He says that he is in acute crisis after having lost his job. He says that he is a lifetime of partying and he is suffering the consequences. Apparently, he was partying over the weekend. 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 He subsequently got to work, and passed out in the parking lot. He has now been terminated from his employment. He apparently then went back to where he was staying which is with his mother. His urine drug screen is positive for methamphetamine, marijuana, benzodiazepines, and his blood alcohol level was 144. He says that at this point, his major concern is being in the substance abuse withdrawal. We tried to discuss issues of mental health treatment. He said that he has been through it all and has been treated with all kinds of medications. None have worked. He is not interested in more medication treatment. We discussed his substance abuse history. He says that recently, he has been drinking between 5 and 10 shots per night. It is unknown if this is accurate. He uses marijuana on a regular basis. He says the methamphetamine and benzodiazepines are not a persistent problem for him and that it was more of a self-destructive act. He denied suicidal or homicidal ideation. He denied the presence of auditory or visual hallucinations. He refused to discuss symptoms of depression. He apparently has engaged in substance use in a maladaptive manner for most of his life. He says that his divorce and his estrangement from one of his 2 children is all due to his behavior when he has been inebriated or intoxicated. He has been through rehab on multiple occasions. He said that it provides him no benefit. He says the most effective intervention has been his active participation in either Alcoholics Anonymous or Narcotics Anonymous. He does not have a sponsor at this time. He has not been attending either at this time. Assessment and plan (1) Suicidal ideation: Status: Acute (2) Alcohol dependence: Status: Acute Qualifiers: Substance use status: with intoxication Complication of substance-induced condition: uncomplicated Qualified Code(s): F10.220 - Alcohol dependence with intoxication, uncomplicated (3) Amphetamine substance use disorder, moderate, in early remission: Status: Chronic (4) Alcohol intoxication: Status: Acute Qualifiers: Complication of substance-induced condition: uncomplicated Qualified Code(s): F10.920 - Alcohol use, unspecified with intoxication, uncomplicated (5) Amphetamine intoxication: Status: Acute Qualifiers: Complication of substance-induced condition: uncomplicated Qualified Code(s): F15.920 - Other stimulant use, unspecified with intoxication, uncomplicated Additional A&P Information Due to the psychiatric conditions and treatment listed in the Assessment and Plan - the patient requires continued hospitalization. Will provide a safe and therapeutic environment for patient.. Will continue inpatient treatment to allow for medication adjustment and monitoring. Will continue q15 min safety checks. Admission plan: It is likely that his assessment that this mental health issue is driven primarily by alcohol and substance abuse is accurate. He was not inclined to discuss mental health interventions outside of alcohol and substance abuse. At this point, he was motivated to get through the withdrawal period and feel better so that he could think more clearly. We did not discuss issues of treatment with antidepressants or other medications. He was started on Seroquel 100 mg at bedtime and Ativan 1 mg 3 times daily which will be tapered throughout the withdrawal. He is on the [facility] protocol. Hospital day #3: Patient was exhibiting no signs of alcohol withdrawal. He reported that he was doing well. He was despondent about having to go home and look for a job. However he stated he was not going to be able to accomplish that while in the hospital and was requesting discharge. He was not an imminent risk to self or others. His wish was granted. Hospital Course Hospital Course He acclimated to the individual, group and milieu therapies provided. He presented from [facility] with reports that he was not able to adjust there secondary to how his mental health has been. It became clear that he was not planning on returning to [facility] and was struggling with his ambivalence to sober living treatment overall. He ultimately refused to return to [facility] and refused in the sober living treatment at a higher level of care. We utilized Vistaril and propranolol for anxiety and trazodone to help with sleep. He worked with the social work team on appropriate outpatient resources and appointments. He showed modest improvement during his stay and was able to contract for safety outside hospital prior to discharge. During the hospitalization, patient had routine laboratory studies which were within normal limits except for few outliers. Additionally there was a general medical evaluation which was also within normal limits and revealed no new acute processes. Discharge Summary: At the time of discharge, patient denied psychosis or lethality. Mood and anxiety were well managed. Patient endorsed a plan to avoid all drugs of abuse and follow-up with the aftercare recommendations of the treatment team except for recommendations to return to [facility] or some other inpatient rehab. Patient was evaluated and deemed to be absent credible lethality, and had achieved the maximum benefit from an inpatient hospitalization, so was discharged. Hospital Course Hospital Course During the hospitalization, the patient had routine laboratory studies which were within normal limits except for a few outliers.? Additionally, there was a general medical evaluation which was also within normal limits and revealed no new acute processes.? At the time of discharge, lethality was denied and psychosis was resolving.? Mood and anxiety were well managed.? The patient endorsed a plan to avoid all drugs of abuse and follow up with the aftercare recommendations of the treatment team.? The patient was evaluated and deemed to be absent credible lethality and had achieved the maximum benefit from an inpatient hospitalization, and so was discharged. ?The patient's olanzapine, propranolol and trazodone was restarted with improvement in mood symptoms noted during his hospitalization. He was motivated to enter into outpatient substance abuse treatment at the time of discharge. Involuntary Hold Information 96 Hour Hold: 96 Hour Involuntary Admission: Yes 96 Hour Hold Ending Date: 03/13/24 96 Hour Hold Ending Time: 17:00 Other Hold: Hold End Date: 03/13/24 Mental Status Exam MSE Comments: This is an overweight versus obese white male with fairly tanned skin in hospital scrubs with poor grooming and poor eye contact. No abnormal movements except for mild psychomotor retardation. He was minimally cooperative with exam and in no acute distress. Speech was limited in productivity and normal in volume. Mood described as okay. Affect was less irritable. Thought process was linear. Thought content: Patient denied suicidal or homicidal ideation. There were no delusions reported or noted. He denied any auditory or visual hallucinations. Attention and concentration were limited. He was alert and oriented x 3. Insight is limited. Judgment is adequate. Impulse control is limited. Discharge Data Studies Completed and Pending: Laboratory Results WBC 7.34 10^3/uL (3.2 9-11.43) 03/07/24 17:14 RBC 5.05 10^6/uL (3.8 5-5.65) 03/07/24 17:14 Hgb 15.40 g/dL (11.27 -16.99) 03/07/24 17:14 Hct 44.7 % (37-53) 03/07/24 17:14 MCV 88.5 fl (82-101) 03/07/24 17:14 MCH 30.5 pg (27-33) 03/07/24 17:14 MCHC 34.5 g/dL (30-55) 03/07/24 17:14 RDW 13.0 % (12.1-15.1 ) 03/07/24 17:14 Plt Count 258 10^3/cmm (157 -399) 03/07/24 17:14 MPV 10.4 fL (7.4-10.4 ) 03/07/24 17:14 Neut % (Auto) 58.1 % 03/07/24 17:14 Lymph % (Auto) 28.7 % 03/07/24 17:14 Sac % (Auto) 11.0 % 03/07/24 17:14 Eos % (Auto) 1.4 % 03/07/24 17:14 Baso % (Auto) 0.7 % 03/07/24 17:14 Neut # (Auto) 4.26 10^3/uL (1.8 -7.7) 03/07/24 17:14 Lymph # (Auto) 2.1 10^3/uL (0.8- 4.8) 03/07/24 17:14 Sac # (Auto) 0.8 10^3/uL (0.2- 0.9) 03/07/24 17:14 Eos # (Auto) 0.1 10^3/uL (0.0- 0.8) 03/07/24 17:14 Baso # (Auto) 0.1 10^3/uL (0.0- 0.1) 03/07/24 17:14 Nucleated RBC % (a uto) 0 % 03/07/24 17:14 Nucleated RBCs # 0.0 /100WBC 03/07/24 17:14 PT 12.80 SECONDS (12 .1-14.9) 03/07/24 17:14 INR 0.94 (0.8-1.2) 03/07/24 17:14 Sodium 134 mmol/L (136-1 45) L 03/07/24 17:14 Potassium 3.8 mmol/L (3.5-5 .1) 03/07/24 17:14 Chloride 98 mmol/L (98-107 ) 03/07/24 17:14 Carbon Dioxide 24 mmol/L (22-29) 03/07/24 17:14 Anion Gap 15.8 (5-19) 03/07/24 17:14 BUN 11 mg/dL (6-20) 03/07/24 17:14 Creatinine 0.9 mg/dL (0.7-1. 2) 03/07/24 17:14 GFR Calculation 87.9 mL/min (90-1 30) L 03/07/24 17:14 Glucose 140 mg/dL (65-115 ) H 03/07/24 17:14 Calculated Osmolal ity 280 mOsm/kg (285- 295) L 03/07/24 17:14 Calcium 9.0 mg/dL (8.5-10 .5) 03/07/24 17:14 Total Bilirubin 0.5 mg/dL (0.15-1 .2) 03/07/24 17:14 AST 29 U/L (0-40) 03/07/24 17:14 ALT 31 U/L (0-41) 03/07/24 17:14 Alkaline Phosphata se 84 U/L (40-130) 03/07/24 17:14 Total Protein 6.9 g/dL (6.6-8.7 ) 03/07/24 17:14 Albumin 4.1 g/dL (3.5-5.2 ) 03/07/24 17:14 Globulin 2.8 g/dL (1.3-4.6 ) 03/07/24 17:14 Urine Color Yellow (Yellow) 03/07/24 17:56 Urine Appearance Clear (CLEAR) 03/07/24 17:56 Urine pH 7.0 (5-7) 03/07/24 17:56 Ur Specific Gravit y 1.009 (1.005-1.0 30) 03/07/24 17:56 Urine Protein Negative (Negati ve) 03/07/24 17:56 Urine Glucose (UA) Negative (Normal ) 03/07/24 17:56 Urine Ketones Negative (Negati ve) 03/07/24 17:56 Urine Blood Negative (Negati ve) 03/07/24 17:56 Urine Nitrate Negative (Negati ve) 03/07/24 17:56 Urine Bilirubin Negative (Negati ve) 03/07/24 17:56 Urine Urobilinogen 1.0 mg/dL (Negati ve) 03/07/24 17:56 Ur Leukocyte Trinh ase Negative (Negati ve) 03/07/24 17:56 Urine RBC 0-2 /hpf (0-2) 03/07/24 17:56 Urine WBC 0-5 /hpf (0-5) 03/07/24 17:56 Ur Squamous Epith Cells 0-5 /hpf (0-5) 03/07/24 17:56 Amorphous Sediment Not Reportable 03/07/24 17:56 Urine Bacteria None seen /hpf (N ONE) 03/07/24 17:56 Hyaline Casts 0-4 /lpf H 03/07/24 17:56 Salicylates < 0.3 mg/dL (3-10 ) L 03/07/24 17:14 Urine Opiates Scre en Negative ng/mL (N egative) 03/07/24 17:56 Acetaminophen < 5.0 ug/mL (10-3 0) L 03/07/24 17:14 Ur Barbiturates Sc reen Negative ng/mL (N egative) 03/07/24 17:56 Ur Phencyclidine S crn Negative ng/mL (N egative) 03/07/24 17:56 Ur Amphetamines Sc reen Positive ng/mL (N egative) H 03/07/24 17:56 U Benzodiazepines Scrn Negative ng/mL (N egative) 03/07/24 17:56 Urine Cocaine Scre en Negative ng/mL (N egative) 03/07/24 17:56 U Marijuana (THC) Screen Positive ng/mL (N egative) H 03/07/24 17:56 Ethyl Alcohol < 10 mg/dL (0-10) 03/07/24 17:14 SARS-CoV-2 Ag (Rap id) Negative (Negati ve) 03/07/24 19:37 Vitals: Last Vital Signs Temp 97.9 F 03/12/24 06:00 Pulse 56 L 03/12/24 06:00 Resp 15 03/12/24 06:00 BP 112/60 03/12/24 06:00 Pulse Ox 94 03/12/24 06:00 O2 Del Method Room Air 03/12/24 06:00 Discharge Plan Discharge Patient Disposition: Home Condition: Stable Prescriptions: New trazodone 50 mg Tablet 50 mg PO BEDTIME PRN (Reason: Sleep) 30 Days Qty: 30 1RF Continued olanzapine [Zyprexa] 10 mg tablet 10 mg PO .8 pm 30 Days Qty: 30 1RF Rx Instructions: Take one tablet at 8 pm propranolol 20 mg tablet 20 mg PO BID Qty: 60 1RF Rx Instructions: Take one tablet twice a day Discontinued atorvastatin 10 mg tablet 20 mg PO DAILY acamprosate 333 mg tablet,delayed release (DR/EC) 333 mg PO BID Qty: 60 3RF Rx Instructions: Take one tablet twice per day-administer with mid-day (lunch) and evening meal trazodone 50 mg tablet 50 mg PO BEDTIME PRN (Reason: Sleep) 30 Days Qty: 60 3RF Rx Instructions: May take one tablet at bedtime as needed, may repeat dose in one hour if not asleep No Action (DME) auto cpap See Rx Instructions .Route .MEDSUPPLY Qty: 1 0RF Rx Instructions: settings 6-14cm H2O Discharge Orders: Discharge Order (Routine); Ordered 03/12/24 Ordered By: David Narvaez Referrals: [facility] [Other] (You have been referred. ) [facility] [Outside] - 03/13/24 11:15 am (Follow up with Skyler Chun.) Tamiko Chun, PMHNP [Staff Physician] - 04/07/24 10:15 am Roque Gonzalez, [Primary Care Provider] - Discharge Diet: Usual diet Discharge Activity: Resume usual activity Patient Instructions: Trazodone (By mouth) (Desyrel, Desyrel Dividose, Oleptro, Trazamine), Help Prevent Suicide (DC), Suicide Prevention (DC), Opioid Safety Discharge Attestations NPU Time Spent in Discharge Care*: less than 30 min Specific Discharge Activities: Specific discharge activities: educating patient, discussing with porter sample case/social workers/dc planners and evaluating patient/reviewing data Status at Discharge: Cognitive status at discharge: cognitively intact, Behavioral status at discharge: cooperative, Coding Level of Care Code Acute Code for [facility] Fwd Diagnoses Generalized anxiety disorder F41.1 Chronic post-traumatic stress disorder F43.12 Methamphetamine use disorder, severe F15.20 Cannabis use disorder F12.90 History of bipolar disorder Z86.59 Suicidal ideations R45.851 Methamphetamine use disorder, severe, dependence F15.20
[2024-03-12 15:59] VITALS: BP 114/82; PULSE 79; RESP 16; O2SAT 98
== END 2024-03-12 16:32 | disposition home or self-care (01) | DRG 880 ==
LOC: ER 22:46 → NP 03-08 05:51
PROVIDERS: Emergency Medicine; Admitting Provider Psychiatry & Neurology Psychiatry; Emergency Provider Family Medicine; PCP Family Medicine; Visit Provider Psychiatry & Neurology Psychiatry
DX: F41.1 Generalized anxiety disorder (principal); Z59.00 Homelessness unspecified; F43.12 Post-traumatic stress disorder, chronic; F17.210 Nicotine dependence, cigarettes, uncomplicated; F31.81 Bipolar II disorder; E66.9 Obesity, unspecified; Z68.33 Body mass index [BMI] 33.0-33.9, adult; Z91.199 Patient's noncompliance with other medical treatment and regimen due to unspecified reason; F15.21 Other stimulant dependence, in remission
CPT/HCPCS: 36415; 80053; 80306; 80307; 81001; 85025; 85610; 87426; 93005; 97165; 99285

== ENCOUNTER 2024-08-12 05:13 | Emergency (ER) | payer MEDICAID, SELFPAY ==
[2023-10-16 11:35] VITALS: BP 138/83; BMI 33.3
[2024-08-12] VITALS (14 sets, daily range): BP systolic 118–150; BP diastolic 78–109; PULSE 77–115; RESP 12–22; TEMP 36.7; O2SAT 91–100; BMI 34.2
--- NOTE | 2024-08-12 05:17 | ECG_ITS ---
[employer] Test Date: 2024-08-12 Pat Name: Jose Roberto Dumont Department: Room: Gender: Male [facility] Dentist: : 1970 Requested By: Nellie Hankins Order Number: [id number] Reading MD: Measurements Intervals [place] Rate: 110 P: 54 TN: 143 QRS: -58 QRSD: 84 T: 46 QT: 337 QTc: 458 Interpretive Statements SINUS TACHYCARDIA PATTERN CONSISTENT WITH PULMONARY DISEASE LEFT ANTERIOR FASCICULAR BLOCK [QRS AXIS <= -45, QR IN I, RS IN II] [id number]
--- NOTE | 2024-08-12 05:17 | XRR_ITS ---
PROCEDURE INFORMATION: Exam: XR Chest Exam date and time: 08/12/2024 5:35 AM Age: 53 years old Clinical indication: Chest wall pain; Additional info: Chest pain TECHNIQUE: Imaging protocol: Radiologic exam of the chest. Views: 1 view. COMPARISON: CR XR chest 2V* [id number] 09/11/2018 2:38 PM FINDINGS: Lungs: Unremarkable. No consolidation. Pleural spaces: Unremarkable. No pleural effusion. No pneumothorax. Heart/Mediastinum: Unremarkable. No cardiomegaly. Bones/joints: Unremarkable. XR/XR chest 1V portable [id number] IMPRESSION: No acute findings.
--- NOTE | 2024-08-12 05:17 | W.ED.CHESTPA ---
Documented by User: Nellie Giles MD 08/12/24 05:29 HPI - Chest Pain General: Chief Complaint: Chest Pain Stated Complaint: chest pain Time Seen by Provider: 08/12/24 05:19 History of Present Illness: 53-year-old man with a history of obstructive sleep apnea, hypertension, bipolar disorder and tobacco dependence who presents to the emergency room with chest pain. He says this started shortly after he was arrested earlier tonight. He says he thinks is just anxiety. Central to left chest pressure. No diaphoresis. No nausea or vomiting. No radiation. Related Data Home Medications ?Medication ?Instructions ?Recorded ?Confirmed trazodone 50 mg tablet 50 mg PO QPM 08/12/24 08/12/24 Previous Rx's ?Medication ?Instructions ?Recorded atorvastatin 20 mg tablet 20 mg PO DAILY #90 tabs 04/21/24 lisinopril 2.5 mg tablet 2.5 mg PO DAILY #90 tabs 04/21/24 metformin 500 mg tablet 500 mg PO BID #180 tabs 04/21/24 buspirone 10 mg tablet 10 mg PO TID #270 tabs 05/27/24 olanzapine 15 mg tablet (Zyprexa) 15 mg PO .8 pm #90 tabs 05/27/24 propranolol 20 mg tablet 20 mg PO TID Anxiety #270 tabs 05/27/24 aspirin 81 mg tablet,delayed 81 mg PO DAILY #30 tabs 08/12/24 release Allergies Allergy/AdvReac Type Severity Reaction Status Date / Time No Known Allergies Allergy Verified 08/12/24 05:18 Review of Systems Narrative: Constitutional symptoms: Negative except as documented in HPI. Skin symptoms: Negative except as documented in HPI. Eye symptoms: Negative except as documented in HPI. ENMT symptoms: Negative except as documented in HPI. Respiratory symptoms: Negative except as documented in HPI. Cardiovascular symptoms: Negative except as documented in HPI. Gastrointestinal symptoms: Negative except as documented in HPI. Genitourinary symptoms: Negative except as documented in HPI. Musculoskeletal symptoms: Negative except as documented in HPI. Neurologic symptoms: Negative except as documented in HPI. Psychiatric symptoms: Negative except as documented in HPI. Endocrine symptoms: Negative except as documented in HPI. [facility] PFSH: Medical History (Updated 08/12/24 @ 08:25 by Noah Rivera DO) AARTI (obstructive sleep apnea) Pre-diabetes Essential hypertension Obesity (BMI 30.0-34.9) Unspecified psychosis Bipolar II disorder Alcohol use disorder, severe, dependence Marijuana dependence Methamphetamine use disorder, severe, dependence Psychiatric care Cigarette nicotine dependence Chronic post-traumatic stress disorder Generalized anxiety disorder Surgical History S/P foot surgery, left S/P foot surgery, right Family History Grandfather Cancer colon and then lung Mother Diabetes Psychiatric illness Father Diabetes Social History (Updated 04/21/24 @ 14:57 by Brigido Hamlin MD) Smoking and tobacco/nicotine status: current every day tobacco/nicotine user cigarettes Packs smoked per day: 0.50 Years cigarettes smoked: 25 Second hand smoke exposure: Yes Alcohol intake: former Year of sobriety/quit date alcohol: 2023 Former alcohol use details: last use 04/09/24 Substance/Drug Use: former Former substance use details: last use 04/09/24 Adopted: No Caregiver/support person: No Lives independently: Yes Household members: family Housing: House Marital status: Marital status details: 2001 Number of children: 2 Number of grandchildren: 0 Highest education level completed: Some College, No Degree service: No Current occupational status: employed Current occupation: [employer] Current occupational exposures/hazards: Yes (chemicals) Pets and animals: No Leisure activites: other Leisure activities details: write letters to Fabien, listen to church music, watch TV, listen to bird Sexually active: No Do you think of yourself as: Straight/Heterosexual Current gender identity: Male Mildred/Rastafari: Orthodox Special mildred needs: No Agree to transfusion: Yes Physical Exam Narrative: EXAM NARRATIVE: General: Alert, no acute distress. Skin: Warm, dry. Head: Normocephalic, atraumatic. Neck: Supple, trachea midline. Eye: Extraocular movements are intact. Ears, nose, mouth and throat: mucosa moist. Cardiovascular: Regular, Normal peripheral perfusion. Respiratory: Lungs are clear to auscultation, respirations are non-labored, breath sounds are equal, Symmetrical chest wall expansion. Gastrointestinal: Soft, Nontender, Non distended Musculoskeletal: Normal ROM, no deformity. Neurological: Alert and oriented, No focal neurological deficit observed. Psychiatric: Cooperative, appropriate mood & affect. Course Vital Signs: Vital signs: Vital Signs Temperature 98.0 F 08/12/24 05:15 Pulse Rate 89 08/12/24 08:40 Respiratory Rate 21 H 08/12/24 08:00 Blood Pressure 141/86 08/12/24 08:40 Pulse Oximetry 96 08/12/24 08:40 Oxygen Delivery Me thod Room Air 08/12/24 05:15 MDM - Chest Pain Medical Decision Making Differential diagnosis for patient with chest pain includes but is not limited to and based on the above HPI, review of systems and physical exam: Pneumonia. unstable angina. angina. Acute coronary syndrome / AL. Pulmonary embolism. Costochondritis / musculoskeletal. Pleurisy. Pericarditis. Esophageal spasm. Pancreatis. Cholecystitis. Orders placed to evaluate differential diagnosis based on the above differential, HPI and physical exam EKG: Time 5:18 AM sinus tachycardia, No ST-T changes, no ectopy, normal VA & QRS intervals, This was reviewed and interpreted by myself the ER physician at 5:22 AM Patient care transitioned to Dr. Rivera at shift change. \ Lab Data 08/12/24 05:27 08/12/24 05:27 Radiology Impressions Chest X-Ray 08/12/24 05:17 IMPRESSION: No acute findings. Laboratory Results WBC 10.50 10^3/uL (3.29-11.43) 08/12/24 05:27 RBC 4.83 10^6/uL (3.85-5.65) 08/12/24 05:27 Hgb 15.20 g/dL (11.27-16.99) 08/12/24 05:27 Hct 44.4 % (37-53) 08/12/24 05:27 MCV 91.9 fl (82-101) 08/12/24 05:27 MCH 31.5 pg (27-33) 08/12/24 05:27 MCHC 34.2 g/dL (30-55) 08/12/24 05:27 RDW 11.9 % (12.1-15.1) L 08/12/24 05:27 Plt Count 278 10^3/cmm (157-399) 08/12/24 05:27 MPV 10.1 fL (7.4-10.4) 08/12/24 05:27 Neut % (Auto) 71.7 % 08/12/24 05:27 Lymph % (Auto) 18.9 % 08/12/24 05:27 Mckinley % (Auto) 7.3 % 08/12/24 05:27 Eos % (Auto) 1.0 % 08/12/24 05:27 Baso % (Auto) 0.8 % 08/12/24 05:27 Neut # (Auto) 7.54 10^3/uL (1.8-7.7) 08/12/24 05:27 Lymph # (Auto) 2.0 10^3/uL (0.8-4.8) 08/12/24 05:27 Mckinley # (Auto) 0.8 10^3/uL (0.2-0.9) 08/12/24 05:27 Eos # (Auto) 0.1 10^3/uL (0.0-0.8) 08/12/24 05:27 Baso # (Auto) 0.1 10^3/uL (0.0-0.1) 08/12/24 05:27 Nucleated RBC % (auto) 0 % 08/12/24 05:27 Nucleated RBCs # 0.0 /100WBC 08/12/24 05:27 Sodium 138 mmol/L (136-145) 08/12/24 05:27 Potassium 4.3 mmol/L (3.5-5.1) 08/12/24 05:27 Chloride 101 mmol/L (98-107) 08/12/24 05:27 Carbon Dioxide 26 mmol/L (22-29) 08/12/24 05:27 Anion Gap 15.3 (5-19) 08/12/24 05:27 BUN 11 mg/dL (6-20) 08/12/24 05:27 Creatinine 1.1 mg/dL (0.7-1.2) 08/12/24 05:27 GFR Calculation 69.8 mL/min (90-130) L 08/12/24 05:27 Glucose 112 mg/dL (65-115) 08/12/24 05:27 Calculated Osmolality 286 mOsm/kg (285-295) 08/12/24 05:27 Calcium 9.3 mg/dL (8.5-10.5) 08/12/24 05:27 Total Bilirubin 0.4 mg/dL (0.15-1.2) 08/12/24 05:27 AST 38 U/L (0-40) 08/12/24 05:27 ALT 30 U/L (0-41) 08/12/24 05:27 Alkaline Phosphatase 80 U/L (40-130) 08/12/24 05:27 Troponin T Baseline 7 ng/L (0-15) 08/12/24 05:27 Troponin T 120 Minute 6.36 ng/L (0-15) 08/12/24 07:32 Delta Troponin T -0.64 ABS# (0-10) L 08/12/24 07:32 Total Protein 6.8 g/dL (6.6-8.7) 08/12/24 05:27 Albumin 4.4 g/dL (3.5-5.2) 08/12/24 05:27 Globulin 2.4 g/dL (1.3-4.6) 08/12/24 05:27 Discharge Plan Discharge Patient Disposition: Home Clinical Impression: Chest pain, Essential hypertension, Pre-diabetes Cigarette nicotine dependence Qualifiers: Substance use status: uncomplicated Qualified Code(s): F17.210 - Nicotine dependence, cigarettes, uncomplicated Condition: Stable Prescriptions: New aspirin 81 mg tablet,delayed release (DR/EC) 81 mg PO DAILY Qty: 30 0RF No Action atorvastatin 20 mg tablet 20 mg PO DAILY Qty: 90 1RF lisinopril 2.5 mg tablet 2.5 mg PO DAILY Qty: 90 1RF metformin 500 mg tablet 500 mg PO BID Qty: 180 1RF olanzapine [Zyprexa] 15 mg tablet 15 mg PO .8 pm Qty: 90 3RF Rx Instructions: Take one tablet at 8 pm buspirone 10 mg tablet 10 mg PO TID Qty: 270 3RF Rx Instructions: Take one tablet three times per day propranolol 20 mg tablet 20 mg PO TID Qty: 270 3RF Rx Instructions: Take one tablet three times per day trazodone 50 mg tablet 50 mg PO QPM Discharge Orders: Discharge ED (Routine); Ordered 08/12/24 Ordered By: Noah Rivera Referrals: Brigido Hamlin MD [Primary Care Provider] - Discharge Diet: Usual diet Patient Instructions: Opioid Safety, Pain Management Activity Restrictions/Additional Instructions: Thank you for choosing [facility] for your healthcare needs today. It is very important that you follow up as instructed or that you return to the Emergency Department should you have concerns or if your condition changes or worsens in any way. You were seen in the emergency room with complaint of chest discomfort. Your cardiac enzymes and EKG did not show any acute changes. Recommend that you start a baby aspirin daily continue all of your other medications. Will set you up for an outpatient Lexiscan sestamibi stress test. Return to the emergency room if you have further discomfort. Print Language: Cook Islander Sign Out Sign Out Data: Patient Sign Out occurred on 08/12/24 at 06:27. Patient's care was discussed, and care was transferred from Nellie Giles MD to Noah Rivera DO. Coding Level of Care Code ED Tooling Supervisor for Chg Fwd Documented by User: Noah Rivera DO 08/12/24 14:55 HPI - Chest Pain General: Chief Complaint: Chest Pain Stated Complaint: chest pain Time Seen by Provider: 08/12/24 05:19 Related Data Home Medications ?Medication ?Instructions ?Recorded ?Confirmed trazodone 50 mg tablet 50 mg PO QPM 08/12/24 08/12/24 Previous Rx's ?Medication ?Instructions ?Recorded atorvastatin 20 mg tablet 20 mg PO DAILY #90 tabs 04/21/24 lisinopril 2.5 mg tablet 2.5 mg PO DAILY #90 tabs 04/21/24 metformin 500 mg tablet 500 mg PO BID #180 tabs 04/21/24 buspirone 10 mg tablet 10 mg PO TID #270 tabs 05/27/24 olanzapine 15 mg tablet (Zyprexa) 15 mg PO .8 pm #90 tabs 05/27/24 propranolol 20 mg tablet 20 mg PO TID Anxiety #270 tabs 05/27/24 aspirin 81 mg tablet,delayed 81 mg PO DAILY #30 tabs 08/12/24 release Allergies Allergy/AdvReac Type Severity Reaction Status Date / Time No Known Allergies Allergy Verified 08/12/24 05:18 PFSH ED PFSH: Medical History (Updated 08/12/24 @ 08:25 by Noah Rivera DO) AARTI (obstructive sleep apnea) Pre-diabetes Essential hypertension Obesity (BMI 30.0-34.9) Unspecified psychosis Bipolar II disorder Alcohol use disorder, severe, dependence Marijuana dependence Methamphetamine use disorder, severe, dependence Psychiatric care Cigarette nicotine dependence Chronic post-traumatic stress disorder Generalized anxiety disorder Surgical History S/P foot surgery, left S/P foot surgery, right Family History Grandfather Cancer colon and then lung Mother Diabetes Psychiatric illness Father Diabetes Social History (Updated 04/21/24 @ 14:57 by Brigido Hamlin MD) Smoking and tobacco/nicotine status: current every day tobacco/nicotine user cigarettes Packs smoked per day: 0.50 Years cigarettes smoked: 25 Second hand smoke exposure: Yes Alcohol intake: former Year of sobriety/quit date alcohol: 2023 Former alcohol use details: last use 04/09/24 Substance/Drug Use: former Former substance use details: last use 04/09/24 Adopted: No Caregiver/support person: No Lives independently: Yes Household members: family Housing: House Marital status: Marital status details: 2001 Number of children: 2 Number of grandchildren: 0 Highest education level completed: Some College, No Degree service: No Current occupational status: employed Current occupation: [employer] Current occupational exposures/hazards: Yes (chemicals) Pets and animals: No Leisure activites: other Leisure activities details: write letters to Fabien, listen to church music, watch TV, listen to bird Sexually active: No Do you think of yourself as: Straight/Heterosexual Current gender identity: Male Mildred/Rastafari: Orthodox Special mildred needs: No Agree to transfusion: Yes Course Vital Signs: Vital signs: Vital Signs Temperature 98.0 F 08/12/24 05:15 Pulse Rate 89 08/12/24 08:40 Respiratory Rate 21 H 08/12/24 08:00 Blood Pressure 141/86 08/12/24 08:40 Pulse Oximetry 96 08/12/24 08:40 Oxygen Delivery Me thod Room Air 08/12/24 05:15 MDM - Chest Pain Medical Decision Making Differential diagnosis for patient with chest pain includes but is not limited to and based on the above HPI, review of systems and physical exam: Pneumonia. unstable angina. angina. Acute coronary syndrome / AL. Pulmonary embolism. Costochondritis / musculoskeletal. Pleurisy. Pericarditis. Esophageal spasm. Pancreatis. Cholecystitis. Orders placed to evaluate differential diagnosis based on the above differential, HPI and physical exam EKG: Time 5:18 AM sinus tachycardia, No ST-T changes, no ectopy, normal VA & QRS intervals, This was reviewed and interpreted by myself the ER physician at 5:22 AM Patient care transitioned to Dr. Rivera at shift change. Care assumed at change of shift. Cardiac enzymes EKG did not show any acute changes patient is essentially symptom-free at this time. Will discharge patient home set him up for an outpatient Lexiscan sestamibi stress test encourage patient to take aspirin daily return if he has further problems Medical Records I reviewed the patient's medical records. Lab Data I reviewed the patient's lab results. 08/12/24 05:27 08/12/24 05:27 Radiology Impressions Chest X-Ray 08/12/24 05:17 IMPRESSION: No acute findings. Laboratory Results WBC 10.50 10^3/uL (3.29-11.43) 08/12/24 05:27 RBC 4.83 10^6/uL (3.85-5.65) 08/12/24 05:27 Hgb 15.20 g/dL (11.27-16.99) 08/12/24 05:27 Hct 44.4 % (37-53) 08/12/24 05:27 MCV 91.9 fl (82-101) 08/12/24 05:27 MCH 31.5 pg (27-33) 08/12/24 05:27 MCHC 34.2 g/dL (30-55) 08/12/24 05:27 RDW 11.9 % (12.1-15.1) L 08/12/24 05:27 Plt Count 278 10^3/cmm (157-399) 08/12/24 05:27 MPV 10.1 fL (7.4-10.4) 08/12/24 05:27 Neut % (Auto) 71.7 % 08/12/24 05:27 Lymph % (Auto) 18.9 % 08/12/24 05:27 Mckinley % (Auto) 7.3 % 08/12/24 05:27 Eos % (Auto) 1.0 % 08/12/24 05:27 Baso % (Auto) 0.8 % 08/12/24 05:27 Neut # (Auto) 7.54 10^3/uL (1.8-7.7) 08/12/24 05:27 Lymph # (Auto) 2.0 10^3/uL (0.8-4.8) 08/12/24 05:27 Mckinley # (Auto) 0.8 10^3/uL (0.2-0.9) 08/12/24 05:27 Eos # (Auto) 0.1 10^3/uL (0.0-0.8) 08/12/24 05:27 Baso # (Auto) 0.1 10^3/uL (0.0-0.1) 08/12/24 05:27 Nucleated RBC % (auto) 0 % 08/12/24 05:27 Nucleated RBCs # 0.0 /100WBC 08/12/24 05:27 Sodium 138 mmol/L (136-145) 08/12/24 05:27 Potassium 4.3 mmol/L (3.5-5.1) 08/12/24 05:27 Chloride 101 mmol/L (98-107) 08/12/24 05:27 Carbon Dioxide 26 mmol/L (22-29) 08/12/24 05:27 Anion Gap 15.3 (5-19) 08/12/24 05:27 BUN 11 mg/dL (6-20) 08/12/24 05:27 Creatinine 1.1 mg/dL (0.7-1.2) 08/12/24 05:27 GFR Calculation 69.8 mL/min (90-130) L 08/12/24 05:27 Glucose 112 mg/dL (65-115) 08/12/24 05:27 Calculated Osmolality 286 mOsm/kg (285-295) 08/12/24 05:27 Calcium 9.3 mg/dL (8.5-10.5) 08/12/24 05:27 Total Bilirubin 0.4 mg/dL (0.15-1.2) 08/12/24 05:27 AST 38 U/L (0-40) 08/12/24 05:27 ALT 30 U/L (0-41) 08/12/24 05:27 Alkaline Phosphatase 80 U/L (40-130) 08/12/24 05:27 Troponin T Baseline 7 ng/L (0-15) 08/12/24 05:27 Troponin T 120 Minute 6.36 ng/L (0-15) 08/12/24 07:32 Delta Troponin T -0.64 ABS# (0-10) L 08/12/24 07:32 Total Protein 6.8 g/dL (6.6-8.7) 08/12/24 05:27 Albumin 4.4 g/dL (3.5-5.2) 08/12/24 05:27 Globulin 2.4 g/dL (1.3-4.6) 08/12/24 05:27 All radiology interpretation(s) finalized by discharge Discharge Plan Discharge Patient Disposition: Home Clinical Impression: Chest pain, Essential hypertension, Pre-diabetes Cigarette nicotine dependence Qualifiers: Substance use status: uncomplicated Qualified Code(s): F17.210 - Nicotine dependence, cigarettes, uncomplicated Condition: Stable Prescriptions: New aspirin 81 mg tablet,delayed release (DR/EC) 81 mg PO DAILY Qty: 30 0RF No Action atorvastatin 20 mg tablet 20 mg PO DAILY Qty: 90 1RF lisinopril 2.5 mg tablet 2.5 mg PO DAILY Qty: 90 1RF metformin 500 mg tablet 500 mg PO BID Qty: 180 1RF olanzapine [Zyprexa] 15 mg tablet 15 mg PO .8 pm Qty: 90 3RF Rx Instructions: Take one tablet at 8 pm buspirone 10 mg tablet 10 mg PO TID Qty: 270 3RF Rx Instructions: Take one tablet three times per day propranolol 20 mg tablet 20 mg PO TID Qty: 270 3RF Rx Instructions: Take one tablet three times per day trazodone 50 mg tablet 50 mg PO QPM Discharge Orders: Discharge ED (Routine); Ordered 08/12/24 Ordered By: Noah Rivera Referrals: Brigido Hamlin MD [Primary Care Provider] - Discharge Diet: Usual diet Patient Instructions: Opioid Safety, Pain Management Activity Restrictions/Additional Instructions: Thank you for choosing [facility] for your healthcare needs today. It is very important that you follow up as instructed or that you return to the Emergency Department should you have concerns or if your condition changes or worsens in any way. You were seen in the emergency room with complaint of chest discomfort. Your cardiac enzymes and EKG did not show any acute changes. Recommend that you start a baby aspirin daily continue all of your other medications. Will set you up for an outpatient Lexiscan sestamibi stress test. Return to the emergency room if you have further discomfort. Print Language: [place] Islander Sign Out Sign Out Data: Patient Sign Out occurred on 08/12/24 at 06:27. Patient's care was discussed, and care was transferred from Nellie Giles MD to Noah Rivera DO. Coding Level of Care Code ED Tooling Supervisor for Layo Sanz
[2024-08-12] MEDS: LORazepam 2 mg/mL INJ 1 mL 1 MG IVP (05:31)
[2024-08-12 05:34] LABS: Basophils # 0.1 10^3/uL (0.0-0.1); Basophils % 0.8 %; Eosinophils # 0.1 10^3/uL (0.0-0.8); Hematocrit 44.4 % (37-53); Lymphocytes % 18.9 %; Mean Corpuscular HGB Conc 34.2 g/dL (30-55); Mean Corpuscular Hemoglobin 31.5 pg (27-33); Mean Corpuscular Volume 91.9 fl (82-101); Mean Platelet Volume 10.1 fL (7.4-10.4); Monocytes # 0.8 10^3/uL (0.2-0.9); Monocytes % 7.3 %; Neutrophils # 7.54 10^3/uL (1.8-7.7); Neutrophils % 71.7 %; Nucleated Red Blood Cells % 0 %; Platelet Count 278 10^3/cmm (157-399); Red Blood Count 4.83 10^6/uL (3.85-5.65); Red Cell Distribution Width 11.9 % (12.1-15.1)
[2024-08-12 05:55] LABS: Troponin(5th) Baseline 7 ng/L (0-15)
[2024-08-12 05:57] LABS: Alanine Aminotransferase 30 U/L (0-41); Albumin Level 4.4 g/dL (3.5-5.2); Alkaline Phosphatase 80 U/L (40-130); Blood Urea Nitrogen 11 mg/dL (6-20); Calcium 9.3 mg/dL (8.5-10.5); Carbon Dioxide 26 mmol/L (22-29); Chloride 101 mmol/L (98-107); Creatinine Clr Calc Pharmacy 103.2799; Globulin 2.4 g/dL (1.3-4.6); Glomerular Filtration Rate 69.8 mL/min (90-130); Glucose 112 mg/dL (65-115); Osmolality Calculated 286 mOsm/kg (285-295); Sodium 138 mmol/L (136-145); Total Bilirubin 0.4 mg/dL (0.15-1.2); Total Protein 6.8 g/dL (6.6-8.7)
[2024-08-12 05:58] LABS: Anion Gap 15.3 (5-19); Potassium 4.3 mmol/L (3.5-5.1)
[2024-08-12 05:59] LABS: Aspartate Amino Transferase 38 U/L (0-40)
--- NOTE | 2024-08-12 07:17 | ECG_ITS ---
[facility] Date: 2024-08-12 Pat Name: Jose Roberto Dumont Department: Room: Gender: Male Undercover Cop: : 1970 Requested By: Nellie Hankins Order Number: [id number] Reading MD: Measurements Intervals [place] Rate: 96 P: 48 [place]: 149 QRS: -69 QRSD: 81 T: 58 QT: 366 QTc: 463 Interpretive Statements SINUS RHYTHM LEFT ANTERIOR FASCICULAR BLOCK [QRS AXIS <= -45, QR IN I, RS IN II] [id number]
[2024-08-12 07:56] LABS: Troponin 5 2HR 6.36 ng/L (0-15)
[2024-08-12 07:59] LABS: Troponin 5 2HR Delta -0.64 ABS# (0-10)
--- NOTE | 2024-08-13 10:24 | DCPLANNER ---
Outpatient request order for Lexiscan sent to centralized scheduling
== END 2024-08-12 08:40 | disposition home or self-care (01) ==
PROVIDERS: Emergency Medicine; Emergency Provider Family Medicine; PCP Family Medicine
DX: R07.9 Chest pain, unspecified (principal); I10 Essential (primary) hypertension; R73.03 Prediabetes; F17.210 Nicotine dependence, cigarettes, uncomplicated
CPT/HCPCS: 36415; 71045; 80053; 84484; 85025; 93005; 96374; 99285; J2060

== ENCOUNTER → 2024-09-12 15:50 | Outpatient (BNVA) | payer MEDICAID, SELFPAY ==
[2023-10-16 11:35] VITALS: BP 138/83; BMI 33.3
== END ==
PROVIDERS: PCP Family Medicine; Visit Provider Family Medicine
DX: R73.03 Prediabetes (principal); F31.81 Bipolar II disorder; B19.20 Unspecified viral hepatitis C without hepatic coma; R79.89 Other specified abnormal findings of blood chemistry
CPT/HCPCS: 80053; 80061; 80074; 83036; 85025; 87522

== ENCOUNTER 2024-10-20 12:20 | Emergency (ER) | payer MEDICAID, SELFPAY ==
[2023-10-16 11:35] VITALS: BP 138/83; BMI 33.3
[2024-10-20] VITALS (63 sets, daily range): BP systolic 96–142; BP diastolic 50–89; PULSE 54–121; RESP 13–28; TEMP 37.3; O2SAT 90–98
--- NOTE | 2024-10-20 12:37 | ED_ITS ---
Documented by User: LETTY Huffman 10/20/24 16:48 HPI - Extremity Problem 2 General: Chief complaint: Skin/Abscess/Foreign Body Stated complaint: Left arm swollen sent from [facility] Time Seen by Provider: 10/20/24 12:30 Source: patient Mode of arrival: ambulatory Limitations: no limitations History of Present Illness: Patient is a 53-year-old male presents to ED today with a complaint of an abscess and significant cellulitis involving his left wrist and forearm. Patient admittedly is an IV drug user and states he used it last Sunday to that area and since has developing infection. He states he was placed on oral antibiotics (Bactrim) on Sunday but has continued to worsen. He was seen at the walk-in clinic today and referred to the emergency department. He denies fevers. MD Complaint: extremity pain and extremity swelling Onset (ago): day(s) Pain Consistency: constant Location: left and upper extremity Radiation: none Relieving factors: nothing Exacerbating factors: nothing Associated symptoms: Reports no associated symptoms; Deny chest pain or fever(s) Context: other (hx IV drug use) Related Data Home Medications ?Medication ?Instructions ?Recorded ?Confirmed trazodone 50 mg tablet 50 mg PO QPM 08/12/24 atorvastatin 20 mg tablet 20 mg PO BEDTIME 10/20/24 olanzapine 15 mg tablet 15 mg PO QPM 10/20/24 Previous Rx's ?Medication ?Instructions ?Recorded propranolol 20 mg tablet 20 mg PO TID Anxiety #270 ta bs 05/27/24 lisinopril 2.5 mg tablet 2.5 mg PO DAILY #90 tabs 07/08 metformin 500 mg tablet 500 mg PO BID #180 tabs 07/08 sulfamethoxazole 800 1 tab PO BID 7 days #14 tabs 10/18/24 mg-trimethoprim 160 mg tablet (Bactrim DS) Allergies Allergy/AdvReac Type Severity Reaction Status Date / Time No Known Allergies Allergy Verified 10/20/24 11:20 Review of Systems 2 Const: Denies: fever(s), chills, body aches, fatigue or malaise Card: Denies: chest pain Resp: Denies: dyspnea Musc: Reports: extremity pain (L wrist/forearm) and extremity swelling (L wrist/forearm) Skin/Breast: Reports: erythema and other (infection/abscess L wrist/forearm) Neuro: Denies: numbness in extremities or sensory changes PFSH ED 2 PFSH: Medical History AARTI (obstructive sleep apnea) Pre-diabetes Essential hypertension Obesity (BMI 30.0-34.9) Unspecified psychosis Bipolar II disorder Alcohol use disorder, severe, dependence Marijuana dependence Methamphetamine use disorder, severe, dependence Psychiatric care Cigarette nicotine dependence Chronic post-traumatic stress disorder Generalized anxiety disorder Surgical History S/P foot surgery, left S/P foot surgery, right Family History Grandfather Cancer colon and then lung Mother Diabetes Psychiatric illness Father Diabetes Social History Smoking and tobacco/nicotine status: current every day tobacco/nicotine user cigarettes Packs smoked per day: 0.50 Years cigarettes smoked: 25 Second hand smoke exposure: Yes Alcohol intake: former Year of sobriety/quit date alcohol: 2023 Former alcohol use details: last use 04/09/24 Substance/Drug Use: former Former substance use details: last use 04/09/24 Adopted: No Caregiver/support person: No Lives independently: Yes Household members: family Housing: House Marital status: Marital status details: 2001 Number of children: 2 Number of grandchildren: 0 Highest education level completed: Some College, No Degree service: No Current occupational status: employed Current occupation: [employer] Current occupational exposures/hazards: Yes (chemicals) Pets and animals: No Leisure activites: other Leisure activities details: write letters to Fabien, listen to scientology music, watch TV, listen to bird Sexually active: No Do you think of yourself as: Straight/Heterosexual Current gender identity: Male Mildred/Mu-Ism: Synagogue Special mildred needs: No Agree to transfusion: Yes Physical Exam 2 Const: COMMON NORMALS: no acute distress, average body habitus, patient oriented x3, no limitations, healthy appearing, alert and well nourished G ENERAL APPEARANCE: cooperative Resp: COMMON NORMALS: normal respiratory effort and clear to auscultation bilaterally AUSCULTATION: clear to auscultation bilaterally Cardio: COMMON NORMALS: regular rate and regular rhythm RATE: regular rate RHYTHM: regular rhythm Extremity: COMMON NORMALS: capillary refill normal NARRATIVE EXTREMITY EXAM: GENERAL: Yes normal exam except as noted LEFT UPPER EXTREMITY: Yes lower arm and Yes wrist OTHER: pt has significant edema/erythema/warmth affecting L forearm streaking proximally; abscess formation to radial L wrist; he maintains full ROM of wrist/digits; sensation/cap refill normal Neuro: COMMON NORMALS: patient oriented x3, moves all extremities, no focal motor deficits and no sensory deficits noted SENSORIUM/ORIENTATION: Yes alert Skin: NARRATIVE SKIN EXAM: see above Course 2 Consultations: Consultation #1: Dr. Paredes-reviewed CT imaging-recommending transfer for hand surgery Consultation #2: Dr. Jaquez-[facility] hand surgery-will consult on patient upon arrival [facility] Vital Signs: Vital signs: Vital Signs Temperature 99.1 F 10/20/24 12:26 Pulse Rate 85 10/20/24 18:10 Respiratory Rate 18 10/20/24 18:10 Blood Pressure 102/61 10/20/24 18:10 Pulse Oximetry 96 10/20/24 18:10 Oxygen Delivery Me thod Room Air 10/20/24 13:03 MDM - Extremity (Nontraumatic) Medical Decision Making Patient here with a left wrist/forearm abscess with extension into his hand following IV drug use. He has been on oral antibiotics and is failing outpatient therapy. He arrives with stable vital signs. His blood work showing a white count of 21.1. ESR is 59. CRP is 157. Normal lactic. Blood cultures obtained and he was started on IV antibiotics. He later became tachycardic thus sepsis bolus of fluids was also ordered. Spoke to orthopedics, Dr. Paredes (reviewed CT scan) who recommends transfer for hand surgery. Spoke to Dr. Jaquez with [facility] hand surgery who accepts patient. MIKAEL Sullivan with hospitalist group will accept. Medical Records I reviewed the patient's medical records. Lab Data I reviewed the patient's lab results. 10/20/24 12:58 10/20/24 12:[address] 10/20/24 12:49 IMPRESSION: 1. Large multifocal, multiloculated soft tissue abscess centered along the lateral distal radius. The largest abscess measures 7.8 x 2.0 cm. Abscess is closely associated with the extensor carpi radialis brevis brevis muscle and tendon, extensor pollicis brevis tendon and the abductor pollicis longus tendon. 2. Additional smaller soft tissue abscesses along the dorsal surface of the carpus. There are 2 abscesses, the largest 1.9 x 3.0 and a smaller 1.1 x 1.4 cm. 3. No bone destruction identified. Laboratory Results WBC 21.10 10^3/uL (3.29-11.43) H 10/20/24 12:58 RBC 5.34 10^6/uL (3.85-5.65) 10/20/24 12:58 Hgb 16.50 g/dL (11.27-16.99) 10/20/24 12:58 Hct 47.5 % (37-53) 10/20/24 12:58 MCV 89.0 fl (82-101) 10/20/24 12:58 MCH 30.9 pg (27-33) 10/20/24 12:58 MCHC 34.7 g/dL (30-55) 10/20/24 12:58 RDW 11.9 % (12.1-15.1) L 10/20/24 12:58 Plt Count 306 10^3/cmm (157-399) 10/20/24 12:58 MPV 10.2 fL (7.4-10.4) 10/20/24 12:58 Neut % (Auto) 86.0 % 10/20/24 12:58 Lymph % (Auto) 5.7 % 10/20/24 12:58 [place]acier % (Auto) 7.5 % 10/20/24 12:58 Eos % (Auto) 0.1 % 10/20/24 12:58 Baso % (Auto) 0.3 % 10/20/24 12:58 Neut # (Auto) 18.14 10^3/uL (1.8-7.7) H 10/20/24 12:58 Lymph # (Auto) 1.2 10^3/uL (0.8-4.8) 10/20/24 12:58 Glacier # (Auto) 1.6 10^3/uL (0.2-0.9) H 10/20/24 12:58 Eos # (Auto) 0.0 10^3/uL (0.0-0.8) 10/20/24 12:58 Baso # (Auto) 0.1 10^3/uL (0.0-0.1) 10/20/24 12:58 Nucleated RBC % (auto) 0 % 10/20/24 12:58 Nucleated RBCs # 0.0 /100WBC 10/20/24 12:58 ESR 59 mm/hr (0-10) H 10/20/24 12:58 Sodium 132 mmol/L (136-145) L 10/20/24 12:58 Potassium 4.3 mmol/L (3.5-5.1) 10/20/24 12:58 Chloride 96 mmol/L (98-107) L 10/20/24 12:58 Carbon Dioxide 22 mmol/L (22-29) 10/20/24 12:58 Anion Gap 18.3 (5-19) 10/20/24 12:58 BUN 11 mg/dL (6-20) 10/20/24 12:58 Creatinine 0.9 mg/dL (0.7-1.2) 10/20/24 12:58 GFR Calculation 87.9 mL/min (90-130) L 10/20/24 12:58 Glucose 129 mg/dL (65-115) H 10/20/24 12:58 Calculated Osmolality 275 mOsm/kg (285-295) L 10/20/24 12:58 Lactic Acid 1.1 mmol/L (0.5-2.2) 10/20/24 12:58 Calcium 9.3 mg/dL (8.5-10.5) 10/20/24 12:58 Total Bilirubin 0.6 mg/dL (0.15-1.2) 10/20/24 12:58 AST 11 U/L (0-40) 10/20/24 12:58 ALT 10 U/L (0-41) 10/20/24 12:58 Alkaline Phosphatase 92 U/L (40-130) 10/20/24 12:58 C-Reactive Protein 157.4 mg/L (0.0-4.9) H 10/20/24 12:58 Total Protein 7.7 g/dL (6.6-8.7) 10/20/24 12:58 Albumin 3.9 g/dL (3.5-5.2) 10/20/24 12:58 Globulin 3.8 g/dL (1.3-4.6) 10/20/24 12:58 All radiology interpretation(s) finalized by discharge Discharge Plan Discharge Patient Disposition: Xfer Short-Term Hosp Clinical Impression: Abscess of wrist, Active intravenous drug use, Cellulitis of left forearm Condition: Stable Referrals: Brigido Hamlin MD [Primary Care Provider, [facility]] Print Language: Hungarian Coding Level of Care Code ED [employer] Essbase Developer for Chg Fwd Documented by User: Noah Rivera DO 10/20/24 18:52 HPI - Extremity Problem 2 General: Chief complaint: Skin/Abscess/Foreign Body Stated complaint: Left arm swollen sent from [facility] Time Seen by Provider: 10/20/24 12:30 Related Data Home Medications ?Medication ?Instructions ?Recorded ?Confirmed trazodone 50 mg tablet 50 mg PO QPM 08/12/24 atorvastatin 20 mg tablet 20 mg PO BEDTIME 10/20/24 olanzapine 15 mg tablet 15 mg PO QPM 10/20/24 Previous Rx's ?Medication ?Instructions ?Recorded propranolol 20 mg tablet 20 mg PO TID Anxiety #270 ta bs 05/27/24 lisinopril 2.5 mg tablet 2.5 mg PO DAILY #90 tabs 07/08 metformin 500 mg tablet 500 mg PO BID #180 tabs 07/08 sulfamethoxazole 800 1 tab PO BID 7 days #14 tabs 10/18/24 mg-trimethoprim 160 mg tablet (Bactrim DS) Allergies Allergy/AdvReac Type Severity Reaction Status Date / Time No Known Allergies Allergy Verified 10/20/24 11:20 PFSH ED 2 PFSH: Medical History AARTI (obstructive sleep apnea) Pre-diabetes Essential hypertension Obesity (BMI 30.0-34.9) Unspecified psychosis Bipolar II disorder Alcohol use disorder, severe, dependence Marijuana dependence Methamphetamine use disorder, severe, dependence Psychiatric care Cigarette nicotine dependence Chronic post-traumatic stress disorder Generalized anxiety disorder Surgical History S/P foot surgery, left S/P foot surgery, right Family History Grandfather Cancer colon and then lung Mother Diabetes Psychiatric illness Father Diabetes Social History Smoking and tobacco/nicotine status: current every day tobacco/nicotine user cigarettes Packs smoked per day: 0.50 Years cigarettes smoked: 25 Second hand smoke exposure: Yes Alcohol intake: former Year of sobriety/quit date alcohol: 2023 Former alcohol use details: last use 04/09/24 Substance/Drug Use: former Former substance use details: last use 04/09/24 Adopted: No Caregiver/support person: No Lives independently: Yes Household members: family Housing: House Marital status: Marital status details: 2001 Number of children: 2 Number of grandchildren: 0 Highest education level completed: Some College, No Degree service: No Current occupational status: employed Current occupation: [employer] Current occupational exposures/hazards: Yes (chemicals) Pets and animals: No Leisure activites: other Leisure activities details: write letters to Fabien, listen to scientology music, watch TV, listen to bird Sexually active: No Do you think of yourself as: Straight/Heterosexual Current gender identity: Male Mildred/Mu-Ism: Synagogue Special mildred needs: No Agree to transfusion: Yes Course 2 Vital Signs: Vital signs: Vital Signs Temperature 99.1 F 10/20/24 12:26 Pulse Rate 85 10/20/24 18:10 Respiratory Rate 18 10/20/24 18:10 Blood Pressure 102/61 10/20/24 18:10 Pulse Oximetry 96 10/20/24 18:10 Oxygen Delivery Me thod Room Air 10/20/24 13:03 MDM - Extremity (Nontraumatic) Medical Decision Making Patient here with a left wrist/forearm abscess with extension into his hand following IV drug use. He has been on oral antibiotics and is failing outpatient therapy. He arrives with stable vital signs. His blood work showing a white count of 21.1. ESR is 59. CRP is 157. Normal lactic. Blood cultures obtained and he was started on IV antibiotics. He later became tachycardic thus sepsis bolus of fluids was also ordered. Spoke to orthopedics, Dr. Paredes (reviewed CT scan) who recommends transfer for hand surgery. Spoke to Dr. Jaquez with [facility] hand surgery who accepts patient. MIKAEL Sullivan with hospitalist group will accept. Chart reviewed and patient discussed with midlevel. Agree with assessment and plan. Lab Data 10/20/24 12:58 10/20/24 12:[address] 10/20/24 12:49 IMPRESSION: 1. Large multifocal, multiloculated soft tissue abscess centered along the lateral distal radius. The largest abscess measures 7.8 x 2.0 cm. Abscess is closely associated with the extensor carpi radialis brevis brevis muscle and tendon, extensor pollicis brevis tendon and the abductor pollicis longus tendon. 2. Additional smaller soft tissue abscesses along the dorsal surface of the carpus. There are 2 abscesses, the largest 1.9 x 3.0 and a smaller 1.1 x 1.4 cm. 3. No bone destruction identified. Laboratory Results WBC 21.10 10^3/uL (3.29-11.43) H 10/20/24 12:58 RBC 5.34 10^6/uL (3.85-5.65) 10/20/24 12:58 Hgb 16.50 g/dL (11.27-16.99) 10/20/24 12:58 Hct 47.5 % (37-53) 10/20/24 12:58 MCV 89.0 fl (82-101) 10/20/24 12:58 MCH 30.9 pg (27-33) 10/20/24 12:58 MCHC 34.7 g/dL (30-55) 10/20/24 12:58 RDW 11.9 % (12.1-15.1) L 10/20/24 12:58 Plt Count 306 10^3/cmm (157-399) 10/20/24 12:58 MPV 10.2 fL (7.4-10.4) 10/20/24 12:58 Neut % (Auto) 86.0 % 10/20/24 12:58 Lymph % (Auto) 5.7 % 10/20/24 12:58 Glacier % (Auto) 7.5 % 10/20/24 12:58 Eos % (Auto) 0.1 % 10/20/24 12:58 Baso % (Auto) 0.3 % 10/20/24 12:58 Neut # (Auto) 18.14 10^3/uL (1.8-7.7) H 10/20/24 12:58 Lymph # (Auto) 1.2 10^3/uL (0.8-4.8) 10/20/24 12:58 [place] # (Auto) 1.6 10^3/uL (0.2-0.9) H 10/20/24 12:58 Eos # (Auto) 0.0 10^3/uL (0.0-0.8) 10/20/24 12:58 Baso # (Auto) 0.1 10^3/uL (0.0-0.1) 10/20/24 12:58 Nucleated RBC % (auto) 0 % 10/20/24 12:58 Nucleated RBCs # 0.0 /100WBC 10/20/24 12:58 ESR 59 mm/hr (0-10) H 10/20/24 12:58 Sodium 132 mmol/L (136-145) L 10/20/24 12:58 Potassium 4.3 mmol/L (3.5-5.1) 10/20/24 12:58 Chloride 96 mmol/L (98-107) L 10/20/24 12:58 Carbon Dioxide 22 mmol/L (22-29) 10/20/24 12:58 Anion Gap 18.3 (5-19) 10/20/24 12:58 BUN 11 mg/dL (6-20) 10/20/24 12:58 Creatinine 0.9 mg/dL (0.7-1.2) 10/20/24 12:58 GFR Calculation 87.9 mL/min (90-130) L 10/20/24 12:58 Glucose 129 mg/dL (65-115) H 10/20/24 12:58 Calculated Osmolality 275 mOsm/kg (285-295) L 10/20/24 12:58 Lactic Acid 1.1 mmol/L (0.5-2.2) 10/20/24 12:58 Calcium 9.3 mg/dL (8.5-10.5) 10/20/24 12:58 Total Bilirubin 0.6 mg/dL (0.15-1.2) 10/20/24 12:58 AST 11 U/L (0-40) 10/20/24 12:58 ALT 10 U/L (0-41) 10/20/24 12:58 Alkaline Phosphatase 92 U/L (40-130) 10/20/24 12:58 C-Reactive Protein 157.4 mg/L (0.0-4.9) H 10/20/24 12:58 Total Protein 7.7 g/dL (6.6-8.7) 10/20/24 12:58 Albumin 3.9 g/dL (3.5-5.2) 10/20/24 12:58 Globulin 3.8 g/dL (1.3-4.6) 10/20/24 12:58 Discharge Plan Discharge Patient Disposition: Xfer Short-Term Hosp Clinical Impression: Abscess of wrist, Active intravenous drug use, Cellulitis of left forearm Condition: Stable Referrals: Brigido Hamlin MD [Primary Care Provider, [facility]] Print Language: Hungarian Coding Level of Care Code ED [employer] Developer for Layo Sanz
--- NOTE | 2024-10-20 12:49 | CT_ITS ---
WS: [id number] CT WRIST WITH CONTRAST HISTORY: abscess/infection Technique: All CT scans at [facility] use at least one of these dose optimization techniques: automated exposure control; mA and/or kV adjustment per patient size (includes targeted exams where dose is matched to clinical indication); or iterative reconstruction. DLP: 994.98 mGy COMPARISON: None available. Contrast: Omnipaque 100 mL IV. There is a large enhancing loculated fluid collection extending along the lateral, mid to distal radius. Epicenter is at the radial metaphysis. The largest enhancing collection extends over a length of 7.8 cm x 2.0 cm and does extend to an abut the extensor carpi radialis brevis muscle and tendon. There is a large amount of adjacent soft tissue edema and this is a multiloculated collection. There are additional smaller abscesses extending inferiorly and over the dorsal surface of the wrist. These 2 collections measure 1.9 x 3.0 and 1.1 x 1.4 cm and are centered over the carpal bones greater towards the lateral wrist. There is probably also involvement of the extensor pollicis brevis tendon and the abductor pollicis longus tendon lateral to the distal radius. CT/CT wrist LT w con [id number] IMPRESSION: 1. Large multifocal, multiloculated soft tissue abscess centered along the lat eral distal radius. The largest abscess measures 7.8 x 2.0 cm. Abscess is close ly associated with the extensor carpi radialis brevis brevis muscle and tendon, extensor pollicis brevis tendon and the abductor pollicis longus tendon. 2. Additional smaller soft tissue abscesses along the dorsal surface of the ca rpus. There are 2 abscesses, the largest 1.9 x 3.0 and a smaller 1.1 x 1.4 cm. 3. No bone destruction identified.
[2024-10-20 13:10] LABS: Basophils # 0.1 10^3/uL (0.0-0.1); Basophils % 0.3 %; Eosinophils % 0.1 %; Hematocrit 47.5 % (37-53); Lymphocytes # 1.2 10^3/uL (0.8-4.8); Lymphocytes % 5.7 %; Mean Corpuscular HGB Conc 34.7 g/dL (30-55); Mean Corpuscular Hemoglobin 30.9 pg (27-33); Mean Platelet Volume 10.2 fL (7.4-10.4); Monocytes # 1.6 10^3/uL (0.2-0.9); Monocytes % 7.5 %; Neutrophils # 18.14 10^3/uL (1.8-7.7); Nucleated Red Blood Cells % 0 %; Platelet Count 306 10^3/cmm (157-399); Red Blood Count 5.34 10^6/uL (3.85-5.65); Red Cell Distribution Width 11.9 % (12.1-15.1)
[2024-10-20 13:32] LABS: Alanine Aminotransferase 10 U/L (0-41); Albumin Level 3.9 g/dL (3.5-5.2); Alkaline Phosphatase 92 U/L (40-130); Anion Gap 18.3 (5-19); Aspartate Amino Transferase 11 U/L (0-40); Blood Urea Nitrogen 11 mg/dL (6-20); C Reactive Protein 157.4 mg/L (0.0-4.9); Calcium 9.3 mg/dL (8.5-10.5); Carbon Dioxide 22 mmol/L (22-29); Chloride 96 mmol/L (98-107); Globulin 3.8 g/dL (1.3-4.6); Glomerular Filtration Rate 87.9 mL/min (90-130); Glucose 129 mg/dL (65-115); Lactic Sepsis W/Reflex 1.1 mmol/L (0.5-2.2); Osmolality Calculated 275 mOsm/kg (285-295); Potassium 4.3 mmol/L (3.5-5.1); Sodium 132 mmol/L (136-145); Total Bilirubin 0.6 mg/dL (0.15-1.2); Total Protein 7.7 g/dL (6.6-8.7)
[2024-10-20] MEDS: piperacillin-tazobactam 3.375 GM in sodium chloride 0.9% (plus) 50 ML IV (13:40)
[2024-10-20] MEDS: morphine 4 mg/mL SDV 1 mL IVP ×2 (13:40→19:08)
[2024-10-20] MEDS: ondansetron 2 mg/ML SDV 2 mL 4 MG IVP (13:40)
[2024-10-20 13:51] LABS: Erythrocyte Sedimentation Rate 59 mm/hr (0-10)
[2024-10-20] MEDS: vancomycin 1,250 MG/250 ML PIGGYBACK 166.67 MG IV (14:18)
[2024-10-20] MEDS: iohexol 350 mg/mL 500 mL Btl (per mL) IV (14:26)
[2024-10-20] MEDS: HYDROmorphone 0.5 MG/0.5 ML INJ IVP (14:52)
[2024-10-20] MEDS: hyDROXYzine 25 mg Capsule PO (19:07)
== END 2024-10-20 20:31 | disposition short-term general hospital (02) ==
PROVIDERS: Emergency Provider Physician Assistant; PCP Family Medicine
DX: L02.414 Cutaneous abscess of left upper limb (principal); L03.114 Cellulitis of left upper limb; F19.90 Other psychoactive substance use, unspecified, uncomplicated; G47.33 Obstructive sleep apnea (adult) (pediatric); I10 Essential (primary) hypertension; Z79.899 Other long term (current) drug therapy; F17.210 Nicotine dependence, cigarettes, uncomplicated
CPT/HCPCS: 36415; 73201; 80053; 83605; 85025; 85651; 86140; 87040; 96365; 96366; 96367; 96375; 96376; 99285; J1171; J2270; J2405; J2543; J3370; J7030; J9999

== ENCOUNTER 2025-01-16 11:50 | Inpatient (IN) | payer MEDICAID, SELFPAY ==
[2023-10-16 11:35] VITALS: BP 138/83; BMI 33.3
--- OUTSIDE RECORDS SUMMARY | 2025-01-16 11:52 | XMS_ITS | Encounter Summary ---
Author Organization [facility] Address [address] [place] [address] Care Team Providers Care Telecommunication Equipment Repairer Name Role Phone Unavailable Primary Care Provider Unavailabl e Encounter Details Date Type Department Care Team (Late st Contact Info) Description 01/13/2025 External Device Data [facility] ABSTRACTION Provider, Abstract NO ADDRESS ON FILE Social History Tobacco Use Types Packs/Day Years Used Date Smoking Tobacco: Every Day Cigarettes Last attempted to quit: 2024 Smokeless Tobacco: Never Alcohol Use Standard Drinks/Week Comments Yes 3 (1 standard drink = 0.6 oz pur e alcohol) Feeling Safe Answer Date Recorded Are you in a relationship wi th someone who hurts you emotionally and/or physically? 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
--- OUTSIDE RECORDS SUMMARY | 2025-01-16 11:53 | XMS_ITS | Clinical Summary ---
Author Organization [place] [employer] Address [address] [facility] Attn: Epic Prelude ADT TARAN ANTHONY [address] Care Team Providers Care Emanations Analysis Technician Name Role Phone Unavailable Primary Care Provider Unavailabl e Allergies No known active allergies Medications lisinopriL (PRINIVIL) 2.5 mg tablet Take 2.5 mg by mouth daily. Active metFORMIN (GLUCOPHAGE) 500 mg tablet Take 500 mg by mouth 2 times daily with meals. Active propranoloL (INDERAL) 20 mg tablet Take 20 mg by mouth 3 times daily. Active traZODone (DESYREL) 50 mg tablet Take 50 mg by mouth daily at bedtime. Active OLANZapine (ZyPREXA) 15 mg tablet Take 15 mg by mouth daily at bedtime. Active atorvastatin (LIPITOR) 20 mg tablet Take 20 mg by mouth daily at bedtime. Active oxyCODONE (ROXICODONE) 5 mg tabletIndicatio ns:Abscess of wrist Take 1 Tablet (5 mg) by mouth every 4 hours as needed for Pain. Max Daily Amount: 30 mg 15 Tablet 10/24/2024 3:20 PM CDT Active naloxone (NARCAN) 4 mg/spray [place], Non-Aerosol EMERGENCY USE ONLY: Administer 1 spray (4 mg) in one nostril one time. May repeat in alternating nostrils every 2-3 min until responsive or EMS arrives. 2 Each 3 10/24/2024 3:20 PM CDT Active Active Problems Problem Noted Date Diagnosed Date Abscess of wrist 10/21/2024 Non-insulin dependent type 2 diabetes mellitus 0 10/21/2024 Essential hypertension 10/21/2024 HLD (hyperlipidemia) 10/21/2024 Mood disorder 10/21/2024 Methamphetamine use 10/21/2024 IV drug use 10/21/2024 Encounters Date Type Department Care Team Description 01/13/2025 External Device Data [facility] ABSTRACTION Provider, Abstract 12/31/2024 External Device Data [facility] ABSTRACTION Provider, Abstract 12/30/2024 External Device Data [facility]STRACTION Provider, Abstract 12/23/2024 External Device Data [facility] ABSTRACTION Provider, Abstract 11/26/2024 External Device Data [facility] ABSTRACTION Provider, Abstract 11/26/2024 External Device Data [facility] ABSTRACTION Provider, Abstract 11/26/2024 External Device Data [facility] ABSTRACTION Provider, Abstract 11/03/2024 10:00 AM CDT Office Visit [place] [address] [facility] [place] [phone] Lebron Jaquez MD Open wound of left wrist, subsequent encounter (Primary Dx) 11/03/2024 Orders Only [place] [address] [facility] [place] [phone] Lebron Jaquez MD 10/29/2024 Telephone [place] [address] [facility] [place] [address] Lebron Jaquez MD Question 10/29/2024 External Device Data [facility] ABSTRA[facility] Provider, Abstract 10/28/2024 External Device Data [facility] Provider, Abstract 10/28/2024 External Device Data [facility] Provider, Abstract 10/27/2024 Orders Only [facility] HIM [address] [place] [address] Provider, Abstract 10/23/2024 Telephone [place] [address] [facility] [place] [address] Lebron Jaquez MD Question 10/21/2024 External Device Data [facility] ABSTRACTION Provider, Abstract 10/21/2024 External Device Data [facility] AB[facility] Provider, Abstract 10/21/2024 External Device Data [facility] Provider, Abstract 10/21/2024 Travel 10/20/2024 11:23 PM CDT Anesthesia Event [facility] Operating Room [address] [place] [address] Maggie MONTANOSukhdev, 10/20/2024 10:25 PM CDT - 10/24/2024 3:37 PM CDT Hospital Encounter [facility] 3[facility] Ortho Neuro [address] [place] [id number] Lebron Jaquez MD Abbas, MD Landon Johnson, Nick Cid DO Abscess of wrist Discharge Disposition: Home or Self Care 10/20/2024 5:23 PM CDT - 10/20/2024 6:10 PM CDT Surgery [facility] Operating Room [address] [place] [phone] Lebron Jaquez MD HAND INCISION AND DRAINAGE from Last 3 Months Social History Tobacco Use Types Packs/Day Years Used Date Smoking Tobacco: Every Day Cigarettes Last attempted to quit: 2024 Smokeless Tobacco: Never Tobacco Cessation:Ready to Q uit: Not Asked Alcohol Use Standard Drinks/Week Comments Yes 3 [...] on file 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 Gender Identity Not on file Sexual Orientation Not on file Last Filed Vital Signs Vital Sign Reading Time Taken Comments Blood Pressure 128/80 11/03/2024 9:12 AM CDT Pulse 69 10/24/2024 11:10 AM CDT Temperature 36.7 C (98.1 F) 10/24/2024 11:10 AM CDT Respiratory Rate 20 10/24/2024 11:10 AM CDT Oxygen Saturation 94% 10/24/2024 11:10 AM CDT Inhaled Oxygen Concentration - - Weight 106.6 kg (235 lb) 11/03/2024 9:12 AM CDT Height 188 cm (6' 2 ) 11/03/2024 9:12 AM CDT Body Mass Index 30.17 11/03/2024 9:12 AM CDT Plan of Treatment Health Maintenance Due Date Last Done Comments DIABETES ANNUAL FOOT EXAM 11/30/1987 DIABETES ANNUAL RETINAL EXAM 11/30/1987 DIABETES MICROALBUMIN ANNUAL SCREEN 11/30/1987 LDL CHOLESTEROL ANNUAL 11/30/1987 DTAP/TDAP/TD VACCINES (1 - Tdap) 1988 HEPATITIS B VACCINES (1 of 3 - 19+ 3-dose series) 11/11 COLORECTAL SCREENING 2014 Colorectal Cancer Screening 2014 FIT-DNA Q 3 years 2014 FIT/FOBT Q 1 year 2014 Flex Sig/CT Colonography Q 5 years 2014 ZOSTER VACCINE (1 of 2) 11/30/2019 INFLUENZA VACCINE (#1) 2024 DIABETES HBA1C Q 6 MONTHS 04/22/2025 10/21/2024 Procedures Procedure Name Priority Date/Time Associated Diagnosis Comments TELEMETRY REPORT 10/27/2024 3:38 AM CDT POC GLUCOSE Routine 10/24/2024 11:23 AM CDT HEPATITIS C RNA PCR, QUANTITATIVE Routine 10/24/2024 10:51 AM CDT HEPATITIS C ANTIBODY Routine 10/24/2024 10:51 AM CDT POC GLUCOSE Routine 10/24/2024 7:30 AM CDT BASIC METABOLIC PANEL Routine 10/24/2024 4:08 AM CDT CBC WITH DIFFERENTIAL Routine 10/24/2024 4:08 AM CDT POC GLUCOSE Routine 10/23/2024 9:01 PM CDT POC GLUCOSE Routine 10/23/2024 4:43 PM CDT POC GLUCOSE Routine 10/23/2024 11:45 AM CDT POC GLUCOSE Routine 10/23/2024 7:47 AM CDT BASIC METABOLIC PANEL Routine 10/23/2024 5:59 AM CDT CBC WITH DIFFERENTIAL Routine 10/23/2024 5:59 AM CDT POC GLUCOSE Routine 10/22/2024 8:24 PM CDT POC GLUCOSE Routine 10/22/2024 5:52 PM CDT BASIC METABOLIC PANEL Routine 10/22/2024 3:25 PM CDT VANCOMYCIN LEVEL TROUGH Timed Study 10/22/2024 3:25 PM CDT POC GLUCOSE Routine 10/22/2024 11:54 AM CDT POC GLUCOSE Routine 10/22/2024 7:46 AM CDT POC GLUCOSE Routine 10/21/2024 8:41 PM CDT POC GLUCOSE Routine 10/21/2024 4:06 PM CDT POC GLUCOSE Routine 10/21/2024 11:06 AM CDT HIV DETECTION W/REFLX CONFIRMATION Routine 10/21/2024 9:39 AM CDT BLOOD CULTURE Pending Discharge 10/21/2024 9:39 AM CDT BLOOD CULTURE Pending Discharge 10/21/2024 9:39 AM CDT BLOOD CULTURE Pending Discharge 10/21/2024 9:34 AM CDT BLOOD CULTURE Pending Discharge 10/21/2024 9:34 AM CDT POC GLUCOSE Routine 10/21/2024 7:38 AM CDT RT ASSESS AND TREAT Routine 10/21/2024 5 :37 AM CDT HEMOGLOBIN A1C Routine 10/21/2024 2:19 AM CDT BASIC METABOLIC PANEL Timed Study 10/21/2024 2:19 AM CDT CBC WITH DIFFERENTIAL Timed Study 10/21/2024 2:19 AM CDT POC GLUCOSE Routine 10/21/2024 12:22 AM CDT AFB CULTURE WITH STAIN Routine 10/20/2024 11:56 PM CDT ANAEROBIC/AEROBIC CULTURE W GRAM STAIN Routine 10/20/2024 11:56 PM CDT OK ANES INSERT ENDOTRACHEAL AIRWAY Routine 10/20/2024 11:43 PM CDT OK I&D HEMATOMA SEROMA/FLUID COLLECTION 10/20/2024 5:23 PM CDT HAND COMPREHENSIVE METABOLIC PANEL Routine 10/20/2024 11:22 AM CDT from Last 3 Months Results * TELEMETRY REPORT (10/27/2024 3:38 AM CDT) Provider Scanning ECG ORDERABLES Final Result * (ABNORMAL) POC GLUCOSE (10/24/2024 11:23 AM CDT) Only the most recent of15 resultswithin the time period is included. GLUCOSE POC 116(H) 74 - 99 mg/dL 10/24/2024 11:23 AM CDT [facility] SPECIMEN SOURCE, GLUCOSE POC Capillary 10/24/2024 11:23 AM CDT [facility] Blood, whole 10/24/2024 11:2 3 AM CDT 10/24/2024 11:30 AM CDT Nick Navarrete DO POINT OF CARE TESTI NG Final Result [facility] CLIA # [id number] [address] [address] [place] [address] * HEPATITIS C RNA PCR, QUANTITATIVE (10/24/2024 10:51 AM CDT) Pathologist [facility] HCV RNA, QUANT REAL TIME PCR <15 NOT DETECTED NOT DETECTED IU/mL 10/27/2024 8:50 AM CDT [facility] HCV RNA QUANT PCR COPIES IU/ML <1.18 NOT DETECTED NOT DETECTED Log IU/mL 10/27/2024 8:50 AM CDT [facility] Comment: For additional information, please refer to http://education.GlampingHub.com/faq/[email or web address] (This link is being provided for informational/ educational purposes only.) Blood Venipuncture / Unknown 10/24/2024 10:51 AM CDT 10/24/2024 12:18 PM CDT Narrative [facility] - 10/27/2024 8:50 AM CDT Performing Organization Information: Site ID: [place] Name: [place] Address: [id number] [place] [address] Director: Trung Yu MD Erick Waters MD CHEMISTRY ORDERABLES F inal Result Performing Organization Address [facility]/ZIP Co de Phone Number [facility] * (ABNORMAL) HEPATITIS C ANTIBODY W REFLEX (10/24/2024 10:51 AM CDT) [facility] HEPATITIS C AB REACTIVE(A ) Non-react miguelina 10/24/2024 12:18 PM CDT [facility] Blood Venipuncture / Unknown 10/24/2024 10:51 AM CDT 10/24/2024 11:27 AM CDT Narrative [facility] - 10/24/2024 12:18 PM CDT Confirmatory testing by HCV_RNA by PCR will be automatically reflexed on reactive results. us Erick Waters MD CHEMISTRY ORDERABLES F inal Result [facility] CLHARLAN # [id number] [address] [address] [place] [address] * (ABNORMAL) CBC WITH DIFFERENTIAL (10/24/2024 4:08 AM CDT) Only the most recent of3 resultswithin the time period is included. [facility] WBC 6.3 4.8 - 10.8 K/uL 10/24/2024 4:48 AM CDT [facility] RBC 4.35(L) 4.60 - 6.20 M/uL 10/24/2024 4:48 AM CDT [facility] HEMOGLOBIN 13.1(L) 14.0 - 18.0 g/dL 10/24/2024 4:48 AM CDT [facility] HEMATOCRIT 39.4(L) 41.0 - 53.0 % 10/24/2024 4:48 AM CDT [facility] MCV 90.6 84.0 - 103.0 fL 10/24/2024 4:48 AM CDT [facility] MCH 30.1 27.0 - 34.0 pg 10/24/2024 4:48 [facility] 33.2 30.0 - 35.0 g/dL 10/24/2024 4:48 AM CDT [facility] PLATELETS 339 140 - 440 K/uL 10/24/2024 4:48 AM CDT [facility] MPV 9.9 8.9 - 12.8 fL 10/24/2024 4:48 AM CDT [facility] RDW 12.0 11.0 - 14.5 % 10/24/2024 4:48 AM CDT [facility] RDW-STDEV 40.3 37.0 - 54.0 fL 10/24/2024 4:48 AM CDT [facility] NEUTROPHILS 45 42 - 75 % 10/24/2024 4:48 AM CDT [facility] LYMPHOCYTES 45(H) 24 - 44 % 10/24/2024 4:48 AM CDT [facility] MONOCYTES 5 2 - 10 % 10/24/2024 4:48 AM CDT [facility] EOSINOPHILS 4 0 - 7 % 10/24/2024 4:48 AM CDT [facility] BASOPHILS 1 0 - 1 % 10/24/2024 4:48 AM CDT [facility] IMMATURE GRANULOCYTES 0 0 - 2 % 10/24/2024 4:48 AM CDT [facility] NEUTROPHIL ABSOLUTE 2.81 2.00 - 8.00 K/uL 10/24/2024 4:48 AM CDT [facility] LYMPHOCYTE ABSOLUTE 2.83 1.20 - 4.00 K/uL 10/24/2024 4:48 AM CDT [facility] MONOCYTE ABSOLUTE 0.34 0.10 - 0.60 K/uL 10/24/2024 4:48 AM CDT [facility] EOSINOPHIL ABSOLUTE 0.23 0.00 - 0.70 K/uL 10/24/2024 4:48 AM CDT [facility] BASOPHILS ABSOLUTE 0.07 0.00 - 0.20 K/uL 10/24/2024 4:48 AM CDT [facility] IMMATURE GRANULOCYTES ABSOLUTE 0.02 0.00 - 0.10 K/uL 10/24/2024 4:48 AM T [facility] SMEAR REVIEWED: NN - No Action Needed 10/24/2024 4:48 AM T [facility] Blood Venipuncture / Unknown 10/24/2024 4:08 AM CDT 10/24/2024 4:32 AM CDT us Nick Navarrete DO HEMATOLOGY ORDERABL ES Final Result [facility] CLIA # [id number] [address] [address] [place] [address] * (ABNORMAL) BASIC METABOLIC PANEL (10/24/2024 4:08 AM CDT) Only the most recent of4 resultswithin the time period is included. SODIUM 138 136 - 145 mmol/L 10/24/2024 5:07 AM [facility] POTASSIUM 3.9 3.5 - 5.1 mmol/L 10/24/2024 5:07 AM [facility] CHLORIDE 103 98 - 107 mmol/L 10/24/2024 5:07 AM [facility] CO2 22 22 - 29 mmol/L 10/24/2024 5:07 AM [facility] CALCIUM 8.7 8.6 - 10.0 mg/dL 10/24/2024 5:07 AM [facility] BUN 14 6 - 20 mg/dL 10/24/2024 5:07 AM [facility] CREATININE 1.00 0.67 - 1.17 mg/dL 10/24/2024 5:07 AM [facility] GLUCOSE 100(H) 74 - 99 mg/dL 10/24/2024 5:07 AM [facility] GFR >60 >=60 mL/min/1.7 3 sq meter 10/24/2024 5:07 AM [facility] Comment:eGFR calculated with 2020 CKD-EPI equation. Vegetarian diet, extremely high or low muscle mass, and may affect results. Cystatin C with Glomerular Filtration Rate is a suitable alternative for these patients. ANION GAP 13 9 - 20 mmol/L 10/24/2024 5:07 AM [facility] Blood Venipuncture / Unknown 10/24/2024 4:08 AM CDT 10/24/2024 4:33 AM CDT us Nick Navarrete DO CHEMISTRY ORDERABLE S Final Result [facility] CLIA # [id number] [facility] [address] [place] [address] * VANCOMYCIN LEVEL TROUGH (10/22/2024 3:25 PM CDT) [facility] VANCOMYCIN, TROUGH 12.0 10.0 - 17.0 ug/mL 10/22/2024 5:21 PM CDT [facility] Blood Venipuncture / Unknown 10/22/2024 3:25 PM CDT 10/22/2024 4:31 PM CDT Bernard Reed MD CHEMISTRY ORDERABLES Fi nal Result Performing Organization Address [facility]/ZIP Co de Phone Number [facility] CLIA # [id number] [facility] [address] * HIV DETECTION W/REFLX CONFIRMATION (10/21/2024 9:39 AM CDT) [facility] HIV-1 AND 2 ABS AND HIV-1 AG Non-reacti ve Non-React miguelina 10/21/2024 10:45 AM CDT [facility] Blood Venipuncture / Unknown 10/21/2024 9:39 AM CDT 10/21/2024 9:48 AM CDT Nick Navarrete DO CHEMISTRY ORDERABLE S Final Result Performing Organization Address City/[facility]/ZIP Co de Phone Number [facility] CLIA # [id number] [facility] [address] * BLOOD CULTURE (10/21/2024 9:39 AM CDT) Only the most recent of2 resultswithin the time period is included. [facility] BLOOD CULTURE No growth 10/26/2024 10:35 AM CDT [facility] Blood (Peripheral) Venipuncture / Unknown 10/21/2024 9:39 AM CDT 10/21/2024 9:45 AM CDT Nick Navarrete DO MICROBIOLOGY - GENE RAL ORDERABLES Final Result Performing Organization Address [facility] Co de Phone Number [facility] CLIA # [id number] [address] [id number] * (ABNORMAL) HEMOGLOBIN A1C (10/21/2024 2:19 AM CDT) HEMOGLOBIN A1C 6.1(H) <=5.6 % 10/23/2024 11:06 AM CDT [facility] EST. AVG GLUCOSE, A1C 128 mg/dL 10/23/2024 11:06 AM CDT [facility] Blood Venipuncture / Unknown 10/21/2024 2:19 AM CDT 10/21/2024 2:34 AM CDT Narrative [facility] - 10/23/2024 11:06 AM CDT HGB A1C INTERPRETATION NORMAL: <5.7% PRE-DIABETES: 5.7 - 6.4% DIABETES: 6.5% OR GREATER Bernard Reed MD CHEMISTRY ORDERABLES Fi nal Result Performing Organization Address [facility] Co de Phone Number [facility] CLIA # [id number] [address] [address] * AFB CULTURE WITH STAIN (10/20/2024 11:56 PM CDT) CULTURE No acid fast bacilli isolated. 12/03/2024 8:47 AM CDT [facility] AFB STAIN No acid fast bacilli observed 12/03/2024 8:47 AM CDT [facility] Abscess (Wrist, left) Collection / Unknown 10/20/2024 11:56 PM CDT 10/21/2024 12:00 AM CDT Comment:left wrist abscess w ound culture [id number] Narrative [facility] - 12/03/2024 8:47 AM CDT Culture is held for a minimum of 6 weeks. us Lebron Jaquez MD MICROBIOLOGY - GENERAL OR DERABLES Final Result [facility] CLIA # [id number] [address] [address] * (ABNORMAL) ANAEROBIC/AEROBIC CULTURE W GRAM STAIN (10/20/2024 11:56 PM CDT) CULTURE STREPTOCOCCUS CONSTELLATUS(A) [facility]O MCG/ML 10/27/2024 8:12 AM T [facility] Comment: Beta Streptococcus groups A, B, C, and G are predictably susceptible to ampicillin, penicillin, and cefazolin, but may be resistant to erythromycin and/or clindamycin. Susceptibility not routinely performed CULTURE STAPHYLOCOCCUS EPIDERMIDIS(A) [facility] MCG/ML 10/27/2024 8:12 AM T [facility] CULTURE STAPHYLOCOCCUS LUGDUNENSIS(A) [facility] MCG/ML 10/27/2024 8:12 AM T [facility] Comment:Staph lugdunensis is never considered a contaminant. This species of coagulase-neg Staph is an aggressive pathogen. CULTURE 2+ or moderate Fusobacterium nucleatum(A) [facility]O MCG/ML 10/27/2024 8:12 AM CDT [facility] Comment:Susceptibility attem pted; susceptibility failed to grow. CULTURE 2+ or moderate Anaerobic Gram Positive Rods(A) [facility]O MCG/ML 10/27/2024 8:12 AM T [facility] Comment: Other - Futher identified as Solobacterium. Anaerobe therapy recommendation: metronidazole. Alternatively: ampicillin/sulbactam or clindamycin. GRAM STAIN 1+ (Rare or Occasional) Polymorphonuclear WBC 10/27/2024 8:12 AM T [facility] GRAM STAIN 2+ (Few) Gram positive cocci 10/27/2024 8:12 AM CDT [facility] Comment:This is an appended report. These results have been appended to a previously preliminary verified report. GRAM STAIN [facility] Comment:The previously repor cresencio result 3+ (Moderate) Gram negative cocci is no longer being reported. Abscess (Wrist, left) Collection / Unknown 10/20/2024 11:56 PM CDT 10/21/2024 12:00 AM CDT Comment:left wrist abscess w ound culture [id number] Narrative [facility] - 10/27/2024 8:12 AM CDT Gram stain correction called to Evy Yip RN (3C) by Carroll Carbajal on 10/22/2024 at 10:17 AM. Stain previously reported erroneously as Gram negative cocci. Upon review of the original slide, this was a clerical error. Gram positive cocci are present on the slide. Staphylococcus epidermidis is a coagulase negative Staphylococcus species. Organism Antibiotic Method Susceptibility Staphylococcus epidermidis OXACILLIN (Nafcillin) [facility]O MCG/ML <=0.25 mcg/mL: Susceptible Comment:Oxacillin (N afcillin) susceptible Staphylococcus species are predictably susceptible to cefazolin, ceftriaxone, cephalexin, and amoxicillin-clavulanate Staphylococcus epidermidis VANCOMYCIN [facility]O MCG/ML 2 mcg/mL: Susceptible Staphylococcus epidermidis ERYTHROMYCIN [facility]O MCG/ML <=0.25 mcg/mL: Susceptible Staphylococcus epidermidis CLINDAMYCIN [facility]O MCG/ML 0.25 mcg/mL: Susceptible Staphylococcus epidermidis DOXYCYCLINE [facility]O MCG/ML <=0.5 mcg/mL: Susceptible Staphylococcus epidermidis TRIMETHOPRIM/ SULFAMETHOXAZOLE [facility] MCG/ML <=10 mcg/mL: Susceptible Staphylococcus lugdunensis OXACILLIN (Nafcillin) [facility]O MCG/ML 2 mcg/mL: Susceptible Comment:Oxacillin (N afcillin) susceptible Staphylococcus species are predictably susceptible to cefazolin, ceftriaxone, cephalexin, and amoxicillin-clavulanate Staphylococcus lugdunensis VANCOMYCIN [facility]O MCG/ML <=0.5 mcg/mL: Susceptible Staphylococcus lugdunensis ERYTHROMYCIN [facility]O MCG/ML <=0.25 mcg/mL: Susceptible Staphylococcus lugdunensis CLINDAMYCIN NAVARRO MCG/ML 0.25 mcg/mL: Susceptible Staphylococcus lugdunensis DOXYCYCLINE [facility]O MCG/ML <=0.5 mcg/mL: Susceptible Staphylococcus lugdunensis TRIMETHOPRIM/ SULFAMETHOXAZOLE [facility]O MCG/ML <=10 mcg/mL: Susceptible Lebron Jaquez MD MICROBIOLOGY - GENERAL OR DERABLES Final Result [facility] # [id number] [address] [place] [address] [place] [address] * [place] ANES INSERT ENDOTRACHEAL AIRWAY (10/20/2024 11:43 PM CDT) Narrative Jhon Gunter CRNA - 10/20/2024 11:43 PM CDT Jhon Gunter CRNA 10/20/2024 11:59 PM Airway Date/Time: 10/20/2024 11:43 PM Location: OR Plan: routine intubation Patient Identity Confirmed by: Verbally with patient and armband Airway: not difficult Staffing Performed: JORDAN/CAA Authorized by: Sukhdev Serrano II, DO Performed by: Jhon Gunter CRNA Indications and Patient Condition: Indications for Airway Management: Anesthesia Sedation Level: general anesthesia Preoxygenated: yes Patient Position: Sniffing Mask Difficulty Assessment: 0 - not attempted Plan to extubate at end of case: Yes Final Airway Details: Final Airway Type: Endotracheal airway ETT Cuffed: Yes Cuff Volume (mL): 6 Technique Used for Successful ETT Placement: Direct laryngoscopy Devices/Methods Used in Placement: Cricoid pressure Blade Type: curved blade Blade Size: 4 Insertion Site: Oral ETT Size (mm): 8.0 Measured from: Teeth ETT to Teeth (cm): 23 Tube secured with: Tape Placement Verified by: auscultation, end tidal CO2 and chest rise Cormack-Lehane Classification: Grade I - full view of glottis Number of Attempts at Approach: 1 Additional Procedure Information: atraumatic and dentition unchanged Sukhdev Serrano II, DO PROCEDURE/MINOR JACOBS RGICAL ORDERABLES Final Result * COMPREHENSIVE METABOLIC PANEL (10/20/2024 11:22 AM CDT) Blood us Abstract Provider CHEMISTRY ORDERABLES Final Res ult from Last [address] [place] [address] [place] [address] [facility] Advance Directives For more information, please contact: [phone] * Full Code (Latest Code Status on File) Date Activated Date Inactivated Comments 10/20/2024 11:18 PM 10/24/2024 5:38 PM
--- NOTE | 2025-01-16 12:07 | W.ED.PSYCHS ---
HPI - Psych General: Chief Complaint: Psychiatric Symptoms Stated Complaint: 96 Time Seen by Provider: 01/16/25 11:52 History of Present Illness: 54-year-old man with a history of anxiety, PTSD, cannabis abuse, bipolar disorder, methamphetamine abuse, hypertension, hyperlipidemia and diabetes who presents emergency room on a court ordered 96-hour hold. He says he does not know why he is here. He says admittedly he stayed out late last night and had missed going to work and had been drinking and fishing with a friend. Rosi says basically the same thing. Says that when he arrived home this morning at 7 AM after being out all night he appeared intoxicated and was making a bunch of noises . Related Data Previous Rx's ?Medication ?Instructions ?Recorded CPAP 6-16 cm mmHg setting with #1 ea 11/05/24 mask, tubing and supplies atorvastatin 20 mg tablet 20 mg PO BEDTIME #90 tabs 11/26/24 lisinopril 2.5 mg tablet 2.5 mg PO DAILY #90 tabs 11/26/24 metformin 500 mg tablet 500 mg PO BID #180 tabs 11/26/24 omeprazole 20 mg capsule,delayed 20 mg PO DAILY PRN acid reflux #30 11/26/24 release caps Allergies Allergy/AdvReac Type Severity Reaction Status Date / Time No Known Allergies Allergy Verified 11/12/24 08:49 Review of Systems Narrative: Constitutional symptoms: Negative except as documented in HPI. Skin symptoms: Negative except as documented in HPI. Eye symptoms: Negative except as documented in HPI. ENMT symptoms: Negative except as documented in HPI. Respiratory symptoms: Negative except as documented in HPI. Cardiovascular symptoms: Negative except as documented in HPI. Gastrointestinal symptoms: Negative except as documented in HPI. Genitourinary symptoms: Negative except as documented in HPI. Musculoskeletal symptoms: Negative except as documented in HPI. Neurologic symptoms: Negative except as documented in HPI. Psychiatric symptoms: Negative except as documented in HPI. Endocrine symptoms: Negative except as documented in HPI. [facility] ED PFSH: Medical History (Updated 01/16/25 @ 14:04 by Nellie Giles MD) AARTI (obstructive sleep apnea) Pre-diabetes Essential hypertension Obesity (BMI 30.0-34.9) Unspecified psychosis Bipolar II disorder Alcohol use disorder, severe, dependence Marijuana dependence Methamphetamine use disorder, severe, dependence Psychiatric care Cigarette nicotine dependence Chronic post-traumatic stress disorder Generalized anxiety disorder Surgical History S/P foot surgery, left S/P foot surgery, right Family History Grandfather Cancer colon and then lung Mother Diabetes Psychiatric illness Father Diabetes Social History Smoking and tobacco/nicotine status: never used tobacco/nicotine Second hand smoke exposure: Yes Alcohol intake: former Year of sobriety/quit date alcohol: 2023 Former alcohol use details: last use 04/09/24 Substance/Drug Use: former Former substance use details: last use 04/09/24 Adopted: No Caregiver/support person: No Lives independently: Yes Household members: family Housing: House Marital status: Marital status details: 2001 Number of children: 2 Number of grandchildren: 0 Highest education level completed: Some College, No Degree service: No Current occupational status: employed Current occupation: [employer] Current occupational exposures/hazards: Yes (chemicals) Pets and animals: No Leisure activites: other Leisure activities details: write letters to Fabien, listen to restoration music, watch TV, listen to bird Sexually active: No Do you think of yourself as: Straight/Heterosexual Current gender identity: Male Mildred/Episcopal: Anglican Special mildred needs: No Agree to transfusion: Yes Physical Exam Narrative: EXAM NARRATIVE: General: Alert, no acute distress. Skin: Warm, dry. Head: Normocephalic, atraumatic. Neck: Supple, trachea midline. Eye: Extraocular movements are intact. Ears, nose, mouth and throat: mucosa moist. Cardiovascular: Regular, Normal peripheral perfusion. Respiratory: Lungs are clear to auscultation, respirations are non-labored, breath sounds are equal, Symmetrical chest wall expansion. Gastrointestinal: Soft, Nontender, Non distended Musculoskeletal: Normal ROM, no deformity. Neurological: Alert and oriented, No focal neurological deficit observed. Psychiatric: Cooperative, patient does appear to be under the influence of something but is cooperative and continues to say he does not know why he has been here. He denies any suicidal or homicidal ideations. He is quite tearful at times Course Vital Signs: Vital signs: Vital Signs Pulse Oximetry 99 01/16/25 12:27 Oxygen Delivery Me thod Room Air 01/16/25 12:27 MDM - Psych Medical Decision Making Differential diagnosis: Patient with reported depression and suicidal ideation. concerns for infection, alcohol intoxication, cardiac issues or other medical problems prior to psychiatric admission. Workup: labwork, ekg ordered to evaluate the pathologies and to clear the patient medically prior to psychiatric admission EKG: Time 1229. Rate 89. Normal sinus rhythm, No ST-T changes, no ectopy, normal TX & QRS intervals, This was reviewed and interpreted by myself the ER physician at 1235 Lab Review: Laboratory results were reviewed and interpreted by myself the emergency room physician. - Medically cleared. - EKG shows no ischemic changes. - Blood alcohol level is negative, -Tylenol and salicylate levels are negative. - Urinalysis and drug screen were pending at time of admission - No anemia. - BUN and creatinine are within normal limits. I reviewed the patient's chart: 54-year-old man with a history of anxiety, PTSD, cannabis abuse, bipolar disorder, methamphetamine abuse, hypertension, hyperlipidemia and diabetes. Last admission to psychiatric unit was February 2024. He had been placed on a court ordered hold at that time as well. Apparently he had been making threats to harm himself and his mother over the last 3 weeks prior to that admission. Consultation: Spoke with Dr. Ballard who is on-call for the psychiatry service who agrees to admission. Reexamination: Initially the patient was fairly cooperative but he has become more and more psychotic appearing. At some point he was muttering threatening things to attack in the emergency room muscles do an EKG. He has been very labile and his emotions and is sitting back in the corner talking to himself. Assessment and plan: Acute psychosis 96-hour hold -Admission to neuropsychiatric unit for continued evaluation and treatment. - All lab work was reviewed and interpreted personally by myself, the ER physician - Evaluation and treatment of this problem were appropriate in the emergency setting Lab Data 01/16/25 12:00 01/16/25 12:00 Laboratory Results WBC 8.67 10^3/uL (3.29-11.43) 01/16/25 12:00 RBC 4.95 10^6/uL (3.85-5.65) 01/16/25 12:00 Hgb 14.90 g/dL (11.27-16.99) 01/16/25 12:00 Hct 43.2 % (37-53) 01/16/25 12:00 MCV 87.3 fl (82-101) 01/16/25 12:00 MCH 30.1 pg (27-33) 01/16/25 12:00 MCHC 34.5 g/dL (30-55) 01/16/25 12:00 RDW 13.0 % (12.1-15.1) 01/16/25 12:00 Plt Count 282 10^3/cmm (157-399) 01/16/25 12:00 MPV 9.9 fL (7.4-10.4) 01/16/25 12:00 Neut % (Auto) 54.8 % 01/16/25 12:00 Lymph % (Auto) 33.2 % 01/16/25 12:00 Villalba % (Auto) 9.9 % 01/16/25 12:00 Eos % (Auto) 1.2 % 01/16/25 12:00 Baso % (Auto) 0.7 % 01/16/25 12:00 Neut # (Auto) 4.75 10^3/uL (1.8-7.7) 01/16/25 12:00 Lymph # (Auto) 2.9 10^3/uL (0.8-4.8) 01/16/25 12:00 Villalba # (Auto) 0.9 10^3/uL (0.2-0.9) 01/16/25 12:00 Eos # (Auto) 0.1 10^3/uL (0.0-0.8) 01/16/25 12:00 Baso # (Auto) 0.1 10^3/uL (0.0-0.1) 01/16/25 12:00 Nucleated RBC % (auto) 0 % 01/16/25 12:00 Nucleated RBCs # 0.0 /100WBC 01/16/25 12:00 Sodium 139 mmol/L (136-145) 01/16/25 12:00 Potassium 3.8 mmol/L (3.5-5.1) 01/16/25 12:00 Chloride 101 mmol/L (98-107) 01/16/25 12:00 Carbon Dioxide 25 mmol/L (22-29) 01/16/25 12:00 Anion Gap 16.8 (5-19) 01/16/25 12:00 BUN 11 mg/dL (6-20) 01/16/25 12:00 Creatinine 0.9 mg/dL (0.7-1.2) 01/16/25 12:00 GFR Calculation 87.6 mL/min (90-130) L 01/16/25 12:00 Glucose 99 mg/dL (65-115) 01/16/25 12:00 Calculated Osmolality 287 mOsm/kg (285-295) 01/16/25 12:00 Calcium 9.3 mg/dL (8.5-10.5) 01/16/25 12:00 Total Bilirubin 0.4 mg/dL (0.15-1.2) 01/16/25 12:00 AST 23 U/L (0-40) 01/16/25 12:00 ALT 17 U/L (0-41) 01/16/25 12:00 Alkaline Phosphatase 90 U/L (40-130) 01/16/25 12:00 Total Protein 7.3 g/dL (6.6-8.7) 01/16/25 12:00 Albumin 4.3 g/dL (3.5-5.2) 01/16/25 12:00 Globulin 3.0 g/dL (1.3-4.6) 01/16/25 12:00 TSH 0.41 uIU/mL (0.27-4.20) 01/16/25 12:00 Salicylates < 0.3 mg/dL (3-10) L 01/16/25 12:00 Acetaminophen < 5.0 ug/mL (10-30) L 01/16/25 12:00 Ethyl Alcohol < 10 mg/dL (0-10) 01/16/25 12:00 No radiology studies performed this visit Discharge Plan Discharge Admit Provider: Stewart Ballard Clinical Impression: Acute psychosis Condition: Stable Coding Level of Care Code ED Chief Meteorologist for Layo Sanz
[2025-01-16 12:27] VITALS: O2SAT 99
--- NOTE | 2025-01-16 12:29 | ECG_ITS ---
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 Measurements Intervals [place] Rate: 89 P: 56 VA: 136 QRS: -35 QRSD: 81 T: 60 QT: 346 QTc: 422 Interpretive Statements SINUS RHYTHM WITH SINUS ARRHYTHMIA LEFT AXIS DEVIATION [QRS AXIS < -30] LOW QRS VOLTAGE IN PRECORDIAL LEADS [QRS DEFLECTION < 1.0 mV IN CHEST LEADS] Compared to ECG 08/12/2024 08:00:02 Left-axis deviation now present Low QRS voltage now present Left anterior fascicular block no longer present Electronically Signed On 01-16-2025 20:20:34 CDT by Dayton Merlos M.D. [email or web address]
[2025-01-16 12:32] LABS: Hematocrit 43.2 % (37-53); Hemoglobin 14.90 g/dL (11.27-16.99); Mean Corpuscular HGB Conc 34.5 g/dL (30-55); Mean Corpuscular Hemoglobin 30.1 pg (27-33); Mean Corpuscular Volume 87.3 fl (82-101); Nucleated Red Blood Cells % 0 %; Platelet Count 282 10^3/cmm (157-399); Red Blood Count 4.95 10^6/uL (3.85-5.65); White Blood Count 8.67 10^3/uL (3.29-11.43)
[2025-01-16 13:00] LABS: Alanine Aminotransferase 17 U/L (0-41); Albumin Level 4.3 g/dL (3.5-5.2); Alkaline Phosphatase 90 U/L (40-130); Anion Gap 16.8 (5-19); Aspartate Amino Transferase 23 U/L (0-40); Blood Urea Nitrogen 11 mg/dL (6-20); Calcium 9.3 mg/dL (8.5-10.5); Carbon Dioxide 25 mmol/L (22-29); Chloride 101 mmol/L (98-107); Globulin 3.0 g/dL (1.3-4.6); Glucose 99 mg/dL (65-115); Osmolality Calculated 287 mOsm/kg (285-295); Potassium 3.8 mmol/L (3.5-5.1); Sodium 139 mmol/L (136-145); Thyroid Stimulating Hormone 0.41 uIU/mL (0.27-4.20); Total Protein 7.3 g/dL (6.6-8.7)
[2025-01-16 13:01] LABS: Acetaminophen < 5.0 ug/mL (10-30); Alcohol Level < 10 mg/dL (0-10); Salicylate < 0.3 mg/dL (3-10)
--- OUTSIDE RECORDS SUMMARY | 2025-01-16 14:16 | XMS_ITS | Clinical Summary ---
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 Name Role Phone Unavailable Primary Care Provider [...] PM CDT Active naloxone (NARCAN) 4 mg/spray [place], Non-Aerosol EMERGENCY USE ONLY: Administer 1 spray [...] Abstract 11/03/2024 10:00 AM CDT Office Visit [place] [address] [facility] [place] [phone] Lebron Jaquez MD Open wound of left wrist, subsequent encounter (Primary Dx) 11/03/2024 Orders Only [place] [address] [facility] [place] [address] Lebron Jaquez MD 10/29/2024 Telephone [place] [address] [facility] [place] [address] Lebron Jaquez MD Question 10/29/2024 External Device Data STL ABSTRACTION Provider, Abstract 10/28/2024 External Device Data STL ABSTRACTION Provider, Abstract 10/28/2024 External Device Data STL ABSTRACTION Provider, Abstract 10/27/2024 Orders Only [facility] HIM [address] [place] [address] Provider, Abstract 10/23/2024 Telephone [place] [address] [facility] [place] [address] Lebron Jaquez MD Question 10/21/2024 External Device Data STL ABSTRACTION Provider, Abstract 10/21/2024 External Device Data STL ABSTRACTION Provider, Abstract 10/21/2024 External Device Data STL ABSTRACTION Provider, Abstract 10/21/2024 Travel 10/20/2024 11:23 PM CDT Anesthesia Event [facility] Operating Room [address] [place] [address] Maggie MONTANOSukhdev, 10/20/2024 10:25 PM CDT - 10/24/2024 3:37 PM CDT Hospital Encounter [facility] 3C Ortho Neuro [address] [place] [phone] Lebron Jaquez MD Abbas, MD Landon Johnson, Nick Cid DO Abscess of wrist Discharge Disposition: Home or Self Care 10/20/2024 5:23 PM CDT - 10/20/2024 6:10 PM CDT Surgery [facility] Operating Room [address] [place] [phone] Lebron Jaquez MD HAND INCISION AND DRAINAGE [...] on file 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 [employer] Gender Identity Not on file Sexual Orientation [...] GRAM STAIN Routine 10/20/2024 11:56 PM CDT [place] ANES INSERT ENDOTRACHEAL AIRWAY Routine 10/20/2024 11:43 PM CDT AZ I&D HEMATOMA SEROMA/FLUID COLLECTION 10/20/2024 5:23 PM [...] - 99 mg/dL 10/24/2024 11:23 AM CDT [facility] SPECIMEN SOURCE, GLUCOSE POC Capillary 10/24/2024 11:23 AM CDT [facility] Blood, whole 10/24/2024 11:2 3 AM CDT 10/24/2024 11:30 AM CDT Nick Navarrete DO POINT OF CARE TESTI NG Final Result [facility] CLIA # [id number] [address] [address] [place] [address] * HEPATITIS C RNA PCR, QUANTITATIVE (10/24/2024 10:51 AM CDT) Pathologist [facility] HCV RNA, QUANT REAL TIME PCR <15 NOT DETECTED NOT DETECTED IU/mL 10/27/2024 8:50 AM CDT [facility] [place] RNA QUANT PCR COPIES IU/ML <1.18 NOT DETECTED NOT DETECTED Log IU/mL 10/27/2024 8:50 AM CDT [facility] [place] Comment: For additional information, please refer to http://education.GroupSwim/faq/YUL14q7 (This link is being provided for informational/ educational purposes only.) Blood Venipuncture / Unknown 10/24/2024 10:51 AM CDT 10/24/2024 12:18 PM CD[address] [facility] [place] 10/27/2024 8:50 AM CDT Performing Organization Information: Site ID: [place] Name: [employer] Address: [address] [place] [id number] Director: Trung Yu MD Erick Waters MD CHEMISTRY ORDERABLES F inal Result Performing Organization Address [facility]/ZIP Co de Phone Number [place] * (ABNORMAL) HEPATITIS C ANTIBODY W REFLEX (10/24/2024 10:51 AM CDT) [facility] HEPATITIS C AB REACTIVE(A ) Non-react miguelina 10/24/2024 12:18 PM CDT [facility] Blood Venipuncture / Unknown 10/24/2024 10:51 AM CDT 10/24/2024 11:27 AM CDT Narrative [facility] - 10/24/2024 12:18 PM CDT Confirmatory testing by HCV_RNA by PCR will be automatically reflexed on reactive results. us Erick Waters MD CHEMISTRY ORDERABLES F inal Result [facility] CLHARLAN # [id number] [address] [address] [place] [address] * (ABNORMAL) CBC WITH DIFFERENTIAL (10/24/2024 4:08 AM CDT) Only the most recent of3 resultswithin the time period is included. [facility] WBC 6.3 4.8 - 10.8 K/uL 10/24/2024 4:48 AM CDT [facility] RBC 4.35(L) 4.60 - 6.20 M/uL 10/24/2024 4:48 AM CDT [facility] HEMOGLOBIN 13.1(L) 14.0 - 18.0 g/dL 10/24/2024 4:48 AM CDT [facility] HEMATOCRIT 39.4(L) 41.0 - 53.0 % 10/24/2024 4:48 AM CDT [facility] MCV 90.6 84.0 - 103.0 fL 10/24/2024 4:48 AM CDT [facility] MCH 30.1 27.0 - 34.0 pg 10/24/2024 4:48 [facility] M[facility] 33.2 30.0 - 35.0 g/dL 10/24/2024 4:48 AM CDT [facility] PLATELETS 339 140 - 440 K/uL 10/24/2024 4:48 AM CDT [facility] MPV 9.9 8.9 - 12.8 fL 10/24/2024 4:48 AM CDT [facility] RDW 12.0 11.0 - 14.5 % 10/24/2024 4:48 AM CDT [facility] RDW-STDEV 40.3 37.0 - 54.0 fL 10/24/2024 4:48 AM CDT [facility] NEUTROPHILS 45 42 - 75 % 10/24/2024 4:48 AM CDT [facility] LYMPHOCYTES 45(H) 24 - 44 % 10/24/2024 4:48 AM CDT [facility] MONOCYTES 5 2 - 10 % 10/24/2024 4:48 AM CDT [facility] EOSINOPHILS 4 0 - 7 % 10/24/2024 4:48 AM CDT [facility] BASOPHILS 1 0 - 1 % 10/24/2024 4:48 AM CDT [facility] IMMATURE GRANULOCYTES 0 0 - 2 % 10/24/2024 4:48 AM CDT [facility] NEUTROPHIL ABSOLUTE 2.81 2.00 - 8.00 K/uL 10/24/2024 4:48 AM CDT [facility] LYMPHOCYTE ABSOLUTE 2.83 1.20 - 4.00 K/uL 10/24/2024 4:48 AM CDT [facility] MONOCYTE ABSOLUTE 0.34 0.10 - 0.60 K/uL 10/24/2024 4:48 AM CDT [facility] EOSINOPHIL ABSOLUTE 0.23 0.00 - 0.70 K/uL 10/24/2024 4:48 AM CDT [facility] BASOPHILS ABSOLUTE 0.07 0.00 - 0.20 K/uL 10/24/2024 4:48 AM CDT [facility] IMMATURE GRANULOCYTES ABSOLUTE 0.02 0.00 - 0.10 K/uL 10/24/2024 4:48 AM T [facility] SMEAR REVIEWED: NN - No Action Needed 10/24/2024 4:48 AM T [facility] Blood Venipuncture / Unknown 10/24/2024 4:08 AM CDT 10/24/2024 4:32 AM CDT us Nick Navarrete DO HEMATOLOGY ORDERABL ES Final Result [facility] CLIA # [id number] [address] [address] [place] [address] * (ABNORMAL) BASIC METABOLIC PANEL (10/24/2024 4:08 AM CDT) Only the most recent of4 resultswithin the time period is included. SODIUM 138 136 - 145 mmol/L 10/24/2024 5:07 AM [facility] POTASSIUM 3.9 3.5 - 5.1 mmol/L 10/24/2024 5:07 AM [facility] CHLORIDE 103 98 - 107 mmol/L 10/24/2024 5:07 AM [facility] CO2 22 22 - 29 mmol/L 10/24/2024 5:07 AM [facility] CALCIUM 8.7 8.6 - 10.0 mg/dL 10/24/2024 5:07 AM [facility] BUN 14 6 - 20 mg/dL 10/24/2024 5:07 AM [facility] CREATININE 1.00 0.67 - 1.17 mg/dL 10/24/2024 5:07 AM [facility] GLUCOSE 100(H) 74 - 99 mg/dL 10/24/2024 5:07 AM [facility] GFR >60 >=60 mL/min/1.7 3 sq meter 10/24/2024 5:07 AM [facility] Comment:eGFR calculated with 2020 CKD-EPI equation. Vegetarian diet, extremely high or low muscle mass, and may affect results. Cystatin C with Glomerular Filtration Rate is a suitable alternative for these patients. ANION GAP 13 9 - 20 mmol/L 10/24/2024 5:07 AM [facility] Blood Venipuncture / Unknown 10/24/2024 4:08 AM CDT 10/24/2024 4:33 AM CDT us Nick Navarrete DO CHEMISTRY ORDERABLE S Final Result [facility] CLIA # [id number] [facility] [address] [place] [address] * VANCOMYCIN LEVEL TROUGH (10/22/2024 3:25 PM CDT) [facility] VANCOMYCIN, TROUGH 12.0 10.0 - 17.0 ug/mL 10/22/2024 5:21 PM CDT [facility] Blood Venipuncture / Unknown 10/22/2024 3:25 PM CDT 10/22/2024 4:31 PM CDT Bernard Rede MD CHEMISTRY ORDERABLES Fi nal Result Performing Organization Address [facility]/ZIP Co de Phone Number [facility] CLIA # [id number] [facility] [address] * HIV DETECTION W/REFLX CONFIRMATION (10/21/2024 9:39 AM CDT) [facility] HIV-1 AND 2 ABS AND HIV-1 AG Non-reacti ve Non-React miguelina 10/21/2024 10:45 AM CDT [facility] Blood Venipuncture / Unknown 10/21/2024 9:39 AM CDT 10/21/2024 9:48 AM CDT Nick Navarrete DO CHEMISTRY ORDERABLE S Final Result Performing Organization Address City/[facility]/ZIP Co de Phone Number [facility] CLIA # [id number] [facility] [address] * BLOOD CULTURE (10/21/2024 9:39 AM CDT) Only the most recent of2 resultswithin the time period is included. [facility] BLOOD CULTURE No growth 10/26/2024 10:35 AM CDT [facility] Blood (Peripheral) Venipuncture / Unknown 10/21/2024 9:39 AM CDT 10/21/2024 9:45 AM CDT Nick Navarrete DO MICROBIOLOGY - GENE RAL ORDERABLES Final Result Performing Organization Address [facility] Co de Phone Number [facility] CLIA # [id number] [address] [id number] * (ABNORMAL) HEMOGLOBIN A1C (10/21/2024 2:19 AM CDT) HEMOGLOBIN A1C 6.1(H) <=5.6 % 10/23/2024 11:06 AM CDT [facility] EST. AVG GLUCOSE, A1C 128 mg/dL 10/23/2024 11:06 AM CDT [facility] Blood Venipuncture / Unknown 10/21/2024 2:19 AM CDT 10/21/2024 2:34 AM CDT Narrative [facility] - 10/23/2024 11:06 AM CDT HGB A1C INTERPRETATION NORMAL: <5.7% PRE-DIABETES: 5.7 - 6.4% DIABETES: 6.5% OR GREATER Bernard Reed MD CHEMISTRY ORDERABLES Fi nal Result Performing Organization Address [facility] Co de Phone Number [facility] CLIA # [id number] [address] [address] * AFB CULTURE WITH STAIN (10/20/2024 11:56 PM CDT) CULTURE No acid fast bacilli isolated. 12/03/2024 8:47 AM CDT [facility] AFB STAIN No acid fast bacilli observed 12/03/2024 8:47 AM CDT [facility] Abscess (Wrist, left) Collection / Unknown 10/20/2024 11:56 PM CDT 10/21/2024 12:00 AM CDT Comment:left wrist abscess w ound culture [id number] Narrative [facility] - 12/03/2024 8:47 AM CDT Culture is held for a minimum of 6 weeks. us Lebron Jaquez MD MICROBIOLOGY - GENERAL OR DERABLES Final Result [facility] CLIA # [id number] [address] [address] * (ABNORMAL) ANAEROBIC/AEROBIC CULTURE W GRAM STAIN (10/20/2024 11:56 PM CDT) CULTURE STREPTOCOCCUS CONSTELLATUS(A) NAVARRO MCG/ML 10/27/2024 8:12 AM T [facility] Comment: Beta Streptococcus groups A, B, C, and G are predictably susceptible to ampicillin, penicillin, and cefazolin, but may be resistant to erythromycin and/or clindamycin. Susceptibility not routinely performed CULTURE STAPHYLOCOCCUS EPIDERMIDIS(A) [facility]O MCG/ML 10/27/2024 8:12 AM T [facility] CULTURE STAPHYLOCOCCUS LUGDUNENSIS(A) [facility]O MCG/ML 10/27/2024 8:12 AM T [facility] Comment:Staph lugdunensis is never considered a contaminant. This species of coagulase-neg Staph is an aggressive pathogen. CULTURE 2+ or moderate Fusobacterium nucleatum(A) NAVARRO MCG/ML 10/27/2024 8:12 AM CDT [facility] Comment:Susceptibility attem pted; susceptibility failed to grow. CULTURE 2+ or moderate Anaerobic Gram Positive Rods(A) NAVARRO MCG/ML 10/27/2024 8:12 AM T [facility] Comment: Other - Futher identified as Solobacterium. Anaerobe therapy recommendation: metronidazole. Alternatively: ampicillin/sulbactam or clindamycin. GRAM STAIN 1+ (Rare or Occasional) Polymorphonuclear WBC 10/27/2024 8:12 AM T [facility] GRAM STAIN 2+ (Few) Gram positive cocci 10/27/2024 8:12 AM CDT [facility] Comment:This is an appended report. These results have been appended to a previously preliminary verified report. GRAM STAIN [facility] Comment:The previously repor cresencio result 3+ (Moderate) Gram negative cocci is no longer being reported. Abscess (Wrist, left) Collection / Unknown 10/20/2024 11:56 PM CDT 10/21/2024 12:00 AM CDT Comment:left wrist abscess w ound culture [id number] Narrative [facility] - 10/27/2024 8:12 AM CDT Gram stain [...] MICROBIOLOGY - GENERAL OR DERABLES Final Result [facility] # [id number] [address] [place] [address] [place] [address] * [place] ANES INSERT ENDOTRACHEAL AIRWAY (10/20/2024 11:43 PM CDT) Narrative Jhon Gunter CRNA - 10/20/2024 11:43 PM CDT Jhon Gunter CRNA 10/20/2024 11:59 PM Airway Date/Time: 10/20/2024 11:43 PM Location: OR Plan: routine intubation Patient Identity Confirmed by: Verbally with patient and armband Airway: not difficult Staffing Performed: JORDAN/CAA Authorized by: Sukhdev Serrano II, DO Performed by: Jhno Gunter CRNA Indications and Patient Condition: Indications [...] ult from Last [address] [place] [address] [place] [address] [facility] Advance Directives For more information, please contact: [phone] * Full Code (Latest Code Status on File) Date Activated Date Inactivated Comments 10/20/2024 11:18 PM 10/24/2024 5:38 PM
--- OUTSIDE RECORDS SUMMARY | 2025-01-16 14:16 | XMS_ITS | Encounter Summary ---
Author Organization [employer] Address 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
[2025-01-16 16:31] VITALS: BP 129/86; PULSE 93; RESP 22; TEMP 36.6; O2SAT 100
--- NOTE | 2025-01-16 17:06 | PC.ADMIT ---
[address] Admission Note:Pt was brought to the ED by PD and ambulance. He was placed on a 96 hour hold by his mother for (per affidavite)Doing drugs and missing work. A UDS was collected but hadn't processed. Pt admits to using meth 2 days ago and states that all he did was over sleep and missed going to work at 10 box. He denies SI/HI or hallucinations. Pt did endorse having anxiety. Pt is unable to sit still during admission assessment and makes a grunting sound like he's in pain. When asked about pain he first denies and then rates all over body pain a 10 The patient,Jose Roberto Dumont,54 y/o, was given written information regarding hospital policies, unit procedures and contact persons. Patient's smoking status: never smoked. Vital Signs - 8 hr 01/16/25 12:27 01/16/25 16:32 Pulse Oximetry 99 Oxygen Delivery Method Room Air Room Air
[2025-01-16 17:24] LABS: PCP Screen Urine Negative (Negative)
[2025-01-16 20:31] VITALS: BP 111/70; PULSE 98; RESP 19; O2SAT 96
[2025-01-17 06:00] VITALS: BP 123/72; PULSE 77; RESP 18; TEMP 36.6; O2SAT 99
--- NOTE | 2025-01-17 09:56 | NUR.SHIFT ---
Pt has been sleeping the majority of the morning. He did get up for breakfast. He is still upset that he is on a 96 hour hold, which he believes is for no reason. He makes a lot of grunting noises and cusses like he is in pain, but when you ask he denies any needs. He is cooperative with no aggression towards staff or others. He denies SI/HI.
--- NOTE | 2025-01-17 11:26 | P.NPUHP_ITS ---
Providers/Chief Complaint 2 Admitting Physician: Stewart Ballard MD Primary Care Provider: Brigido Hamlin MD Chief Complaint: 96 HPI NPU History of Present Illness Jose Roberto Dumont is a 54 year old male who presented to the emergency department with the following report: Chief Complaint: Psychiatric Symptoms Stated Complaint: 96 Time Seen by Provider: 01/16/25 11:52 History of Present Illness: 54-year-old man with a history of anxiety, PTSD, cannabis abuse, bipolar disorder, methamphetamine abuse, hypertension, hyperlipidemia and diabetes who presents emergency room on a court ordered 96-hour hold. He says he does not know why he is here. He says admittedly he stayed out late last night and had missed going to work and had been drinking and fishing with a friend. Rosi says basically the same thing. Says that when he arrived home this morning at 7 AM after being out all night he appeared intoxicated and was making a bunch of noises . He was admitted to the neuropsychiatric unit for definitive treatment of those issues. He is known to [facility] through inpatient and outpatient services and an excerpt of his last inpatient psychiatric discharge summary is included below for context and the fact that there have been no subsequent changes. He presented positive for cannabis and methamphetamine reporting that there is no reason for him to be here. He made multiple assertion that his mother was just not wanting him to have fine and the issue is that she is approved. He reports that he supposedly went to the river with some girl and his mom does not want him to get any sex. He reports that nothing has been going on and that he has been his normal self. However we discussed the fact that his drug screen was positive for cannabis and amphetamines suggesting that it is very possible that he has had behaviors that he does not even remember due to intoxication for induced psychotic symptoms. He acknowledges that he has not been taking his medication and was very uncooperative heard in his room screaming things up he thinks under his breath but very loud and disturbing the treatment milieu and making some patients uncomfortable. We discussed that the process of a 96-hour hold does not guarantee that he is here for that amount of time but that we have that amount of time to assess what is going on. We discussed that we would reach out to his mother and see what her thoughts were. We talked about the physician and the emergency department initially thinking about discharging him until some of his behaviors were noted and that he was certainly intoxicated and having some odd behaviors on admission. We discussed that we would be fair and evaluated the patient and that there is no reason why you have to stay the whole time if there is clear evidence that that is a reasonable approach. We discussed considering restarting his medications after discussion of the risks, benefits and alternatives he understood and agreed to proceed as documented in this note. Per his 10/02/2023 [facility] inpatient psychiatric discharge summary: Diagnoses at Discharge Discharge Diagnosis (1) Generalized anxiety disorder: Status: Chronic (2) Chronic post-traumatic stress disorder: Status: Chronic (3) Methamphetamine use disorder, severe: Status: Acute (4) Cannabis use disorder: Status: Acute (5) History of bipolar disorder: Status: Acute Reason for Visit Reason for Visit: Depression, SI Brief History: History of Present Illness Jose Roberto Dumont is a 52 year old male who presented to the emergency department with the following report: Chief Complaint: Psychiatric Symptoms Stated Complaint: Depression, SI Time Seen by Provider: 10/02/23 13:09 History of Present Illness: 52-year-old man with a history of polysubstance abuse and depression who presents to the emergency room with depression symptoms. He says he has been having thoughts of suicide. No specific plan at this time. He says he has been having some mild auditory hallucinations. He says he used to be on depression meds but stopped taking them and then started using marijuana and apparently was admitted to the hospital recently with a abscess on his arm which I believe was from IV drug use. He says he has an appointment to be admitted to [facility] for drug rehab on . However he would like to be admitted today for psychiatric help. He was admitted to the neuropsychiatric unit for definitive treatment of those issues. He is known from previous hospitalizations with his last stay being back in 2019 and an excerpt of that discharge summary is included below for context. Patient presents today as a fairly limited historian secondary to lethargy likely secondary to withdrawing from methamphetamine as well as medications administered to assist him and maintaining decorum. He presented reporting that things have been really bad recently and that he had struggled to maintain his sobriety. He reports that things got really bad and he contacted [facility] with a goal of getting inpatient rehab. He reports that they gave him a bed date for 10/04/2023 but that he became very concerned that he would not be able to make it there or worse something bad was going to happen because he was so out of control. He brought himself to the hospital fearing his safety and ability to make it to rehab. He denied being able to maintain his previous outside medications and has not been attending any outpatient services for some time. His goal is to get to the rehab and hopefully be in a condition to function well there. We discussed the risks, benefits and alternatives of connecting with [facility] in the morning and identifying if the bed date was a take it tomorrow or leave it or if they would allow for any flexibility. We agreed that we would consider medications after we understood that reality. Per his 03/12/2020 [facility] inpatient psychiatric discharge summary: Discharge Diagnosis (1) Suicidal ideation: Status: Resolved (2) Alcohol dependence: Status: Resolved Qualifiers: Substance use status: with intoxication Complication of substance- induced condition: uncomplicated Qualified Code(s): F10.220 - Alcohol dependence with intoxication, uncomplicated (3) Amphetamine substance use disorder, moderate, in early remission: Status: Chronic (4) Alcohol intoxication: Status: Resolved Qualifiers: Complication of substance-induced condition: uncomplicated Qualified Code(s): F10.920 - Alcohol use, unspecified with intoxication, uncomplicated (5) Amphetamine intoxication: Status: Resolved Qualifiers: Complication of substance-induced condition: uncomplicated Qualified Code(s): F15.920 - Other stimulant use, unspecified with intoxication, uncomplicated Reason for Visit Reason for Visit: SI Brief History: History of Present Illness I have done this too many times. This is just a consequence for the life I have led. Jose Roberto Dumont is a 49 year old male who was admitted to the adult psychiatric unit on the strength of an affidavit filed by local police. Apparently, the officer was dispatched to the patient's home. It is unclear how police became aware that this man was suicidal. While being questioned, he made suicidal statements and that he wished we would just shoot him. The patient denies at this time that he is having thoughts of ending his life. He says that he is in acute crisis after having lost his job. He says that he is a lifetime of partying and he is suffering the consequences. Apparently, he was partying over the weekend. 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 He subsequently got to work, and passed out in the parking lot. He has now been terminated from his employment. He apparently then went back to where he was staying which is with his mother. His urine drug screen is positive for methamphetamine, marijuana, benzodiazepines, and his blood alcohol level was 144. He says that at this point, his major concern is being in the substance abuse withdrawal. We tried to discuss issues of mental health treatment. He said that he has been through it all and has been treated with all kinds of medications. None have worked. He is not interested in more medication treatment. We discussed his substance abuse history. He says that recently, he has been drinking between 5 and 10 shots per night. It is unknown if this is accurate. He uses marijuana on a regular basis. He says the methamphetamine and benzodiazepines are not a persistent problem for him and that it was more of a self-destructive act. He denied suicidal or homicidal ideation. He denied the presence of auditory or visual hallucinations. He refused to discuss symptoms of depression. He apparently has engaged in substance use in a maladaptive manner for most of his life. He says that his divorce and his estrangement from one of his 2 children is all due to his behavior when he has been inebriated or intoxicated. He has been through rehab on multiple occasions. He said that it provides him no benefit. He says the most effective intervention has been his active participation in either Alcoholics Anonymous or Narcotics Anonymous. He does not have a sponsor at this time. He has not been attending either at this time. Hospital Course Hospital Course Assessment and plan (1) Suicidal ideation: Status: Acute (2) Alcohol dependence: Status: Acute Qualifiers: Substance use status: with intoxication Complication of substance- induced condition: uncomplicated Qualified Code(s): F10.220 - Alcohol dependence with intoxication, uncomplicated (3) Amphetamine substance use disorder, moderate, in early remission: Status: Chronic (4) Alcohol intoxication: Status: Acute Qualifiers: Complication of substance-induced condition: uncomplicated Qualified Code(s): F10.920 - Alcohol use, unspecified with intoxication, uncomplicated (5) Amphetamine intoxication: Status: Acute Qualifiers: Complication of substance-induced condition: uncomplicated Qualified Code(s): F15.920 - Other stimulant use, unspecified with intoxication, uncomplicated Additional A&P Information Due to the psychiatric conditions and treatment listed in the Assessment and Plan - the patient requires continued hospitalization. Will provide a safe and therapeutic environment for patient.. Will continue inpatient treatment to allow for medication adjustment and monitoring. Will continue q15 min safety checks. Admission plan: It is likely that his assessment that this mental health issue is driven primarily by alcohol and substance abuse is accurate. He was not inclined to discuss mental health interventions outside of alcohol and substance abuse. At this point, he was motivated to get through the withdrawal period and feel better so that he could think more clearly. We did not discuss issues of treatment with antidepressants or other medications. He was started on Seroquel 100 mg at bedtime and Ativan 1 mg 3 times daily which will be tapered throughout the withdrawal. He is on the [facility] protocol. Hospital day #3: Patient was exhibiting no signs of alcohol withdrawal. He reported that he was doing well. He was despondent about having to go home and look for a job. However he stated he was not going to be able to accomplish that while in the hospital and was requesting discharge. He was not an imminent risk to self or others. His wish was granted. Hospital Course Hospital Course He acclimated to the individual, group and milieu therapies provided. He presented with significant addiction issues and anxiety which he identified. Otherwise he expressed concern about having a bed date but he did not want to miss at [facility]. We explored the possibility of adding medications but he reported that he was not even sure if the places he ultimately wanted to go would except people on medication and that he has not had significant success with medication. He did ultimately allow us to prescribe Zyprexa 5 mg p.o. nightly as he reported some success with that. He worked with the social work team to to ensure that his bed at [facility] was not for fitted as we took a few days to stabilize him. He showed modest improvement during his stay and was able to contract for safety outside hospital prior to discharge. During the hospitalization, patient had routine laboratory studies which were within normal limits except for few outliers. Additionally there was a general medical evaluation which was also within normal limits and revealed no new acute processes. Discharge Summary: At the time of discharge, patient denied psychosis or lethality. Mood and anxiety were well managed. Patient endorsed a plan to avoid all drugs of abuse and follow-up with the aftercare recommendations of the treatment team. Patient was evaluated and deemed to be absent credible lethality, and had achieved the maximum benefit from an inpatient hospitalization, so was discharged. Meds NPU Home Medications ?Medication ?Instructions ?Recorded ?Confirmed ?Last Taken ?Type CPAP 6-16 cm mmHg setting with #1 ea 11/05/24 01/16/25 Unknown Rx mask, tubing and supplies atorvastatin 20 mg tablet 20 mg PO BEDTIME #90 tabs 01/16/25 01/15/25 Rx lisinopril 2.5 mg tablet 2.5 mg PO DAILY #90 tabs 01/16/25 01/15/25 Rx metformin 500 mg tablet 500 mg PO BID #180 tabs 11/1101/16/25 01/15/25 Rx omeprazole 20 mg capsule,delayed 20 mg PO DAILY PRN ac id reflux #30 11/26/24 01/16/25 Unknown Rx release caps olanzapine 15 mg tablet 15 mg PO QPM 01/16/2501/15/25 History Allergies Allergy/AdvReac Type Severity Reaction Status Date / Time No Known Allergies Allergy Verified 11/12/24 08:49 PFS NPU 2 PFS: Medical History (Updated 01/16/25 @ 14:04 by Nellie Giles MD) AARTI (obstructive sleep apnea) Pre-diabetes Essential hypertension Obesity (BMI 30.0-34.9) Unspecified psychosis Bipolar II disorder Alcohol use disorder, severe, dependence Marijuana dependence Methamphetamine use disorder, severe, dependence Psychiatric care Cigarette nicotine dependence Chronic post-traumatic stress disorder Generalized anxiety disorder Surgical History S/P foot surgery, left S/P foot surgery, right Family History Grandfather Cancer colon and then lung Mother Diabetes Psychiatric illness Father Diabetes Social History Smoking and tobacco/nicotine status: never used tobacco/nicotine Second hand smoke exposure: Yes Alcohol intake: former Year of sobriety/quit date alcohol: 2023 Former alcohol use details: last use 04/09/24 Substance/Drug Use: former Former substance use details: last use 04/09/24 Adopted: No Caregiver/support person: No Lives independently: Yes Household members: family Housing: House Marital status: Marital status details: 2001 Number of children: 2 Number of grandchildren: 0 Highest education level completed: Some College, No Degree service: No Current occupational status: employed Current occupation: [employer] Current occupational exposures/hazards: Yes (chemicals) Pets and animals: No Leisure activites: other Leisure activities details: write letters to Fabien, listen to latter day music, watch TV, listen to bird Sexually active: No Do you think of yourself as: Straight/Heterosexual Current gender identity: Male Mildred/Adventism: Episcopal Special mildred needs: No Agree to transfusion: Yes Mental Status Exam 2 MSE Comments: This is an overweight versus obese white male with fairly tanned skin in hospital scrubs with limited grooming and eye contact. No abnormal movements except for significant psychomotor agitation. Mostly uncooperative with exam in moderate to extreme distress. Speech was limited and increased rate and volume. Mood described as pissed off, affect congruent and irritable. Thought process linear. Thought content: Patient denied suicidal or homicidal ideation, there were no delusions reported or noted though he was heard speaking to himself and reporting his mother being out to get him and there were delusional issues noted in the emergency department, he denied any auditory or visual hallucinations. Attention and concentration were limited and memory was mostly unreliable and likely purposefully so but none were formally tested. He was alert and oriented x 3. Insight, judgment and impulse control are impaired. Vitals/I&O/Wt Last Vital Signs Temp 97.8 F 01/17/25 06:00 Pulse 77 01/17/25 06:00 Resp 18 01/17/25 06:00 BP 123/72 01/17/25 06:00 Pulse Ox 99 01/17/25 06:00 O2 Del Method Room Air 01/17/25 06:00 Data NPU 01/16/25 12:00 01/16/25 12:00 A&P Assessment and plan 1. Generalized anxiety disorder: 2. Chronic post-traumatic stress disorder: 3. Methamphetamine use disorder, severe: 4. Cannabis use disorder: 5. History of bipolar disorder: 6. Suicidal ideations: 7. Methamphetamine use disorder, severe, dependence: Plan: This is a 54-year-old white male with history of addiction and mental health challenges brought in to hospital involuntarily with concerns about recent relapse, possible lethality and erratic behavior. Patient has been noncompliant with outpatient medications. 1. Consider restarting medications. 2. Encourage individual, group and milieu therapy. 3. Continue to 15-minute checks for safety. 4. Encourage sober living treatment after discharge at the highest level care to which he is willing to commit. 5. Will attempt to gather collateral information. 6. Observe against the backdrop of the 96-hour hold. PDMP PDMP Reviewed: Not Reviewed Involuntary Hold Information 2 Hold Status: Legal Status: 96 Hour Hold Date/Time Hold Expires: 0 01/22/25@1200 96 Hour Hold: 96 Hour Involuntary Admission: Yes Other Hold: Hold End Date: 03/13/24 Attestations NPU 2 Medical Necessity Statement*: Inpatient hospitalization is medically necessary and deemed to ?be ?the clinically appropriate intervention ?at this time.? We will monitor/initiate medications and make changes as indicated.? The patient will be in the hospital for over 2 midnights.? Likely length of stay 3-5 days. Coding Level of Care Code Acute Code for [facility] Fwd Diagnoses Generalized anxiety disorder F41.1 Chronic post-traumatic stress disorder F43.12 Methamphetamine use disorder, severe F15.20 Cannabis use disorder F12.90 History of bipolar disorder Z86.59 Suicidal ideations R45.851 Methamphetamine use disorder, severe, dependence F15.20
--- NOTE | 2025-01-17 13:29 | PC.OT ---
OT evaluation attempted with pt declining services at this time; will attempt again at a later time.
[2025-01-17 14:00] VITALS: BP 116/74; PULSE 70; RESP 16; TEMP 37; O2SAT 98
[2025-01-17 20:17] VITALS: BP 118/74; PULSE 90; RESP 20; TEMP 36.4; O2SAT 98
--- NOTE | 2025-01-18 05:51 | PC.NURSE ---
pt refused height and weight, charge nurse notified
--- NOTE | 2025-01-18 06:03 | PC.NURSE ---
01/17/25 Repeatedly approaching staff with aggressive behavior et language, demanding more anti-anxiety medications. Patient growls et curses even when not engaged with others. Patient has been administered multiple anti-anxiety medications et physician is present. After conversation with physician, patient is advised to try to rest et utilize coping/self control methods. Patient is noted to angrily retreat towards his room, whereby he lays down et is noted soon thereafter to be asleep. Patient rested soundly throughout the NOC without further incident, et was observed to get up to use the restroom et return to his bed et lie down. He continues to growl when making eye contact with staff, however is currently resting with eyes closed, absent of s/sx of distress. Nursing continues to monitor for needs et changes.
--- NOTE | 2025-01-18 06:20 | PC.NURSE ---
pt refused vs, nurse notified, resp 17
--- NOTE | 2025-01-18 10:15 | NUR.SHIFT ---
Pt states that he slept pretty good last night. He rates his anxiety a 5/10 and depression a 8/10. No reports of SI/HI or hallucinations. No pain reported. He is laying in bed with his eyes closed. He is less irritable at this time and will cooperate and answer questions.
[2025-01-18 14:00] VITALS: BP 94/63; PULSE 70; RESP 16; TEMP 36.6; O2SAT 98
--- NOTE | 2025-01-18 16:06 | P.NPUPN_ITS ---
Subjective NPU 2 Subjective: Patient presented today reporting that he is doing a little better. Staff report less agitation and irritability and less lashing out. We discussed the fact that although he feels angry at his mother for the 96-hour hold he has acknowledged the fact that by relapsing he cannot be positive about what behaviors he was exhibiting. We discussed the social work team coming tomorrow and is trying to identify the situation and what we can do to make sure that his recovery is moving forward. He denied any side effects to medication. Mental Status Exam 2 MSE Comments: This is an overweight versus obese white male with fairly tanned skin in hospital scrubs with limited grooming and eye contact. No abnormal movements except for significant psychomotor agitation. Mostly uncooperative with exam in moderate to extreme distress. Speech was limited and increased rate and volume. Mood described as pissed off, affect congruent and irritable. Thought process linear. Thought content: Patient denied suicidal or homicidal ideation, there were no delusions reported or noted though he was heard speaking to himself and reporting his mother being out to get him and there were delusional issues noted in the emergency department, he denied any auditory or visual hallucinations. Attention and concentration were limited and memory was mostly unreliable and likely purposefully so but none were formally tested. He was alert and oriented x 3. Insight, judgment and impulse control are impaired. Vitals/I&O/Wt Last Vital Signs Temp 98 F 01/18/25 14:00 Pulse 70 01/18/25 14:00 Resp 16 01/18/25 14:00 BP 94/63 01/18/25 14:00 Pulse Ox 98 01/18/25 14:00 O2 Del Method Room Air 01/18/25 14:00 Data NPU 01/16/25 12:00 01/16/25 12:00 A&P Assessment and plan 1. Generalized anxiety disorder: 2. Chronic post-traumatic stress disorder: 3. Methamphetamine use disorder, severe: 4. Cannabis use disorder: 5. History of bipolar disorder: 6. Suicidal ideations: 7. Methamphetamine use disorder, severe, dependence: Plan: This is a 54-year-old white male with history of addiction and mental health challenges brought in to hospital involuntarily with concerns about recent relapse, possible lethality and erratic behavior. Patient has been noncompliant with outpatient medications. 1. Consider restarting medications. 2. Encourage individual, group and milieu therapy. 3. Continue to 15-minute checks for safety. 4. Encourage sober living treatment after discharge at the highest level care to which he is willing to commit. 5. Will attempt to gather collateral information. 6. Observe against the backdrop of the 96-hour hold. PDMP PDMP Reviewed: Not Reviewed Involuntary Hold Information 2 Hold Status: Legal Status: 96 Hour Hold Date/Time Hold Expires: 0 01/22/25@1200 96 Hour Hold: 96 Hour Involuntary Admission: Yes Other Hold: Hold End Date: 03/13/24 Attestations NPU 2 Medical Necessity Statement*: Inpatient hospitalization is medically necessary and deemed to ?be ?the clinically appropriate intervention ?at this time.? We will monitor/initiate medications and make changes as indicated.? Likely length of stay 2-4 days. Coding Level of Care Code Acute Code for [facility] Fwd Diagnoses Generalized anxiety disorder F41.1 Chronic post-traumatic stress disorder F43.12 Methamphetamine use disorder, severe F15.20 Cannabis use disorder F12.90 History of bipolar disorder Z86.59 Suicidal ideations R45.851 Methamphetamine use disorder, severe, dependence F15.20
[2025-01-18] MEDS: ATORVASTATIN 10 MG TABLET 20 MG PO (20:47)
[2025-01-18 20:51] VITALS: BP 135/68; PULSE 87; RESP 19; TEMP 36.7; O2SAT 99
[2025-01-19 06:00] VITALS: BP 107/76; PULSE 68; RESP 16; TEMP 36.7; O2SAT 95
--- NOTE | 2025-01-19 13:50 | P.NPUPN_ITS ---
Subjective NPU 2 Subjective: Patient presented today reporting that he still frustrated with being here. He continues to be isolative per staff reports and direct observation spending his time essentially in bed with the blankets pulled over his head. We talked about the treatment team attempting to contact his mother to get some collateral information from her. He reports that his mother's word should not be considered as significant or finding as he reports she had 2 suicide attempts in the past year or so and was treated here in this hospital. He denies side effects of the medication and continues to focus on discharge sooner rather than later. Mental Status Exam 2 MSE Comments: This is an overweight versus obese white male with fairly tanned skin in hospital scrubs with limited grooming and eye contact. No abnormal movements except for significant psychomotor agitation. More cooperative with exam in moderate distress. Speech was limited and increased rate and volume. Mood described as pissed off, affect congruent and irritable. Thought process linear. Thought content: Patient denied suicidal or homicidal ideation, there were no delusions reported or noted though he was heard speaking to himself and reporting his mother being out to get him and there were delusional issues noted in the emergency department, he denied any auditory or visual hallucinations. Attention and concentration were limited and memory was mostly unreliable and likely purposefully so but none were formally tested. He was alert and oriented x 3. Insight, judgment and impulse control are impaired. Vitals/I&O/Wt Last Vital Signs Temp 98.1 F 01/19/25 06:00 Pulse 68 01/19/25 06:00 Resp 16 01/19/25 06:00 BP 107/76 01/19/25 06:00 Pulse Ox 95 01/19/25 06:00 O2 Del Method Room Air 01/19/25 06:00 Data NPU 01/16/25 12:00 01/16/25 12:00 A&P Assessment and plan 1. Generalized anxiety disorder: 2. Chronic post-traumatic stress disorder: 3. Methamphetamine use disorder, severe: 4. Cannabis use disorder: 5. History of bipolar disorder: 6. Suicidal ideations: 7. Methamphetamine use disorder, severe, dependence: Plan: This is a 54-year-old white male with history of addiction and mental health challenges brought in to hospital involuntarily with concerns about recent relapse, possible lethality and erratic behavior. Patient has been noncompliant with outpatient medications. 1. Consider restarting medications. 2. Encourage individual, group and milieu therapy. 3. Continue to 15-minute checks for safety. 4. Encourage sober living treatment after discharge at the highest level care to which he is willing to commit. 5. Will attempt to gather collateral information. 6. Observe against the backdrop of the 96-hour hold. PDMP PDMP Reviewed: Not Reviewed Involuntary Hold Information 2 Hold Status: Legal Status: 96 Hour Hold Date/Time Hold Expires: 01/22/25 @1200 96 Hour Hold: 96 Hour Involuntary Admission: Yes Other Hold: Hold End Date: 03/13/24 Attestations NPU 2 Medical Necessity Statement*: Inpatient hospitalization is medically necessary and deemed to ?be ?the clinically appropriate intervention ?at this time.? We will monitor/initiate medications and make changes as indicated.? Likely length of stay 1-4 days. Coding Level of Care Code Acute Code for [facility] Fwd Diagnoses Generalized anxiety disorder F41.1 Chronic post-traumatic stress disorder F43.12 Methamphetamine use disorder, severe F15.20 Cannabis use disorder F12.90 History of bipolar disorder Z86.59 Suicidal ideations R45.851 Methamphetamine use disorder, severe, dependence F15.20
[2025-01-19 14:00] VITALS: BP 95/65; PULSE 78; RESP 16; TEMP 36.6; O2SAT 94
[2025-01-19] MEDS: ATORVASTATIN 10 MG TABLET 20 MG PO (20:02)
[2025-01-19 20:03] VITALS: BP 119/88; PULSE 104; RESP 16; O2SAT 91
--- NOTE | 2025-01-20 04:55 | PC.NURSE ---
SHIFT SUMMARY PATIENT HAS RESTED WITHOUT S/S OF DISTRESS NOTED THIS NIGHT.
[2025-01-20 06:00] VITALS: RESP 16
[2025-01-20 12:58] VITALS: BP 109/76; PULSE 82; RESP 20; TEMP 36.6; O2SAT 96
--- NOTE | 2025-01-20 13:49 | P.NPUPN_ITS ---
Subjective NPU 2 Subjective: Patient presented today reporting that he is doing okay. He continues to report this being nothing less than a conflict with his mom. We discussed however the challenges that his unemployment and drug use might be bring into the home. We discussed that maybe he should look to have his own place which would take pressure off of their relationship. He reports that he got a job but is afraid that being here may have ruined that. However he endorsed that he had not called them which we discussed him being in the hospital certainly could be something they would excuse but if they do not hear anything then they likely would fire him. He was open to the initiation of naltrexone as well as Neurontin for anxiety after discussion of the risks, benefits and alternatives he understood and agreed to proceed as is documented in this note. Mental Status Exam 2 MSE Comments: This is an overweight versus obese white male with fairly tanned skin in hospital scrubs with limited grooming and eye contact. No abnormal movements except for significant psychomotor agitation. More cooperative with exam in moderate distress. Speech was limited and increased rate and volume. Mood described as okay, affect congruent and less irritable. Thought process linear. Thought content: Patient denied suicidal or homicidal ideation, there were no delusions reported or noted though he was heard speaking to himself and reporting his mother being out to get him and there were delusional issues noted in the emergency department, he denied any auditory or visual hallucinations. Attention and concentration were limited and memory was mostly unreliable and likely purposefully so but none were formally tested. He was alert and oriented x 3. Insight, judgment and impulse control are impaired. Vitals/I&O/Wt Last Vital Signs Temp 97.9 F 01/20/25 12:58 Pulse 82 01/20/25 12:58 Resp 20 H 01/20/25 12:58 BP 109/76 01/20/25 12:58 Pulse Ox 96 01/20/25 12:58 O2 Del Method Room Air 01/20/25 12:58 Data NPU 01/16/25 12:00 01/16/25 12:00 A&P Assessment and plan 1. Generalized anxiety disorder: 2. Chronic post-traumatic stress disorder: 3. Methamphetamine use disorder, severe: 4. Cannabis use disorder: 5. History of bipolar disorder: 6. Suicidal ideations: 7. Methamphetamine use disorder, severe, dependence: Plan: This is a 54-year-old white male with history of addiction and mental health challenges brought in to hospital involuntarily with concerns about recent relapse, possible lethality and erratic behavior. Patient has been noncompliant with outpatient medications. 1. Consider restarting medications. Initiated naltrexone for cravings and Neurontin for anxiety. 2. Encourage individual, group and milieu therapy. 3. Continue to 15-minute checks for safety. 4. Encourage sober living treatment after discharge at the highest level care to which he is willing to commit. 5. Will attempt to gather collateral information. 6. Observe against the backdrop of the 96-hour hold. PDMP PDMP Reviewed: Not Reviewed Involuntary Hold Information 2 Hold Status: Legal Status: 96 Hour Hold Date/Time Hold Expires: 01/22/25 @1200 96 Hour Hold: 96 Hour Involuntary Admission: Yes Other Hold: Hold End Date: 03/13/24 Attestations NPU 2 Medical Necessity Statement*: Inpatient hospitalization is medically necessary and deemed to ?be ?the clinically appropriate intervention ?at this time.? We will monitor/initiate medications and make changes as indicated.? Likely length of stay 1-3 days. Coding Level of Care Code Acute Code for g Fwd Diagnoses Generalized anxiety disorder F41.1 Chronic post-traumatic stress disorder F43.12 Methamphetamine use disorder, severe F15.20 Cannabis use disorder F12.90 History of bipolar disorder Z86.59 Suicidal ideations R45.851 Methamphetamine use disorder, severe, dependence F15.20
--- NOTE | 2025-01-20 14:11 | PC.NURSE ---
spoke with Rn from 01/20/25 pt was only administered 2.5mg lisinopril at 0836, do to scan not showing up on mar was rescaned at 0837 before administration.
[2025-01-20] MEDS: ATORVASTATIN 10 MG TABLET 20 MG PO (19:20)
[2025-01-20 19:37] VITALS: BP 118/85; PULSE 95; RESP 16; O2SAT 95
[2025-01-21 06:00] VITALS: BP 127/89; PULSE 88; RESP 16; TEMP 36.7; O2SAT 97
--- NOTE | 2025-01-21 08:06 | P.NPUPN_ITS ---
Subjective NPU 2 Subjective: Patient presented today continuing to be irritable about being here. He was frustrated because we discussed that discharging home until a conversation had taken place between his mother and he given that they have been in conflict which led to him being here and he is not allowing us to speak to her but expect us to discharge him back to her home. He was accepting of this and reported willingness to do outpatient services moving forward. He denied any side effects to the medicine. We discussed the risks, benefits and alternatives of increasing his Neurontin and that he understood and agreed to proceed as documented in this note. Mental Status Exam 2 MSE Comments: This is an overweight versus obese white male with fairly tanned skin in hospital scrubs with limited grooming and eye contact. No abnormal movements except for significant psychomotor agitation. More cooperative with exam in moderate distress. Speech was limited and increased rate and volume. Mood described as okay, affect congruent and less irritable. Thought process linear. Thought content: Patient denied suicidal or homicidal ideation, there were no delusions reported or noted though he was heard speaking to himself and reporting his mother being out to get him and there were delusional issues noted in the emergency department, he denied any auditory or visual hallucinations. Attention and concentration were limited and memory was mostly unreliable and likely purposefully so but none were formally tested. He was alert and oriented x 3. Insight, judgment and impulse control are impaired. Vitals/I&O/Wt Last Vital Signs Temp 98.1 F 01/21/25 06:00 Pulse 88 01/21/25 06:00 Resp 16 01/21/25 06:00 BP 127/89 01/21/25 06:00 Pulse Ox 97 01/21/25 06:00 O2 Del Method Room Air 01/21/25 06:00 Data NPU 01/16/25 12:00 01/16/25 12:00 A&P Assessment and plan 1. Generalized anxiety disorder: 2. Chronic post-traumatic stress disorder: 3. Methamphetamine use disorder, severe: 4. Cannabis use disorder: 5. History of bipolar disorder: 6. Suicidal ideations: 7. Methamphetamine use disorder, severe, dependence: Plan: This is a 54-year-old white male with history of addiction and mental health challenges brought in to hospital involuntarily with concerns about recent relapse, possible lethality and erratic behavior. Patient has been noncompliant with outpatient medications. 1. Consider restarting medications. Initiated naltrexone for cravings and Neurontin for anxiety. Increase Neurontin. 2. Encourage individual, group and milieu therapy. 3. Continue to 15-minute checks for safety. 4. Encourage sober living treatment after discharge at the highest level care to which he is willing to commit. 5. Will attempt to gather collateral information. Patient acknowledged that we can talk to his mother as we advised that we would not be discharging him back to her place without her being a participant in this process. 6. Observe against the backdrop of the 96-hour hold. Follow-up for 21-day hold. PDMP PDMP Reviewed: Not Reviewed Involuntary Hold Information 2 Hold Status: Legal Status: 96 Hour Hold Date/Time Hold Expires: 01/22/25 @1200 96 Hour Hold: 96 Hour Involuntary Admission: Yes Other Hold: Hold End Date: 03/13/24 Attestations NPU 2 Medical Necessity Statement*: Inpatient hospitalization is medically necessary and deemed to ?be ?the clinically appropriate intervention ?at this time.? We will monitor/initiate medications and make changes as indicated.? Likely length of stay 1-3 days. Coding Level of Care Code Acute Code for g Fwd Diagnoses Generalized anxiety disorder F41.1 Chronic post-traumatic stress disorder F43.12 Methamphetamine use disorder, severe F15.20 Cannabis use disorder F12.90 History of bipolar disorder Z86.59 Suicidal ideations R45.851 Methamphetamine use disorder, severe, dependence F15.20
--- NOTE | 2025-01-21 09:34 | NUR.SHIFT ---
Pt states that he slept pretty good last night. He rates his anxiety and depression a 10/10, I offered him vistaril and he accepted. No reports of SI/HI or hallucinations. No pain reported. Pt is calm and cooperative on assessment.
[2025-01-21 13:24] VITALS: BP 88/61; PULSE 73; RESP 16; TEMP 36.6; O2SAT 94
[2025-01-21] MEDS: ATORVASTATIN 10 MG TABLET 20 MG PO (20:01)
[2025-01-21 21:07] VITALS: BP 113/69; PULSE 76; RESP 18; TEMP 36.7; O2SAT 97
[2025-01-22 06:00] VITALS: BP 95/57; PULSE 75; RESP 18; TEMP 36.7; O2SAT 93
[2025-01-22 14:00] VITALS: BP 91/56; PULSE 82; RESP 17; TEMP 36.4; O2SAT 95
--- NOTE | 2025-01-22 15:38 | P.NPUPN_ITS ---
Subjective NPU 2 Subjective: Patient presents today reporting that he finally spoke to his mother and he reported that he can come home as long as he stays clean and sober. He reports that he talked with [place] [employer] [place] police and contact with him and told him we would have a boat for him for his absence. He endorsed a plan to engage in treatment and was less irritable per staff reports and direct observation. We discussed the plan to speak with his mother and if all things are intact from that conversation we will plan for discharge tomorrow. He denied any side effects of the medication Mental Status Exam 2 MSE Comments: This is an overweight versus obese white male with fairly tanned skin in hospital scrubs with limited grooming and eye contact. No abnormal movements except for significant psychomotor agitation. More cooperative with exam in moderate distress. Speech was limited and increased rate and volume. Mood described as okay, affect congruent and less irritable. Thought process linear. Thought content: Patient denied suicidal or homicidal ideation, there were no delusions reported or noted though he was heard speaking to himself and reporting his mother being out to get him and there were delusional issues noted in the emergency department, he denied any auditory or visual hallucinations. Attention and concentration were limited and memory was mostly unreliable and likely purposefully so but none were formally tested. He was alert and oriented x 3. Insight, judgment and impulse control are impaired. Vitals/I&O/Wt Last Vital Signs Temp 97.6 F 01/22/25 14:00 Pulse 82 01/22/25 14:00 Resp 17 01/22/25 14:00 BP 91/56 01/22/25 14:00 Pulse Ox 95 01/22/25 14:00 O2 Del Method Room Air 01/22/25 06:00 Data NPU 01/16/25 12:00 01/16/25 12:00 A&P Assessment and plan 1. Generalized anxiety disorder: 2. Chronic post-traumatic stress disorder: 3. Methamphetamine use disorder, severe: 4. Cannabis use disorder: 5. History of bipolar disorder: 6. Suicidal ideations: 7. Methamphetamine use disorder, severe, dependence: Plan: This is a 54-year-old white male with history of addiction and mental health challenges brought in to hospital involuntarily with concerns about recent relapse, possible lethality and erratic behavior. Patient has been noncompliant with outpatient medications. 1. Consider restarting medications. Initiated naltrexone for cravings and Neurontin for anxiety. Increase Neurontin. 2. Encourage individual, group and milieu therapy. 3. Continue to 15-minute checks for safety. 4. Encourage sober living treatment after discharge at the highest level care to which he is willing to commit. 5. Will attempt to gather collateral information. Patient acknowledged that we can talk to his mother as we advised that we would not be discharging him back to her place without her being a participant in this process. 6. Observe against the backdrop of the 96-hour hold. Follow-up for 21-day hold. PDMP PDMP Reviewed: Not Reviewed Involuntary Hold Information 2 Hold Status: Legal Status: 96 Hour Hold Date/Time Hold Expires: 01/22/25 @1200 96 Hour Hold: 96 Hour Involuntary Admission: Yes Other Hold: Hold End Date: 03/13/24 Attestations NPU 2 Medical Necessity Statement*: Inpatient hospitalization is medically necessary and deemed to ?be ?the clinically appropriate intervention ?at this time.? We will monitor/initiate medications and make changes as indicated.? Likely length of stay 1-2 days. Coding Level of Care Code Acute Code for g Fwd Diagnoses Generalized anxiety disorder F41.1 Chronic post-traumatic stress disorder F43.12 Methamphetamine use disorder, severe F15.20 Cannabis use disorder F12.90 History of bipolar disorder Z86.59 Suicidal ideations R45.851 Methamphetamine use disorder, severe, dependence F15.20
[2025-01-22 20:09] VITALS: BP 115/74; PULSE 85; RESP 18; TEMP 36.7; O2SAT 95
[2025-01-22] MEDS: ATORVASTATIN 10 MG TABLET 20 MG PO (20:24)
[2025-01-23 06:00] VITALS: BP 105/72; PULSE 77; RESP 18; TEMP 36.5; O2SAT 95
[2025-01-23 14:23] VITALS: BP 128/80; PULSE 74; RESP 18; TEMP 36.4; O2SAT 96
== END 2025-01-23 14:41 | disposition home or self-care (01) | DRG 885 ==
LOC: ER 14:14 → NP 14:26
PROVIDERS: Admitting Provider Psychiatry & Neurology Psychiatry; Emergency Provider Emergency Medicine; PCP Family Medicine; Visit Provider Psychiatry & Neurology Psychiatry
DX: F31.9 Bipolar disorder, unspecified (principal); F15.20 Other stimulant dependence, uncomplicated; R45.851 Suicidal ideations; F41.1 Generalized anxiety disorder; F43.12 Post-traumatic stress disorder, chronic; Z87.891 Personal history of nicotine dependence; I10 Essential (primary) hypertension
CPT/HCPCS: 36415; 80053; 80306; 80307; 84443; 85025; 93005; 97150; 97165; 99285; J9999

== ENCOUNTER 2025-02-18 18:18 | Inpatient (IN) | payer MEDICAID, SELFPAY ==
[2023-10-16 11:35] VITALS: BP 138/83; BMI 33.3
[2025-02-18 18:20] VITALS: BP 121/77; PULSE 97; RESP 17; TEMP 36.5; O2SAT 96; BMI 30.9
--- NOTE | 2025-02-18 18:22 | ED.C_ITS ---
HPI - Psych 2 General: Chief Complaint: Psychiatric Symptoms Stated Complaint: 96 Hold Time Seen by Provider: 02/18/25 18:19 History of Present Illness: 54-year-old man with a history of obstru ctive sleep apnea hypertension, bipolar disorder, alcohol use disorder, marijuana dependence, anxiety, methamphetamine abuse and tobacco dependence who presents to the emergency room on a court ordered 96-hour hold. Reviewing affidavit as they say that he has made suicidal thoughts and has drug and alcohol abuse tendencies. He denies all of this. But he is very familiar with the psychiatric unit Related Data Previous Rx's ?Medication ?Instructions ?Recorded CPAP 6-16 cm mmHg setting with #1 ea 11/05/24 mask, tubing and supplies atorvastatin 20 mg tablet 20 mg PO BEDTIME 90 days #90 tabs 02/16/25 lisinopril 2.5 mg tablet 2.5 mg PO DAILY #90 tabs 11/05 metformin 500 mg tablet 500 mg PO BID #180 tabs 11/05 olanzapine 15 mg tablet 15 mg PO QPM 90 days #90 tab s 02/16/25 Allergies Allergy/AdvReac Type Severity Reaction Status Date / Time No Known Allergies Allergy Verified 02/16/25 10:31 Review of Systems 2 Narrative: Constitutional symptoms: Negative except as documented in HPI. Skin symptoms: Negative except as documented in HPI. Eye symptoms: Negative except as documented in HPI. ENMT symptoms: Negative except as documented in HPI. Respiratory symptoms: Negative except as documented in HPI. Cardiovascular symptoms: Negative except as documented in HPI. Gastrointestinal symptoms: Negative except as documented in HPI. Genitourinary symptoms: Negative except as documented in HPI. Musculoskeletal symptoms: Negative except as documented in HPI. Neurologic symptoms: Negative except as documented in HPI. Psychiatric symptoms: Negative except as documented in HPI. Endocrine symptoms: Negative except as documented in HPI. PFSH ED 2 PFSH: Medical History (Updated 02/18/25 @ 18:24 by Nellie Giles MD) AARTI (obstructive sleep apnea) Pre-diabetes Essential hypertension Obesity (BMI 30.0-34.9) Unspecified psychosis Bipolar II disorder Alcohol use disorder, severe, dependence Marijuana dependence Methamphetamine use disorder, severe, dependence Psychiatric care Cigarette nicotine dependence Chronic post-traumatic stress disorder Generalized anxiety disorder Surgical History S/P foot surgery, left S/P foot surgery, right Family History Grandfather Cancer colon and then lung Mother Diabetes Psychiatric illness Father Diabetes Social History Smoking and tobacco/nicotine status: never used tobacco/nicotine Second hand smoke exposure: Yes Alcohol intake: former Year of sobriety/quit date alcohol: 2023 Former alcohol use details: last use 04/09/24 Substance/Drug Use: former Former substance use details: last use 04/09/24 Adopted: No Caregiver/support person: No Lives independently: Yes Household members: family Housing: House Marital status: Marital status details: 2001 Number of children: 2 Number of grandchildren: 0 Highest education level completed: Some College, No Degree service: No Current occupational status: employed Current occupation: [employer] Current occupational exposures/hazards: Yes (chemicals) Pets and animals: No Leisure activites: other Leisure activities details: write letters to Fabien, listen to hinduism music, watch TV, listen to bird Sexually active: No Do you think of yourself as: Straight/Heterosexual Current gender identity: Male Mildred/Temple: Scientologist Special mildred needs: No Agree to transfusion: Yes Physical Exam 2 Narrative: EXAM NARRATIVE: General: Alert, no acute distress. Skin: Warm, dry. Head: Normocephalic, atraumatic. Neck: Supple, trachea midline. Eye: Extraocular movements are intact. Ears, nose, mouth and throat: mucosa moist. Cardiovascular: Regular, Normal peripheral perfusion. Respiratory: Lungs are clear to auscultation, respirations are non-labored, breath sounds are equal, Symmetrical chest wall expansion. Gastrointestinal: Soft, Nontender, Non distended Musculoskeletal: Normal ROM, no deformity. Neurological: Alert and oriented, No focal neurological deficit observed. Psychiatric: Cooperative, appropriate mood & affect. Course 2 Vital Signs: Vital signs: Vital Signs Temperature 97.7 F 02/18/25 18:20 Pulse Rate 97 02/18/25 18:20 Respiratory Rate 17 02/18/25 18:20 Blood Pressure 121/77 02/18/25 18:20 Pulse Oximetry 96 02/18/25 18:20 Oxygen Delivery Me thod Room Air 02/18/25 18:20 MDM - Psych Medical Decision Making Differential diagnosis: Patient with reported suicidal ideation. concerns for infection, alcohol intoxication, cardiac issues or other medical problems prior to psychiatric admission. Workup: labwork, ekg ordered to evaluate the pathologies and to clear the patient medically prior to psychiatric admission EKG: Time 1842. Rate 87. Normal sinus rhythm, No ST-T changes, no ectopy, normal MN & QRS intervals, This was reviewed and interpreted by myself the ER physician at 1846 Lab Review: Laboratory results were reviewed and interpreted by myself the emergency room physician. - Medically cleared. - EKG shows no ischemic changes. - Blood alcohol level is negative, -Tylenol and salicylate levels are negative. - Urinalysis pending at discharge - No anemia. - BUN and creatinine are within normal limits. Consultation: I spoke with Dr. Ballard who is on-call for the psychiatry service who agrees to admission. Assessment and plan: Reports of suicidal thoughts ?Patient on a court ordered 96-hour hold -Admission to neuropsychiatric unit for continued evaluation and treatment. - All lab work was reviewed and interpreted personally by myself, the ER physician - Evaluation and treatment of this problem were appropriate in the emergency setting Lab Data 02/18/25 18:28 02/18/25 18:28 Laboratory Results WBC 7.36 10^3/uL (3.29-11.43) 02/18/25 18: RBC 4.82 10^6/uL (3.85-5.65) 02/18/25 18:28 Hgb 14.10 g/dL (11.27-16.99) 02/18/25 18: Hct 43.0 % (37-53) 02/18/25 18: MCV 89.2 fl (82-101) 02/18/25 18: MCH 29.3 pg (27-33) 02/18/25 18: MCHC 32.8 g/dL (30-55) 02/18/25 18:28 RDW 12.7 % (12.1-15.1) 02/18/25 18:28 Plt Count 257 10^3/cmm (157-399) 02/18/25 18: MPV 9.9 fL (7.4-10.4) 02/18/25 18:28 Neut % (Auto) 61.4 % 02/18/25 18: Lymph % (Auto) 31.3 % 02/18/25 18: [place] % (Auto) 4.8 % 02/18/25 18: Eos % (Auto) 2.0 % 02/18/25 18: Baso % (Auto) 0.4 % 02/18/25 18: Neut # (Auto) 4.52 10^3/uL (1.8-7.7) 02/18/25 18: Lymph # (Auto) 2.3 10^3/uL (0.8-4.8) 02/18/25 18: [place] # (Auto) 0.4 10^3/uL (0.2-0.9) 02/18/25 18: Eos # (Auto) 0.2 10^3/uL (0.0-0.8) 02/18/25 18: Baso # (Auto) 0.0 10^3/uL (0.0-0.1) 02/18/25 18: Nucleated RBC % (auto) 0 % 02/18/25 18: Nucleated RBCs # 0.0 /100WBC 02/18/25 18: Sodium 141 mmol/L (136-145) 02/18/25 18: Potassium 4.0 mmol/L (3.5-5.1) 02/18/25 18: Chloride 103 mmol/L (98-107) 02/18/25 18: Carbon Dioxide 27 mmol/L (22-29) 02/18/25: Anion Gap 15.0 (5-19) 02/18/25 18: BUN 12 mg/dL (6-20) 02/18/25 18: Creatinine 1.0 mg/dL (0.7-1.2) 02/18/25 18: GFR Calculation 77.6 mL/min (90-130) L 02/18/25: Glucose 127 mg/dL (65-115) H 02/18/25 18: Calculated Osmolality 293 mOsm/kg (285-295) 02/18/25 18: Calcium 9.2 mg/dL (8.5-10.5) 02/18/25 18: Total Bilirubin 0.2 mg/dL (0.15-1.2) 02/18/25 18:28 AST 15 U/L (0-40) 02/18/25 18:28 ALT 13 U/L (0-41) 02/18/25 18:28 Alkaline Phosphatase 93 U/L (40-130) 02/18/25 18:28 Total Protein 6.8 g/dL (6.6-8.7) 02/18/25 18: Albumin 4.1 g/dL (3.5-5.2) 02/18/25 18: Globulin 2.7 g/dL (1.3-4.6) 02/18/25 18:28 Urine Color Yellow (Yellow) 02/18/25 19:43 Urine Appearance Clear (CLEAR) 02/18/25 19:43 Urine pH 6.0 (5-7) 02/18/25 19:43 Ur Specific [employer] 1.004 (1.005-1.030) L 02/18/25 19:43 Urine Protein Negative (Negative) 02/18/25 19:43 Urine Glucose (UA) Negative (Normal) 02/18/25 19:43 Urine Ketones Negative (Negative) 02/18/25 19:43 Urine Blood Negative (Negative) 02/18/25 19:43 Urine Nitrate Negative (Negative) 02/18/25 19:43 Urine Bilirubin Negative (Negative) 02/18/25 19:43 Urine Urobilinogen 0.2 mg/dL (Negative) 02/18/25 19:43 Ur Leukocyte Esterase Negative (Negative) 02/18/25 19:43 Amorphous Sediment Not Reportable 02/18/25 19:43 Salicylates < 0.3 mg/dL (3-10) L 02/18/25 18:28 Acetaminophen < 5.0 ug/mL (10-30) L 02/18/25 18:28 Ethyl Alcohol < 10 mg/dL (0-10) 02/18/25 18:28 All radiology interpretation(s) finalized by discharge Discharge Plan Discharge Patient Disposition: Admitted As Inpatient Clinical Impression: Suicidal ideation Condition: Stable Coding Level of Care Code ED Senior Devops Engineer for Layo Sanz
[2025-02-18 18:37] LABS: Hematocrit 43.0 % (37-53); Hemoglobin 14.10 g/dL (11.27-16.99); Mean Corpuscular HGB Conc 32.8 g/dL (30-55); Mean Corpuscular Hemoglobin 29.3 pg (27-33); Mean Corpuscular Volume 89.2 fl (82-101); Nucleated Red Blood Cells % 0 %; Platelet Count 257 10^3/cmm (157-399); Red Blood Count 4.82 10^6/uL (3.85-5.65); White Blood Count 7.36 10^3/uL (3.29-11.43)
--- NOTE | 2025-02-18 18:40 | PC.NURSE ---
Pt was read his 96 hour hold rights at this time. Security was present
--- NOTE | 2025-02-18 18:42 | ECG_ITS ---
[facility] 2025[facility]18 Pat Name: Jose Roberto Dumont Department: Room: Gender: Male Registered Clinical Dietitian: : 1970 Requested By: Nellie Hankins Order Number: [id number] Kaleb MD: KEERTHI PARMAR Measurements Intervals [place] Rate: 87 P: 51 MN: 153 QRS: -16 QRSD: 85 T: 54 QT: 346 QTc: 417 Interpretive Statements SINUS RHYTHM Compared to ECG 01/16/2025 12:29:34 Sinus arrhythmia no longer present Left-axis deviation no longer present Electronically Signed On 02-19-2025 16:49:55 CDT by KEERTHI PARMAR [email or web address]
[2025-02-18 19:10] LABS: Alanine Aminotransferase 13 U/L (0-41); Albumin Level 4.1 g/dL (3.5-5.2); Alkaline Phosphatase 93 U/L (40-130); Anion Gap 15.0 (5-19); Aspartate Amino Transferase 15 U/L (0-40); Blood Urea Nitrogen 12 mg/dL (6-20); Calcium 9.2 mg/dL (8.5-10.5); Carbon Dioxide 27 mmol/L (22-29); Chloride 103 mmol/L (98-107); Creatinine Clr Calc Pharmacy 106.9319; Globulin 2.7 g/dL (1.3-4.6); Glucose 127 mg/dL (65-115); Osmolality Calculated 293 mOsm/kg (285-295); Potassium 4.0 mmol/L (3.5-5.1); Sodium 141 mmol/L (136-145); Total Protein 6.8 g/dL (6.6-8.7)
[2025-02-18 19:25] LABS: Acetaminophen < 5.0 ug/mL (10-30); Alcohol Level < 10 mg/dL (0-10); Salicylate < 0.3 mg/dL (3-10)
[2025-02-18 19:57] LABS: Add Urine Microscopic? NO
[2025-02-18 20:03] LABS: Glucose Urine UA Negative (Normal); Nitrate Urine Negative (Negative); Specific Gravity, Urine 1.004 (1.005-1.030)
[2025-02-18 20:08] LABS: Thyroid Stimulating Hormone 0.42 uIU/mL (0.27-4.20)
[2025-02-18 20:10] LABS: PCP Screen Urine Negative (Negative)
[2025-02-18 20:13] LABS: Charge for UA Resulting for Rev
[2025-02-18 22:06] VITALS: BP 117/74; PULSE 73; O2SAT 94
[2025-02-18 22:10] VITALS: BP 117/74; PULSE 73; O2SAT 94
[2025-02-18 22:26] VITALS: BP 141/94; PULSE 99; RESP 18; TEMP 36.5; O2SAT 97
[2025-02-19 06:00] VITALS: BP 100/63; PULSE 80; RESP 18; O2SAT 99
[2025-02-19] MEDS: FLU VACC TS2025-26(6MOS UP)/PF 45 MCG/0.5 ML SYRINGE IM (09:11)
--- NOTE | 2025-02-19 09:33 | P.NPUHP_ITS ---
Providers/Chief Complaint 2 Admitting Physician: Stewart Ballard MD Primary Care Provider: Brigido Hamlin MD Chief Complaint: 96 Hold HPI NPU History of Present Illness Jose Roberto Dumont is a 54 year old male who presented to the emergency department with the following report: Chief Complaint: Psychiatric Symptoms Stated Complaint: 96 Hold Time Seen by Provider: 02/18/25 18:19 History of Present Illness: 54-year-old man with a history of obstructive sleep apnea hypertension, bipolar disorder, alcohol use disorder, marijuana dependence, anxiety, methamphetamine abuse and tobacco dependence who presents to the emergency room on a court ordered 96-hour hold. Reviewing affidavit as they say that he has made suicidal thoughts and has drug and alcohol abuse tendencies. He denies all of this. But he is very familiar with the psychiatric unit. He was admitted to the neuropsychiatric unit for definitive treatment of those issues. He is known to [facility] psychiatry through inpatient and outpatient services. His last hospitalization ended on 01/23/2025. An excerpt of that discharge summary is included below for context of the fact that he is resistant to conversation and there are no substantive changes. He presents once again with a UDS positive for amphetamines and cannabis denying that this information has any bearing on his presentation. He is a very resistant historian reporting that this is a another situation of being controlled by his mother just because he was working on his car and cursing. He denies any problems during the time since his discharge. He was very adamant that this is unfair and that he does not like discharge, get his money and find a new place which is what we challenged and advised him to do during the last visit. We also asked him to consider rehab or some active treatment of his addiction to which he was quite resistant. Per his 01/23/2025 [facility] inpatient psychiatric discharge summary: Diagnoses at Discharge Discharge Diagnosis 1. Generalized anxiety disorder: 2. Chronic post-traumatic stress disorder: 3. Methamphetamine use disorder, severe: 4. Cannabis use disorder: 5. History of bipolar disorder: 6. Suicidal ideations: 7. Methamphetamine use disorder, severe, dependence: Reason for Visit Reason for Visit: 96 Brief History: Chief Complaint: 96 HPI NPU History of Present Illness Jose Roberto uDmont is a 54 year old male who presented to the emergency department with the following report: Chief Complaint: Psychiatric Symptoms Stated Complaint: 96 Time Seen by Provider: 01/16/25 11:52 History of Present Illness: 54-year-old man with a history of anxiety, PTSD, cannabis abuse, bipolar disorder, methamphetamine abuse, hypertension, hyperlipidemia and diabetes who presents emergency room on a court ordered 96-hour hold. He says he does not know why he is here. He says admittedly he stayed out late last night and had missed going to work and had been drinking and fishing with a friend. Rosi says basically the same thing. Says that when he arrived home this morning at 7 AM after being out all night he appeared intoxicated and was making a bunch of noises . He was admitted to the neuropsychiatric unit for definitive treatment of those issues. He is known to [facility] through inpatient and outpatient services and an excerpt of his last inpatient psychiatric discharge summary is included below for context and the fact that there have been no subsequent changes. He presented positive for cannabis and methamphetamine reporting that there is no reason for him to be here. He made multiple assertion that his mother was just not wanting him to have fine and the issue is that she is approved. He reports that he supposedly went to the river with some girl and his mom does not want him to get any sex. He reports that nothing has been going on and that he has been his normal self. However we discussed the fact that his drug screen was positive for cannabis and amphetamines suggesting that it is very possible that he has had behaviors that he does not even remember due to intoxication for induced psychotic symptoms. He acknowledges that he has not been taking his medication and was very uncooperative heard in his room screaming things up he thinks under his breath but very loud and disturbing the treatment milieu and making some patients uncomfortable. We discussed that the process of a 96-hour hold does not guarantee that he is here for that amount of time but that we have that amount of time to assess what is going on. We discussed that we would reach out to his mother and see what her thoughts were. We talked about the physician and the emergency department initially thinking about discharging him until some of his behaviors were noted and that he was certainly intoxicated and having some odd behaviors on admission. We discussed that we would be fair and evaluated the patient and that there is no reason why you have to stay the whole time if there is clear evidence that that is a reasonable approach. We discussed considering restarting his medications after discussion of the risks, benefits and alternatives he understood and agreed to proceed as documented in this note. Per his 10/02/2023 [facility] inpatient psychiatric discharge summary: Diagnoses at Discharge Discharge Diagnosis (1) Generalized anxiety disorder: Status: Chronic (2) Chronic post-traumatic stress disorder: Status: Chronic (3) Methamphetamine use disorder, severe: Status: Acute (4) Cannabis use disorder: Status: Acute (5) History of bipolar disorder: Status: Acute Reason for Visit Reason for Visit: Depression, SI Brief History: History of Present Illness Jose Roberto Dumont is a 52 year old male who presented to the emergency department with the following report: Chief Complaint: Psychiatric Symptoms Stated Complaint: Depression, SI Time Seen by Provider: 10/02/23 13:09 History of Present Illness: 52-year-old man with a history of polysubstance abuse and depression who presents to the emergency room with depression symptoms. He says he has been having thoughts of suicide. No specific plan at this time. He says he has been having some mild auditory hallucinations. He says he used to be on depression meds but stopped taking them and then started using marijuana and apparently was admitted to the hospital recently with a abscess on his arm which I believe was from IV drug use. He says he has an appointment to be admitted to [facility] for drug rehab on . However he would like to be admitted today for psychiatric help. He was admitted to the neuropsychiatric unit for definitive treatment of those issues. He is known from previous hospitalizations with his last stay being back in 2019 and an excerpt of that discharge summary is included below for context. Patient presents today as a fairly limited historian secondary to lethargy likely secondary to withdrawing from methamphetamine as well as medications administered to assist him and maintaining decorum. He presented reporting that things have been really bad recently and that he had struggled to maintain his sobriety. He reports that things got really bad and he contacted [facility] with a goal of getting inpatient rehab. He reports that they gave him a bed date for 10/04/2023 but that he became very concerned that he would not be able to make it there or worse something bad was going to happen because he was so out of control. He brought himself to the hospital fearing his safety and ability to make it to rehab. He denied being able to maintain his previous outside medications and has not been attending any outpatient services for some time. His goal is to get to the rehab and hopefully be in a condition to function well there. We discussed the risks, benefits and alternatives of connecting with [facility] in the morning and identifying if the bed date was a take it tomorrow or leave it or if they would allow for any flexibility. We agreed that we would consider medications after we understood that reality. Per his 03/12/2020 [facility] inpatient psychiatric discharge summary: Discharge Diagnosis (1) Suicidal ideation: Status: Resolved (2) Alcohol dependence: Status: Resolved Qualifiers: Substance use status: with intoxication Complication of substance- induced condition: uncomplicated Qualified Code(s): F10.220 - Alcohol dependence with intoxication, uncomplicated (3) Amphetamine substance use disorder, moderate, in early remission: Status: Chronic (4) Alcohol intoxication: Status: Resolved Qualifiers: Complication of substance-induced condition: uncomplicated Qualified Code(s): F10.920 - Alcohol use, unspecified with intoxication, uncomplicated (5) Amphetamine intoxication: Status: Resolved Qualifiers: Complication of substance-induced condition: uncomplicated Qualified Code(s): F15.920 - Other stimulant use, unspecified with intoxication, uncomplicated Reason for Visit Reason for Visit: SI Brief History: History of Present Illness I have done this too many times. This is just a consequence for the life I have led. Jose Roberto Dumont is a 49 year old male who was admitted to the adult psychiatric unit on the strength of an affidavit filed by local police. Apparently, the officer was dispatched to the patient's home. It is unclear how police became aware that this man was suicidal. While being questioned, he made suicidal statements and that he wished we would just shoot him. The patient denies at this time that he is having thoughts of ending his life. He says that he is in acute crisis after having lost his job. He says that he is a lifetime of partying and he is suffering the consequences. Apparently, he was partying over the weekend. 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 He subsequently got to work, and passed out in the parking lot. He has now been terminated from his employment. He apparently then went back to where he was staying which is with his mother. His urine drug screen is positive for methamphetamine, marijuana, benzodiazepines, and his blood alcohol level was 144. He says that at this point, his major concern is being in the substance abuse withdrawal. We tried to discuss issues of mental health treatment. He said that he has been through it all and has been treated with all kinds of medications. None have worked. He is not interested in more medication treatment. We discussed his substance abuse history. He says that recently, he has been drinking between 5 and 10 shots per night. It is unknown if this is accurate. He uses marijuana on a regular basis. He says the methamphetamine and benzodiazepines are not a persistent problem for him and that it was more of a self-destructive act. He denied suicidal or homicidal ideation. He denied the presence of auditory or visual hallucinations. He refused to discuss symptoms of depression. He apparently has engaged in substance use in a maladaptive manner for most of his life. He says that his divorce and his estrangement from one of his 2 children is all due to his behavior when he has been inebriated or intoxicated. He has been through rehab on multiple occasions. He said that it provides him no benefit. He says the most effective intervention has been his active participation in either Alcoholics Anonymous or Narcotics Anonymous. He does not have a sponsor at this time. He has not been attending either at this time. Hospital Course Hospital Course Assessment and plan (1) Suicidal ideation: Status: Acute (2) Alcohol dependence: Status: Acute Qualifiers: Substance use status: with intoxication Complication of substance- induced condition: uncomplicated Qualified Code(s): F10.220 - Alcohol dependence with intoxication, uncomplicated (3) Amphetamine substance use disorder, moderate, in early remission: Status: Chronic (4) Alcohol intoxication: Status: Acute Qualifiers: Complication of substance-induced condition: uncomplicated Qualified Code(s): F10.920 - Alcohol use, unspecified with intoxication, uncomplicated (5) Amphetamine intoxication: Status: Acute Qualifiers: Complication of substance-induced condition: uncomplicated Qualified Code(s): F15.920 - Other stimulant use, unspecified with intoxication, uncomplicated Additional A&P Information Due to the psychiatric conditions and treatment listed in the Assessment and Plan - the patient requires continued hospitalization. Will provide a safe and therapeutic environment for patient.. Will continue inpatient treatment to allow for medication adjustment and monitoring. Will continue q15 min safety checks. Admission plan: It is likely that his assessment that this mental health issue is driven primarily by alcohol and substance abuse is accurate. He was not inclined to discuss mental health interventions outside of alcohol and substance abuse. At this point, he was motivated to get through the withdrawal period and feel better so that he could think more clearly. We did not discuss issues of treatment with antidepressants or other medications. He was started on Seroquel 100 mg at bedtime and Ativan 1 mg 3 times daily which will be tapered throughout the withdrawal. He is on the CIND protocol. Hospital day #3: Patient was exhibiting no signs of alcohol withdrawal. He reported that he was doing well. He was despondent about having to go home and look for a job. However he stated he was not going to be able to accomplish that while in the hospital and was requesting discharge. He was not an imminent risk to self or others. His wish was granted. Hospital Course Hospital Course He slowly acclimated to the individual, group and milieu therapies provided. He presented with significant addiction issues with recent relapse and significant conflict with his mother with whom he lives. He denied the accusations and the 96-hour hold and reports he was just down at the river [place] fun. We identified his positive methamphetamine screen and began discussing the role that that drug could play of him having a presentation either does not recall or does not believe. After significant vitreal and spending much of his time angry at his mother and angry about being in the hospital he agreed to take some medication for anxiety and was okay with having a as needed dose of Zyprexa in the form of Zydis with with a positive response. The Neurontin was titrated to 300 mg p.o. 3 times daily. He became more cooperative and open to suggestions about doing some collaboration with his mom and understanding her position if he is going to be living with her. He was continued on his home medications. The absence of drugs of abuse, the continuation of home medication with access to some PRNs in addition of Neurontin for anxiety along with the treatment milieu led to a positive response. He worked with the social work team for appropriate outpatient services including some sober living specific treatment. He had significant improvement during his stay and was able to contract for safety outside hospital prior to discharge. During the hospitalization, patient had routine laboratory studies which were within normal limits except for few outliers. Additionally there was a general medical evaluation which was also within normal limits and revealed no new acute processes. Discharge Summary: At the time of discharge, patient denied psychosis or lethality. Mood and anxiety were well managed. Patient endorsed a plan to avoid all drugs of abuse and follow-up with the aftercare recommendations of the treatment team. Patient was evaluated and deemed to be absent credible lethality, and had achieved the maximum benefit from an inpatient hospitalization, so was discharged. Meds NPU Home Medications ?Medication ?Instructions ?Recorded ?Confirmed ?Last Taken ?Type CPAP 6-16 cm mmHg setting with #1 ea 11/05/24 02/19/25 Unknown Rx mask, tubing and supplies atorvastatin 20 mg tablet 20 mg PO BEDTIME 90 days #90 tabs 02/16/25 02/19/25 Unknown Rx lisinopril 2.5 mg tablet 2.5 mg PO DAILY #90 tabs 11/0502/19/25 Unknown Rx metformin 500 mg tablet 500 mg PO BID #180 tabs 11/0502/19/25 Unknown Rx olanzapine 15 mg tablet 15 mg PO QPM 90 days #90 tab s 02/16/25 02/19/25 Unknown Rx Allergies Allergy/AdvReac Type Severity Reaction Status Date / Time No Known Allergies Allergy Verified 02/16/25 10:31 PFS NPU 2 PFSH: Medical History (Updated 02/18/25 @ 18:24 by Nellie Giles MD) AARTI (obstructive sleep apnea) Pre-diabetes Essential hypertension Obesity (BMI 30.0-34.9) Unspecified psychosis Bipolar II disorder Alcohol use disorder, severe, dependence Marijuana dependence Methamphetamine use disorder, severe, dependence Psychiatric care Cigarette nicotine dependence Chronic post-traumatic stress disorder Generalized anxiety disorder Surgical History S/P foot surgery, left S/P foot surgery, right Family History Grandfather Cancer colon and then lung Mother Diabetes Psychiatric illness Father Diabetes Social History Smoking and tobacco/nicotine status: never used tobacco/nicotine Second hand smoke exposure: Yes Alcohol intake: former Year of sobriety/quit date alcohol: 2023 Former alcohol use details: last use 04/09/24 Substance/Drug Use: former Former substance use details: last use 04/09/24 Adopted: No Caregiver/support person: No Lives independently: Yes Household members: family Housing: House Marital status: Marital status details: 2001 Number of children: 2 Number of grandchildren: 0 Highest education level completed: Some College, No Degree service: No Current occupational status: employed Current occupation: [employer] Current occupational exposures/hazards: Yes (chemicals) Pets and animals: No Leisure activites: other Leisure activities details: write letters to Fabien, listen to amish music, watch TV, listen to bird Sexually active: No Do you think of yourself as: Straight/Heterosexual Current gender identity: Male Mildred/Latter Day: Baptism Special mildred needs: No Agree to transfusion: Yes Mental Status Exam 2 MSE Comments: This is an overweight versus obese white male with fairly tanned skin in hospital scrubs with limited grooming and eye contact. No abnormal movements except for significant psychomotor agitation. More cooperative with exam in moderate distress. Speech was limited and increased rate and volume. Mood described as okay, affect congruent and less irritable. Thought process linear. Thought content: Patient denied suicidal or homicidal ideation, there were no delusions reported or noted though he was heard speaking to himself and reporting his mother being out to get him and there were delusional issues noted in the emergency department, he denied any auditory or visual hallucinations. Attention and concentration were limited and memory was mostly unreliable and likely purposefully so but none were formally tested. He was alert and oriented x 3. Insight, judgment and impulse control are impaired. Vitals/I&O/Wt Last Vital Signs Temp 97.7 F 02/18/25 22:26 Pulse 80 02/19/25 06:00 Resp 18 02/19/25 06:00 BP 100/63 02/19/25 06:00 Pulse Ox 99 02/19/25 06:00 O2 Del Method Room Air 02/19/25 06:00 Weight last 48 hrs Weight 106.594 kg Data NPU 02/18/25 18:28 02/18/25 18:28 A&P Assessment and plan 1. Generalized anxiety disorder: 2. Chronic post-traumatic stress disorder: 3. Methamphetamine use disorder, severe: 4. Cannabis use disorder: 5. History of bipolar disorder: 6. Suicidal ideations: 7. Methamphetamine use disorder, severe, dependence: Plan: This is a 54-year-old white male with history of addiction and mental health challenges once again brought in to hospital involuntarily with concerns about recent relapse, possible lethality and erratic behavior. Patient has a history of adherence issues with outpatient medications. But he reports that he was working on a car and cursing and that is why he is here. He denies any issues that occurred while he was discharged. 1. Continue medications from previous hospitalization. 2. Encourage individual, group and milieu therapy. 3. Continue to 15-minute checks for safety. 4. Encourage sober living treatment after discharge at the highest level care to which he is willing to commit. 5. Will attempt to gather collateral information. 6. Observe against the backdrop of the 96-hour hold. PDMP PDMP Reviewed: Not Reviewed Involuntary Hold Information 2 96 Hour Hold: 96 Hour Involuntary Admission: Yes Other Hold: Hold End Date: 03/13/24 Attestations NPU 2 Medical Necessity Statement*: Inpatient hospitalization is medically necessary and deemed to ?be ?the clinically appropriate intervention ?at this time.? We will monitor/initiate medications and make changes as indicated.? The patient will be in the hospital for over 2 midnights.? Likely length of stay 3-5 days. Coding Level of Care Code Acute Code for [facility] Diagnoses Generalized anxiety disorder F41.1 Chronic post-traumatic stress disorder F43.12 Methamphetamine use disorder, severe F15.20 Cannabis use disorder F12.90 History of bipolar disorder Z86.59 Suicidal ideations R45.851 Methamphetamine use disorder, severe, dependence F15.20
[2025-02-19 13:58] VITALS: BP 107/66; PULSE 71; RESP 17; TEMP 36.6; O2SAT 96
--- NOTE | 2025-02-19 22:06 | PC.NURSE ---
pt getting increasingly agitated at begining of shift, pt was not woken up for vs per charge nurse resp 17
--- NOTE | 2025-02-20 06:43 | PC.NURSE ---
vs not completed per charge nurse resp 16
[2025-02-20 14:00] VITALS: RESP 16
--- NOTE | 2025-02-20 15:26 | PC.NURSE ---
pt resting and refused to get vitals done
--- NOTE | 2025-02-20 19:39 | P.NPUPN_ITS ---
Subjective NPU 2 Subjective: Patient presented today reporting that he is again upset about being here. We reviewed his affidavit he denies that he made a statement of wanting to kill himself but he was not overwhelmingly convincing of the fact per staff reports and direct communication. He is angry thinking this is going to call some of the week of his life but we continued to discuss like with his last admission the [employer] of him not living with his mom especially given the fact that she suggested that he said he would kill himself if she evicted him. He denied any side effects with medication. Mental Status Exam 2 MSE Comments: This is an overweight versus obese white male with fairly tanned skin in hospital scrubs with limited grooming and eye contact. No abnormal movements except for significant psychomotor agitation. More cooperative with exam in moderate distress. Speech was limited and increased rate and volume. Mood described as okay, affect congruent and less irritable. Thought process linear. Thought content: Patient denied suicidal or homicidal ideation, there were no delusions reported or noted though he was heard speaking to himself and reporting his mother being out to get him and there were delusional issues noted in the emergency department, he denied any auditory or visual hallucinations. Attention and concentration were limited and memory was mostly unreliable and likely purposefully so but none were formally tested. He was alert and oriented x 3. Insight, judgment and impulse control are impaired. Vitals/I&O/Wt Last Vital Signs Temp 97.9 F 02/19/25 13:58 Pulse 71 02/19/25 13:58 Resp 16 02/20/25 14:00 BP 107/66 02/19/25 13:58 Pulse Ox 96 02/19/25 13:58 O2 Del Method Room Air 02/19/25 13:58 02/20/25 02/20/25 02/20/25 06:59 14:59 22:59 Intake Total 480 / 480 Balance 480 / 480 Data NPU 02/18/25 18:28 02/18/25 18:28 A&P Assessment and plan 1. Generalized anxiety disorder: 2. Chronic post-traumatic stress disorder: 3. Methamphetamine use disorder, severe: 4. Cannabis use disorder: 5. History of bipolar disorder: 6. Suicidal ideations: 7. Methamphetamine use disorder, severe, dependence: Plan: This is a 54-year-old white male with history of addiction and mental health challenges once again brought in to hospital involuntarily with concerns about recent relapse, possible lethality and erratic behavior. Patient has a history of adherence issues with outpatient medications. But he reports that he was working on a car and cursing and that is why he is here. He denies any issues that occurred while he was discharged. 1. Continue medications from previous hospitalization. 2. Encourage individual, group and milieu therapy. 3. Continue to 15-minute checks for safety. 4. Encourage sober living treatment after discharge at the highest level care to which he is willing to commit. 5. Will attempt to gather collateral information. 6. Observe against the backdrop of the 96-hour hold. PDMP PDMP Reviewed: Not Reviewed Involuntary Hold Information 2 Hold Status: Legal Status: 96 Hour Hold Date/Time Hold Expires: 02/25/2025 @ 1820 96 Hour Hold: 96 Hour Involuntary Admission: Yes Other Hold: Hold End Date: 03/13/24 Attestations NPU 2 Medical Necessity Statement*: Inpatient hospitalization is medically necessary and deemed to ?be ?the clinically appropriate intervention ?at this time.? We will monitor/initiate medications and make changes as indicated.? Likely length of stay 2-4 days. Coding Level of Care Code Acute Code for [facility] Fwd Diagnoses Generalized anxiety disorder F41.1 Chronic post-traumatic stress disorder F43.12 Methamphetamine use disorder, severe F15.20 Cannabis use disorder F12.90 History of bipolar disorder Z86.59 Suicidal ideations R45.851 Methamphetamine use disorder, severe, dependence F15.20
[2025-02-20] MEDS: ATORVASTATIN 20 MG TABLET PO (20:50)
[2025-02-20 21:34] VITALS: PULSE 67; O2SAT 98
--- NOTE | 2025-02-20 21:43 | PC.NURSE ---
pt refused vs, charge nurse notified, resp 18
--- NOTE | 2025-02-21 06:25 | PC.NURSE ---
pt refused vs, nurse notified, resp 16
[2025-02-21 13:05] VITALS: BP 107/72; PULSE 89; RESP 20; TEMP 36.6; O2SAT 96
--- NOTE | 2025-02-21 16:12 | P.NPUPN_ITS ---
Subjective NPU 2 Subjective: Patient presented today reporting that he really feels he should not be here. We discussed how his relationship with his mother and his addiction come together and create difficulties for him. We discussed whether he is eligible for the [facility] program and discussed working with the social work team on Sunday about options that involve him not going back to his mom's. He denied any side effects to medication. Mental Status Exam 2 MSE Comments: This is an overweight versus obese white male with fairly tanned skin in hospital scrubs with limited grooming and eye contact. No abnormal movements except for significant psychomotor agitation. More cooperative with exam in moderate distress. Speech was limited and increased rate and volume. Mood described as okay, affect congruent and less irritable. Thought process linear. Thought content: Patient denied suicidal or homicidal ideation, there were no delusions reported or noted though he was heard speaking to himself and reporting his mother being out to get him and there were delusional issues noted in the emergency department, he denied any auditory or visual hallucinations. Attention and concentration were limited and memory was mostly unreliable and likely purposefully so but none were formally tested. He was alert and oriented x 3. Insight, judgment and impulse control are impaired. Vitals/I&O/Wt Last Vital Signs Temp 97.9 F 02/21/25 13:05 Pulse 89 02/21/25 13:05 Resp 20 H 02/21/25 13:05 BP 107/72 02/21/25 13:05 Pulse Ox 96 02/21/25 13:05 O2 Del Method Room Air 02/21/25 13:05 FiO2 21 02/20/25 21:34 02/21/25 02/21/25 02/21/25 06:59 14:59 22:59 Intake Total 240 / 240 Balance 240 / 240 Data NPU 02/18/25 18:28 02/18/25 18:28 A&P Assessment and plan 1. Generalized anxiety disorder: 2. Chronic post-traumatic stress disorder: 3. Methamphetamine use disorder, severe: 4. Cannabis use disorder: 5. History of bipolar disorder: 6. Suicidal ideations: 7. Methamphetamine use disorder, severe, dependence: Plan: This is a 54-year-old white male with history of addiction and mental health challenges once again brought in to hospital involuntarily with concerns about recent relapse, possible lethality and erratic behavior. Patient has a history of adherence issues with outpatient medications. But he reports that he was working on a car and cursing and that is why he is here. He denies any issues that occurred while he was discharged. 1. Continue medications from previous hospitalization. 2. Encourage individual, group and milieu therapy. 3. Continue to 15-minute checks for safety. 4. Encourage sober living treatment after discharge at the highest level care to which he is willing to commit. 5. Will attempt to gather collateral information. 6. Observe against the backdrop of the 96-hour hold. PDMP PDMP Reviewed: Not Reviewed Involuntary Hold Information 2 Hold Status: Legal Status: 96 Hour Hold Date/Time Hold Expires: 02/25/2025 @ 1820 96 Hour Hold: 96 Hour Involuntary Admission: Yes Other Hold: Hold End Date: 03/13/24 Attestations NPU 2 Medical Necessity Statement*: Inpatient hospitalization is medically necessary and deemed to ?be ?the clinically appropriate intervention ?at this time.? We will monitor/initiate medications and make changes as indicated.? Likely length of stay 2-4 days. Coding Level of Care Code Acute Code for [facility] Fwd Diagnoses Generalized anxiety disorder F41.1 Chronic post-traumatic stress disorder F43.12 Methamphetamine use disorder, severe F15.20 Cannabis use disorder F12.90 History of bipolar disorder Z86.59 Suicidal ideations R45.851 Methamphetamine use disorder, severe, dependence F15.20
[2025-02-21 19:49] VITALS: BP 133/78; PULSE 79; RESP 17; TEMP 36.6; O2SAT 95; BMI 30.3
[2025-02-21] MEDS: ATORVASTATIN 20 MG TABLET PO (21:09)
--- NOTE | 2025-02-22 06:40 | PC.NURSE ---
vs not completed per nursing resp 17
[2025-02-22 14:00] VITALS: BP 120/77; PULSE 75; RESP 16; TEMP 36.3; O2SAT 96
--- NOTE | 2025-02-22 14:42 | P.NPUPN_ITS ---
Subjective NPU 2 Subjective: Patient presented today reporting that nothing is changed. He continues to discuss being able to discharge he continued to discuss residential arrangements and how this pattern of he and his mother having conflict and he will come to the hospital against the backdrop of his active addiction and the pattern could be eradicated by him having his own place. The same discussion we had last visit and after he got better and was put on medications he was more pleasant and went back home but his use has resumed and we have discussed this continuum pattern. He denied any side effects to his medications. Mental Status Exam 2 MSE Comments: This is an overweight versus obese white male with fairly tanned skin in hospital scrubs with limited grooming and eye contact. No abnormal movements except for diminishing psychomotor agitation. More cooperative with exam in mild to moderate distress. Speech was limited and more normal rate and volume. Mood described as okay, affect congruent and less irritable. Thought process linear. Thought content: Patient denied suicidal or homicidal ideation, there were no delusions reported or noted though he was heard speaking to himself and reporting his mother being out to get him and there were delusional issues noted in the emergency department, he denied any auditory or visual hallucinations. Attention and concentration were limited and memory was mostly unreliable and likely purposefully so but none were formally tested. He was alert and oriented x 3. Insight, judgment and impulse control are impaired. Vitals/I&O/Wt Last Vital Signs Temp 97.9 F 02/21/25 19:49 Pulse 79 02/21/25 19:49 Resp 17 02/21/25 19:49 BP 133/78 02/21/25 19:49 Pulse Ox 95 02/21/25 19:49 O2 Del Method Room Air 02/21/25 19:49 FiO2 21 02/20/25 21:34 02/21/25 02/22/25 02/22/25 22:59 06:59 14:59 Intake Total 240 / 480 Balance 240 / 480 Weight last 48 hrs Weight 104.383 kg Data NPU 02/18/25 18:28 02/18/25 18:28 A&P Assessment and plan 1. Generalized anxiety disorder: 2. Chronic post-traumatic stress disorder: 3. Methamphetamine use disorder, severe: 4. Cannabis use disorder: 5. History of bipolar disorder: 6. Suicidal ideations: 7. Methamphetamine use disorder, severe, dependence: Plan: This is a 54-year-old white male with history of addiction and mental health challenges once again brought in to hospital involuntarily with concerns about recent relapse, possible lethality and erratic behavior. Patient has a history of adherence issues with outpatient medications. But he reports that he was working on a car and cursing and that is why he is here. He denies any issues that occurred while he was discharged. 1. Continue medications from previous hospitalization. 2. Encourage individual, group and milieu therapy. 3. Continue to 15-minute checks for safety. 4. Encourage sober living treatment after discharge at the highest level care to which he is willing to commit. 5. Will attempt to gather collateral information. 6. Observe against the backdrop of the 96-hour hold. PDMP PDMP Reviewed: Not Reviewed Involuntary Hold Information 2 Hold Status: Legal Status: 96 Hour Hold Date/Time Hold Expires: 02/25/2025 @ 1820 96 Hour Hold: 96 Hour Involuntary Admission: Yes Other Hold: Hold End Date: 03/13/24 Attestations NPU 2 Medical Necessity Statement*: Inpatient hospitalization is medically necessary and deemed to ?be ?the clinically appropriate intervention ?at this time.? We will monitor/initiate medications and make changes as indicated.? Likely length of stay 1-3 days. Coding Level of Care Code Acute Code for [facility] Fwd Diagnoses Generalized anxiety disorder F41.1 Chronic post-traumatic stress disorder F43.12 Methamphetamine use disorder, severe F15.20 Cannabis use disorder F12.90 History of bipolar disorder Z86.59 Suicidal ideations R45.851 Methamphetamine use disorder, severe, dependence F15.20
[2025-02-22 19:54] VITALS: BP 115/79; PULSE 85; RESP 18; TEMP 36.7; O2SAT 93
[2025-02-22] MEDS: ATORVASTATIN 20 MG TABLET PO (21:26)
[2025-02-23 14:00] VITALS: BP 114/81; PULSE 86; RESP 17; O2SAT 98
--- NOTE | 2025-02-23 16:23 | PC.NURSE ---
Pt. repeatedly requested medication for anxiety today. Dr. Ballard gave verbal order to give one time order for Haldol 10mg PO 1 x only now.
--- NOTE | 2025-02-23 18:00 | W.PM.NPUPNS ---
Subjective NPU Subjective: Patient presented today reporting that he is feeling a little better. He endorsed the plan to take some of his money and that he is safe and get his own place and move on from living. He has set up past and we discussed why he possibly does not follow through before and what makes this time different and how this may be a thing that preserves the relationship but also give him independence. He denied any side effects from Mental Status Exam MSE Comments: This is an overweight versus obese white male with fairly tanned skin in hospital scrubs with improving grooming and eye contact. No abnormal movements. More cooperative with exam in mild distress. Speech was more spontaneous and more normal rate and volume. Mood described as a little better, affect congruent and less irritable. Thought process linear. Thought content: Patient denied suicidal or homicidal ideation, there were no delusions reported or noted, he denied any auditory or visual hallucinations. Attention and concentration were limited and memory was more reliable but none were formally tested. He was alert and oriented x 3. Insight, judgment and impulse control are improving. Vitals/I&O/Wt Last Vital Signs Temp 98.2 F 02/23/25 20:09 Pulse 100 02/23/25 20:09 Resp 17 02/23/25 20:09 BP 124/86 02/23/25 20:09 Pulse Ox 97 02/23/25 20:09 O2 Del Method Room Air 02/23/25 20:09 FiO2 21 02/20/25 21:34 Data NPU 02/18/25 18:28 02/18/25 18:28 A&P Assessment and plan 1. Generalized anxiety disorder: 2. Chronic post-traumatic stress disorder: 3. Methamphetamine use disorder, severe: 4. Cannabis use disorder: 5. History of bipolar disorder: 6. Suicidal ideations: 7. Methamphetamine use disorder, severe, dependence: Plan: This is a 54-year-old white male with history of addiction and mental health challenges once again brought in to hospital involuntarily with concerns about recent relapse, possible lethality and erratic behavior. Patient has a history of adherence issues with outpatient medications. But he reports that he was working on a car and cursing and that is why he is here. He denies any issues that occurred while he was discharged. 1. Continue medications from previous hospitalization. 2. Encourage individual, group and milieu therapy. 3. Continue to 15-minute checks for safety. 4. Encourage sober living treatment after discharge at the highest level care to which he is willing to commit. 5. Will attempt to gather collateral information. 6. Observe against the backdrop of the 96-hour hold. PDMP PDMP Reviewed: Not Reviewed Involuntary Hold Information Hold Status: Legal Status: 96 Hour Hold Date/Time Hold Expires: 02/25/2025 @ 1820 96 Hour Hold: 96 Hour Involuntary Admission: Yes Other Hold: Hold End Date: 03/13/24 Attestations NPU Medical Necessity Statement*: Inpatient hospitalization is medically necessary and deemed to ?be ?the clinically appropriate intervention ?at this time.? We will monitor/initiate medications and make changes as indicated.? Likely length of stay 1-3 days. Coding Level of Care Code Acute Code for [facility] Fwd Diagnoses Generalized anxiety disorder F41.1 Chronic post-traumatic stress disorder F43.12 Methamphetamine use disorder, severe F15.20 Cannabis use disorder F12.90 History of bipolar disorder Z86.59 Suicidal ideations R45.851 Methamphetamine use disorder, severe, dependence F15.20
[2025-02-23] MEDS: diphenhydrAMINE 50 mg/mL SDV 1mL IM (19:35)
[2025-02-23] MEDS: haloperidol inj 5 mg/mL INJ 1 mL IM (19:36)
[2025-02-23] MEDS: LORazepam 1 MG/0.5 ML injection 2 MG IM (19:37)
[2025-02-23 20:09] VITALS: BP 124/86; PULSE 100; RESP 17; TEMP 36.8; O2SAT 97
[2025-02-23] MEDS: ATORVASTATIN 20 MG TABLET PO (20:59)
[2025-02-24 06:00] VITALS: BP 124/79; PULSE 84; RESP 17; O2SAT 97
--- NOTE | 2025-02-24 08:45 | PC.NURSE ---
Pt. was served with a restraining order this am from his mother. Pt. is upset about this.
[2025-02-24 13:31] VITALS: BP 124/79; PULSE 84; RESP 17; TEMP 36.8; O2SAT 97
[2025-02-24 13:51] VITALS: BP 114/82; PULSE 98; RESP 18; TEMP 36.8; O2SAT 97
== END 2025-02-24 15:50 | disposition home or self-care (01) | DRG 897 ==
LOC: ER 19:03 → NP 20:19
PROVIDERS: Admitting Provider Psychiatry & Neurology Psychiatry; Emergency Provider Emergency Medicine; PCP Family Medicine; Visit Provider Psychiatry & Neurology Psychiatry
DX: F15.20 Other stimulant dependence, uncomplicated (principal); R45.851 Suicidal ideations; F31.81 Bipolar II disorder; F41.1 Generalized anxiety disorder; F43.12 Post-traumatic stress disorder, chronic; E66.9 Obesity, unspecified; Z68.30 Body mass index [BMI] 30.0-30.9, adult; Z81.8 Family history of other mental and behavioral disorders; R73.03 Prediabetes; Z79.84 Long term (current) use of oral hypoglycemic drugs; E78.5 Hyperlipidemia, unspecified; I10 Essential (primary) hypertension; F12.20 Cannabis dependence, uncomplicated; F10.21 Alcohol dependence, in remission
CPT/HCPCS: 36415; 80053; 80306; 80307; 81003; 84443; 85025; 90471; 90656; 93005; 96372; 97165; 99285; J1200; J1630; J2060; J9999

== ENCOUNTER 2025-03-07 17:04 | Inpatient (IN) | payer MEDICAID, SELFPAY ==
[2023-10-16 11:35] VITALS: BP 138/83; BMI 33.3
[2025-03-07 17:09] VITALS: BP 134/80; PULSE 109; RESP 18; TEMP 36.4; O2SAT 95; BMI 29.5
--- OUTSIDE RECORDS SUMMARY | 2025-03-07 17:12 | XMS_ITS | Clinical Summary ---
Author Organization [facility] Address [address] [facility] [facility] Attn: Epic Prelude ADT TARAN ANTHONY [id number] Care Team Providers Care Core Shaper Sides Name Role Phone Unavailable Primary Care Provider [...] PM CDT Active naloxone (NARCAN) 4 mg/spray [place], Non-Aerosol EMERGENCY USE ONLY: Administer 1 spray [...] Encounters Date Type Department Care Team Description 02/24/2025 External Device Data [facility] Provider, Abstract 02/03/2025 External Device Data [facility] Provider, Abstract 02/03/2025 External Device Data [facility] Provider, Abstract 01/13/2025 External Device Data [facility] Provider, Abstract 12/31/2024 External Device Data [facility] Provider, Abstract 12/30/2024 External Device Data [facility] Provider, Abstract 12/23/2024 External Device Data [facility] Provider, Abstract from Last 3 Months Social History Tobacco [...] on file Legal Sex Male 7:39 AM [employer]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 AVG GLUCOSE, A1C 128 mg/dL 10/23/2024 11:06 AM CDT [facility] Blood Venipuncture / Unknown 10/21/2024 2:19 AM CDT 10/21/2024 2:34 AM CDT Narrative [facility] - 10/23/2024 11:06 AM CDT HGB A1C INTERPRETATION NORMAL: <5.7% PRE-DIABETES: 5.7 - 6.4% DIABETES: 6.5% OR GREATER us Bernard Reed MD CHEMISTRY ORDERABLES Fi nal Result [facility] CLIA # [id number] [address] [address] [place] [address] from Last 3 Months or Most Recently Relevant to Health Maintenance Insurance [place] [facility] [employer] Medicaid Advance Directives For more information, please contact: [phone] * Full Code (Latest Code Status on File) Date Activated Date Inactivated Comments 10/20/2024 11:18 PM 10/24/2024 5:38 PM
--- NOTE | 2025-03-07 17:18 | ED.C_ITS ---
Documented by User: LETTY Wiley 03/07/25 19:24 HPI - Psych 2 General: Chief Complaint: Psychiatric Symptoms Stated Complaint: SI & HI Time Seen by Provider: 03/07/25 17:13 History of Present Illness: Homeless gentleman presents to the ED due to suicide ideation and homicidal ideation. Content: Patient states sadness, depression. Denies plan. Patient denies amphetamine use. At bedside, he states he has just been digressing, denies plan. He now denies homicidal ideation to myself. He has not been taking his medications. Associated symptoms: Reports depression and suicidal ideation Related Data Previous Rx's ?Medication ?Instructions ?Recorded CPAP 6-16 cm mmHg setting with #1 ea 11/05/24 mask, tubing and supplies atorvastatin 20 mg tablet 20 mg PO BEDTIME 90 days #90 tabs 02/24/25 haloperidol 5 mg tablet 5 mg PO DAILY PRN Agitation 30 02/24/25 days #30 tabs hydroxyzine pamoate 25 mg capsule 50 mg (2 x 25 mg) PO Q6H PRN 02/24/25 Anxiety 30 days #120 caps lisinopril 2.5 mg tablet 2.5 mg PO DAILY #90 tabs metformin 500 mg tablet 500 mg PO BID #180 tabs 02/11 09/05 olanzapine 15 mg tablet 15 mg PO QPM 90 days #90 tab s 02/24/25 olanzapine 5 mg disintegrating 5 mg PO DAILY PRN 02/24 tablet Agitation/Psychosis 30 days #30 tabs Allergies Allergy/AdvReac Type Severity Reaction Status Date / Time No Known Allergies Allergy Verified 03/07/25 17:12 Review of Systems 2 General: Reports: 10 or more systems reviewed and unremarkable except in HPI and below Const: Denies: fever(s) or chills Eyes: Denies: change in vision or blurry vision ENMT: Denies: throat pain Card: Denies: chest pain or palpitations Resp: Denies: dyspnea or non-productive cough GI: Denies: abdominal pain, nausea or vomiting : Denies: flank pain or difficulty urinating Musc: Denies: neck pain or back pain Neuro: Denies: headache(s) or numbness in extremities Psych: Reports: anxiety, depression and suicidal ideation [facility] ED 2 PFSH: Medical History (Updated 03/07/25 @ 18:40 by LETTY Wiley) AARTI (obstructive sleep apnea) Pre-diabetes Essential hypertension Obesity (BMI 30.0-34.9) Unspecified psychosis Bipolar II disorder Alcohol use disorder, severe, dependence Marijuana dependence Methamphetamine use disorder, severe, dependence Psychiatric care Cigarette nicotine dependence Chronic post-traumatic stress disorder Generalized anxiety disorder Surgical History S/P foot surgery, left S/P foot surgery, right Family History Grandfather Cancer colon and then lung Mother Diabetes Psychiatric illness Father Diabetes Social History Smoking and tobacco/nicotine status: never used tobacco/nicotine Second hand smoke exposure: Yes Alcohol intake: former Year of sobriety/quit date alcohol: 2023 Former alcohol use details: last use 04/09/24 Substance/Drug Use: former Former substance use details: last use 04/09/24 Adopted: No Caregiver/support person: No Lives independently: Yes Household members: family Housing: House Marital status: Marital status details: 2001 Number of children: 2 Number of grandchildren: 0 Highest education level completed: Some College, No Degree service: No Current occupational status: employed Current occupation: [employer] Current occupational exposures/hazards: Yes (chemicals) Pets and animals: No Leisure activites: other Leisure activities details: write letters to Fabien, listen to yarsani music, watch TV, listen to bird Sexually active: No Do you think of yourself as: Straight/Heterosexual Current gender identity: Male Mildred/Voodoo: Bahai Special mildred needs: No Agree to transfusion: Yes Physical Exam 2 Narrative: EXAM NARRATIVE: General: Alert, no acute distress. Skin: Warm, dry. Head: Normocephalic, atraumatic. Neck: Supple, trachea midline. Eye: Extraocular movements are intact. Ears, nose, mouth and throat: mucosa moist. Cardiovascular: Regular, normal peripheral perfusion. Respiratory: Lungs are clear to auscultation, respirations are non-labored, breath sounds are equal, symmetrical chest wall expansion. Gastrointestinal: Soft, Nontender, Non distended Musculoskeletal: Normal ROM, no deformity. Neurological: Alert and oriented, no focal neurological deficit observed. Psychiatric: Cooperative, appropriate mood & affect. Voices suicidal ideas. Voices depression. Denies amphetamine use. Course 2 Reevaluation(s): Reevaluation #1: Improved after Zyprexa Reevaluation #2: Patient requests additional anxiety medication. Zyprexa and Vistaril ordered. Consultations: Consultation #1: Dr. Davila accepted admission Vital Signs: Vital signs: Vital Signs Temperature 97.5 F L 03/07/25 17:09 Pulse Rate 109 H 03/07/25 17:09 Respiratory Rate 18 03/07/25 17:09 Blood Pressure 134/80 03/07/25 17:09 Pulse Oximetry 95 03/07/25 17:09 Oxygen Delivery Me thod Room Air 03/07/25 17:09 MDM - Psych Medical Decision Making Patient is a 54-year-old male presenting to the ED denying amphetamine use, has known amphetamine use disorder, admitting to marijuana use, suicide ideation without a clear plan. He feels improved after Zyprexa. Dr. Morrell accepted the patient. Medical Records I reviewed the patient's medical records. Lab Data I reviewed the patient's lab results. 03/07/25 17:46 03/07/25 17:46 Laboratory Results WBC 10.06 10^3/uL (3.29-11.43) 03/07/25 17:46 RBC 5.13 10^6/uL (3.85-5.65) 03/07/25 17:46 Hgb 15.00 g/dL (11.27-16.99) 03/07/25 17:46 Hct 45.9 % (37-53) 03/07/25 17:46 MCV 89.5 fl (82-101) 03/07/25 17:46 MCH 29.2 pg (27-33) 03/07/25 17:46 MCHC 32.7 g/dL (30-55) 03/07/25 17:46 RDW 12.8 % (12.1-15.1) 03/07/25 17:46 Plt Count 297 10^3/cmm (157-399) 03/07/25 17:46 MPV 9.3 fL (7.4-10.4) 03/07/25 17:46 Neut % (Auto) 57.2 % 03/07/25 17:46 Lymph % (Auto) 34.1 % 03/07/25 17:46 [place]orden % (Auto) 6.7 % 03/07/25 17:46 Eos % (Auto) 1.1 % 03/07/25 17:46 Baso % (Auto) 0.7 % 03/07/25 17:46 Neut # (Auto) 5.76 10^3/uL (1.8-7.7) 03/07/25 17:46 Lymph # (Auto) 3.4 10^3/uL (0.8-4.8) 03/07/25 17:46 [place] # (Auto) 0.7 10^3/uL (0.2-0.9) 03/07/25 17:46 Eos # (Auto) 0.1 10^3/uL (0.0-0.8) 03/07/25 17:46 Baso # (Auto) 0.1 10^3/uL (0.0-0.1) 03/07/25 17:46 Nucleated RBC % (auto) 0 % 03/07/25 17:46 Nucleated RBCs # 0.0 /100WBC 03/07/25 17:46 Sodium 139 mmol/L (136-145) 03/07/25 17:46 Potassium 3.8 mmol/L (3.5-5.1) 03/07/25 17:46 Chloride 100 mmol/L (98-107) 03/07/25 17:46 Carbon Dioxide 28 mmol/L (22-29) 03/07/25 17:46 Anion Gap 14.8 (5-19) 03/07/25 17:46 BUN 6 mg/dL (6-20) 03/07/25 17:46 Creatinine 0.8 mg/dL (0.7-1.2) 03/07/25 17:46 GFR Calculation 100.4 mL/min (90-130) 03/07/25 17:46 Glucose 136 mg/dL (65-115) H 03/07/25 17:46 Calculated Osmolality 288 mOsm/kg (285-295) 03/07/25 17:46 Calcium 9.0 mg/dL (8.5-10.5) 03/07/25 17:46 Total Bilirubin 0.2 mg/dL (0.15-1.2) 03/07/25 17:46 AST 18 U/L (0-40) 03/07/25 17:46 ALT 18 U/L (0-41) 03/07/25 17:46 Alkaline Phosphatase 86 U/L (40-130) 03/07/25 17:46 Total Protein 6.9 g/dL (6.6-8.7) 03/07/25 17:46 Albumin 4.2 g/dL (3.5-5.2) 03/07/25 17:46 Globulin 2.7 g/dL (1.3-4.6) 03/07/25 17:46 Urine Color Yellow (Yellow) 03/07/25 17:20 Urine Appearance Clear (CLEAR) 03/07/25 17:20 Urine pH 7.5 (5-7) 03/07/25 17:20 Ur Specific [place] 1.007 (1.005-1.030) 03/07/25 17:20 Urine Protein Negative (Negative) 03/07/25 17:20 Urine Glucose (UA) Negative (Normal) 03/07/25 17:20 Urine Ketones Negative (Negative) 03/07/25 17:20 Urine Blood Negative (Negative) 03/07/25 17:20 Urine Nitrate Negative (Negative) 03/07/25 17:20 Urine Bilirubin Negative (Negative) 03/07/25 17:20 Urine Urobilinogen 0.2 mg/dL (Negative) 03/07/25 17:20 Ur Leukocyte Esterase Negative (Negative) 03/07/25 17:20 Urine RBC 0-2 /hpf (0-2) 03/07/25 17:20 Urine WBC 0-5 /hpf (0-5) 03/07/25 17:20 Ur Squamous Epith Cells 0-5 /hpf (0-5) 03/07/25 17:20 Amorphous Sediment Not Reportable 03/07/25 17:20 Urine Bacteria None seen /hpf (NONE) 03/07/25 17:20 Hyaline Casts 0-4 /lpf H 03/07/25 17:20 Salicylates < 0.3 mg/dL (3-10) L 03/07/25 17:46 Urine Opiates Screen Negative ng/mL (Negative) 03/07/25 17:20 Acetaminophen < 5.0 ug/mL (10-30) L 03/07/25 17:46 Ur Barbiturates Screen Negative ng/mL (Negative) 03/07/25 17:20 Ur Phencyclidine Scrn Negative ng/mL (Negative) 03/07/25 17:20 Ur Amphetamines Screen Positive ng/mL (Negative) H 03/07/25 17:20 U Benzodiazepines Scrn Negative ng/mL (Negative) 03/07/25 17:20 Urine Cocaine Screen Negative ng/mL (Negative) 03/07/25 17:20 U Marijuana (THC) Screen Positive ng/mL (Negative) H 03/07/25 17:20 Ethyl Alcohol < 10 mg/dL (0-10) 03/07/25 17:46 No radiology studies performed this visit Discharge Plan Discharge Patient Disposition: Xfer Psychiatric Hosp Clinical Impression: Suicidal ideation, Methamphetamine use disorder, severe, dependence, Noncompliance with medication regimen Condition: Stable Referrals: Brigido Hamlin MD [Primary Care Provider, [facility]] Discharge Diet: Low Salt Discharge Activity: Resume usual activity Print Language: Maldivian Coding Level of Care Code ED Supervisor Gluing for Chg Fwd Documented by User: Bin Mauricio DO 03/07/25 19:31 HPI - Psych 2 General: Chief Complaint: Psychiatric Symptoms Stated Complaint: SI & HI Time Seen by Provider: 03/07/25 17:13 Related Data Previous Rx's ?Medication ?Instructions ?Recorded CPAP 6-16 cm mmHg setting with #1 ea 11/05/24 mask, tubing and supplies atorvastatin 20 mg tablet 20 mg PO BEDTIME 90 days #90 tabs 02/24/25 haloperidol 5 mg tablet 5 mg PO DAILY PRN Agitation 30 02/24/25 days #30 tabs hydroxyzine pamoate 25 mg capsule 50 mg (2 x 25 mg) PO Q6H PRN 02/24/25 Anxiety 30 days #120 caps lisinopril 2.5 mg tablet 2.5 mg PO DAILY #90 tabs metformin 500 mg tablet 500 mg PO BID #180 tabs 02/11 09/05 olanzapine 15 mg tablet 15 mg PO QPM 90 days #90 tab s 02/24/25 olanzapine 5 mg disintegrating 5 mg PO DAILY PRN 02/24 tablet Agitation/Psychosis 30 days #30 tabs Allergies Allergy/AdvReac Type Severity Reaction Status Date / Time No Known Allergies Allergy Verified 03/07/25 17:12 PFSH ED 2 PFSH: Medical History (Updated 03/07/25 @ 18:40 by LETTY Wiley) AARTI (obstructive sleep apnea) Pre-diabetes Essential hypertension Obesity (BMI 30.0-34.9) Unspecified psychosis Bipolar II disorder Alcohol use disorder, severe, dependence Marijuana dependence Methamphetamine use disorder, severe, dependence Psychiatric care Cigarette nicotine dependence Chronic post-traumatic stress disorder Generalized anxiety disorder Surgical History S/P foot surgery, left S/P foot surgery, right Family History Grandfather Cancer colon and then lung Mother Diabetes Psychiatric illness Father Diabetes Social History Smoking and tobacco/nicotine status: never used tobacco/nicotine Second hand smoke exposure: Yes Alcohol intake: former Year of sobriety/quit date alcohol: 2023 Former alcohol use details: last use 04/09/24 Substance/Drug Use: former Former substance use details: last use 04/09/24 Adopted: No Caregiver/support person: No Lives independently: Yes Household members: family Housing: House Marital status: Marital status details: 2001 Number of children: 2 Number of grandchildren: 0 Highest education level completed: Some College, No Degree service: No Current occupational status: employed Current occupation: [employer] Current occupational exposures/hazards: Yes (chemicals) Pets and animals: No Leisure activites: other Leisure activities details: write letters to Fabien, listen to yarsani music, watch TV, listen to bird Sexually active: No Do you think of yourself as: Straight/Heterosexual Current gender identity: Male Mildred/Voodoo: Bahai Special mildred needs: No Agree to transfusion: Yes Course 2 Vital Signs: Vital signs: Vital Signs Temperature 97.5 F L 03/07/25 17:09 Pulse Rate 109 H 03/07/25 17:09 Respiratory Rate 18 03/07/25 17:09 Blood Pressure 134/80 03/07/25 17:09 Pulse Oximetry 95 03/07/25 17:09 Oxygen Delivery Me thod Room Air 03/07/25 17:09 MDM - Psych Medical Decision Making Patient is a 54-year-old male presenting to the ED denying amphetamine use, has known amphetamine use disorder, admitting to marijuana use, suicide ideation without a clear plan. He feels improved after Zyprexa. Dr. Narvaez accepted the patient. Patient originally evaluated by Ms. Kline, PA?C. I agree with her history, evaluation, and management. Lab Data 03/07/25 17:46 03/07/25 17:46 Laboratory Results WBC 10.06 10^3/uL (3.29-11.43) 03/07/25 17:46 RBC 5.13 10^6/uL (3.85-5.65) 03/07/25 17:46 Hgb 15.00 g/dL (11.27-16.99) 03/07/25 17:46 Hct 45.9 % (37-53) 03/07/25 17:46 MCV 89.5 fl (82-101) 03/07/25 17:46 MCH 29.2 pg (27-33) 03/07/25 17:46 MCHC 32.7 g/dL (30-55) 03/07/25 17:46 RDW 12.8 % (12.1-15.1) 03/07/25 17:46 Plt Count 297 10^3/cmm (157-399) 03/07/25 17:46 MPV 9.3 fL (7.4-10.4) 03/07/25 17:46 Neut % (Auto) 57.2 % 03/07/25 17:46 Lymph % (Auto) 34.1 % 03/07/25 17:46 [place] % (Auto) 6.7 % 03/07/25 17:46 Eos % (Auto) 1.1 % 03/07/25 17:46 Baso % (Auto) 0.7 % 03/07/25 17:46 Neut # (Auto) 5.76 10^3/uL (1.8-7.7) 03/07/25 17:46 Lymph # (Auto) 3.4 10^3/uL (0.8-4.8) 03/07/25 17:46 [place] # (Auto) 0.7 10^3/uL (0.2-0.9) 03/07/25 17:46 Eos # (Auto) 0.1 10^3/uL (0.0-0.8) 03/07/25 17:46 Baso # (Auto) 0.1 10^3/uL (0.0-0.1) 03/07/25 17:46 Nucleated RBC % (auto) 0 % 03/07/25 17:46 Nucleated RBCs # 0.0 /100WBC 03/07/25 17:46 Sodium 139 mmol/L (136-145) 03/07/25 17:46 Potassium 3.8 mmol/L (3.5-5.1) 03/07/25 17:46 Chloride 100 mmol/L (98-107) 03/07/25 17:46 Carbon Dioxide 28 mmol/L (22-29) 03/07/25 17:46 Anion Gap 14.8 (5-19) 03/07/25 17:46 BUN 6 mg/dL (6-20) 03/07/25 17:46 Creatinine 0.8 mg/dL (0.7-1.2) 03/07/25 17:46 GFR Calculation 100.4 mL/min (90-130) 03/07/25 17:46 Glucose 136 mg/dL (65-115) H 03/07/25 17:46 Calculated Osmolality 288 mOsm/kg (285-295) 03/07/25 17:46 Calcium 9.0 mg/dL (8.5-10.5) 03/07/25 17:46 Total Bilirubin 0.2 mg/dL (0.15-1.2) 03/07/25 17:46 AST 18 U/L (0-40) 03/07/25 17:46 ALT 18 U/L (0-41) 03/07/25 17:46 Alkaline Phosphatase 86 U/L (40-130) 03/07/25 17:46 Total Protein 6.9 g/dL (6.6-8.7) 03/07/25 17:46 Albumin 4.2 g/dL (3.5-5.2) 03/07/25 17:46 Globulin 2.7 g/dL (1.3-4.6) 03/07/25 17:46 Urine Color Yellow (Yellow) 03/07/25 17:20 Urine Appearance Clear (CLEAR) 03/07/25 17:20 Urine pH 7.5 (5-7) 03/07/25 17:20 Ur Specific [place] 1.007 (1.005-1.030) 03/07/25 17:20 Urine Protein Negative (Negative) 03/07/25 17:20 Urine Glucose (UA) Negative (Normal) 03/07/25 17:20 Urine Ketones Negative (Negative) 03/07/25 17:20 Urine Blood Negative (Negative) 03/07/25 17:20 Urine Nitrate Negative (Negative) 03/07/25 17:20 Urine Bilirubin Negative (Negative) 03/07/25 17:20 Urine Urobilinogen 0.2 mg/dL (Negative) 03/07/25 17:20 Ur Leukocyte Esterase Negative (Negative) 03/07/25 17:20 Urine RBC 0-2 /hpf (0-2) 03/07/25 17:20 Urine WBC 0-5 /hpf (0-5) 03/07/25 17:20 Ur Squamous Epith Cells 0-5 /hpf (0-5) 03/07/25 17:20 Amorphous Sediment Not Reportable 03/07/25 17:20 Urine Bacteria None seen /hpf (NONE) 03/07/25 17:20 Hyaline Casts 0-4 /lpf H 03/07/25 17:20 Salicylates < 0.3 mg/dL (3-10) L 03/07/25 17:46 Urine Opiates Screen Negative ng/mL (Negative) 03/07/25 17:20 Acetaminophen < 5.0 ug/mL (10-30) L 03/07/25 17:46 Ur Barbiturates Screen Negative ng/mL (Negative) 03/07/25 17:20 Ur Phencyclidine Scrn Negative ng/mL (Negative) 03/07/25 17:20 Ur Amphetamines Screen Positive ng/mL (Negative) H 03/07/25 17:20 U Benzodiazepines Scrn Negative ng/mL (Negative) 03/07/25 17:20 Urine Cocaine Screen Negative ng/mL (Negative) 03/07/25 17:20 U Marijuana (THC) Screen Positive ng/mL (Negative) H 03/07/25 17:20 Ethyl Alcohol < 10 mg/dL (0-10) 03/07/25 17:46 Discharge Plan Discharge Patient Disposition: Xfer Psychiatric Hosp Clinical Impression: Suicidal ideation, Methamphetamine use disorder, severe, dependence, Noncompliance with medication regimen Condition: Stable Referrals: Brigido Hamlin MD [Primary Care Provider, Family [facility]] Discharge Diet: Low Salt Discharge Activity: Resume usual activity Print Language: Maldivian Coding Level of Care Code ED Supervisor Gluing for Layo Sanz
[2025-03-07 17:53] LABS: Hematocrit 45.9 % (37-53); Hemoglobin 15.00 g/dL (11.27-16.99); Mean Corpuscular HGB Conc 32.7 g/dL (30-55); Mean Corpuscular Hemoglobin 29.2 pg (27-33); Mean Corpuscular Volume 89.5 fl (82-101); Nucleated Red Blood Cells % 0 %; Platelet Count 297 10^3/cmm (157-399); Red Blood Count 5.13 10^6/uL (3.85-5.65); White Blood Count 10.06 10^3/uL (3.29-11.43)
[2025-03-07 18:06] LABS: Glucose Urine UA Negative (Normal); Nitrate Urine Negative (Negative); Specific Gravity, Urine 1.007 (1.005-1.030)
[2025-03-07 18:10] LABS: Alanine Aminotransferase 18 U/L (0-41); Albumin Level 4.2 g/dL (3.5-5.2); Alkaline Phosphatase 86 U/L (40-130); Aspartate Amino Transferase 18 U/L (0-40); Blood Urea Nitrogen 6 mg/dL (6-20); Calcium 9.0 mg/dL (8.5-10.5); Carbon Dioxide 28 mmol/L (22-29); Globulin 2.7 g/dL (1.3-4.6); Glucose 136 mg/dL (65-115); Total Protein 6.9 g/dL (6.6-8.7)
[2025-03-07 18:11] LABS: Add Urine Microscopic? YES
[2025-03-07 18:15] LABS: PCP Screen Urine Negative (Negative)
[2025-03-07 18:17] LABS: Acetaminophen < 5.0 ug/mL (10-30); Alcohol Level < 10 mg/dL (0-10); Salicylate < 0.3 mg/dL (3-10)
[2025-03-07 18:29] LABS: Anion Gap 14.8 (5-19); Chloride 100 mmol/L (98-107); Osmolality Calculated 288 mOsm/kg (285-295); Potassium 3.8 mmol/L (3.5-5.1); Sodium 139 mmol/L (136-145)
[2025-03-07 20:13] VITALS: BP 132/81; PULSE 92; O2SAT 97
[2025-03-07 20:20] VITALS: BP 129/89; PULSE 94; RESP 18; TEMP 36.4; O2SAT 95
[2025-03-07 22:00] VITALS: BP 129/89; PULSE 94; RESP 18; TEMP 36.4; O2SAT 95
[2025-03-08 06:00] VITALS: BP 123/85; PULSE 77; RESP 16; TEMP 36.6; O2SAT 91
--- NOTE | 2025-03-08 13:23 | W.PM.NPUH&PS ---
Providers/Chief Complaint Admitting Physician: David Narvaez MD Primary Care Provider: Brigido Hamlin MD Chief Complaint: SI & HI HPI NPU History of Present Illness Jose Roberto Dumont is a 54 year old male recently discharged from the neuropsychiatric unit on 02/23/2025 who presented to the emergency department indicating that he was homeless and had thoughts of suicide while reporting depression and increased sadness. The patient had minimized having used any amphetamine despite testing positive for amphetamines on admission along with marijuana. The patient was admitted to the neuropsychiatric unit for further evaluation and treatment. He reported no significant changes in his medication regimen since his last visit. He had reported no substantial changes or stressors that may have led to his return here to the neuropsychiatric unit. He reports that his mother had kicked him out of the house stating that she was not nice to him. He was unable to provide any further information regarding the details as to why he was back here again other than stating that he no longer had a place to stay. Psychiatric history: Bipolar 2 disorder, THC dependence, Alcohol use disorder, Current Medications: zyprexa 15mg at night, lisinopril 2.5 mg daily, metformin 500 mg twice a day, hydroxyzine, atorvastatin 20 mg at night, CPAP at night Medical history: Obstructive sleep apnea, prediabetes, essential hypertension, Excerpt from NPU Discharge summary from 01/23/25 below: Discharge Diagnosis 1. Generalized anxiety disorder: 2. Chronic post-traumatic stress disorder: 3. Methamphetamine use disorder, severe: 4. Cannabis use disorder: 5. History of bipolar disorder: 6. Suicidal ideations: 7. Methamphetamine use disorder, severe, dependence: Reason for Visit HPI NPU History of Present Illness Jose Roberto Dumont is a 54 year old male who presented to the emergency department with the following report: Chief Complaint: Psychiatric Symptoms Stated Complaint: 96 Time Seen by Provider: 01/16/25 11:52 History of Present Illness: 54-year-old man with a history of anxiety, PTSD, cannabis abuse, bipolar disorder, methamphetamine abuse, hypertension, hyperlipidemia and diabetes who presents emergency room on a court ordered 96-hour hold. He says he does not know why he is here. He says admittedly he stayed out late last night and had missed going to work and had been drinking and fishing with a friend. Rosi says basically the same thing. Says that when he arrived home this morning at 7 AM after being out all night he appeared intoxicated and was making a bunch of noises . He was admitted to the neuropsychiatric unit for definitive treatment of those issues. He is known to [facility] through inpatient and outpatient services and an excerpt of his last inpatient psychiatric discharge summary is included below for context and the fact that there have been no subsequent changes. He presented positive for cannabis and methamphetamine reporting that there is no reason for him to be here. He made multiple assertion that his mother was just not wanting him to have fine and the issue is that she is approved. He reports that he supposedly went to the river with some girl and his mom does not want him to get any sex. He reports that nothing has been going on and that he has been his normal self. However we discussed the fact that his drug screen was positive for cannabis and amphetamines suggesting that it is very possible that he has had behaviors that he does not even remember due to intoxication for induced psychotic symptoms. He acknowledges that he has not been taking his medication and was very uncooperative heard in his room screaming things up he thinks under his breath but very loud and disturbing the treatment milieu and making some patients uncomfortable. We discussed that the process of a 96-hour hold does not guarantee that he is here for that amount of time but that we have that amount of time to assess what is going on. We discussed that we would reach out to his mother and see what her thoughts were. We talked about the physician and the emergency department initially thinking about discharging him until some of his behaviors were noted and that he was certainly intoxicated and having some odd behaviors on admission. We discussed that we would be fair and evaluated the patient and that there is no reason why you have to stay the whole time if there is clear evidence that that is a reasonable approach. We discussed considering restarting his medications after discussion of the risks, benefits and alternatives he understood and agreed to proceed as documented in this note. Per his 10/02/2023 [facility] inpatient psychiatric discharge summary: Diagnoses at Discharge Discharge Diagnosis (1) Generalized anxiety disorder: Status: Chronic (2) Chronic post-traumatic stress disorder: Status: Chronic (3) Methamphetamine use disorder, severe: Status: Acute (4) Cannabis use disorder: Status: Acute (5) History of bipolar disorder: Status: Acute Reason for Visit Reason for Visit: Depression, SI Brief History: History of Present Illness Jose Roberto Dumont is a 52 year old male who presented to the emergency department with the following report: Chief Complaint: Psychiatric Symptoms Stated Complaint: Depression, SI Time Seen by Provider: 10/02/23 13:09 History of Present Illness: 52-year-old man with a history of polysubstance abuse and depression who presents to the emergency room with depression symptoms. He says he has been having thoughts of suicide. No specific plan at this time. He says he has been having some mild auditory hallucinations. He says he used to be on depression meds but stopped taking them and then started using marijuana and apparently was admitted to the hospital recently with a abscess on his arm which I believe was from IV drug use. He says he has an appointment to be admitted to [facility] for drug rehab on . However he would like to be admitted today for psychiatric help. He was admitted to the neuropsychiatric unit for definitive treatment of those issues. He is known from previous hospitalizations with his last stay being back in 2019 and an excerpt of that discharge summary is included below for context. Patient presents today as a fairly limited historian secondary to lethargy likely secondary to withdrawing from methamphetamine as well as medications administered to assist him and maintaining decorum. He presented reporting that things have been really bad recently and that he had struggled to maintain his sobriety. He reports that things got really bad and he contacted [facility] with a goal of getting inpatient rehab. He reports that they gave him a bed date for 10/04/2023 but that he became very concerned that he would not be able to make it there or worse something bad was going to happen because he was so out of control. He brought himself to the hospital fearing his safety and ability to make it to rehab. He denied being able to maintain his previous outside medications and has not been attending any outpatient services for some time. His goal is to get to the rehab and hopefully be in a condition to function well there. We discussed the risks, benefits and alternatives of connecting with [facility] in the morning and identifying if the bed date was a take it tomorrow or leave it or if they would allow for any flexibility. We agreed that we would consider medications after we understood that reality. Per his 03/12/2020 [facility] inpatient psychiatric discharge summary: Discharge Diagnosis (1) Suicidal ideation: Status: Resolved (2) Alcohol dependence: Status: Resolved Qualifiers: Substance use status: with intoxication Complication of substance-induced condition: uncomplicated Qualified Code(s): F10.220 - Alcohol dependence with intoxication, uncomplicated (3) Amphetamine substance use disorder, moderate, in early remission: Status: Chronic (4) Alcohol intoxication: Status: Resolved Qualifiers: Complication of substance-induced condition: uncomplicated Qualified Code(s): F10.920 - Alcohol use, unspecified with intoxication, uncomplicated (5) Amphetamine intoxication: Status: Resolved Qualifiers: Complication of substance-induced condition: uncomplicated Qualified Code(s): F15.920 - Other stimulant use, unspecified with intoxication, uncomplicated Reason for Visit Reason for Visit: SI Brief History: History of Present Illness I have done this too many times. This is just a consequence for the life I have led. Jose Roberto Dumont is a 49 year old male who was admitted to the adult psychiatric unit on the strength of an affidavit filed by local police. Apparently, the officer was dispatched to the patient's home. It is unclear how police became aware that this man was suicidal. While being questioned, he made suicidal statements and that he wished we would just shoot him. The patient denies at this time that he is having thoughts of ending his life. He says that he is in acute crisis after having lost his job. He says that he is a lifetime of partying and he is suffering the consequences. Apparently, he was partying over the weekend. 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 He subsequently got to work, and passed out in the parking lot. He has now been terminated from his employment. He apparently then went back to where he was staying which is with his mother. His urine drug screen is positive for methamphetamine, marijuana, benzodiazepines, and his blood alcohol level was 144. He says that at this point, his major concern is being in the substance abuse withdrawal. We tried to discuss issues of mental health treatment. He said that he has been through it all and has been treated with all kinds of medications. None have worked. He is not interested in more medication treatment. We discussed his substance abuse history. He says that recently, he has been drinking between 5 and 10 shots per night. It is unknown if this is accurate. He uses marijuana on a regular basis. He says the methamphetamine and benzodiazepines are not a persistent problem for him and that it was more of a self-destructive act. He denied suicidal or homicidal ideation. He denied the presence of auditory or visual hallucinations. He refused to discuss symptoms of depression. He apparently has engaged in substance use in a maladaptive manner for most of his life. He says that his divorce and his estrangement from one of his 2 children is all due to his behavior when he has been inebriated or intoxicated. He has been through rehab on multiple occasions. He said that it provides him no benefit. He says the most effective intervention has been his active participation in either Alcoholics Anonymous or Narcotics Anonymous. He does not have a sponsor at this time. He has not been attending either at this time. Hospital Course Hospital Course Assessment and plan (1) Suicidal ideation: Status: Acute (2) Alcohol dependence: Status: Acute Qualifiers: Substance use status: with intoxication Complication of substance-induced condition: uncomplicated Qualified Code(s): F10.220 - Alcohol dependence with intoxication, uncomplicated (3) Amphetamine substance use disorder, moderate, in early remission: Status: Chronic (4) Alcohol intoxication: Status: Acute Qualifiers: Complication of substance-induced condition: uncomplicated Qualified Code(s): F10.920 - Alcohol use, unspecified with intoxication, uncomplicated (5) Amphetamine intoxication: Status: Acute Qualifiers: Complication of substance-induced condition: uncomplicated Qualified Code(s): F15.920 - Other stimulant use, unspecified with intoxication, uncomplicated Additional A&P Information Due to the psychiatric conditions and treatment listed in the Assessment and Plan - the patient requires continued hospitalization. Will provide a safe and therapeutic environment for patient.. Will continue inpatient treatment to allow for medication adjustment and monitoring. Will continue q15 min safety checks. Admission plan: It is likely that his assessment that this mental health issue is driven primarily by alcohol and substance abuse is accurate. He was not inclined to discuss mental health interventions outside of alcohol and substance abuse. At this point, he was motivated to get through the withdrawal period and feel better so that he could think more clearly. We did not discuss issues of treatment with antidepressants or other medications. He was started on Seroquel 100 mg at bedtime and Ativan 1 mg 3 times daily which will be tapered throughout the withdrawal. He is on the CIWA protocol. Hospital day #3: Patient was exhibiting no signs of alcohol withdrawal. He reported that he was doing well. He was despondent about having to go home and look for a job. However he stated he was not going to be able to accomplish that while in the hospital and was requesting discharge. He was not an imminent risk to self or others. His wish was granted. Hospital Course Hospital Course He slowly acclimated to the individual, group and milieu therapies provided. He presented with significant addiction issues with recent relapse and significant conflict with his mother with whom he lives. He denied the accusations and the 96-hour hold and reports he was just down at the river [place]. We identified his positive methamphetamine screen and began discussing the role that that drug could play of him having a presentation either does not recall or does not believe. After significant vitreal and spending much of his time angry at his mother and angry about being in the hospital he agreed to take some medication for anxiety and was okay with having a as needed dose of Zyprexa in the form of Zydis with with a positive response. The Neurontin was titrated to 300 mg p.o. 3 times daily. He became more cooperative and open to suggestions about doing some collaboration with his mom and understanding her position if he is going to be living with her. He was continued on his home medications. The absence of drugs of abuse, the continuation of home medication with access to some PRNs in addition of Neurontin for anxiety along with the treatment milieu led to a positive response. He worked with the social work team for appropriate outpatient services including some sober living specific treatment. He had significant improvement during his stay and was able to contract for safety outside hospital prior to discharge. During the hospitalization, patient had routine laboratory studies which were within normal limits except for few outliers. Additionally there was a general medical evaluation which was also within normal limits and revealed no new acute processes. Discharge Summary: At the time of discharge, patient denied psychosis or lethality. Mood and anxiety were well managed. Patient endorsed a plan to avoid all drugs of abuse and follow-up with the aftercare recommendations of the treatment team. Patient was evaluated and deemed to be absent credible lethality, and had achieved the maximum benefit from an inpatient hospitalization, so was discharged. Meds NPU Home Medications ?Medication ?Instructions ?Recorded ?Confirmed ?Last Taken ?Type atorvastatin 20 mg tablet 20 mg PO BEDTIME 90 days #90 tabs 02/24/25 03/07/25 Unknown Rx haloperidol 5 mg tablet 5 mg PO DAILY PRN Agitation 30 02/24/25 03/07/25 Unknown Rx days #30 tabs hydroxyzine pamoate 25 mg capsule 50 mg (2 x 25 mg) PO Q6H PRN 02/24/25 03/07/25 Unknown Rx Anxiety 30 days #120 caps lisinopril 2.5 mg tablet 2.5 mg PO DAILY #90 tabs 02/24/25 03/07/25 Unknown Rx metformin 500 mg tablet 500 mg PO BID #180 tabs 02/24/25 03/07/25 Unknown Rx CPAP 6-16 cm mmHg setting with 03/07/25 03/07/25 Unknown History mask, tubing and supplies olanzapine 15 mg tablet 15 mg PO BEDTIME 03/07/25 03/07/25 Unknown History Allergies Allergy/AdvReac Type Severity Reaction Status Date / Time No Known Allergies Allergy Verified 03/07/25 17:12 PFSH NPU PFSH: Medical History (Updated 03/08/25 @ 13:39 by David Narvaez MD) AARTI (obstructive sleep apnea) Pre-diabetes Essential hypertension Obesity (BMI 30.0-34.9) Unspecified psychosis Bipolar II disorder Alcohol use disorder, severe, dependence Marijuana dependence Methamphetamine use disorder, severe, dependence Psychiatric care Cigarette nicotine dependence Chronic post-traumatic stress disorder Generalized anxiety disorder Surgical History S/P foot surgery, left S/P foot surgery, right Family History Grandfather Cancer colon and then lung Mother Diabetes Psychiatric illness Father Diabetes Social History Second hand smoke exposure: Yes Alcohol intake: former Year of sobriety/quit date alcohol: 2023 Former alcohol use details: last use 04/09/24 Substance/Drug Use: former Former substance use details: last use 04/09/24 Adopted: No Caregiver/support person: No Lives independently: Yes Household members: family Housing: House Marital status: Marital status details: 2001 Number of children: 2 Number of grandchildren: 0 Highest education level completed: Some College, No Degree service: No Current occupational status: employed Current occupation: [employer] Current occupational exposures/hazards: Yes (chemicals) Pets and animals: No Leisure activites: other Leisure activities details: write letters to Fabien, listen to yazdanism music, watch TV, listen to bird Sexually active: No Do you think of yourself as: Straight/Heterosexual Current gender identity: Male Mildred/Jehovah'S Witness: Sabianism Special mildred needs: No Agree to transfusion: Yes Mental Status Exam MSE Comments: This is an overweight versus obese white male with fairly tanned skin in hospital scrubs with limited grooming and poor eye contact. No abnormal involuntary motor movements except for significant psychomotor retardation. He was minimally cooperative with exam in no acute distress. His speech was limited and normal in rate and volume. Mood described as depressed. His affect was mood congruent and restricted in range. Thought process was linear. Thought content: Patient endorsed suicidal ideation without a clear plan. There was no evidence of homicidal ideation. There was no evidence of any delusional thinking. He did not appear to be responding to internal stimuli. His attention span was poor. His recent and remote memory appeared poor. His insight is feeble. His judgment is poor. His impulse control appeared limited. He was alert and oriented x 3. Vitals/I&O/Wt Last Vital Signs Temp 98 F 03/08/25 06:00 Pulse 77 03/08/25 06:00 Resp 16 03/08/25 06:00 BP 123/85 03/08/25 06:00 Pulse Ox 91 03/08/25 06:00 O2 Del Method Room Air 03/08/25 06:00 Weight last 48 hrs Weight 103.873 kg Weight 104.326 kg Data NPU 03/07/25 17:46 03/07/25 17:46 A&P Assessment and plan 1. Generalized anxiety disorder: 2. Methamphetamine use disorder, severe, dependence: 3. Suicidal ideations: 4. Cannabis use disorder: 5. History of bipolar disorder: 6. Depression, unspecified: Plan: This is a 54-year-old male with history of addiction and mental health challenges once again brought in to hospital involuntarily complaining of suicidal ideation while minimizing his own concern of substance abuse particularly methamphetamine use. 1. Continue medications from recent hospitalization. 2. Encourage individual, group and milieu therapy. 3. Continue to 15-minute checks for safety. 4. Encourage sober living treatment after discharge at the highest level care to which he is willing to commit. 5. Will attempt to gather collateral information. 6. Observe against the backdrop of the 96-hour hold. Patient will likely require inpatient substance abuse treatment. PDMP PDMP Reviewed: Not Reviewed Involuntary Hold Information Hold Status: Date/Time Hold Expires: vol 96 Hour Hold: 96 Hour Involuntary Admission: Yes Other Hold: Hold End Date: 03/13/24 Attestations NPU Medical Necessity Statement*: Inpatient hospitalization is medically necessary and deemed to ?be ?the clinically appropriate intervention ?at this time.? We will monitor/initiate medications and make changes as indicated.? The patient will be in the hospital for over 2 midnights.? Likely length of stay 3-5 days. Coding Level of Care Code Acute Code for [facility] Fwd Diagnoses Generalized anxiety disorder F41.1 Methamphetamine use disorder, severe, dependence F15.20 Suicidal ideations R45.851 Cannabis use disorder F12.90 History of bipolar disorder Z86.59 Depression, unspecified F32.A
[2025-03-08 13:39] VITALS: BP 112/71; PULSE 97; RESP 16; TEMP 36.9; O2SAT 91
[2025-03-08] MEDS: ATORVASTATIN 20 MG TABLET PO (20:22)
[2025-03-08 20:56] VITALS: BP 109/64; PULSE 83; RESP 18; TEMP 36.8; O2SAT 91
[2025-03-09 06:00] VITALS: BP 114/65; PULSE 84; RESP 16; TEMP 36.8; O2SAT 98
--- NOTE | 2025-03-09 10:54 | PC.NURSE ---
PRN MED PT GIVING 50MG VISTARIL FOR ANXIETY, WILL CONTINE TO GIULIA.
[2025-03-09 14:00] VITALS: BP 97/61; PULSE 76; RESP 16; TEMP 36.6; O2SAT 93
--- NOTE | 2025-03-09 15:37 | P.NPUPN_ITS ---
Subjective NPU 2 Subjective: 54-year-old male with depression and a h istory of psychosis admitted with suicidal ideation while currently endorsing use of methamphetamine. The patient had reported using methamphetamine last week. He states that he continues to feel depressed. He states that he is currently homeless and is hopeful about consideration for inpatient substance abuse treatment through the [facility]. He had been isolating himself in his room most of the day. He reported no side effects from his medication regimen. He had reported struggles with concentration. He had reported adequate appetite. Mental Status Exam 2 MSE Comments: This is an overweight versus obese white male with fairly tanned skin in hospital scrubs with limited grooming and poor eye contact. No abnormal involuntary motor movements except for significant psychomotor retardation. He was more cooperative with exam in no acute distress. His speech was limited and normal in rate and volume. Mood described as depressed. His affect was mood congruent and restricted in range. Thought process was linear. Thought content: Patient endorsed suicidal ideation without a clear plan. There was no evidence of homicidal ideation. There was no evidence of any delusional thinking. He did not appear to be responding to internal stimuli. His attention span was poor. His recent and remote memory appeared poor. His insight is poor. His judgment is poor. His impulse control appeared limited. He was alert and oriented x 3. Vitals/I&O/Wt Last Vital Signs Temp 98 F 03/09/25 14:00 Pulse 76 03/09/25 14:00 Resp 16 03/09/25 14:00 BP 97/61 03/09/25 14:00 Pulse Ox 93 03/09/25 14:00 O2 Del Method Room Air 03/09/25 14:00 Weight last 48 hrs Weight 103.873 kg Weight 104.326 kg Data NPU 03/07/25 17:46 03/07/25 17:46 A&P Assessment and plan 1. Generalized anxiety disorder: 2. Methamphetamine use disorder, severe, dependence: 3. Suicidal ideations: 4. Cannabis use disorder: 5. History of bipolar disorder: 6. Depression, unspecified: Plan: This is a 54-year-old male with history of addiction and mental health challenges once again brought in to hospital involuntarily complaining of suicidal ideation while minimizing his own concern of substance abuse particularly methamphetamine use. 1. Continue zyprexa 15mg at night and add prozac 10mg daily. 2. Encourage individual, group and milieu therapy. 3. Continue to 15-minute checks for safety. 4. Encourage sober living treatment after discharge at the highest level care to which he is willing to commit. 5. Will attempt to gather collateral information. 6. Observe against the backdrop of the 96-hour hold. Patient will likely require inpatient substance abuse treatment. PDMP PDMP Reviewed: Not Reviewed Involuntary Hold Information 2 Hold Status: Date/Time Hold Expires: vol 96 Hour Hold: 96 Hour Involuntary Admission: Yes Other Hold: Hold End Date: 03/13/24 Attestations NPU 2 Medical Necessity Statement*: Inpatient hospitalization is medically necessary and deemed to ?be ?the clinically appropriate intervention ?at this time.? We will monitor/initiate medications and make changes as indicated.? The patient's likely length of stay is 3-5 days. Coding Level of Care Code Acute Code for g Fwd Diagnoses Generalized anxiety disorder F41.1 Methamphetamine use disorder, severe, dependence F15.20 Suicidal ideations R45.851 Cannabis use disorder F12.90 History of bipolar disorder Z86.59 Depression, unspecified F32.A
[2025-03-09] MEDS: ATORVASTATIN 20 MG TABLET PO (20:51)
[2025-03-09 21:40] VITALS: BP 131/78; PULSE 76; RESP 18; TEMP 36.7; O2SAT 94
[2025-03-10 06:00] VITALS: BP 128/93; PULSE 71; RESP 18; TEMP 36.4; O2SAT 95
[2025-03-10 14:00] VITALS: BP 113/69; PULSE 72; RESP 16; TEMP 36.8; O2SAT 92
--- NOTE | 2025-03-10 14:05 | P.NPUPN_ITS ---
Subjective NPU 2 Subjective: 54-year-old male with depression and a h istory of psychosis admitted with suicidal ideation while currently endorsing use of methamphetamine. The patient had admitted to wanting to consider inpatient substance abuse treatment. He was agreeable to [facility] and stated that he had no option of returning to live with his mother as she now had a restraint on him. He had continued to isolate himself on the milieu and spent much of the day in bed. He had reported no side effects from his medication regimen. He had continued to report feeling depressed and stated that he would likely kill himself if he were to be discharged without a home. He continued to minimize the significance of his amphetamine use. He had reported no significant legal troubles currently. He had reported some improvement in regards to sleep. Mental Status Exam 2 MSE Comments: This is an overweight versus obese white male with fairly tanned skin in hospital scrubs with limited grooming and poor eye contact while lying in bed. No abnormal involuntary motor movements except for significant psychomotor retardation. He was more cooperative with exam in no acute distress. His speech was minimal with normal rate and volume. Mood described as depressed. His affect was mood congruent and restricted in range. Thought process was linear. Thought content: Patient endorsed suicidal ideation without a clear plan. There was no evidence of homicidal ideation. There was no evidence of any delusional thinking. He did not appear to be responding to internal stimuli. His attention span was poor. His recent and remote memory appeared poor. His insight is poor. His judgment is poor. His impulse control appeared limited. He was alert and oriented x to person, place, time and situation. Vitals/I&O/Wt Last Vital Signs Temp 97.5 F L 03/10/25 06:00 Pulse 71 03/10/25 06:00 Resp 18 03/10/25 06:00 BP 128/93 03/10/25 06:00 Pulse Ox 95 03/10/25 06:00 O2 Del Method Room Air 03/10/25 06:00 Data NPU 03/07/25 17:46 03/07/25 17:46 A&P Assessment and plan 1. Generalized anxiety disorder: 2. Methamphetamine use disorder, severe, dependence: 3. Suicidal ideations: 4. Cannabis use disorder: 5. History of bipolar disorder: 6. Depression, unspecified: Plan: This is a 54-year-old male with history of addiction and mental health challenges once again brought in to hospital involuntarily complaining of suicidal ideation while minimizing his own concern of substance abuse particularly methamphetamine use. 1. Continue zyprexa 15mg at night and increase prozac to 20mg daily. 2. Encourage individual, group and milieu therapy. 3. Continue to 15-minute checks for safety. 4. Encourage sober living treatment after discharge at the highest level care to which he is willing to commit. 5. Will attempt to gather collateral information. 6. Observe against the backdrop of the 96-hour hold. Patient will likely require inpatient substance abuse treatment and are seeking options for inpatient treatment. PDMP PDMP Reviewed: Not Reviewed Involuntary Hold Information 2 Hold Status: Date/Time Hold Expires: vol 96 Hour Hold: 96 Hour Involuntary Admission: Yes Other Hold: Hold End Date: 03/13/24 Attestations NPU 2 Medical Necessity Statement*: Inpatient hospitalization is medically necessary and deemed to ?be ?the clinically appropriate intervention ?at this time.? We will monitor/initiate medications and make changes as indicated.? The patient's likely length of stay is 3-5 days. Coding Level of Care Code Acute Code for g Fwd Diagnoses Generalized anxiety disorder F41.1 Methamphetamine use disorder, severe, dependence F15.20 Suicidal ideations R45.851 Cannabis use disorder F12.90 History of bipolar disorder Z86.59 Depression, unspecified F32.A
[2025-03-10] MEDS: ATORVASTATIN 20 MG TABLET PO (19:52)
[2025-03-10 19:56] VITALS: BP 98/61; PULSE 66; RESP 17; TEMP 36.7; O2SAT 95
[2025-03-11 06:00] VITALS: BP 101/68; PULSE 73; RESP 18; O2SAT 94
--- NOTE | 2025-03-11 13:39 | P.NPUPN_ITS ---
Subjective NPU 2 Subjective: 54-year-old male with depression and a h istory of psychosis admitted with suicidal ideation while currently endorsing use of methamphetamine. The patient had endorsed feeling sick today. He reported that he continued to wish that he be placed in a rehabilitation facility. He had reported that he was homeless. He reported that he would be willing to consider a [facility] where he could remain sober until a bed was found in [facility] which did not appear available until March. He had reported feeling tired. He continued to appear unmotivated and had an episode of emesis yesterday. He had reported no prior history of opiate misuse but did acknowledge using methamphetamines intermittently. Mental Status Exam 2 MSE Comments: This is an overweight versus obese white male with fairly tanned skin in hospital scrubs with limited grooming and poor eye contact while lying in bed. No abnormal involuntary motor movements except for significant psychomotor retardation. He was more cooperative with exam in no acute distress. His speech was minimal with normal rate and volume. Mood described as depressed. His affect was mood congruent and restricted in range. Thought process was linear. Thought content: Patient endorsed suicidal ideation without a clear plan. There was no evidence of homicidal ideation today. There was no evidence of any delusional thinking. He did not appear to be responding to internal stimuli. His attention span was poor. His recent and remote memory appeared poor. His insight is poor. His judgment is poor. His impulse control appeared limited. He was alert and oriented x to person, place, time and situation. Vitals/I&O/Wt Last Vital Signs Temp 98.1 F 03/10/25 19:56 Pulse 73 03/11/25 06:00 Resp 18 03/11/25 06:00 BP 101/68 03/11/25 06:00 Pulse Ox 94 03/11/25 06:00 O2 Del Method Room Air 03/11/25 06:00 Data NPU 03/07/25 17:46 03/07/25 17:46 A&P Assessment and plan 1. Generalized anxiety disorder: 2. Methamphetamine use disorder, severe, dependence: 3. Suicidal ideations: 4. Cannabis use disorder: 5. History of bipolar disorder: 6. Depression, unspecified: Plan: This is a 54-year-old male with history of addiction and mental health challenges once again brought in to hospital involuntarily complaining of suicidal ideation while minimizing his own concern of substance abuse particularly methamphetamine use. 1. Continue zyprexa 15mg at night and continue prozac at 20mg daily for depression. 2. Encourage individual, group and milieu therapy. 3. Continue to 15-minute checks for safety. 4. Encourage sober living treatment after discharge at the highest level care to which he is willing to commit. 5. Will attempt to gather collateral information. 6. Observe against the backdrop of the 96-hour hold. Patient will likely require inpatient substance abuse treatment and are seeking options for inpatient treatment. No beds nearby appear available. PDMP PDMP Reviewed: Not Reviewed Involuntary Hold Information 2 Hold Status: Date/Time Hold Expires: vol 96 Hour Hold: 96 Hour Involuntary Admission: Yes Other Hold: Hold End Date: 03/13/24 Attestations NPU 2 Medical Necessity Statement*: Inpatient hospitalization is medically necessary and deemed to ?be ?the clinically appropriate intervention ?at this time.? We will monitor/initiate medications and make changes as indicated.? The patient's likely length of stay is 3-5 days. Coding Level of Care Code Acute Code for [facility] Fwd Diagnoses Generalized anxiety disorder F41.1 Methamphetamine use disorder, severe, dependence F15.20 Suicidal ideations R45.851 Cannabis use disorder F12.90 History of bipolar disorder Z86.59 Depression, unspecified F32.A
[2025-03-11 14:00] VITALS: BP 115/82; PULSE 101; RESP 18; TEMP 36.8; O2SAT 96
--- NOTE | 2025-03-11 19:23 | PC.NURSE ---
This morning, Jose Roberto's mother came to the unit et asked nsg if we could tell (her) anything about Jose Roberto . In his chart, his [facility] form does not have her listed, et [employer] Jose Roberto Shepard was present et assisted in conversation with her. He advised that he had been given special permission one time to call her, et that it was as I told you, to see if you had an active restraining order against him or not . She was noted to acknowledge, et he continued .. you told me you do, so as I told you, that means, unfortunately, I can not communicate with you about him, and we can't actually tell you if he's here or not. Nursing advised in report, et sought out supervisory staff that she is not to be able to obtain information about him, nor visit him at this time.
[2025-03-11 20:08] VITALS: BP 117/76; PULSE 84; RESP 16; TEMP 36.6; O2SAT 96
[2025-03-11] MEDS: ATORVASTATIN 20 MG TABLET PO (20:48)
[2025-03-12 06:00] VITALS: BP 132/74; PULSE 71; RESP 16; O2SAT 95
--- NOTE | 2025-03-12 12:56 | P.NPUPN_ITS ---
Subjective NPU 2 Subjective: 54-year-old male with depression and a h istory of psychosis admitted with suicidal ideation while currently endorsing use of methamphetamine. Patient remained quite sedated today. He had reported that he was not feeling well but did not elaborate. He had been somewhat quiet and stated that he would be willing to consider another substance abuse facility if it was available as he stated that he was currently homeless and could not return home to his mother. He had reported difficulties with remaining sober off of methamphetamine for many years. He had reported no cravings for methamphetamine at this time. He continued to report depressed mood and endorsed feeling hopeless. Mental Status Exam 2 MSE Comments: This is an overweight versus obese white male with fairly tanned skin in hospital scrubs with limited grooming and poor eye contact while lying in bed appearing very sedated. No abnormal involuntary motor movements except for prominent psychomotor retardation. He was more cooperative with exam in no acute distress. His speech was minimally productive with normal prosody and volume. Mood described as depressed. His affect was mood congruent and restricted in range. Thought process was linear. Thought content: Patient denied suicidal ideation today. There was no evidence of homicidal ideation today. There was no evidence of any delusional thinking. He did not appear to be responding to internal stimuli. His attention span was poor. His recent and remote memory appeared poor. His insight is poor. His judgment is poor. His impulse control appeared limited. He was alert and oriented x to person, place, time and situation. Vitals/I&O/Wt Last Vital Signs Temp 97.9 F 03/11/25 20:08 Pulse 71 03/12/25 06:00 Resp 16 03/12/25 06:00 BP 132/74 03/12/25 06:00 Pulse Ox 95 03/12/25 06:00 O2 Del Method Room Air 03/12/25 06:00 Data NPU 03/07/25 17:46 03/07/25 17:46 A&P Assessment and plan 1. Generalized anxiety disorder: 2. Methamphetamine use disorder, severe, dependence: 3. Suicidal ideations: 4. Cannabis use disorder: 5. History of bipolar disorder: 6. Depression, unspecified: Plan: This is a 54-year-old male with history of addiction and mental health challenges once again brought in to hospital involuntarily complaining of suicidal ideation while minimizing his own concern of substance abuse particularly methamphetamine use. 1. Decrease zyprexa to 10mg at night secondary to excess sedation and increase Prozac to 30 mg daily. 2. Encourage individual, group and milieu therapy. 3. Continue to 15-minute checks for safety. 4. Encourage sober living treatment after discharge at the highest level care to which he is willing to commit. 5. Will attempt to gather collateral information. 6. Observe against the backdrop of the 96-hour hold. Patient will likely require inpatient substance abuse treatment and are seeking options for inpatient treatment. No beds nearby appear available at [facility] for 15 days. Will seek other inpatient substance abuse treatment facilities. PDMP PDMP Reviewed: Not Reviewed Involuntary Hold Information 2 Hold Status: Date/Time Hold Expires: vol 96 Hour Hold: 96 Hour Involuntary Admission: Yes Other Hold: Hold End Date: 03/13/24 Attestations NPU 2 Medical Necessity Statement*: Inpatient hospitalization is medically necessary and deemed to ?be ?the clinically appropriate intervention ?at this time.? We will monitor/initiate medications and make changes as indicated.? The patient's likely length of stay is 2-3 days. Coding Level of Care Code Acute Code for g Fwd Diagnoses Generalized anxiety disorder F41.1 Methamphetamine use disorder, severe, dependence F15.20 Suicidal ideations R45.851 Cannabis use disorder F12.90 History of bipolar disorder Z86.59 Depression, unspecified F32.A
[2025-03-12 14:00] VITALS: BP 124/80; PULSE 90; RESP 16; TEMP 36.6; O2SAT 96
[2025-03-12 21:00] VITALS: PULSE 76; RESP 16; O2SAT 98
[2025-03-12 21:58] VITALS: BP 119/84; PULSE 84; RESP 17; TEMP 36.4; O2SAT 95
[2025-03-13 06:00] VITALS: BP 96/66; PULSE 90; RESP 16; TEMP 36.5; O2SAT 98
[2025-03-13 14:00] VITALS: BP 102/63; PULSE 73; RESP 17; TEMP 37; O2SAT 95
--- NOTE | 2025-03-13 14:22 | P.NPUPN_ITS ---
Subjective NPU 2 Subjective: Patient presented today reporting that things are going okay. We discussed the fact that the treatment team is working with him to find appropriate sober living treatment in the community but was having limited success. We discussed continuing to work on this possibility given his frequent hospitalizations and significant recidivism with returns back to the hospital with continued relapse postdischarge. He was inquiring about the possibility of discharge tomorrow and we discussed that that was unlikely unless there was some appropriate placement identified. He denied any side effects to his medication. Mental Status Exam 2 MSE Comments: This is an overweight versus obese white male with fairly tanned skin in hospital scrubs with limited grooming but adequate eye contact. No abnormal involuntary motor movements except for resolving psychomotor retardation. He was more cooperative with exam in no acute distress. His speech was minimally productive with normal prosody and volume. Mood described as depressed. His affect was mood congruent and restricted in range. Thought process was linear. Thought content: Patient denied suicidal ideation today. There was no evidence of homicidal ideation today. There was no evidence of any delusional thinking. He did not appear to be responding to internal stimuli. His attention span was poor. His recent and remote memory appeared poor. His insight is poor. His judgment is poor. His impulse control appeared limited. He was alert and oriented x to person, place, time and situation. Vitals/I&O/Wt Last Vital Signs Temp 97.7 F 03/13/25 06:00 Pulse 90 03/13/25 06:00 Resp 16 03/13/25 06:00 BP 96/66 03/13/25 06:00 Pulse Ox 98 03/13/25 06:00 O2 Del Method Room Air 03/13/25 06:00 FiO2 21 03/12/25 21:00 Data NPU 03/07/25 17:46 03/07/25 17:46 A&P Assessment and plan 1. Generalized anxiety disorder: 2. Methamphetamine use disorder, severe, dependence: 3. Suicidal ideations: 4. Cannabis use disorder: 5. History of bipolar disorder: 6. Depression, unspecified: Plan: This is a 54-year-old male with history of addiction and mental health challenges once again brought in to hospital involuntarily complaining of suicidal ideation while minimizing his own concern of substance abuse particularly methamphetamine use. 1. Decrease zyprexa to 10mg at night secondary to excess sedation and increase Prozac to 30 mg daily. 2. Encourage individual, group and milieu therapy. 3. Continue to 15-minute checks for safety. Continue one-to-one at bedtime with his CPAP machine. 4. Encourage sober living treatment after discharge at the highest level care to which he is willing to commit. 5. Will attempt to gather collateral information. 6. Observe against the backdrop of the 96-hour hold. Patient will likely require inpatient substance abuse treatment and are seeking options for inpatient treatment. No beds nearby appear [facility] at [facility] [place] 2[facility] for 15 days. Will seek other inpatient substance abuse treatment facilities. PDMP PDMP Reviewed: Not Reviewed Involuntary Hold Information 2 Hold Status: Date/Time Hold Expires: vol 96 Hour Hold: 96 Hour Involuntary Admission: Yes Other Hold: Hold End Date: 03/13/24 Attestations NPU 2 Medical Necessity Statement*: Inpatient hospitalization is medically necessary and deemed to ?be ?the clinically appropriate intervention ?at this time.? We will monitor/initiate medications and make changes as indicated.? The patient's likely length of stay is 2-3 days. Coding Level of Care Code Acute Code for g Fwd Diagnoses Generalized anxiety disorder F41.1 Methamphetamine use disorder, severe, dependence F15.20 Suicidal ideations R45.851 Cannabis use disorder F12.90 History of bipolar disorder Z86.59 Depression, unspecified F32.A
[2025-03-13 15:12] LABS: HIV 1 & 2 Antigen Non-Reactive (Non-Reactiv)
[2025-03-13 15:16] LABS: Hepatitis A Antibody IgM Non-Reactive (Nonreactive)
[2025-03-13 15:44] LABS: Hepatitis B Surface Antigen Non-Reactive (Nonreactive)
[2025-03-13] MEDS: ATORVASTATIN 20 MG TABLET PO (20:10)
[2025-03-13 20:45] VITALS: BP 104/72; PULSE 93; RESP 18; TEMP 36.7; O2SAT 96
[2025-03-13 21:15] VITALS: PULSE 81; O2SAT 97
[2025-03-14 06:00] VITALS: BP 105/71; PULSE 68; RESP 17; TEMP 37.1; O2SAT 95
--- NOTE | 2025-03-14 12:34 | PC.NURSE ---
Pt.'s mother came into the facility today with a note that she wanted staff to give to her son. Signee informed the mother that there is a restraining order and there can not be any contact between the two of them and staff cannot communicate as a 3'd libertarian. The mother acted like she thought she could communicate with him, but he could not communicate with her.
[2025-03-14 14:25] VITALS: BP 118/75; PULSE 87; RESP 18; TEMP 36.9; O2SAT 96
[2025-03-14 15:35] LABS: HEP C RNA Viral Load Quant <1.18 NOT DETECTED Log IU/mL (NOT DETECTED); HEP C RNA Viral Load Quant <15 NOT DETECTED IU/mL (NOT DETECTED)
--- NOTE | 2025-03-14 17:28 | PC.NURSE ---
Pt. gave signee verbal permission to call [facility]16 and talk with them in regards to him.
[2025-03-14 17:42] VITALS: BP 118/75; PULSE 87; RESP 18; TEMP 36.9; O2SAT 96
--- NOTE | 2025-03-14 19:39 | P.NPUDS_ITS ---
Diagnoses at Discharge Discharge Diagnosis 1. Generalized anxiety disorder: 2. Methamphetamine use disorder, severe, dependence: 3. Suicidal ideations: 4. Cannabis use disorder: 5. History of bipolar disorder: 6. Depression, unspecified: Reason for Visit Reason for Visit: SI & HI Brief History: History of Present Illness Jose Roberto Dumont is a 54 year old male recently discharged from the neuropsychiatric unit on 02/23/2025 who presented to the emergency department indicating that he was homeless and had thoughts of suicide while reporting depression and increased sadness. The patient had minimized having used any amphetamine despite testing positive for amphetamines on admission along with marijuana. The patient was admitted to the neuropsychiatric unit for further evaluation and treatment. He reported no significant changes in his medication regimen since his last visit. He had reported no substantial changes or stressors that may have led to his return here to the neuropsychiatric unit. He reports that his mother had kicked him out of the house stating that she was not nice to him. He was unable to provide any further information regarding the details as to why he was back here again other than stating that he no longer had a place to stay. Psychiatric history: Bipolar 2 disorder, THC dependence, Alcohol use disorder, Current Medications: zyprexa 15mg at night, lisinopril 2.5 mg daily, metformin 500 mg twice a day, hydroxyzine, atorvastatin 20 mg at night, CPAP at night Medical history: Obstructive sleep apnea, prediabetes, essential hypertension, Excerpt from NPU Discharge summary from 01/23/25 below: Discharge Diagnosis 1. Generalized anxiety disorder: 2. Chronic post-traumatic stress disorde r: 3. Methamphetamine use disorder, severe: 4. Cannabis use disorder: 5. History of bipolar disorder: 6. Suicidal ideations: 7. Methamphetamine use disorder, severe, dependence: Reason for Visit HPI NPU History of Present Illness Jose Roberto Dumont is a 54 year old male who presented to the emergency department with the following report: Chief Complaint: Psychiatric Symptoms Stated Complaint: 96 Time Seen by Provider: 01/16/25 11:52 History of Present Illness: 54-year-old man with a history of anxiet y, PTSD, cannabis abuse, bipolar disorder, methamphetamine abuse, hypertension, hyperlipidemia and diabetes who presents emergency room on a court ordered 96-hour hold. He says he does not know why he is here. He says admittedly he stayed out late last night and had missed going to work and had been drinking and fishing with a friend. Rosi says basically the same thing. Says that when he arrived home this morning at 7 AM after being out all night he appeared intoxicated and was making a bunch of noises . He was admitted to the neuropsychiatric unit for definitive treatment of those issues. He is known to [facility] through inpatient and outpatient services and an excerpt of his last inpatient psychiatric discharge summary is included below for context and the fact that there have been no subsequent changes. He presented positive for cannabis and methamphetamine reporting that there is no reason for him to be here. He made multiple assertion that his mother was just not wanting him to have fine and the issue is that she is approved. He reports that he supposedly went [place] the river with some girl and his mom does not want him to get any sex. He reports that nothing has been going on and that he has been his normal self. However we discussed the fact that his drug screen was positive for cannabis and amphetamines suggesting that it is very possible that he has had behaviors that he does not even remember due to intoxication for induced psychotic symptoms. He acknowledges that he has not been taking his medication and was very uncooperative heard in his room screaming things up he thinks under his breath but very loud and disturbing the treatment milieu and making some patients uncomfortable. We discussed that the process of a 96-hour hold does not guarantee that he is here for that amount of time but that we have that amount of time to assess what is going on. We discussed that we would reach out to his mother and see what her thoughts were. We talked about the physician and the emergency department initially thinking about discharging him until some of his behaviors were noted and that he was certainly intoxicated and having some odd behaviors on admission. We discussed that we would be fair and evaluated the patient and that there is no reason why you have to stay the whole time if there is clear evidence that that is a reasonable approach. We discussed considering restarting his medications after discussion of the risks, benefits and alternatives he understood and agreed to proceed as documented in this note. Per his 10/02/2023 [facility] inpatient psychiatric discharge summary: Diagnoses at Discharge Discharge Diagnosis (1) Generalized anxiety disorder: Status: Chronic (2) Chronic post-traumatic stress disord er: Status: Chronic (3) Methamphetamine use disorder, severe : Status: Acute (4) Cannabis use disorder: Status: Acute (5) History of bipolar disorder: S tatus: Acute Reason for Visit Reason for Visit: Depression, SI Brief History: History of Present Illness Jose Roberto Dumont is a 52 year old male who presented to the emergency department the following report: Chief Complaint: Psychiatric Symptoms Stated Complaint: Depression, SI Time Seen by Provider: 10/02/23 13:09 History of Present Illness: 52-year-old man with a history of polysu bstance abuse and depression who presents to the emergency room with depression symptoms. He says he has been having thoughts of suicide. No specific plan at this time. He says he has been having some mild auditory hallucinations. He says he used to be on depression meds but stopped taking them and then started using marijuana and apparently was admitted to the hospital recently with a abscess on his arm which I believe was from IV drug use. He says he has an appointment to be admitted to [facility] for drug rehab on . However he would like to be admitted today for psy chiatric help. He was admitted to the neuropsychiatric unit for definitive treatment of those issues. He is known from previous hospitalizations with his last stay being back in 2019 and an excerpt of that discharge summary is included below for context. Patient presents today as a fairly limited historian secondary to lethargy likely secondary to withdrawing from methamphetamine as well as medi cations administered to assist him and maintaining decorum. He presented reporting that things have been really bad recently and that he had struggled to maintain his sobriety. He reports that things got really bad and he contacted [facility] with a goal of getting inpatient rehab. He reports that they gave him a bed date for 10/04/2023 but that he became very concerned that he would not be able to make it there or worse something bad was going to happen because he was so out of control. He brought himself to the hospital fearing his safety and ability to make it to rehab. He denied being able to maintain his previous outside medications and has not been attending any outpatient services for some time. His goal is to get to the rehab and hopefully be in a condition to function well there. We discussed the risks, benefits and alternatives of connecting with [facility] in the morning and identifying if the bed date was a take it tomorrow or leave it or if they would allow for any flexibility. We agreed that we would consider medications after we understood that reality. Per his 03/12/2020 [facility] inpatient psychiatric discharge summary: Discharge Diagnosis (1) Suicidal ideation: Status: Res olved (2) Alcohol dependence: Status: Re solved Qualifiers: Substance use status: with intoxication Complication of substance- induced condition: uncomplicated Qualified Code(s): F10.220 - Alcohol dependence with intoxication, uncomplicated (3) Amphetamine substance use disorder, moderate, in early remission: Status: Chronic (4) Alcohol intoxication: Status: Resolved Qualifiers: Complication of substance-induced condition: uncomplicated Qualified Code(s): F10.920 - Alcohol use, unspecified with intoxication, uncomplicated (5) Amphetamine intoxication: Stat us: Resolved Qualifiers: Complication of substance-induced condition: uncomplicated Qualified Code(s): F15.920 - Other stimulant use, unspecified with intoxication, uncomplicated Reason for Visit Reason for Visit: SI Brief History: History of Present Illness I have done this too many times. This is just a consequence for the life I have led. Jose Roberto Dumont is a 49 year old male who was admitted to the adult psychiatric unit on the strength of an affidavit filed by local police. Apparently, the officer was dispatched to the patient's home. It is unclear how police became aware that this man was suicidal. While being questioned, he made suicidal statements and that he wished we would just shoot him. The patient denies at this time that he is having thoughts of ending his life. He says that he is in acute crisis after having lost his job. He says that he is a lifetime of partying and he is suffering the consequences. Apparently, he was partying over the weekend. 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 He subsequently got to work, and passed out in the parking lot. He has now been terminated from his employment. He apparently then went back to where he was staying which is with his mother. His urine drug screen is positive for methamphetamine, marijuana, benzodiazepines, and his blood alcohol level was 144. He says that at this point, his major concern is being in the substance abuse withdrawal. We tried to discuss issues of mental health treatment. He said that he has been through it all and has been treated with all kinds of medications. None have worked. He is not interested in more medication treatment. We discussed his substance abuse history. He says that recently, he has been drinking between 5 and 10 shots per night. It is unknown if this is accurate. He uses marijuana on a regular basis. He says the methamphetamine and benzodiazepines are not a persistent problem for him and that it was more of a self-destructive act. He denied suicidal or homicidal ideation. He denied the presence of auditory or visual hallucinations. He refused to discuss symptoms of depression. He apparently has engaged in substance use in a maladaptive manner for most of his life. He says that his divorce and his estrangement from one of his 2 children is all due to his behavior when he has been inebriated or intoxicated. He has been through rehab on multiple occasions. He said that it provides him no benefit. He says the most effective intervention has been his active participation in either Alcoholics Anonymous or Narcotics Anonymous. He does not have a sponsor at this time. He has not been attending either at this time. Hospital Course Hospital Course Assessment and plan (1) Suicidal ideation: Status: Acut e (2) Alcohol dependence: Status: Acu te Qualifiers: Substance use status: with intoxication Complication of substance- induced condition: uncomplicated Qualified Code(s): F10.220 - Alcohol dependence with intoxication, uncomplicated (3) Amphetamine substance use disorder, moderate, in early remission: Status: Chronic (4) Alcohol intoxication: Status: A cute Qualifiers: Complication of substance-induced condition: uncomplicated Qualified Code(s): F10.920 - Alcohol use, unspecified with intoxication, uncomplicated (5) Amphetamine intoxication: Statu s: Acute Qualifiers: Complication of substance-induced condition: uncomplicated Qualified Code(s): F15.920 - Other stimulant use, unspecified with intoxication, uncomplicated Additional A&P Information Due to the psychiatric conditions and treatment listed in the Assessment and Plan - the patient requires continued hospitalization. Will provide a safe and therapeutic environment for patient.. Will continue inpatient treatment to allow for medication adjustment and monitoring. Will continue q15 min safety checks. Admission plan: It is likely that his assessment that this mental health issue is driven primarily by alcohol and substance abuse is accurate. He was not inc lined to discuss mental health interventions outside of alcohol and substance abuse. At this point, he was motivated to get through the withdrawal period and feel better so that he could think more clearly. We did not discuss issues of treatment with antidepressants or other medications. He was started on Seroquel 100 mg at bedtime and Ativan 1 mg 3 times daily which will be tapered throughout the withdrawal. He is on the [facility] protocol. Hospital day #3: Patient was exhibiting no signs of alcohol withdrawal. He reported that he was doing well. He was despondent about having to go home and look for a job. However he stated he was not going to be able to accomplish that while in the hospital and was requesting discharge. He was not an imminent risk to self or others. His wish was granted. Hospital Course Hospital Course He slowly acclimated to the individual, group and milieu therapies provided. He presented with the same core issues as he has in previous hospitalizations with significant addiction issues and recent relapse with significant conflict with his mother with whom he lives. He had been allowed to present voluntarily from this stay. We once again identified and discussed his positive methamphetamine and cannabis screens and began discussing the role that that drug could play in these repeat presentations to the hospital. We continued his home medications and added Prozac with him discharging on 30 mg p.o. daily. The absence of drugs of abuse, the continuation of home medication with addition of Prozac with access to some PRNs in addition to being in the treatment milieu led to a positive response. He worked with the social work team for appropriate outpatient services including some sober living specific treatment. His plan was reportedly to present at [facility] 3:16 and begin their program if they accept him. He had significant improvement during his stay and was able to contract for safety outside hospital prior to discharge. During the hospitalization, patient had routine laboratory studies which were within normal limits except for few outliers. Additionally there was a general medical evaluation which was also within normal limits and revealed no new acute processes. Discharge Summary: At the time of discharge, patient denied psychosis or lethality. Mood and anxiety were well managed. Patient endorsed a plan to avoid all drugs of abuse and follow-up with the aftercare recommendations of the treatment team. Patient was evaluated and deemed to be absent credible lethality, and had achieved the maximum benefit from an inpatient hospitalization, so was discharged. Involuntary Hold Information Hold Status: Date/Time Hold Expires: vol 96 Hour Hold: 96 Hour Involuntary Admission: Yes Other Hold: Hold End Date: 03/13/24 Mental Status Exam MSE Comments: This is an overweight versus obese white male with fairly tanned skin in hospital scrubs with limited grooming but adequate eye contact. No abnormal involuntary motor movements except for resolving psychomotor retardation. He was more cooperative with exam in no acute distress. His speech was normal and rate with normal prosody and volume. Mood described as better. His affect was mood congruent. Thought process was linear. Thought content: Patient denied suicidal or homicidal ideation. There was no evidence of any delusional thinking. He did not appear to be responding to internal stimuli. His attention span was improving. His recent and remote memory appeared improving. His insight, judgment and impulse control were limited but improving. He was alert and oriented x to person, place, time and situation. Discharge Data Studies Completed and Pending: Laboratory Results WBC 10.06 10^3/uL (3. 29-11.43) 03/07/25 17:46 RBC 5.13 10^6/uL (3.8 5-5.65) 03/07/25 17:46 Hgb 15.00 g/dL (11.27 -16.99) 03/07/25 17:46 Hct 45.9 % (37-53) 03/07/25 17:46 MCV 89.5 fl (82-101) 03/07/25 17:46 MCH 29.2 pg (27-33) 03/07/25 17:46 MCHC 32.7 g/dL (30-55) 03/07/25 17:46 RDW 12.8 % (12.1-15.1 ) 03/07/25 17:46 Plt Count 297 10^3/cmm (157 -399) 03/07/25 17:46 MPV 9.3 fL (7.4-10.4) 03/07/25 17:46 Neut % (Auto) 57.2 % 03/07/25 17:46 Lymph % (Auto) 34.1 % 03/07/25 17:46 [place] % (Auto) 6.7 % 03/07/25 17:46 Eos % (Auto) 1.1 % 03/07/25 17:46 Baso % (Auto) 0.7 % 03/07/25 17:46 Neut # (Auto) 5.76 10^3/uL (1.8 -7.7) 03/07/25 17:46 Lymph # (Auto) 3.4 10^3/uL (0.8- 4.8) 03/07/25 17:46 [place] # (Auto) 0.7 10^3/uL (0.2- 0.9) 03/07/25 17:46 Eos # (Auto) 0.1 10^3/uL (0.0- 0.8) 03/07/25 17:46 Baso # (Auto) 0.1 10^3/uL (0.0- 0.1) 03/07/25 17:46 Nucleated RBC % (a uto) 0 % 03/07/25 17:46 Nucleated RBCs # 0.0 /100WBC 03/07/25 17:46 Sodium 139 mmol/L (136-1 45) 03/07/25 17:46 Potassium 3.8 mmol/L (3.5-5 .1) 03/07/25 17:46 Chloride 100 mmol/L (98-10 7) 03/07/25 17:46 Carbon Dioxide 28 mmol/L (22-29) 03/07/25 17:46 Anion Gap 14.8 (5-19) 03/07/25 17:46 BUN 6 mg/dL (6-20) 03/07/25 17:46 Creatinine 0.8 mg/dL (0.7-1. 2) 03/07/25 17:46 GFR Calculation 100.4 mL/min (90- 130) 03/07/25 17:46 Glucose 136 mg/dL (65-115 ) H 03/07/25 17:46 Calculated Osmolal ity 288 mOsm/kg (285- 295) 03/07/25 17:46 Calcium 9.0 mg/dL (8.5-10 .5) 03/07/25 17:46 Total Bilirubin 0.2 mg/dL (0.15-1 .2) 03/07/25 17:46 AST 18 U/L (0-40) 03/07/25 17:46 ALT 18 U/L (0-41) 03/07/25 17:46 Alkaline Phosphata se 86 U/L (40-130) 03/07/25 17:46 Total Protein 6.9 g/dL (6.6-8.7 ) 03/07/25 17:46 Albumin 4.2 g/dL (3.5-5.2 ) 03/07/25 17:46 Globulin 2.7 g/dL (1.3-4.6 ) 03/07/25 17:46 Urine Color Yellow (Yellow) 03/07/25 17:20 Urine Appearance Clear (CLEAR) 03/07/25 17:20 Urine pH 7.5 (5-7) 03/07/25 17:20 Ur Specific Gravit y 1.007 (1.005-1.0 30) 03/07/25 17:20 Urine Protein Negative (Negati ve) 03/07/25 17:20 Urine Glucose (UA) Negative (Normal ) 03/07/25 17:20 Urine Ketones Negative (Negati ve) 03/07/25 17:20 Urine Blood Negative (Negati ve) 03/07/25 17:20 Urine Nitrate Negative (Negati ve) 03/07/25 17:20 Urine Bilirubin Negative (Negati ve) 03/07/25 17:20 Urine Urobilinogen 0.2 mg/dL (Negati ve) 03/07/25 17:20 Ur Leukocyte Trinh ase Negative (Negati ve) 03/07/25 17:20 Urine RBC 0-2 /hpf (0-2) 03/07/25 17:20 Urine WBC 0-5 /hpf (0-5) 03/07/25 17:20 Ur Squamous Epith Cells 0-5 /hpf (0-5) 03/07/25 17:20 Amorphous Sediment Not Reportable 03/07/25 17:20 Urine Bacteria None seen /hpf (N ONE) 03/07/25 17:20 Hyaline Casts 0-4 /lpf H 03/07/25 17:20 Salicylates < 0.3 mg/dL (3-10 ) L 03/07/25 17:46 Urine Opiates Scre en Negative ng/mL (N egative) 03/07/25 17:20 Acetaminophen < 5.0 ug/mL (10-3 0) L 03/07/25 17:46 Ur Barbiturates Sc reen Negative ng/mL (N egative) 03/07/25 17:20 Ur Phencyclidine S crn Negative ng/mL (N egative) 03/07/25 17:20 Ur Amphetamines Sc reen Positive ng/mL (N egative) H 03/07/25 17:20 U Benzodiazepines Scrn Negative ng/mL (N egative) 03/07/25 17:20 Urine Cocaine Scre en Negative ng/mL (N egative) 03/07/25 17:20 U Marijuana (THC) Screen Positive ng/mL (N egative) H 03/07/25 17:20 Ethyl Alcohol < 10 mg/dL (0-10) 03/07/25 17:46 Hepatitis A IgM Ab Non-reactive (No nreactive) 03/13/25 14:27 Hep Bs Antigen Non-reactive (No nreactive) 03/13/25 14:27 Hep Bs Antibody < 3.5 (11.5-1000 ) L 03/13/25 14:27 Hep B Core Total A b Non-reactive (No nreactive) 03/13/25 14:27 Hepatitis C Antibo dy Reactive (Nonrea ctive) H 03/13/25 14:27 HCV RNA (PCR) IUs/ ml <1.18 not detecte d Log IU/mL (NOT D ETECTED) 03/13/25 15:17 HCV RNA (PCR) IU l og10 <15 not detected IU/mL (NOT DETECTE D) 03/13/25 15:17 HIV 1&2 Ab & HIV 1 Ag Non-reactive (No n-Reactiv) 03/13/25 14:27 HIV 1&2 Antibody Non-reactive (No n-Reactiv) 03/13/25 14:27 Vitals: Last Vital Signs Temp 98.4 F 03/14/25 17:42 Pulse 87 03/14/25 17:42 Resp 18 03/14/25 17:42 BP 118/75 03/14/25 17:42 Pulse Ox 96 03/14/25 17:42 O2 Del Method Room Air 03/14/25 06:00 FiO2 21 03/13/25 21:15 Discharge Plan Discharge Patient Disposition: Home Condition: Stable Prescriptions: New fluoxetine 10 mg Capsule 30 mg PO DAILY 30 Days Qty: 90 1RF Continued haloperidol 5 mg Tablet 5 mg PO DAILY PRN (Reason: Agitation) 30 Days Qty: 30 1RF hydroxyzine pamoate 25 mg Capsule 50 mg PO Q6H PRN (Reason: Anxiety) 30 Days Qty: 120 1RF metformin 500 mg tablet 500 mg PO BID Qty: 180 1RF atorvastatin 20 mg tablet 20 mg PO BEDTIME 90 Days Qty: 90 1RF lisinopril 2.5 mg tablet 2.5 mg PO DAILY Qty: 90 1RF (DME) CPAP 6-16 cm mmHg setting with mask, tubing and supplies 6-16cm mmHg See Rx Instructions Rx Instructions: As directed olanzapine 15 mg tablet 15 mg PO BEDTIME Discharge Order = DC NOW: Discharge Order (Routine); Ordered 03/14/25 Ordered By: Stewart Ballard Referrals: Brigido Hamlin MD [[place] [facility] Discharge Diet: Low Salt Discharge Activity: Resume usual activity Patient Instructions: Abuse of Alcohol (DC), Opioid Safety, Patient Portal & Kristen Instructions Activity Restrictions/Additional Instructions: When you get to [facility] call [facility] and let staff know where to send you medication orders. Discharge Attestations NPU Time Spent in Discharge Care*: less than 30 min Specific Discharge Activities: Specific discharge activities: educating patient, discussing with child support case officer/social workers/dc planners, documenting/other paperwork and evaluating patient/reviewing data Status at Discharge: Cognitive status at discharge: cognitively intact , Behavioral status at discharge: cooperative , Coding Level of Care Code Acute Code for [facility] Fwd Diagnoses Generalized anxiety disorder F41.1 Methamphetamine use disorder, severe, dependence F15.20 Suicidal ideations R45.851 Cannabis use disorder F12.90 History of bipolar disorder Z86.59 Depression, unspecified F32.A
== END 2025-03-14 19:45 | disposition home or self-care (01) | DRG 753 ==
LOC: ER 18:40 → NP 19:57
PROVIDERS: Psychiatry & Neurology Psychiatry; Admitting Provider Psychiatry & Neurology Psychiatry; Emergency Provider Physician Assistant; PCP Family Medicine; Visit Provider Psychiatry & Neurology Psychiatry
DX: F31.9 Bipolar disorder, unspecified (principal); F41.1 Generalized anxiety disorder; F15.20 Other stimulant dependence, uncomplicated; R45.851 Suicidal ideations; Z59.00 Homelessness unspecified; I10 Essential (primary) hypertension; G47.33 Obstructive sleep apnea (adult) (pediatric); E66.9 Obesity, unspecified; Z68.29 Body mass index [BMI] 29.0-29.9, adult
CPT/HCPCS: 36415; 80053; 80306; 80307; 81001; 85025; 86705; 86706; 86709; 86803; 87340; 87522; 87806; 94660; 97150; 97165; 99285; J9999; Q0162; Q0163